=== PATIENT | female | born 1955 | race Caucasian/White ===

== ENCOUNTER → 2016-03-05 | Outpatient (CLI) | payer BC ==
[~2016-03-05] MED LIST: ALPR-411 PO; B-CO1CAP3 PO; CALC500C70 PO; CALC625T35 PO; DICL1GEL12 TOP; ESCI10TA17 PO; ESCI1TAB10 PO; FLV1 PO; FOLI1TAB7 PO; GARL10007 PO; HYDR-5688 PO; METO25TA3 PO; MULT-506 PO; OMEG10007 PO; SENNTAB23 PO; SIMV40TA2 PO; SULF800T23 PO; THIA1TAB11 PO; THM100 PO; VITACAP26 PO; XNXUNK; ZCRUNK; ZYP5 PO
--- NOTE | 2016-03-05 16:29 | DIAGNOSTIC IMAGING REPORT ---
LEFT HIP 2 VIEWS CLINICAL HISTORY: Trochanteric bursitis. FINDINGS: AP and frog-leg views of the left hip are obtained. No prior studies are available for comparison at the time of dictation. The skeletal structures are osteopenic. No fracture is seen in the left hip or the visualized left hemipelvis. The joint space of the left hip is preserved. Minimal sclerotic change is seen at the left sacroiliac joint. The overlying soft tissues are within normal limits. IMPRESSION: No acute bony abnormality is seen in the left hip. Electronically signed by: Brett Sainz M.D. 03/05/2016 4:27 PM Dictated Date/Time: 03/05/2016 4:26 PM
== END | disposition home or self-care (01) ==
LOC: C.RADBC 16:09
PROVIDERS: ATTEND Internal Medicine Geriatric Medicine
DX: M70.60 Trochanteric bursitis, unspecified hip (principal)

== ENCOUNTER → 2016-06-26 | Outpatient (CLI) | payer BC ==
[~2016-06-26] MED LIST changes: +BUSP5TAB59 PO
--- NOTE | 2016-06-26 08:44 | DIAGNOSTIC IMAGING REPORT ---
MRI left hip LEFT LOWER EXT JOINT WITHOUT CLINICAL HISTORY: LT HIP PAIN pain TECHNIQUE: Multiaxial MRI acquisition COMPARISON STUDY: None FINDINGS: Signal characteristics of the osseous structures are unremarkable throughout. There is no bone marrow replacing process. There is no significant joint effusion. There is no evidence for acetabular protrusion. There is a subtle increase in signal of the tissues immediately posterior to the greater trochanter on the left. A component of mild trochanteric bursitis is not excluded. All remaining soft tissue structures are unremarkable. All major ligamentous and tendinous structures are intact. IMPRESSION: Minimal/mild left trochanteric bursitis. Otherwise negative study Electronically signed by: Markus Rg M.D. 06/26/2016 8:43 AM Dictated Date/Time: 06/26/2016 8:36 AM
== END | disposition home or self-care (01) ==
LOC: C.MRIBC 07:34
PROVIDERS: ATTEND Orthopaedic Surgery
DX: M70.62 Trochanteric bursitis, left hip (principal)

== ENCOUNTER → 2016-09-05 | Outpatient (CLI) | payer BC ==
[~2016-09-05] MED LIST changes: -BUSP5TAB59 PO
== END | disposition home or self-care (01) ==
LOC: C.LABSPEC 13:38
PROVIDERS: ATTEND Physician Assistant
DX: L72.0 Epidermal cyst (principal)

== ENCOUNTER → 2016-09-24 | Outpatient (CLI) | payer BC ==
--- NOTE | 2016-09-24 15:42 | MAMMOGRAPHY REPORT ---
BILATERAL DIGITAL SCREENING MAMMOGRAM TOMOSYNTHESIS WITH CAD: 09/24/2016 CLINICAL HISTORY: Asymptomatic. Personal history of breast cancer. TECHNIQUE: Breast tomosynthesis in addition to standard 2D mammography was performed. Current study was also evaluated with a Computer Aided Detection (CAD) system. COMPARISON: Comparison is made to exams dated: 09/22/2015 mammogram, 09/20/2014 mammogram, 09/17/2013 m ammogram, 09/16/2012 mammogram, 09/14/2011 mammogram, and 09/12/2010 mammogram - [facility] enter. BREAST COMPOSITION: The tissue of both breasts is heterogeneously dense, which may obscure small mas ses. FINDINGS: A linear scar marker overlies the right upper outer periareolar breast. There is expected architectural distortion and surgical clips in the 12:00 posterior right breast, denoting the site of prior lumpectomy. No new suspicious mass, architectural distortion or cluster of microcalcification s is seen. IMPRESSION: ACR BI-RADS CATEGORY 1: NEGATIVE There is no mammographic evidence of malignancy. A 1 year screening mammogram is recommended. The pa tient will receive written notification of the results. Approximately 10% of breast cancers are not detected with mammography. A negative mammographic report should not delay biopsy if a clinically suggestive mass is present. Gely Birmingham M.D. ay/:09/24/2016 15:00:51 Mail Inserter: Eveline GRIJALVA)(Kin), [facility] letter sent: Normal 1/2 BI-RADS Code: ACR BI-RADS Category 1: Negative
== END | disposition home or self-care (01) ==
LOC: C.MAMM 09:25
PROVIDERS: ATTEND Internal Medicine Geriatric Medicine
DX: Z12.31 Encounter for screening mammogram for malignant neoplasm of breast (principal); Z85.3 Personal history of malignant neoplasm of breast

== ENCOUNTER → 2016-10-05 | Day surgery (SDC) | payer BC ==
--- NOTE | 2016-09-27 11:18 | DIAGNOSTIC IMAGING REPORT ---
RIGHT ELBOW MIN 3 VIEWS ROUTINE CLINICAL HISTORY: 61 years-old Female presenting with epidermal cyst, right elbow pain, elbow locking. TECHNIQUE: Frontal, oblique, and lateral views of the right elbow were obtained. COMPARISON: None. FINDINGS: Elbow joint congruent. Osteophytosis noted at the lateral epicondyle. No acute fracture or malalignment. Soft tissue swelling over the olecranon. No elbow joint effusion. IMPRESSION: 1. No acute osseous injury. 2. Enthesophyte at the lateral epicondyle. 3. Evidence of olecranon bursitis. Electronically signed by: Khoi Murphy M.D. 09/27/2016 11:16 AM Dictated Date/Time: 09/27/2016 11:14 AM
[2016-10-01 09:15] VITALS: Ht 163.8 cm; Wt 50.0 kg
[~2016-10-05] VITALS: Ht 163.8 cm; Wt 50.0 kg
[~2016-10-05] MED LIST changes: +ATROPINE SULFATE 0.1 MG/ML 5ML SYR IV PRN; +BUPIVACAINE/EPINEPHRINE 0.5% MPF 1:200,000 10 ML VIAL ONE; +CEFAZOLIN 1000MG/55 ML D5W IV SCH; +DEXAMETHASONE SOD INJ 4 MG/ML VIAL ONE; +EpHEDrine SULFATE INJ 50 MG/ML AMP IV PRN; +FENTANYL CITRATE INJ 50 MCG/1 ML 2 ML VIAL IV PRN; +FENTANYL CITRATE INJ 50 MCG/1 ML 2 ML VIAL ONE; +HYDROCODONE/ACETAMOPHEN 5/325MG TAB PO PRN; +LACTATED RINGER'S 1000ML 1,000 ML IV SCH; +LIDOCAINE HCL 2% 2 ML VIAL (20MG/ML) ONE; +MIDAZOLAM HCL 1 MG/ML 2ML VIAL ONE; +ONDANSETRON INJ 2 MG/ML 2 ML VIAL IV PRN; +ONDANSETRON INJ 2 MG/ML 2 ML VIAL ONE; +PROMETHAZINE HCL INJ 6.25 MG in SODIUM CHLORIDE 0.9% 50ML 50 ML IV PRN; +PROPOFOL IV EMULSION 10 MG/ML 20 ML VIAL IV ONE; +SODIUM CHLORIDE 0.9% 1000ML 1,000 ML IV SCH; -XNXUNK; -ZCRUNK
--- NOTE | 2016-10-05 08:00 | History & Physical Bridge Note ---
H&P Re-Evaluation Bridge Note: I have examined the patient, reviewed the History & Physical and in the interval since the performance of the History & Physical I have noted the following changes of clinical significance: No changes noted
--- NOTE | 2016-10-05 08:59 | [facility] Operative Report ---
Operative Report Operative Date Oct 05, 2016. Pre-Operative Diagnosis Right elbow soft tissue cyst Post-Operative Diagnosis Same Procedure(s) Performed Right Elbow Cyst Excision Surgeon Dr. Arredondo Erection [employer] Supervisor Surgeon(s) Christian Ward PA-C Estimated Blood Loss 5 ml Findings 4 cm soft tissue cyst with clear fluid. Specimens A. Right Elbow Soft Tissue Cyst Anesthesia LMA Complication(s) None Disposition Recovery Room / PACU I attest to the content of the Intraoperative Record and any orders documented therein. Any exceptions are noted below.
--- NOTE | 2016-10-05 09:01 | Discharge Instructions-SurgCtr ---
Discharge Instructions Date of Service Oct 05, 2016. Visit Reason for Visit: Epidermal Cyst;Elbow Locking,Elbow Pain Discharge Discharge Diagnosis / Problem: Epidermal Cyst; Elbow Locking, Elbow Pain Discharge Goals Goal(s): Decrease discomfort, Improve function Activity Recommendations Activity Limitations: as noted below Lifting Limitations: no more than 10 pounds Exercise/Sports Limitations: until after follow-up appointment May Resume Sexual Activity: after follow-up appointment Shower/Bathe: tomorrow Anesthesia . Post Anesthesia Instructions: If you have had General Anesthesia or IV Sedation: * Do not drive today. * Resume driving when surgeon permits. * Do not make important decisions or sign legal documents today. * Call surgeon for: 1. Temperature elevations greater than 101 degrees F. 2. Uncontrollable pain. 3. Excessive bleeding. 4. Persistent nausea and vomiting. 5. Medication intolerance (nausea, vomiting or rash). * For nausea and vomiting use only clear liquids such as: tea, soda, bouillon until nausea subsides, then gradually increase diet as tolerated. * If you have any concerns or questions, call your surgeon's office. If physician is unavailable and it is an emergency, call 911 or go to the nearest emergency room. . Instructions / Follow-Up Instructions / Follow-Up Please follow-up with Dr. Arredondo in the office in 1-2 weeks. Sutures can be removed in 14 days. Please call the office at [phone] to make an appointment if you do not have one already. Please call the office with any questions or concerns. Diet Recommendations Home Diet: no limitations, resume previous diet Pending Studies Studies pending at discharge: yes List of pending studies: Pathology report. Medical Emergencies . Who to Call and When: Medical Emergencies: If at any time you feel your situation is an emergency, please call 911 immediately. . Non-Emergent Contact Non-Emergency issues call your: Primary Care Provider, Surgeon Call Non-Emergent contact if: temperature is above 101.5, your pain is not controlled, wound has increased drainage, wound has increased redness . . "Provider Documentation" section prepared by Jessi Ward. . [place] Drug Monitoring Program Search Results: patient reviewed within database, no issues identified
[2016-10-05 09:47] VITALS: TEMP 36.4
--- NOTE | 2016-10-05 09:51 | Anesthesiology Progress Note ---
Anesthesia Post Op Note Date & Time Oct 05, 2016 at 09:51 Vital Signs Pain Intensity: 0 Vital Signs Past 12 Hours Date Time Temp Pulse Resp B/P (MAP) Pulse Ox O2 Delivery O2 Flow Rate FiO2 10/05/16 09:42 68 17 93 10/05/16 09:42 67 17 10/05/16 09:41 126/64 10/05/16 09:37 72 16 98 10/05/16 09:37 72 16 10/05/16 09:36 37.2 128/74 10/05/16 09:33 65 16 95 10/05/16 09:33 65 16 10/05/16 09:31 142/73 10/05/16 09:28 67 15 10/05/16 09:28 67 15 98 10/05/16 09:26 140/70 10/05/16 09:23 65 14 100 10/05/16 09:23 66 14 10/05/16 09:21 121/74 10/05/16 09:18 66 15 100 10/05/16 09:18 66 15 10/05/16 09:16 129/74 10/05/16 09:13 68 15 10/05/16 09:13 68 15 98 10/05/16 09:10 129/76 10/05/16 09:08 67 15 98 10/05/16 09:08 67 15 10/05/16 09:06 119/74 10/05/16 09:03 67 22 10/05/16 09:03 67 22 99 10/05/16 09:01 134/72 10/05/16 09:00 36.6 67 16 136/79 98 Mask 6 10/05/16 08:59 136/79 10/05/16 06:57 36.9 75 16 149/90 (109) 97 Room Air Notes Mental Status: alert / awake / arousable, participated in evaluation Pt Amnestic to Procedure: Yes Nausea / Vomiting: adequately controlled Pain: adequately controlled Airway Patency, RR, SpO2: stable & adequate BP & HR: stable & adequate Hydration State: stable & adequate Anesthetic Complications: no major complications apparent
--- NOTE | 2016-10-05 09:52 | OPERATIVE REPORT ---
DATE OF OPERATION: 10/05/2016 PREOPERATIVE DIAGNOSIS: Right elbow soft tissue cyst. POSTOPERATIVE DIAGNOSIS: Same, approximately 4 cm in diameter. PROCEDURE: Excision right elbow soft tissue cyst with multilayer closure. SURGEON: Dr. Arredondo. PLATE FORMER: Jessi Ward PA-C. ESTIMATED BLOOD LOSS: Approximately 5 mL. COMPLICATIONS: No immediate. ANESTHESIA: General with a laryngeal mask airway. DESCRIPTION OF PROCEDURE: After informed consent was obtained, the patient was taken to the operating suite and placed in the supine position. After successful placement of laryngeal mask airway, the right elbow was sterilely prepped and draped in usual fashion. I made a linear incision directly over the palpable cyst. It was carried down through the soft tissue using electrocautery. The cyst was very thin walled. A small hole was made in it, releasing clear serous-type fluid. We used traction, counter traction and electrocautery to excise the cyst in several pieces removing it in its entirety. Once the cyst was completely removed, we then controlled any small bleeding points using electrocautery. I thoroughly irrigated the wound and closed it in multiple layers using 3-0 Vicryl for the deeper layers and interrupted 3-0 Prolene with vertical mattress sutures for the skin. Marcaine was injected around it for postoperative analgesia and a sterile dressing was applied. The patient was awakened, extubated, and transferred to recovery in stable condition. I attest to the content of the Intraoperative Record and any orders documented therein. Any exception s are noted below.
[2016-10-05 10:33] VITALS: BP 144/77; PULSE 73; O2SAT 97
== END | disposition home or self-care (01) ==
LOC: X.SURG 06:29
PROVIDERS: ATTEND Surgery
DX: L72.0 Epidermal cyst (principal); G25.0 Essential tremor; I10 Essential (primary) hypertension; E78.5 Hyperlipidemia, unspecified; E87.1 Hypo-osmolality and hyponatremia; K21.9 Gastro-esophageal reflux disease without esophagitis; M85.80 Other specified disorders of bone density and structure, unspecified site; M19.90 Unspecified osteoarthritis, unspecified site; F41.8 Other specified anxiety disorders; F17.200 Nicotine dependence, unspecified, uncomplicated; Z79.899 Other long term (current) drug therapy

== ENCOUNTER 2016-10-06 19:20 | Inpatient (IN) | payer BC ==
[~2016-10-06] VITALS: Ht 162.6 cm; Wt 49.5 kg
[~2016-10-06 19:20] MED LIST changes: -ALPR-411 PO; -ATROPINE SULFATE 0.1 MG/ML 5ML SYR IV PRN; -B-CO1CAP3 PO; -BUPIVACAINE/EPINEPHRINE 0.5% MPF 1:200,000 10 ML VIAL ONE; -CALC500C70 PO; -CALC625T35 PO; -CEFAZOLIN 1000MG/55 ML D5W IV SCH; -DEXAMETHASONE SOD INJ 4 MG/ML VIAL ONE; -DICL1GEL12 TOP; -ESCI10TA17 PO; -EpHEDrine SULFATE INJ 50 MG/ML AMP IV PRN; -FENTANYL CITRATE INJ 50 MCG/1 ML 2 ML VIAL IV PRN; -FENTANYL CITRATE INJ 50 MCG/1 ML 2 ML VIAL ONE; -FLV1 PO; -FOLI1TAB7 PO; -GARL10007 PO; -HYDROCODONE/ACETAMOPHEN 5/325MG TAB PO PRN; -LACTATED RINGER'S 1000ML 1,000 ML IV SCH; -LIDOCAINE HCL 2% 2 ML VIAL (20MG/ML) ONE; -METO25TA3 PO; -MIDAZOLAM HCL 1 MG/ML 2ML VIAL ONE; -MULT-506 PO; -OMEG10007 PO; -ONDANSETRON INJ 2 MG/ML 2 ML VIAL IV PRN; -ONDANSETRON INJ 2 MG/ML 2 ML VIAL ONE; -PROMETHAZINE HCL INJ 6.25 MG in SODIUM CHLORIDE 0.9% 50ML 50 ML IV PRN; -PROPOFOL IV EMULSION 10 MG/ML 20 ML VIAL IV ONE; -SENNTAB23 PO; -SIMV40TA2 PO; -SODIUM CHLORIDE 0.9% 1000ML 1,000 ML IV SCH; -THIA1TAB11 PO; -THM100 PO; -ZYP5 PO
[2016-10-06] MEDS ORDERED: SODIUM CHLORIDE 0.9% 1000ML 1,000 ML IV ONE (19:39)
[2016-10-06] MEDS ORDERED: ONDANSETRON INJ 2 MG/ML 2 ML VIAL IV STA (19:39)
[2016-10-06] MEDS ORDERED: SODIUM CHLORIDE 0.9% 1000ML 1,000 ML IV STA ×2 (19:39→21:28)
[2016-10-06] MEDS ORDERED: PIPERACILLIN/TAZOBACTAM 4.5 GM/100ML D5W IV STA (19:39)
--- NOTE | 2016-10-06 19:51 | EMERGENCY ROOM VISIT NOTE ---
History Report prepared by Michaelibtheron: Brenda Clemente Under the Supervision of: Dr. Brett Martin M.D. First contact with patient: 19:25 Chief Complaint: VOMITING Stated Complaint: FEVER, HYPOTENSIVE, TACHYCARDIA History of Present Illness The patient is a 61 year old female who presents to the Emergency Room with complaints of persistent vomiting for the past 1 day. She was brought to the ED via EMS. The patient had a cyst removed from her right elbow yesterday by Dr. Arredondo. She states after the procedure, she went to get something to eat and "immediately started vomiting". She has been unable to keep anything down, even water, since then. This afternoon, she went to a local [facility] clinic for her symptoms and was found to be febrile with a temperature of 100.8. Her blood pressure was also found to be low, and the patient complained of feeling extremely dizzy, so an ambulance was called. She was treated with Tylenol and Zofran at [facility]. She states she has not had any pain from her procedure site and notes she was unaware she was running a fever until she got to [facility]. The patient denies any cough, shortness of breath, abdominal pain, urinary symptoms. She admits to drinking "1 or 2" alcoholic beverages each night and states she has not drank since before her procedure. She denies any history of ETOH withdrawal. Source of History: patient Onset: 1 day [employer] Position: other (global) Quality: other (fever) Timing: other (persistent) Modifying Factors (Relieving): tylenol Associated Symptoms: + nausea, No cough, No SOB, No abdominal pain, No urinary symptoms Review of Systems See HPI for pertinent positives & negatives. A total of 10 systems reviewed and were otherwise negative. Past Medical & Surgical Medical Problems: (1) Depression (2) History of breast cancer (3) Hyperlipidemia (4) Hypertension (5) Left hip pain (6) SIRS (systemic inflammatory response syndrome) (7) Tear of medial meniscus of left knee Social History Smoking Status: Current Every Day Smoker Smokeless Tobacco Use: No Alcohol Use: occasionally Drug Use: none Marital Status: Housing Status: lives with family Occupation Status: employed Current/Historical Medications Scheduled Alprazolam (Xanax), 0.5 MG PO BID B-Complex Vitamins (B Complex), 1 CAP PO QAM Calcium Polycarbophil (Fiber), 4 TAB PO BID Calcium/Vitamin D (Os-Justin 500 Plus D), 1 TAB PO QAM Diclofenac Sodium (Topical) (Voltaren 1% Top Gel), 1 DOSE TOP DAILY Escitalopram (Lexapro), 10 MG PO DAILY Fish Oil ([place]-3), 1 CAP PO QAM Garlic (Garlic), 1 TAB PO QAM Metoprolol Succ (Toprol Xl) (Toprol-Xl), 25 MG PO QAM Multivitamin (Multivitamin), 1 TAB PO QAM Sennosides-Docusate Sodium (Stool Softener), 1 TAB PO QAM Simvastatin (Zocor), 40 MG PO QPM Vitamins C & E (Vitamin C), 1 CAP PO QAM Scheduled PRN Hydrocodone/Acetaminophen 5MG/325MG ([place] 5MG/325MG), 1-2 TABLETS PO Q4 PRN for Pain Sulfamethoxazole-Trimethoprim (Bactrim Ds 800MG/160MG), 1 TAB PO BID PRN for post-op Allergies Coded Allergies: Codeine (Verified Adverse Reaction, Mild, NAUSEA, 10/05/16) Physical Exam Vital Signs Date Time Temp Pulse Resp B/P (MAP) Pulse Ox O2 Delivery O2 Flow Rate FiO2 10/06/16 22:31 86 22 99/60 98 Room Air 10/06/16 22:07 91 26 92/51 95 Room Air 10/06/16 22:01 91 24 66/46 95 Room Air 10/06/16 21:31 99 33 112/60 93 Room Air 10/06/16 21:01 93 84/54 92 Room Air 10/06/16 20:32 97 22 93/50 96 Room Air 10/06/16 20:13 Room Air 10/06/16 20:01 99 18 90/53 93 Room Air 10/06/16 19:59 97 10/06/16 19:32 36.8 101 18 96/61 96 Room Air Physical Exam GENERAL: Patient is in no acute distress. HEENT: No acute trauma, normocephalic atraumatic, mucous membranes are dry, no nasal congestion, no scleral icterus. NECK: No stridor, no adenopathy, no meningismus, trachea is midline. LUNGS: Decreased breath sounds bilaterally, no crackles, no wheezes, breath sounds equal HEART: Tachycardic heart rate, regular rhythm, no murmur ABDOMEN: Soft, nontender, bowel sounds positive, no hernias, no peritonitis. EXTREMITIES: No cyanosis or edema, full range of motion of all the joints without pain or difficulty, no signs for acute trauma. Right elbow incision without infection. NEUROLOGIC: Oriented x 3, no acute motor or sensory deficits, no focal weakness. The patient seems somewhat agitated. Tremors noted. SKIN: No rash, no jaundice, no diaphoresis. Medical Decision & Procedures ER Provider Diagnostic Interpretation: Radiology results as stated below per my review and radiologist interpretation: CHEST ONE VIEW PORTABLE CLINICAL HISTORY: Sepsis. COMPARISON STUDY: History of June 29, 2014. FINDINGS: No pneumothorax or pleural effusion is present. Interstitial thickening is unchanged and is chronic. Right apical opacity suggests scarring. There is a possible 7 mm right apical nodule. Cardiac size is normal. Mediastinal contours are normal. There is no evidence of pulmonary edema. There are several old right rib fractures. There are suspected postoperative findings within the right breast. IMPRESSION: 1. No acute cardiopulmonary findings. 2. Possible 7 mm right apical nodule. This likely reflects scarring although a nodule could appear similar. A nonemergent chest CT is recommended. Electronically signed by: Hector Johnson M.D. 10/06/2016 8:13 PM Laboratory Results 10/06/16 19:55 Red Blood Count 3.70, Mean Corpuscular Volume 101.4, Mean Corpuscular Hemoglobin 36.2, Mean Corpuscular Hemoglobin Concent 35.7, Mean Platelet Volume 10.5, Neutrophils (%) (Auto) 91.8, Lymphocytes (%) (Auto) 2.2, Monocytes (%) ( Auto) 3.8, Eosinophils (%) (Auto) 1.1, Basophils (%) (Auto) 0.0, Neutrophils # ( Auto) 10.40, Lymphocytes # (Auto) 0.25, Monocytes # (Auto) 0.43, Eosinophils # ( Auto) 0.12, Basophils # (Auto) 0.00 10/06/16 19:55 Test 10/06/16 19:55 10/06/16 20:14 10/06/16 22:20 White Blood Count 11.32 K/uL (4.8-10.8) Red Blood Count 3.70 M/uL (4.2-5.4) Hemoglobin 13.4 g/dL (12.0-16.0) Hematocrit 37.5 % (37-47) Mean Corpuscular Volume 101.4 fL (80-100) Mean Corpuscular Hemoglobin 36.2 pg (25-34) Mean Corpuscular Hemoglobin Concent 35.7 g/dl (32-36) Platelet Count 85 K/uL (130-400) Mean Platelet Volume 10.5 fL (7.4-10.4) Neutrophils (%) (Auto) 91.8 % Lymphocytes (%) (Auto) 2.2 % Monocytes (%) (Auto) 3.8 % Eosinophils (%) (Auto) 1.1 % Basophils (%) (Auto) 0.0 % Neutrophils # (Auto) 10.40 K/uL (1.4-6.5) Lymphocytes # (Auto) 0.25 K/uL (1.2-3.4) Monocytes # (Auto) 0.43 K/uL (0.11-0.59) Eosinophils # (Auto) 0.12 K/uL (0-0.5) Basophils # (Auto) 0.00 K/uL (0-0.2) RDW Standard Deviation 51.9 fL (36.4-46.3) RDW Coefficient of Variation 14.0 % (11.5-14.5) Immature Granulocyte % (Auto) 1.1 % Immature Granulocyte # (Auto) 0.12 K/uL (0.00-0.02) Platelet Estimate DECREASED Red Blood Cell Morphology Unremarkable Prothrombin Time 14.6 SECONDS (9.0-12.0) Prothromb Time International Ratio 1.3 (0.9-1.1) Activated Partial Thromboplast Time 35.8 SECONDS (21.0-31.0) Partial Thromboplastin Ratio 1.4 Anion Gap 7.0 mmol/L (3-11) Est Creatinine Clear Calc Drug Dose 35.9 ml/min Estimated GFR () 47.5 Estimated GFR (Non- 41.0 BUN/Creatinine Ratio 23.2 (10-20) Calcium Level 9.0 mg/dl (8.5-10.1) Magnesium Level 1.4 mg/dl (1.8-2.4) Total Bilirubin 0.4 mg/dl (0.2-1) Aspartate Amino Transf (AST/SGOT) 65 U/L (15-37) Alanine Aminotransferase (ALT/SGPT) 41 U/L (12-78) Alkaline Phosphatase 40 U/L (45-117) Troponin I 0.777 ng/ml (0-0.045) Total Protein 5.8 gm/dl (6.4-8.2) Albumin 2.8 gm/dl (3.4-5.0) Globulin 3.0 gm/dl (2.5-4.0) Albumin/Globulin Ratio 0.9 (0.9-2) Bedside Lactic Acid Venous 2.51 mmol/L (0.90-1.70) Urine Color YELLOW Urine Appearance CLOUDY (CLEAR) Urine pH >= 9.0 (4.5-7.5) Urine Specific [place] 1.021 (1.000-1.030) Urine Protein 1+ (NEG) Urine Glucose (UA) NEG (NEG) Urine Ketones NEG (NEG) Urine Occult Blood NEG (NEG) Urine Nitrite NEG (NEG) Urine Bilirubin NEG (NEG) Urine Urobilinogen NEG (NEG) Urine Leukocyte Esterase TRACE (NEG) Urine WBC (Auto) 5-10 /hpf (0-5) Urine RBC (Auto) 0-4 /hpf (0-4) Urine Hyaline Casts (Auto) 1-5 /lpf (0-5) Urine Epithelial Cells (Auto) >30 /lpf (0-5) Urine Bacteria (Auto) 1+ (NEG) Urine Renal Epithelial Cells 0-5 /lpf (0-5) Urine Yeast (Auto) (NONE PRSENT) Laboratory results reviewed by me. Medications Administered Medications (Trade) Dose Ordered Sig/Marisa Route Start Time Stop Time Status Last Admin Dose Admin Sodium Chloride 1,000 ml @ 999 mls/hr Q1H1M ONCE IV 10/06/16 19:39 10/06/16 20:39 DC 10/06/16 20:12 999 MLS/HR Piperacillin Sod/ Tazobactam Sod (Zosyn Iv) 4.5 gm ONE STAT IV 10/06/16 19:39 10/06/16 19:43 DC 10/06/16 20:13 4.5 GM Sodium Chloride 1,000 ml @ 125 mls/hr Q8H STAT IV 10/06/16 19:39 10/06/16 23:23 DC 10/06/16 20:13 125 MLS/HR Ondansetron HCl (Zofran Inj) 4 mg NOW STAT IV 10/06/16 19:39 10/06/16 19:43 DC 10/06/16 20:13 4 MG Lorazepam (Ativan Inj) 0.5 mg NOW STAT IV 10/06/16 20:43 10/06/16 20:45 DC 10/06/16 20:54 0.5 MG Magnesium Sulfate (Magnesium Sulfate) 2 gm NOW STAT IV 10/06/16 20:43 10/06/16 20:45 DC 10/06/16 20:55 2 GM Sodium Chloride 1,000 ml @ 999 mls/hr Q1H1M STAT IV 10/06/16 21:28 10/06/16 22:28 DC 10/06/16 22:08 999 MLS/HR Daptomycin 500 mg/ Sodium Chloride 60 ml @ 100 mls/hr NOW STAT IV 10/06/16 21:28 10/06/16 22:03 DC 10/06/16 22:08 100 MLS/HR Lorazepam (Ativan Inj) 1 mg Q2H PRN IV 10/06/16 22:30 11/05/16 22:29 10/06/16 23:04 1 MG ECG Indication: vomiting Rate (beats per minute): 92 Rhythm: normal sinus Findings: T-wave inversion (Anterior, lateral), no ectopy, other (No ST elevation) Comparison ECG Date: ST changes are new when compared to EKG from 09/27/2016 ED Course 1934: The patient was evaluated in room B5. A complete history and physical exam was performed. 1938: Zofran 4 mg IV, NSS 1000 ml @ 125 mls/hr IV, Zosyn 4.5 gm IV, NSS 1000 ml @ 999 mls/hr IV. 2042: Magnesium Sulfate 2 gm IV, Lorazepam 0.5 mg IV. 2114: I reevaluated the patient. She is resting comfortably. I discussed her results and my recommendation she remain in the hospital for further evaluation and management and she verbalized complete understanding and agreement. 2127: Daptomycin 500 mg/NSS 60 ml @ 100 mls/hr IV, NSS 1000 ml @ 999 mls/hr IV. 2135: I discussed the patients case with Dr. Rosen, [facility] Hospitalist. The patient will be further evaluated. Medical Decision The differential diagnoses considered are bacteremia, sepsis, pneumonia, UTI, dehydration, renal failure, cellulitis and withdrawal. There is a mild leukocytosis with a white count of 11,000, this could be consistent with infection. No concerning anemia. Renal panel testing shows some dehydration, no kidney failure, magnesium was low. There were a few scattered liver enzyme elevations. Lactic acid level was somewhat elevated consistent with possibly dehydration and/or sepsis. Chest x-ray did not show pneumonia or CHF. EKG showed a sinus rhythm with some ST changes concerning for possible ischemia or strain. Cardiac enzyme testing did show a slight troponin elevation consistent with possible cardiac injury. Of note, the patient denies chest pain. Urinalysis does not show infection but more so contamination. Blood cultures are pending. On exam, there was no cellulitis. The patient presents a history concerning for sepsis or bacteremia. She was aggressively managed. She was given IV saline, she received IV Zosyn and IV daptomycin as antibiotic coverage. Of note, the patient has a history of smoking and also daily alcohol use, she has not had any alcohol for the last several days and I am concerned that some of her presentation may be withdrawal. She was given a small dose of IV Ativan. She was given IV magnesium for the low magnesium level. I had a long talk with the patient. I do think hospitalization is required. She has numerous findings that require further workup. The patient did consent to a hospital stay. I spoke to case management. The on-call hospitalist was consulted. Medication Reconcilliation Current Medication List: was personally reviewed by me Blood Pressure Screening Patient's blood pressure: Low blood pressure Blood pressure disposition: Referred to PCP Consults Time Called: 2133 Consulting Physician: Dr. Rosen, [facility] Hospitalist Returned Call: 2135 I discussed the patients case with Dr. Rosen [facility] Hospitalist. The patient will be further evaluated. Impression Primary Impression: Sepsis Additional Impressions: Acute electrocardiogram changes Vomiting Elevated troponin Scribe Attestation The scribe's documentation has been prepared under my direction and personally reviewed by me in its entirety. I confirm that the note above accurately reflects all work, treatment, procedures, and medical decision making performed by me. Departure Information Dispostion Being Evaluated By Hospitalist Referrals Cruzito Teixeira M.D. (PCP) Patient Instructions My [facility] Problem Qualifiers
--- NOTE | 2016-10-06 20:15 | DIAGNOSTIC IMAGING REPORT ---
CHEST ONE VIEW PORTABLE CLINICAL HISTORY: Sepsis. COMPARISON STUDY: History of June 29, 2014. FINDINGS: No pneumothorax or pleural effusion is present. Interstitial thickening is unchanged and is chronic. Right apical opacity suggests scarring. There is a possible 7 mm right apical nodule. Cardiac size is normal. Mediastinal contours are normal. There is no evidence of pulmonary edema. There are several old right rib fractures. There are suspected postoperative findings within the right breast. IMPRESSION: 1. No acute cardiopulmonary findings. 2. Possible 7 mm right apical nodule. This likely reflects scarring although a nodule could appear similar. A nonemergent chest CT is recommended. Electronically signed by: Hector Johnson M.D. 10/06/2016 8:13 PM Dictated Date/Time: 10/06/2016 8:11 PM
[2016-10-06 20:38] LABS: BUN/CREATININE RATIO 23.2 (10-20); CREATININE 1.4 mg/dl (0.60-1.20); MAGNESIUM 1.4 mg/dl (1.8-2.4); POTASSIUM 3.7 mmol/L (3.5-5.1)
[2016-10-06 20:41] LABS: ALB/GLOB RATIO 0.9 (0.9-2)
[2016-10-06] MEDS ORDERED: MAGNESIUM SULFATE 1GM / D5W 1 GM BAG IV STA (20:43)
[2016-10-06] MEDS ORDERED: LORAZEPAM 2 MG/ML 1 ML VIAL IV STA (20:43)
[2016-10-06 20:44] LABS: INR 1.3 (0.9-1.1); PARTIAL THROMBOPLASTIN RATIO 1.4; PROTHROMBIN TIME (PATIENT) 14.6 SECONDS (9.0-12.0)
[2016-10-06 21:04] LABS: HEMATOCRIT 37.5 % (37-47); MEAN CELL VOLUME 101.4 fL (80-100); MEAN CORPUSCULAR HEMOGLOBIN 36.2 pg (25-34); MEAN CORPUSCULAR HGB CONC 35.7 g/dl (32-36); MEAN PLATELET VOLUME 10.5 fL (7.4-10.4); PLATELET COUNT 85 K/uL (130-400); WHITE BLOOD COUNT 11.32 K/uL (4.8-10.8)
[2016-10-06 21:05] LABS: COMPLETE YES; EOS % 1.1 %; IG% 1.1 %; LYMPH % 2.2 %; LYMPH ABS # 0.25 K/uL (1.2-3.4); MONO % 3.8 %; NEUT % 91.8 %; PLT ESTIMATE DECREASED
[2016-10-06] MEDS ORDERED: DAPTOmycin IV 500 MG in SODIUM CHLORIDE 0.9% 50ML 50 ML IV STA (21:28)
[2016-10-06] MEDS ORDERED: ALUMINUM/MAGNESIUM/SIMETH (MAALOX MAX) 30 ML UDC PO PRN (22:30)
[2016-10-06] MEDS ORDERED: ACETAMINOPHEN 325 MG TAB PO PRN (22:30)
[2016-10-06] MEDS ORDERED: NITROGLYCERIN 0.4 MG SL PER TAB CHARGE SL PRN (22:30)
[2016-10-06] MEDS ORDERED: LORAZEPAM 2 MG/ML 1 ML VIAL IV PRN (22:30)
[2016-10-06] MEDS ORDERED: POLYETHYLENE (MIRALAX) 17 GM PACK PO PRN (22:30)
[2016-10-06] MEDS ORDERED: HYDROCODONE/ACETAMOPHEN 5/325MG TAB PO PRN (22:30)
[2016-10-06] MEDS ORDERED: ONDANSETRON INJ 2 MG/ML 2 ML VIAL IV PRN (22:30)
[2016-10-06] MEDS ORDERED: MAGNESIUM HYDROXIDE SUSP 30 ML UDC PO PRN (22:30)
[2016-10-06 22:51] LABS: URINE APPEARANCE CLOUDY (CLEAR); URINE BILIRUBIN NEG (NEG); URINE COLOR YELLOW; URINE EPITHELIAL CELL AUTO >30 /lpf (0-5); URINE NITRITE NEG (NEG); URINE PH >= 9.0 (4.5-7.5); URINE SPECIFIC GRAVITY 1.021 (1.000-1.030); UROBILINOGEN NEG (NEG)
[2016-10-06] MEDS ORDERED: LORAZEPAM 2 MG/ML 1 ML VIAL ONE (22:56)
[2016-10-06 23:00] LABS: MANUAL MICROSCOPIC REQUIRED? NO; REVIEW REQ? YES
[2016-10-06 23:01] LABS: SULFASALICYLIC ACID POS (NEG)
[2016-10-06 23:20] VITALS: BP 80/54; PULSE 86; TEMP 37; O2SAT 95; Ht 162.6 cm; Wt 49.5 kg
[2016-10-06] MEDS: NSS + 20MEQ KCL 1000ML 1,000 ML IV SCH (23:37)
[2016-10-07] VITALS (7 sets, daily range): BP systolic 87–146; BP diastolic 53–86; PULSE 78–113; TEMP 36.9–37.2; O2SAT 91–100
[2016-10-07] MEDS ORDERED: CHLORDIAZEPOXIDE 25 MG CAP PO STA (00:20)
--- NOTE | 2016-10-07 00:25 | History and Physical ---
History & Physical Date & Time of Service: Oct 06, 2016 at 22:13 Chief Complaint: Fever, Hypotensive, Tachycardia Primary Care Physician: Cruzito Teixeira M.D. History of Present Illness Source: patient, family Patient had surgery on Saturday for cyst on right elbow. Since procedure, she has been dizzy, lightheaded and vomiting She has had chills, fevers. She has been very jitter for the past day and had to hold the [place] while ambulating. Cousin took to [employer] this evening and patient had a temperature of 100.8 ( 38.2) She has not had any coughing or shortness of breath. She has been unable to void in the past couple of days. She denies dysuria or urinary frequency. She denies neck stiffness or sensitivity to light. Patient states that she has not been eating well the past 2 days. Past Medical/Surgical History HTN HLD Anxiety Denies Asthma or COPD No cardiac problems Denies kidney or liver problems. Family History Noncontributory Social History Smoking Status: Current Every Day Smoker (1 pack per day) Smokeless Tobacco Use: No Alcohol Use: 1-2 mix; 4 fingers in height in medium glass; last drink was . Drug Use: none Marital Status: Housing status: lives with family Occupational Status: retired ([place]) Immunizations History of Influenza Vaccine: Unknown History of Tetanus Vaccine?: Unknown History of Pneumococcal: Unknown History of Hepatitis B Vaccine: Unknown Multi-Drug Resistant Organisms History of MDRO: No Allergies Coded Allergies: Codeine (Verified Adverse Reaction, Mild, NAUSEA, 10/05/16) Home Medications Scheduled Alprazolam (Xanax), 0.5 MG PO BID B-Complex Vitamins (B Complex), 1 CAP PO QAM Calcium Polycarbophil (Fiber), 4 TAB PO BID Calcium/Vitamin D (Os-Justin 500 Plus D), 1 TAB PO QAM Diclofenac Sodium (Topical) (Voltaren 1% Top Gel), 1 DOSE TOP DAILY Escitalopram (Lexapro), 10 MG PO DAILY Fish Oil (Half Way-3), 1 CAP PO QAM Garlic (Garlic), 1 TAB PO QAM Metoprolol Succ (Toprol Xl) (Toprol-Xl), 25 MG PO QAM Multivitamin (Multivitamin), 1 TAB PO QAM Sennosides-Docusate Sodium (Stool Softener), 1 TAB PO QAM Simvastatin (Zocor), 40 MG PO QPM Vitamins C & E (Vitamin C), 1 CAP PO QAM Scheduled PRN Hydrocodone/Acetaminophen 5MG/325MG ([place] 5MG/325MG), 1-2 TABLETS PO Q4 PRN for Pain Sulfamethoxazole-Trimethoprim (Bactrim Ds 800MG/160MG), 1 TAB PO BID PRN for post-op Review of Systems A 10 point review of systems was negative unless stated above. Physical Exam Vital Signs Date Time Temp Pulse Resp B/P (MAP) Pulse Ox O2 Delivery O2 Flow Rate FiO2 10/06/16 20:32 97 22 93/50 96 Room Air 10/06/16 20:13 Room Air 10/06/16 20:01 99 18 90/53 93 Room Air 10/06/16 19:59 97 10/06/16 19:32 36.8 101 18 96/61 96 Room Air General Appearance: WD/WN, + moderate distress, + pertinent finding (jittery) Head: normocephalic, atraumatic Eyes: normal inspection, EOMI ENT: hearing grossly normal, pharynx normal Neck: supple, no adenopathy, no JVD Respiratory/Chest: lungs clear, no respiratory distress Cardiovascular: no gallop, no murmur, + tachycardia Abdomen/GI: normal bowel sounds, non tender, soft Back: no CVA tenderness, no muscle spasm Extremities/Musculoskelatal: + pertinent finding (tremors) Neurologic/Psych: alert, normal mood/affect, oriented x 3, + pertinent finding (patient agitated and persitently trying to get out of bed; very unsteady gate) Skin: normal color, warm/dry, no rash Lymphatic: no adenopathy Diagnostics Laboratory Results Results Past 24 Hours Test 10/06/16 19:55 10/06/16 20:14 Range/Units White Blood Count 11.32 4.8-10.8 K/uL Red Blood Count 3.70 4.2-5.4 M/uL Hemoglobin 13.4 12.0-16.0 g/dL Hematocrit 37.5 37-47 % Mean Corpuscular Volume 101.4 80-100 fL Mean Corpuscular Hemoglobin 36.2 25-34 pg Mean Corpuscular Hemoglobin Concent 35.7 32-36 g/dl Platelet Count 85 130-400 K/uL Mean Platelet Volume 10.5 7.4-10.4 fL Neutrophils (%) (Auto) 91.8 % Lymphocytes (%) (Auto) 2.2 % Monocytes (%) (Auto) 3.8 % Eosinophils (%) (Auto) 1.1 % Basophils (%) (Auto) 0.0 % Neutrophils # (Auto) 10.40 1.4-6.5 K/uL Lymphocytes # (Auto) 0.25 1.2-3.4 K/uL Monocytes # (Auto) 0.43 0.11-0.59 K/uL Eosinophils # (Auto) 0.12 0-0.5 K/uL Basophils # (Auto) 0.00 0-0.2 K/uL RDW Standard Deviation 51.9 36.4-46.3 fL RDW Coefficient of Variation 14.0 11.5-14.5 % Immature Granulocyte % (Auto) 1.1 % Immature Granulocyte # (Auto) 0.12 0.00-0.02 K/uL Platelet Estimate DECREASED Red Blood Cell Morphology Unremarkable Prothrombin Time 14.6 9.0-12.0 SECONDS Prothromb Time International Ratio 1.3 0.9-1.1 Activated Partial Thromboplast Time 35.8 21.0-31.0 SECONDS Partial Thromboplastin Ratio 1.4 Sodium Level 136 136-145 mmol/L Potassium Level 3.7 3.5-5.1 mmol/L Chloride Level 102 98-107 mmol/L Carbon Dioxide Level 27 21-32 mmol/L Anion Gap 7.0 3-11 mmol/L Blood Urea Nitrogen 33 7-18 mg/dl Creatinine 1.40 0.60-1.20 mg/dl Est Creatinine Clear Calc Drug Dose 35.9 ml/min Estimated GFR () 47.5 Estimated GFR (Non- 41.0 BUN/Creatinine Ratio 23.2 10-20 Random Glucose 110 70-99 mg/dl Calcium Level 9.0 8.5-10.1 mg/dl Magnesium Level 1.4 1.8-2.4 mg/dl Total Bilirubin 0.4 0.2-1 mg/dl Aspartate Amino Transf (AST/SGOT) 65 15-37 U/L Alanine Aminotransferase (ALT/SGPT) 41 12-78 U/L Alkaline Phosphatase 40 45-117 U/L Troponin I 0.777 0-0.045 ng/ml Total Protein 5.8 6.4-8.2 gm/dl Albumin 2.8 3.4-5.0 gm/dl Globulin 3.0 2.5-4.0 gm/dl Albumin/Globulin Ratio 0.9 0.9-2 Bedside Lactic Acid Venous 2.51 0.90-1.70 mmol/L Microbiology Results 10/06/16 Blood Culture, Received Pending 10/06/16 Blood Culture, Received Pending Diagnostic Radiology CHEST ONE VIEW PORTABLE CLINICAL HISTORY: Sepsis. COMPARISON STUDY: History of June 29, 2014. FINDINGS: No pneumothorax or pleural effusion is present. Interstitial thickening is unchanged and is chronic. Right apical opacity suggests scarring. There is a possible 7 mm right apical nodule. Cardiac size is normal. Mediastinal contours are normal. There is no evidence of pulmonary edema. There are several old right rib fractures. There are suspected postoperative findings within the right breast. IMPRESSION: 1. No acute cardiopulmonary findings. 2. Possible 7 mm right apical nodule. This likely reflects scarring although a nodule could appear similar. A nonemergent chest CT is recommended. Impression Assessment and Plan 61 year old female presenting with fevers/chills, suspicious of infection of unclear etiology at this time. Our plan for her is as follows: Systemic Inflammatory Response of Unclear Source - Blood cultures pending - WBC 11; lactate 2.5 - No focal findings on chest x-ray - Right elbow surgical site looks intact without erythema or swelling - UA has leukocyte esterase without nitrites; has epithelial cells so may be contaminated specimen Will send for cultures - Blood cultures pending - Vancomycin and Zosyn empirically Acute Alcohol Withdrawal with Suspected Alcohol Abuse - EtOH DALIA assessments - Gabapentin Taper - Ativan PRN, per protocol - Librium Cap 100 mg once - IV Thiamine, Folate - Multivitamin daily Elevated Troponin - 0.777; New T wave inversion on inferior and anterolateral leads - patient denies chest pain, palpitation, SOB - Platelet count; will hold on giving high dose ASA unless patient complains of chest pain or evolving EKG changes noted - EKG qAM and with chest pain - Trend enzymes q 6 hours - Monitor in Telemetry - Possibly reflects supply-demand mismatch from acute illness Hypertension - HOLD antihypertensives at this time due to low blood pressure Hypomagnesemia - Mg 1.4 - 1 g Mag Sulfate Thrombocytopenia - Platelet in the 80s - Maybe reflect EtOH use - Follow daily Hyperlipidemia - Continue Simvastatin Depression - Continue Lexapro Apical Lung Nodule - Arrange for non-urgent CT at discharge Tobacco Abuse - Nicotine patch - Smoking cessation DVT prophylaxis - SCD - TEDS - Lovenox 30 mg Code Status: Level I Disposition: Telemetry - OT/PT orders Attending Addendum: I have physically seen and examined this patient, have supervised the medical residents activities, and agree with the H&P as noted above with the following exceptions as noted. The patient denies chest pain, palpitations, shortness of breath, cough, lower extremity swelling, vision change, hearing change, sore throat, abdominal pain, pelvic pain, blood in urine or stool, memory loss, rash, abnormal bruising or bleeding, focal weakness, generalized arthralgias or myalgias, back or neck pain, night sweats, or allergy symptoms. She reports a decreased appetite over the past few days, and difficulty ambulating need to hold onto [place]. She's been very jittery. She has expected right elbow tenderness post surgery. The review of systems is otherwise negative other than for that already noted above, and at least 10 systems have been reviewed. The patient is awake, well-developed and adequately nourished, alert and oriented 3, normocephalic and atraumatic, lying in bed and in no acute distress. HEENT--PERRL, EOMI, mucous membranes and oropharynx dry. Neck--supple, no JVD or bruits, thyroid normal, trachea midline, no adenopathy. Heart--normal S1 and S2, no extra beats, no murmurs, rubs or gallops. Lungs--clear bilaterally with good air movement, no respiratory distress, no accessory muscle use. Abdomen--normal bowel sounds and soft, nontender and nondistended, no hernias or masses, no organomegaly. Extremities--no cyanosis, clubbing or edema. There are good distal pulses b/l. Dermatologic--right elbow sutured, tender. Neurologic--cranial nerves II through XII grossly intact, motor and sensory examination normal. Rheumatologic--normal range of motion, nontender, muscles and joints. Psychiatric--normal affect. Assessment and Plan: 1. SIRS/acute alcohol withdrawal-- The patient will be admitted to monitored setting with alcohol protocol for gabapentin and Ativan. Thiamine IV and folate. Empiric Vancomycin and Zosyn IV. 2. Elevated troponin with new EKG changes--The patient will be admitted to telemetry for serial cardiac enzymes, cardiac rhythm monitoring and a 2-D echocardiogram with Dopplers. Questions supply demand mismatch versus more active issue. Level of Care Telemetry Advanced Directives Existing Advance Directive: No Existing Living Will: No Existing Power of Sales Analytics Manager: No Resuscitation Status FULL RESUSCITATION VTE Prophylaxis VTE Risk Assessment Done? Y/N: Yes Risk Level: Moderate Given or contraindicated: Enoxaparin (Lovenox)SQ Social Service Consult None Apply
[2016-10-07] MEDS ORDERED: GABAPENTIN 1200MG LOADING DOSE PO SCH ×2 (00:30)
[2016-10-07] MEDS ORDERED: VANCOMYCIN CONSULT ACTIVE PRN (00:45)
[2016-10-07] MEDS ORDERED: PIPERACILL/TAZOBAC CONSULT ACTIVE PRN (00:45)
[2016-10-07] MEDS ORDERED: MAGNESIUM SULFATE 1GM / D5W 1 GM in PREMIXED IN D5W 100 ML IV STA (00:46)
[2016-10-07] MEDS: PIPERACILL/TAZOBAC IV 3.375 GM in DEXTROSE 5% 100ML 100 ML IV SCH ×3 (02:09→17:43)
[2016-10-07] MEDS: LORAZEPAM 2 MG/ML 1 ML VIAL IV PRN ×7 (03:39→22:47)
[2016-10-07] MEDS ORDERED: VANCOMYCIN INJ 1,300 MG in SODIUM CHLORIDE 0.9% 250ML 250 ML IV SCH (04:00)
[2016-10-07 05:03] LABS: HEMATOCRIT 33.5 % (37-47); MEAN CELL VOLUME 101.5 fL (80-100); MEAN CORPUSCULAR HEMOGLOBIN 35.2 pg (25-34); MEAN CORPUSCULAR HGB CONC 34.6 g/dl (32-36); WHITE BLOOD COUNT 8.55 K/uL (4.8-10.8)
[2016-10-07 05:10] LABS: MEAN PLATELET VOLUME 10.3 fL (7.4-10.4); PLATELET COUNT 75 K/uL (130-400)
[2016-10-07 05:22] LABS: CKMB/CK RATIO 0.8 (0-3.0)
[2016-10-07 05:50] LABS: BASO % 0.1 %; BASO ABS # 0.01 K/uL (0-0.2); COMPLETE YES; ECHINOCYTES 1+; EOS % 2.7 %; IG% 0.9 %; LYMPH % 3.4 %; LYMPH ABS # 0.29 K/uL (1.2-3.4); MONO % 4.3 %; NEUT % 88.6 %; VACUOLIZATION 1+
[2016-10-07] MEDS: GABAPENTIN 600MG Q6H DOSE PO SCH ×2 (06:00→12:00)
--- NOTE | 2016-10-07 08:13 | DIAGNOSTIC IMAGING REPORT ---
CHEST ONE VIEW PORTABLE HISTORY: Hypoxia. increased o2 needs COMPARISON: Chest 10/06/2016. FINDINGS: The heart is normal in size. No pleural effusions. No pneumothorax. Old, healed right-sided rib fractures. Diffuse interstitial thickening, unchanged. No new focal lung consolidations. IMPRESSION: No change in the diffuse interstitial thickening which is likely chronic. No new focal lung consolidations. Electronically signed by: William Jane M.D. 10/07/2016 8:12 AM Dictated Date/Time: 10/07/2016 8:11 AM
[2016-10-07] MEDS: ENOXAPARIN 30 MG/0.3 ML SYR SC SCH (08:34)
[2016-10-07] MEDS: FoLIC ACID INJ 1 MG in SYRINGE 9.8 ML IV SCH (08:34)
[2016-10-07] MEDS: MULTIVITAMIN TAB PO SCH (08:35)
[2016-10-07] MEDS: DICLOFENAC SOD 1% GEL 100 GM TUBE EXT SCH (08:35)
[2016-10-07] MEDS: ALPRAZOLAM 0.5 MG TAB PO SCH ×2 (09:00→20:05)
[2016-10-07] MEDS: ESCITALOPRAM OXALATE 10 MG TAB PO SCH (09:00)
[2016-10-07] MEDS ORDERED: VANCOMYCIN INJ 1,000 MG in SODIUM CHLORIDE 0.9% 250ML 250 ML IV SCH (09:00)
[2016-10-07] MEDS: DOCUSATE SODIUM/SENNA 50/8.6MG TAB PO SCH (09:00)
[2016-10-07] MEDS: THIAMINE HCL INJ 200 MG in SODIUM CHLORIDE 0.9% 50ML 50 ML IV SCH (09:17)
[2016-10-07] MEDS: NICOTINE 14 MG/24 HR TDSY TD SCH (10:54)
[2016-10-07] MEDS: NSS + 20MEQ KCL 1000ML 1,000 ML IV SCH ×2 (10:54→22:16)
[2016-10-07 11:10] LABS: CKMB/CK RATIO 1.4 (0-3.0); CREATININE 0.99 mg/dl (0.60-1.20)
--- NOTE | 2016-10-07 11:47 | Pharmacy Progress Note ---
Pharmacy Abx Initial Consult Date of Service Oct 07, 2016. Pharmacy Dosing Scope Date of Consult: 10/07/16 Consultation requested by: Dr. Rosen Pharmacy is consulted to initiate Vancomycin and Zosyn IV dosing therapy, order appropriate labs and adjust drug dose/frequency. Subjective The patient is a 61 year old female admitted on Oct 06, 2016 at 22:32. Objective Height (Feet): 5 Height (Inches): 4.00 Weight (Kilograms): 51.900 Vital Signs (Past 12Hrs) Vital Signs Past 12 Hours Date Time Temp Pulse Resp B/P (MAP) Pulse Ox O2 Delivery O2 Flow Rate FiO2 10/07/16 08:00 Room Air 10/07/16 07:00 37.2 82 21 101/65 (77) 98 Nasal Cannula 3.0 10/07/16 04:00 Room Air 10/07/16 02:45 37.2 95 21 95/57 (70) 91 Room Air 10/06/16 23:59 Room Air Lab Results (24Hrs) Laboratory Tests (24 Hours) Test 10/07/16 04:32 10/07/16 10:21 White Blood Count 8.55 K/uL (4.8-10.8) Red Blood Count 3.30 M/uL (4.2-5.4) L Hemoglobin 11.6 g/dL (12.0-16.0) L Hematocrit 33.5 % (37-47) L Mean Corpuscular Volume 101.5 fL (80-100) H Mean Corpuscular Hemoglobin 35.2 pg (25-34) H Mean Corpuscular Hemoglobin Concent 34.6 g/dl (32-36) Platelet Count 75 K/uL (130-400) L Mean Platelet Volume 10.3 fL (7.4-10.4) Neutrophils (%) (Auto) 88.6 % Lymphocytes (%) (Auto) 3.4 % Monocytes (%) (Auto) 4.3 % Eosinophils (%) (Auto) 2.7 % Basophils (%) (Auto) 0.1 % Neutrophils # (Auto) 7.57 K/uL (1.4-6.5) H Lymphocytes # (Auto) 0.29 K/uL (1.2-3.4) L Monocytes # (Auto) 0.37 K/uL (0.11-0.59) Eosinophils # (Auto) 0.23 K/uL (0-0.5) Basophils # (Auto) 0.01 K/uL (0-0.2) Total Creatine Kinase 90 U/L (26-192) Micro Results Date/Time Source Procedure Growth Status 10/06/16 20:05 Blood Blood Culture Pending Received 10/06/16 19:55 Blood Blood Culture Pending Received 10/07/16 05:22 Urine , Clean Catch Urine Culture Pending Received Risk Factors for Resistance None identified at this time Assessment & Plan Assessment 61 year old female on empiric IV Vancomycin and Zosyn for SIRS (unknown source of infection). Possible UTI. * Presents with acute kidney injury. sCr was 1.4 mg/dL upon admission, but has improved to 0.99 mg/dL today. Baseline sCr ~0.7 mg/dL. Plan Vancomycin IV * Maintenance dose: 750 mg IV (~14 mg/kg) every 16 hours * Goal trough level for possible UTI/unknown infection : ~15 mcg/mL * Trough level ordered for 10/09 @ 0530 (only prior to the 3rd dose and therefore not reflective of steady state, but would like to assess dosing regimen earlier due to possibly changing renal function) Piperacillin/tazobactam * 4.5 g bolus administered over 30 minutes, then 3.375 g IV extended infusion every 8 hours for CrCl greater than 20 mL/min Pharmacy will continue to follow and will adjust dose/frequency as necessary. Thank you.
--- NOTE | 2016-10-07 12:28 | Pre-Operative Consultation ---
History General Date of Service: Oct 07, 2016. HPI HPI: The patient is a 61 year old female being seen to evaluate recent right elbow cyst excision by Dr Arredondo. She was admitted with possible sepsis. She was seen in urgent care with complaints of nausea and was found to be febrile with hypotension and sent to ED. She does not complain of increased elbow pain or limited movement. Recent labs show an elevation in her troponin levels consistent with a possible AMI. Historian: patient, family Risk Assessment Daily beta landen use?: Yes Beta Landen Details Indication Beta Landen use: hypertension Problem List Medical Problems: (1) Acute electrocardiogram changes Status: Acute (2) Elevated troponin Status: Acute (3) Sepsis Status: Acute (4) Vomiting Status: Acute Medical & Surgical History Past Medical History: cancer - breast, depression, high cholesterol, hypertension Past Surgical History: D&C, orthopedic surgery Family History Family History: cancer Social History Hx Tobacco Use In Past Year?: No Smoking Status: Current Every Day Smoker (1 pack per day) Alcohol: occasionally Drug Use: none Marital status: Housing status: lives with family Occupation status: retired ([place]) Immunizations Have You Had Influenza Vaccine: Unknown Have You Had Tetanus Vaccine: Unknown History of Pneumococcal: Unknown History Hepatitis B Vaccine: Unknown Allergies Allergies: Coded Allergies: Codeine (Verified Adverse Reaction, Mild, NAUSEA, 10/05/16) Medications Current Inpatient Medications Current Inpatient Medications Medications (Trade) Dose Ordered Sig/Marisa Route Start Time Stop Time Status Last Admin Dose Admin Enoxaparin Sodium (Lovenox Inj) 30 mg Q24H SC 10/07/16 09:00 11/06/16 08:59 10/07/16 08:34 30 MG Potassium Chloride/Sodium Chloride 1,000 ml @ 100 mls/hr Q10H IV 10/06/16 23:30 11/05/16 23:29 10/07/16 10:54 100 MLS/HR Acetaminophen (Tylenol Tab) 650 mg Q4H PRN PO 10/06/16 22:30 11/05/16 22:29 10/07/16 03:38 650 MG Al Hydrox/Mg Hydrox/Simethicone (Maalox Max Susp) 15 ml Q4H PRN PO 10/06/16 22:30 11/05/16 22:29 Magnesium Hydroxide (Milk Of Magnesia Susp) 30 ml Q12H PRN PO 10/06/16 22:30 11/05/16 22:29 Ondansetron HCl (Zofran Inj) 4 mg Q6H PRN IV 10/06/16 22:30 11/05/16 22:29 Nitroglycerin (Nitrostat Tab) 0.4 mg UD PRN SL 10/06/16 22:30 11/05/16 22:29 Polyethylene (Miralax Powder Packet) 17 gm DAILY PRN PO 10/06/16 22:30 11/05/16 22:29 Nicotine (Nicoderm Cq 14MG Patch) 1 patch QAM TD 10/07/16 09:00 11/06/16 08:59 10/07/16 10:54 1 PATCH Miscellaneous (Remove Nicoderm Patch) 1 ea HS N/A 10/07/16 21:00 11/06/16 20:59 Thiamine HCl 200 mg/Sodium Chloride 52 ml @ 208 mls/hr QAM IV 10/07/16 09:00 11/06/16 08:59 10/07/16 09:17 208 MLS/HR Folic Acid 1 mg/ Syringe 10 ml @ 5 mls/min QAM IV 10/07/16 09:00 11/06/16 08:59 10/07/16 08:34 5 MLS/MIN Alprazolam (Xanax Tab) 0.5 mg BID PO 10/07/16 09:00 11/06/16 08:59 Diclofenac Sodium (Voltaren 1% Top Gel) 1 appln DAILY EXT 10/07/16 09:00 11/06/16 08:59 10/07/16 08:35 1 APPLN Escitalopram Oxalate (Lexapro Tab) 10 mg DAILY PO 10/07/16 09:00 11/06/16 08:59 Acetaminophen/ Hydrocodone Bitart (Purmela 5/325 Tab) 1 tab Q4 PRN PO 10/06/16 22:30 10/20/16 22:29 Multivitamins (Multivitamin Tab) 1 tab QAM PO 10/07/16 09:00 11/06/16 08:59 Senna/Docusate Sodium (Senokot S Tab) 1 tab QAM PO 10/07/16 09:00 11/06/16 08:59 Simvastatin (Zocor Tab) 40 mg QPM PO 10/07/16 21:00 11/06/16 20:59 Lorazepam (Ativan Inj) PRN Dosing -Active Protocol Q1H PRN IV 10/07/16 00:30 11/06/16 00:29 10/07/16 10:54 2 MG Piperacillin Sod/ Tazobactam Sod 3.375 gm/Dextrose 115 ml @ 28.75 mls/ hr Q8H IV 10/07/16 02:00 10/17/16 01:59 10/07/16 09:16 28.75 MLS/HR Vancomycin HCl (Consult) 1 ea UD PRN N/A 10/07/16 00:45 11/06/16 00:44 Piperacillin Sod/ Tazobactam Sod (Consult) 1 ea UD PRN N/A 10/07/16 00:45 11/06/16 00:44 Gabapentin (Neurontin Tab) 600 mg Q8H PO 10/07/16 20:00 10/08/16 12:01 Gabapentin (Neurontin Tab) 600 mg Q12H PO 10/09/16 00:00 10/09/16 12:01 Gabapentin (Neurontin Tab) 600 mg Q24H PO 10/10/16 12:00 10/10/16 12:01 Vancomycin HCl 750 mg/Sodium Chloride 265 ml @ 125 mls/hr Q16H IV 10/07/16 22:00 10/17/16 21:59 Review of Systems Review of Systems Constitutional: denies chills, denies diaphoresis, fever, denies weakness Eyes: reports: no symptoms ENT: reports: no symptoms reported Cardiovascular: denies: chest pain, chest tightness, chest pressure Respiratory: denies: cough, short of breath, stridor Gastrointestinal: denies abdominal pain, denies constipation, denies diarrhea, nausea, denies vomiting Genitourinary - Female: reports: no symptoms Musculoskeletal: denies back pain, joint pain (post-op), joint swelling (post- op), denies muscle stiffness, denies neck pain Integumentary: denies change in hair/nails, denies dryness, denies lumps, denies rash Neurologic: reports: no symptoms Psychiatric: reports: no symptoms Endocrine: no symptoms Hematologic / Lymphatic: no symptoms Allergic / Immunologic: no symptoms Physical Exam Physical Exam General Appearance: + WD/WN Ears, Nose, Throat: + normal ENT inspection Neck: + abnormal inspection, No tracheal deviation, No lymphadenophy, No stiffness, No tenderness Respiratory: + decreased breath sounds, No rales, No rhonchi, No stridor Cardiovascular: No tachycardia, No gallop/S3, No diastolic murmur, No gallop/S4 , No bradycardia, No systolic murmur Abdomen: No abnormal bowel sounds, No tenderness, No distension, No hernia Extremities: + swelling (right elbow; normal erythema; no fluctuance), No abnormal range of motion, No deformity, No inflammation Neurologic/Psychiatric: No motor deficit/weakness, No disorientation, No sensory deficit Skin Characteristics: No diaphoresis, No pallor, No jaundice, No rash Lymphatic: No abnormal adenopathy Diagnostics Labs Labs Results Past 24 Hours Test 10/06/16 19:55 10/06/16 20:14 10/06/16 22:20 10/06/16 23:48 Range/Units White Blood Count 11.32 4.8-10.8 K/uL Red Blood Count 3.70 4.2-5.4 M/uL Hemoglobin 13.4 12.0-16.0 g/dL Hematocrit 37.5 37-47 % Mean Corpuscular Volume 101.4 80-100 fL Mean Corpuscular Hemoglobin 36.2 25-34 pg Mean Corpuscular Hemoglobin Concent 35.7 32-36 g/dl Platelet Count 85 130-400 K/uL Mean Platelet Volume 10.5 7.4-10.4 fL Neutrophils (%) (Auto) 91.8 % Lymphocytes (%) (Auto) 2.2 % Monocytes (%) (Auto) 3.8 % Eosinophils (%) (Auto) 1.1 % Basophils (%) (Auto) 0.0 % Neutrophils # (Auto) 10.40 1.4-6.5 K/uL Lymphocytes # (Auto) 0.25 1.2-3.4 K/uL Monocytes # (Auto) 0.43 0.11-0.59 K/uL Eosinophils # (Auto) 0.12 0-0.5 K/uL Basophils # (Auto) 0.00 0-0.2 K/uL RDW Standard Deviation 51.9 36.4-46.3 fL RDW Coefficient of Variation 14.0 11.5-14.5 % Immature Granulocyte % (Auto) 1.1 % Immature Granulocyte # (Auto) 0.12 0.00-0.02 K/uL Platelet Estimate DECREASED Red Blood Cell Morphology Unremarkable Prothrombin Time 14.6 9.0-12.0 SECONDS Prothromb Time International Ratio 1.3 0.9-1.1 Activated Partial Thromboplast Time 35.8 21.0-31.0 SECONDS Partial Thromboplastin Ratio 1.4 Sodium Level 136 136-145 mmol/L Potassium Level 3.7 3.5-5.1 mmol/L Chloride Level 102 98-107 mmol/L Carbon Dioxide Level 27 21-32 mmol/L Anion Gap 7.0 3-11 mmol/L Blood Urea Nitrogen 33 7-18 mg/dl Creatinine 1.40 0.60-1.20 mg/dl Est Creatinine Clear Calc Drug Dose 35.9 ml/min Estimated GFR () 47.5 Estimated GFR (Non- 41.0 BUN/Creatinine Ratio 23.2 10-20 Random Glucose 110 70-99 mg/dl Calcium Level 9.0 8.5-10.1 mg/dl Magnesium Level 1.4 1.8-2.4 mg/dl Total Bilirubin 0.4 0.2-1 mg/dl Aspartate Amino Transf (AST/SGOT) 65 15-37 U/L Alanine Aminotransferase (ALT/SGPT) 41 12-78 U/L Alkaline Phosphatase 40 45-117 U/L Troponin I 0.777 0-0.045 ng/ml Total Protein 5.8 6.4-8.2 gm/dl Albumin 2.8 3.4-5.0 gm/dl Globulin 3.0 2.5-4.0 gm/dl Albumin/Globulin Ratio 0.9 0.9-2 Bedside Lactic Acid Venous 2.51 0.90-1.70 mmol/L Urine Color YELLOW Urine Appearance CLOUDY CLEAR Urine pH >= 9.0 4.5-7.5 Urine Specific [place] 1.021 1.000-1.030 Urine Protein 1+ NEG Urine Glucose (UA) NEG NEG Urine Ketones NEG NEG Urine Occult Blood NEG NEG Urine Nitrite NEG NEG Urine Bilirubin NEG NEG Urine Urobilinogen NEG NEG Urine Leukocyte Esterase TRACE NEG Urine WBC (Auto) 5-10 0-5 /hpf Urine RBC (Auto) 0-4 0-4 /hpf Urine Hyaline Casts (Auto) 1-5 0-5 /lpf Urine Epithelial Cells (Auto) >30 0-5 /lpf Urine Bacteria (Auto) 1+ NEG Urine Renal Epithelial Cells 0-5 0-5 /lpf Urine Yeast (Auto) NONE PRSENT Ammonia 18.0 11-32 umol/L Test 10/07/16 04:32 10/07/16 10:21 Range/Units White Blood Count 8.55 4.8-10.8 K/uL Red Blood Count 3.30 4.2-5.4 M/uL Hemoglobin 11.6 12.0-16.0 g/dL Hematocrit 33.5 37-47 % Mean Corpuscular Volume 101.5 80-100 fL Mean Corpuscular Hemoglobin 35.2 25-34 pg Mean Corpuscular Hemoglobin Concent 34.6 32-36 g/dl Platelet Count 75 130-400 K/uL Mean Platelet Volume 10.3 7.4-10.4 fL Neutrophils (%) (Auto) 88.6 % Lymphocytes (%) (Auto) 3.4 % Monocytes (%) (Auto) 4.3 % Eosinophils (%) (Auto) 2.7 % Basophils (%) (Auto) 0.1 % Neutrophils # (Auto) 7.57 1.4-6.5 K/uL Lymphocytes # (Auto) 0.29 1.2-3.4 K/uL Monocytes # (Auto) 0.37 0.11-0.59 K/uL Eosinophils # (Auto) 0.23 0-0.5 K/uL Basophils # (Auto) 0.01 0-0.2 K/uL RDW Standard Deviation 52.0 36.4-46.3 fL RDW Coefficient of Variation 14.1 11.5-14.5 % Immature Granulocyte % (Auto) 0.9 % Immature Granulocyte # (Auto) 0.08 0.00-0.02 K/uL Toxic Vacuolation 1+ Echinocytes 1+ Total Creatine Kinase 93 90 26-192 U/L Creatine Kinase MB 0.7 1.3 0.5-3.6 ng/ml Creatine Kinase MB Ratio 0.8 1.4 0-3.0 Troponin I 0.639 0.447 0-0.045 ng/ml Creatinine 0.99 0.60-1.20 mg/dl Est Creatinine Clear Calc Drug Dose 50.1 ml/min Estimated GFR () 72.3 Estimated GFR (Non- 62.4 Microbiology Results 10/06/16 Blood Culture, Received Pending 10/06/16 Blood Culture, Received Pending 10/07/16 Urine Culture, Received Pending Impression Assessment and Plan Assessment and Plan s/p right elbow cyst removal on 10/[address] Arredondo -normal appearing post-op incision and surrounding area -no cellulitis or abscess -symptoms possibly from AMI
--- NOTE | 2016-10-07 12:33 | CARDIOLOGY CONSULTATION ---
DATE OF CONSULTATION: 10/07/2016 PERTINENT HISTORY: Mrs. Gann is a 61-year-old white female admitted yesterday with fever and hypotension. This consultation was ordered as her troponin I level is mildly elevated. The patient was in her usual state of health until October 05, when she underwent surgery to remove an epidermal cyst from her right elbow. Following the procedure, the patient had complained to her family of "dizziness, vomiting, and feeling jittery." She was also noted to be unsteady with her gait. She did not experience chest pain or shortness of breath. She did notice a low grade fever. She presented to [facility] on October 06 and was noted to have hypotension and a temperature of 100.8 degrees Fahrenheit. She was sent to the Emergency Room for further care. On arrival here, her blood pressure was 80/50. She was started on intravenous antibiotics and admitted to the step down unit. The patient was a difficult historian today. Her family is at the bedside. She has been sedated because of concerns for alcohol withdrawal. The patient specifically denies palpitations and dyspnea. PAST MEDICAL HISTORY: 1. Hypertension. 2. Hypercholesterolemia. 3. Right apical pulmonary nodule. 4. Diverticulosis. 5. Internal hemorrhoids. MEDICATIONS: 1. Vancomycin 1.3 g IV x1. 2. Piperacillin and tazobactam 3.375 g IV q. 8 hours. 3. Simvastatin 40 mg at bedtime. 4. Lovenox 30 mg subQ daily. 5. Neurontin 600 mg q. 6 hours. 6. Nicoderm patch. 7. Lexapro 10 mg daily. 8. Xanax 0.5 mg b.i.d. 9. Folic acid 1 mg IV daily. 10. Vitamin drip. ALLERGIES: CODEINE. SOCIAL HISTORY: The patient is and lives with her . Admits to smoking 1 pack of cigarettes daily for the last 30 years. Admits to heavy alcohol use. FAMILY HISTORY: No early coronary artery disease. REVIEW OF SYSTEMS: A 10-point review of systems was difficult to obtain. PHYSICAL EXAMINATION: GENERAL: This is a well-developed, well-nourished female, appearing older than her stated age. HEENT: Negative. NECK: Supple with full carotid upstrokes. No obvious bruits. Jugular venous pressure is difficult to assess. CARDIOVASCULAR: Reveals a regular rhythm with normal S1 and S2. No S3, S4, or murmurs are noted. LUNGS: Clear without rales, rhonchi, or wheezes. ABDOMEN: Soft, nontender without bruits. EXTREMITIES: Reveal intact radial artery pulses bilaterally. There is no peripheral edema. Dressing across the right elbow is dry. DATA: CBC notes a hemoglobin of 11.6, hematocrit 33.5, white count 8.5, platelet count 75,000. Electrolytes note a sodium of 136, potassium 3.7, chloride 102, bicarb 27, BUN 33, creatinine 1.4, glucose 110. Magnesium level is low at 1.4. Troponin I level on presentation was 0.777 with followup values of 0.639 and 0.447. CKs are normal at 93 and 90 with MB fractions of 0.7 and 1.3. EKG notes sinus rhythm with low voltage throughout. There was poor R-wave progression across the anterior precordium. There is a diffuse nonspecific ST and T-wave abnormality. Chest x-ray shows no acute disease. IMPRESSION: The patient was admitted with fever, and hypotension. Suspect that her mild troponin I level elevation is related to a supply demand mismatch. I doubt that this represents myocardial ischemia. It may be reasonable to check an echocardiogram. Hopefully, there will be no evidence of left ventricular dysfunction, realizing her heavy alcohol use. PLAN: 1. Continue to follow cardiac enzymes as you are. 2. Continue current medications. 3. Consider echocardiogram. 4. Further recommendations depending on her clinical course.
--- NOTE | 2016-10-07 16:55 | Family Medicine Progress Note ---
Progress Note Date of Service Oct 07, 2016. Subjective Pt evaluation today including: conversation w/ patient, physical exam, lab review, review of studies Pain: denies Patient was seen at the bedside. Nurse informed that she was agitated this morning. When I entered the room, she was sleeping and it was hard to wake her up. Second time when I went with Dr. Blair, she was comfortably lying down on her bed. She responded upon calling her by her name. She denies SOB, chest pain , or palpitation. She states that she usually have 2-3 drinks (vodka) every day. She doesn't think she has withdrawal symptoms from alcohol. Constitutional: No fever Respiratory: No cough, No shortness of breath Cardiovascular: No chest pain Abdomen: No pain, No nausea, No vomiting, No diarrhea Female : No dysuria Skin: No rash Medications Current Inpatient Medications Medications (Trade) Dose Ordered Sig/Marisa Route Start Time Stop Time Status Last Admin Dose Admin Enoxaparin Sodium (Lovenox Inj) 30 mg Q24H SC 10/07/16 09:00 11/06/16 08:59 10/07/16 08:34 30 MG Potassium Chloride/Sodium Chloride 1,000 ml @ 100 mls/hr Q10H IV 10/06/16 23:30 11/05/16 23:29 10/07/16 10:54 100 MLS/HR Acetaminophen (Tylenol Tab) 650 mg Q4H PRN PO 10/06/16 22:30 11/05/16 22:29 10/07/16 03:38 650 MG Al Hydrox/Mg Hydrox/Simethicone (Maalox Max Susp) 15 ml Q4H PRN PO 10/06/16 22:30 11/05/16 22:29 Magnesium Hydroxide (Milk Of Magnesia Susp) 30 ml Q12H PRN PO 10/06/16 22:30 11/05/16 22:29 Ondansetron HCl (Zofran Inj) 4 mg Q6H PRN IV 10/06/16 22:30 11/05/16 22:29 Nitroglycerin (Nitrostat Tab) 0.4 mg UD PRN SL 10/06/16 22:30 11/05/16 22:29 Polyethylene (Miralax Powder Packet) 17 gm DAILY PRN PO 10/06/16 22:30 11/05/16 22:29 Nicotine (Nicoderm Cq 14MG Patch) 1 patch QAM TD 10/07/16 09:00 11/06/16 08:59 10/07/16 10:54 1 PATCH Miscellaneous (Remove Nicoderm Patch) 1 ea HS N/A 10/07/16 21:00 11/06/16 20:59 Thiamine HCl 200 mg/Sodium Chloride 52 ml @ 208 mls/hr QAM IV 10/07/16 09:00 11/06/16 08:59 10/07/16 09:17 208 MLS/HR Folic Acid 1 mg/ Syringe 10 ml @ 5 mls/min QAM IV 10/07/16 09:00 11/06/16 08:59 10/07/16 08:34 5 MLS/MIN Alprazolam (Xanax Tab) 0.5 mg BID PO 10/07/16 09:00 11/06/16 08:59 Diclofenac Sodium (Voltaren 1% Top Gel) 1 appln DAILY EXT 10/07/16 09:00 11/06/16 08:59 10/07/16 08:35 1 APPLN Escitalopram Oxalate (Lexapro Tab) 10 mg DAILY PO 10/07/16 09:00 11/06/16 08:59 Acetaminophen/ Hydrocodone Bitart ([place] 5/325 Tab) 1 tab Q4 PRN PO 10/06/16 22:30 10/20/16 22:29 Multivitamins (Multivitamin Tab) 1 tab QAM PO 10/07/16 09:00 11/06/16 08:59 Senna/Docusate Sodium (Senokot S Tab) 1 tab QAM PO 10/07/16 09:00 11/06/16 08:59 Simvastatin (Zocor Tab) 40 mg QPM PO 10/07/16 21:00 11/06/16 20:59 Lorazepam (Ativan Inj) PRN Dosing -Active Protocol Q1H PRN IV 10/07/16 00:30 11/06/16 00:29 10/07/16 10:54 2 MG Piperacillin Sod/ Tazobactam Sod 3.375 gm/Dextrose 115 ml @ 28.75 mls/ hr Q8H IV 10/07/16 02:00 10/17/16 01:59 10/07/16 09:16 28.75 MLS/HR Vancomycin HCl (Consult) 1 ea UD PRN N/A 10/07/16 00:45 11/06/16 00:44 Piperacillin Sod/ Tazobactam Sod (Consult) 1 ea UD PRN N/A 10/07/16 00:45 11/06/16 00:44 Gabapentin (Neurontin Tab) 600 mg Q8H PO 10/07/16 20:00 10/08/16 12:01 Gabapentin (Neurontin Tab) 600 mg Q12H PO 10/09/16 00:00 10/09/16 12:01 Gabapentin (Neurontin Tab) 600 mg Q24H PO 10/10/16 12:00 10/10/16 12:01 Vancomycin HCl 750 mg/Sodium Chloride 265 ml @ 125 mls/hr Q16H IV 10/07/16 22:00 10/17/16 21:59 Objective Vital Signs Date Time Temp Pulse Resp B/P (MAP) Pulse Ox O2 Delivery O2 Flow Rate FiO2 10/07/16 15:46 36.9 82 22 108/71 (83) 98 Nasal Cannula 3.0 10/07/16 12:00 Room Air 10/07/16 11:53 36.9 78 18 87/53 (64) 100 Nasal Cannula 3.0 10/07/16 08:00 Room Air 10/07/16 07:00 37.2 82 21 101/65 (77) 98 Nasal Cannula 3.0 10/07/16 04:00 Room Air 10/07/16 02:45 37.2 95 21 95/57 (70) 91 Room Air 10/06/16 23:59 Room Air 10/06/16 23:20 37.0 86 22 80/54 95 Room Air 10/06/16 22:58 86 22 99/60 98 10/06/16 22:31 86 22 99/60 98 Room Air 10/06/16 22:07 91 26 92/51 95 Room Air 10/06/16 22:01 91 24 66/46 95 Room Air 10/06/16 21:31 99 33 112/60 93 Room Air 10/06/16 21:01 93 84/54 92 Room Air 10/06/16 20:32 97 22 93/50 96 Room Air 10/06/16 20:13 Room Air 10/06/16 20:01 99 18 90/53 93 Room Air 10/06/16 19:59 97 10/06/16 19:32 36.8 101 18 96/61 96 Room Air Physical Exam General Appearance: WD/WN, + mild distress, + pertinent finding (jittery) Neck: supple, trachea midline Respiratory/Chest: chest non-tender, lungs clear, normal breath sounds, no respiratory distress, no accessory muscle use Cardiovascular: regular rate, rhythm, no edema Abdomen: normal bowel sounds, non tender, soft Extremities: non-tender, no pedal edema, + pertinent finding (incision on the right elbow is intact, without erythema or swelling, tremor was noted) Neurologic/Psychiatric: alert, + pertinent finding (agitated and try to get out of the bed) Skin: normal color, warm/dry, no rash Laboratory Results Results Past 24 Hours Test 10/06/16 19:55 10/06/16 20:14 10/06/16 22:20 10/06/16 23:48 Range/Units White Blood Count 11.32 4.8-10.8 K/uL Red Blood Count 3.70 4.2-5.4 M/uL Hemoglobin 13.4 12.0-16.0 g/dL Hematocrit 37.5 37-47 % Mean Corpuscular Volume 101.4 80-100 fL Mean Corpuscular Hemoglobin 36.2 25-34 pg Mean Corpuscular Hemoglobin Concent 35.7 32-36 g/dl Platelet Count 85 130-400 K/uL Mean Platelet Volume 10.5 7.4-10.4 fL Neutrophils (%) (Auto) 91.8 % Lymphocytes (%) (Auto) 2.2 % Monocytes (%) (Auto) 3.8 % Eosinophils (%) (Auto) 1.1 % Basophils (%) (Auto) 0.0 % Neutrophils # (Auto) 10.40 1.4-6.5 K/uL Lymphocytes # (Auto) 0.25 1.2-3.4 K/uL Monocytes # (Auto) 0.43 0.11-0.59 K/uL Eosinophils # (Auto) 0.12 0-0.5 K/uL Basophils # (Auto) 0.00 0-0.2 K/uL RDW Standard Deviation 51.9 36.4-46.3 fL RDW Coefficient of Variation 14.0 11.5-14.5 % Immature Granulocyte % (Auto) 1.1 % Immature Granulocyte # (Auto) 0.12 0.00-0.02 K/uL Platelet Estimate DECREASED Red Blood Cell Morphology Unremarkable Prothrombin Time 14.6 9.0-12.0 SECONDS Prothromb Time International Ratio 1.3 0.9-1.1 Activated Partial Thromboplast Time 35.8 21.0-31.0 SECONDS Partial Thromboplastin Ratio 1.4 Sodium Level 136 136-145 mmol/L Potassium Level 3.7 3.5-5.1 mmol/L Chloride Level 102 98-107 mmol/L Carbon Dioxide Level 27 21-32 mmol/L Anion Gap 7.0 3-11 mmol/L Blood Urea Nitrogen 33 7-18 mg/dl Creatinine 1.40 0.60-1.20 mg/dl Est Creatinine Clear Calc Drug Dose 35.9 ml/min Estimated GFR () 47.5 Estimated GFR (Non- 41.0 BUN/Creatinine Ratio 23.2 10-20 Random Glucose 110 70-99 mg/dl Calcium Level 9.0 8.5-10.1 mg/dl Magnesium Level 1.4 1.8-2.4 mg/dl Total Bilirubin 0.4 0.2-1 mg/dl Aspartate Amino Transf (AST/SGOT) 65 15-37 U/L Alanine Aminotransferase (ALT/SGPT) 41 12-78 U/L Alkaline Phosphatase 40 45-117 U/L Troponin I 0.777 0-0.045 ng/ml Total Protein 5.8 6.4-8.2 gm/dl Albumin 2.8 3.4-5.0 gm/dl Globulin 3.0 2.5-4.0 gm/dl Albumin/Globulin Ratio 0.9 0.9-2 Bedside Lactic Acid Venous 2.51 0.90-1.70 mmol/L Urine Color YELLOW Urine Appearance CLOUDY CLEAR Urine pH >= 9.0 4.5-7.5 Urine Specific [place] 1.021 1.000-1.030 Urine Protein 1+ NEG Urine Glucose (UA) NEG NEG Urine Ketones NEG NEG Urine Occult Blood NEG NEG Urine Nitrite NEG NEG Urine Bilirubin NEG NEG Urine Urobilinogen NEG NEG Urine Leukocyte Esterase TRACE NEG Urine WBC (Auto) 5-10 0-5 /hpf Urine RBC (Auto) 0-4 0-4 /hpf Urine Hyaline Casts (Auto) 1-5 0-5 /lpf Urine Epithelial Cells (Auto) >30 0-5 /lpf Urine Bacteria (Auto) 1+ NEG Urine Renal Epithelial Cells 0-5 0-5 /lpf Urine Yeast (Auto) NONE PRSENT Ammonia 18.0 11-32 umol/L Test 10/07/16 04:32 10/07/16 10:21 10/07/16 16:32 Range/Units White Blood Count 8.55 4.8-10.8 K/uL Red Blood Count 3.30 4.2-5.4 M/uL Hemoglobin 11.6 12.0-16.0 g/dL Hematocrit 33.5 37-47 % Mean Corpuscular Volume 101.5 80-100 fL Mean Corpuscular Hemoglobin 35.2 25-34 pg Mean Corpuscular Hemoglobin Concent 34.6 32-36 g/dl Platelet Count 75 130-400 K/uL Mean Platelet Volume 10.3 7.4-10.4 fL Neutrophils (%) (Auto) 88.6 % Lymphocytes (%) (Auto) 3.4 % Monocytes (%) (Auto) 4.3 % Eosinophils (%) (Auto) 2.7 % Basophils (%) (Auto) 0.1 % Neutrophils # (Auto) 7.57 1.4-6.5 K/uL Lymphocytes # (Auto) 0.29 1.2-3.4 K/uL Monocytes # (Auto) 0.37 0.11-0.59 K/uL Eosinophils # (Auto) 0.23 0-0.5 K/uL Basophils # (Auto) 0.01 0-0.2 K/uL RDW Standard Deviation 52.0 36.4-46.3 fL RDW Coefficient of Variation 14.1 11.5-14.5 % Immature Granulocyte % (Auto) 0.9 % Immature Granulocyte # (Auto) 0.08 0.00-0.02 K/uL Toxic Vacuolation 1+ Echinocytes 1+ Total Creatine Kinase 93 90 26-192 U/L Creatine Kinase MB 0.7 1.3 0.5-3.6 ng/ml Creatine Kinase MB Ratio 0.8 1.4 0-3.0 Troponin I 0.639 0.447 0-0.045 ng/ml Creatinine 0.99 0.60-1.20 mg/dl Est Creatinine Clear Calc Drug Dose 50.1 ml/min Estimated GFR () 72.3 Estimated GFR (Non- 62.4 Microbiology Results 10/06/16 Blood Culture, Received Pending 10/06/16 Blood Culture, Received Pending 10/07/16 Urine Culture, Received Pending Assessment and Plan This is a 61 y/o female with hx of smoking and suspected alcohol abuse presented to the hospital with fevers/chills, suspicious of infection of unclear etiology. She was hypotensive on admission. * Systemic Inflammatory Response of Unclear Source - UA was unremarkable, showed trace of leukocyte esterase without nitrites; has epithelial cells so may be contaminated specimen - CXR: No change in the diffuse interstitial thickening which is likely chronic. No new focal lung consolidation - Right elbow surgical site looks intact without erythema or swelling - BCx and UCx - pending - WBC 11; lactate 2.5 - Started on Vancomycin and Zosyn empirically - Surgery was consulted and patient was seen by Dr. Daniels. He thinks the incision and surrounding area are normal appearing, not the source of infection. * Acute Alcohol Withdrawal with Suspected Alcohol Abuse - EtOH DALIA assessments - Gabapentin Taper - Ativan PRN, per protocol - Librium Cap 100 mg once - IV Thiamine, Folate - Multivitamin daily * Elevated Troponin - On admission she had elevated troponin (0.777), and EKG showed New T wave inversion on inferior and anterolateral leads. Most likely from supply- demand mismatch from acute illness. - Trend troponin q6h, it is trending down - patient denies chest pain, palpitation, SOB - will hold on giving high dose ASA unless patient complains of chest pain or evolving EKG changes noted, noted to have low platelet counts - EKG with chest pain - Monitor in Telemetry - Cardiology was consulted and recommended Echo. Dr. Sevilla evaluated the patient and he doesn't think she had DE, mostly likely supply-demand mismatch. - Echo ordered - result pending * New Onset hypoxia - Patient O2 sat drop below 90 and now requiring O2 supplement. This could be 2/2 underlying COPD given pt is a current smoker or acute infection. - Currently on 3L NC - Continue to observe * S/p Recent right elbow cyst excision - consult surgery - wound care * Hypertension - Continue to hold antihypertensives at this time due to low blood pressure * Hypomagnesemia - Mg 1.4 - 1 g Mag Sulfate - Mg tomorrow am * Thrombocytopenia - Platelet in the 80s - Maybe reflect EtOH use - Follow daily * Hyperlipidemia - Continue Simvastatin * Depression - Continue Lexapro * Apical Lung Nodule - Can be follow as outpatient * Tobacco Abuse - Nicotine patch - Smoking cessation * DVT prophylaxis - SCD - TEDS - Lovenox 30 mg * Code Status - Full code - OT/PT orders Reviewed: Pt Seen/Exam by Me History anxious and tremulous in bed. wants to go home doesn't feels she needs to be in the hospital Constitutional: denies: fever Respiratory: negative: short of breath Cardiovascular: denies chest pain Gastrointestinal/Abdominal: negative: abdominal pain General Appearance: no apparent distress Respiratory: lungs clear, no respiratory distress Cardiovascular: regular rate, rhythm Gastrointestinal: normal bowel sounds, non tender, soft Extremities: other (right elbow surgical incision site with mild surrounding erythema) Neurologic/Psychiatric: alert, oriented x 3, other (anxious, tremulous) Skin Characteristics: warm/dry Assessment/Plan Resident Physician Supervision Note: I was present with Dr. Burton in bedside. I verified the brennan history and physical , reviewed labs and image studies, discussed the case with the resident and agree with the findings and care plan.
[2016-10-07 17:07] LABS: CKMB/CK RATIO 1.5 (0-3.0)
[2016-10-07] MEDS: GABAPENTIN 600MG Q8H DOSE PO SCH (20:04)
[2016-10-07] MEDS: SIMVASTATIN 40 MG TAB PO SCH (20:04)
[2016-10-07] MEDS ORDERED: VANCOMYCIN INJ 750 MG in SODIUM CHLORIDE 0.9% 250ML 250 ML IV SCH (22:00)
[2016-10-07 23:04] LABS: CKMB/CK RATIO 1.4 (0-3.0)
[2016-10-08] VITALS (8 sets, daily range): BP systolic 122–156; BP diastolic 74–88; PULSE 67–81; TEMP 36.2–37; O2SAT 90–94
[2016-10-08] MEDS: LORAZEPAM 2 MG/ML 1 ML VIAL IV PRN ×2 (00:29→08:59)
[2016-10-08] MEDS ORDERED: CLONIDINE HCL 0.1 MG TAB PO STA (01:16)
[2016-10-08] MEDS: PIPERACILL/TAZOBAC IV 3.375 GM in DEXTROSE 5% 100ML 100 ML IV SCH ×2 (01:29→10:41)
[2016-10-08] MEDS: GABAPENTIN 600MG Q8H DOSE PO SCH ×2 (06:09→11:52)
[2016-10-08 06:31] LABS: HEMATOCRIT 33.8 % (37-47); MEAN CELL VOLUME 101.2 fL (80-100); MEAN CORPUSCULAR HEMOGLOBIN 34.7 pg (25-34); MEAN CORPUSCULAR HGB CONC 34.3 g/dl (32-36); RED BLOOD COUNT 3.34 M/uL (4.2-5.4); WHITE BLOOD COUNT 6.12 K/uL (4.8-10.8)
[2016-10-08 07:04] LABS: BUN/CREATININE RATIO 21.2 (10-20); CALCIUM 8.3 mg/dl (8.5-10.1); CREATININE 0.63 mg/dl (0.60-1.20); MAGNESIUM 1.6 mg/dl (1.8-2.4); POTASSIUM 3.7 mmol/L (3.5-5.1)
[2016-10-08 07:09] LABS: MEAN PLATELET VOLUME 10.1 fL (7.4-10.4); PLATELET COUNT 61 K/uL (130-400)
[2016-10-08 07:13] LABS: BASO % 0.2 %; BASO ABS # 0.01 K/uL (0-0.2); COMPLETE YES; EOS % 6.5 %; GIANT PLATELETS 1+; IG% 0.2 %; LYMPH ABS # 0.61 K/uL (1.2-3.4); MONO % 6.4 %; NEUT % 76.7 %; VACUOLIZATION 2+
[2016-10-08] MEDS: NSS + 20MEQ KCL 1000ML 1,000 ML IV SCH ×2 (07:54→16:07)
[2016-10-08] MEDS: FoLIC ACID INJ 1 MG in SYRINGE 9.8 ML IV SCH (07:54)
[2016-10-08] MEDS: ENOXAPARIN 30 MG/0.3 ML SYR SC SCH (07:55)
[2016-10-08] MEDS: DICLOFENAC SOD 1% GEL 100 GM TUBE EXT SCH (07:55)
[2016-10-08] MEDS: NICOTINE 14 MG/24 HR TDSY TD SCH (07:55)
[2016-10-08] MEDS: ESCITALOPRAM OXALATE 10 MG TAB PO SCH (08:01)
[2016-10-08] MEDS: DOCUSATE SODIUM/SENNA 50/8.6MG TAB PO SCH (08:01)
[2016-10-08] MEDS: ALPRAZOLAM 0.5 MG TAB PO SCH ×2 (08:03→19:50)
[2016-10-08] MEDS: MULTIVITAMIN TAB PO SCH (09:01)
--- NOTE | 2016-10-08 09:53 | CARDIOLOGY PROGRESS NOTE ---
DATE: 10/08/2016 SUBJECTIVE: Ms. Gann is seated in bed without complaints of chest pain, dyspnea, or palpitations. OBJECTIVE: VITAL SIGNS: Blood pressure 138/82 with a regular pulse of 80. Respiratory rate is 16. The patient is afebrile at 37.0 degrees Celsius. Saturation is 93% on room air. NECK: Supple with full carotid upstrokes. There are no carotid bruits. Jugular venous pressure is flat at 90 degrees. There is no thyromegaly. CARDIOVASCULAR: Reveals a regular rhythm with normal S1 and S2. Heart sounds are distant. No obvious murmurs. LUNGS: Clear without rales, rhonchi, or wheezes. ABDOMEN: Soft and nontender without bruits. EXTREMITIES: Reveal intact radial artery pulses bilaterally. There is no peripheral edema. LABORATORY DATA: CBC notes hemoglobin 11.6, hematocrit 33.8, white count 6.1, and platelet count 61,000. Electrolytes note a sodium of 139, potassium 3.7, chloride 109, bicarbonate 23, BUN 13, creatinine 0.6, and glucose of 78. Troponin I level is down to 0.364 from a peak value at admission of 0.777. CKs remained normal. material yard clerk is benign. IMPRESSION AND PLAN: 1. Elevated troponin - likely supply demand mismatch as she had significant hypotension at the time of admission. We will review echocardiogram. 2. Hypertension - controlled. 3. Hypercholesterolemia - continue statin. 4. Alcohol abuse - with signs of withdrawal and thrombocytopenia. 5. Fever - workup in progress.
[2016-10-08] MEDS ORDERED: MAGNESIUM SULFATE 1GM / D5W 1 GM in PREMIXED IN D5W 100 ML IV ONE (10:00)
[2016-10-08] MEDS: THIAMINE HCL INJ 200 MG in SODIUM CHLORIDE 0.9% 50ML 50 ML IV SCH (10:26)
[2016-10-08] MEDS ORDERED: VANCOMYCIN INJ 750 MG in SODIUM CHLORIDE 0.9% 250ML 250 ML IV SCH ×3 (11:00)
[2016-10-08] MEDS ORDERED: NURSING VERBAL MED ORDER ONE (16:30)
[2016-10-08] MEDS ORDERED: POLYETHYLENE (MIRALAX) 17 GM PACK PO PRN (16:45)
--- NOTE | 2016-10-08 16:56 | ECHOCARDIOGRAM REPORT ---
*NOTICE TO RECEIVING CONSTITUTION PARTY AGENCY This information is strictly Confidential and protected under [place] law. [place] law prohibits you from making any further disclosure of this information unless further disclosure is expressly permitted by the written consent of the person to whom it pertains or is authorized by law. A general authorization for the release of medical or other information is not sufficient for this purpose. Hospital accepts no responsibility if the information is made available to any other person, INCLUDING THE PATIENT. Interpretation Summary * Name: SNOJA JACKSON Study Date: 10/08/2016 06:20 AM * Patient Location: C.2T\S\E221\S\1 HR: 99 * : 1955 (M/d/yyyy) Gender: Female Height: 64 in * Age: 61 yrs Ethnicity: CA Weight: 114 lb * Ordering Physician: Bertin Burton * Referring Physician: Self, Referred * Performed By: Jesus Blair RCS * * Reason For Study: Elevated Troponin * BSA: 1.5 m2 * Normal chamber dimensions. * Normal biventricular systolic function. * Normal left ventricular wall motion. * Mild aortic regurgitation. * Trace mitral and tricuspid regurgitation. * The study was technically difficult. Procedure Details * Left Ventricle The left ventricle is normal in size. There is normal left ventricular wall thickness. Ejection Fraction = 60-65%. Left ventricular systolic function is normal. The left ventricular wall motion is normal. * Right Ventricle The right ventricle is normal in size and function. * Atria The left atrial size is normal. Right atrial size is normal. No ASD detected; PFO is not assessed. * Mitral Valve The mitral valve is grossly normal. There is no mitral valve stenosis. There is trace mitral regurgitation. * Tricuspid Valve The tricuspid valve is normal. There is no tricuspid stenosis. There is trace tricuspid regurgitation. * Aortic Valve The aortic valve is not well visualized. Aortic stenosis is absent. Mild aortic regurgitation. * Pulmonic Valve The pulmonic valve is not well visualized. The pulmonary valve is inadequately visualized, but the Doppler data is adequate for interpretation. There is no pulmonic valvular stenosis. There is no significant pulmonary regurgitation. * Great Vessels The aortic root is normal size. * Pericardium/Pleural There is no pericardial effusion. * Great Vessels Normal inferior vena cava diameter and respiratory variation suggests normal central venous pressure. * * MMode 2D Measurements and Calculations * IVSd 0.96 cm * * LVIDd 4.0 cm * LVIDs 2.5 cm * LVPWd 0.99 cm * * IVS/LVPW 0.97 * FS 36.9 % * EDV(Teich) 68.9 ml * ESV(Teich) 22.5 ml * EF(Teich) 67.4 % * * EDV(cubed) 62.7 ml * ESV(cubed) 15.7 ml * EF(cubed) 74.9 % * * LV mass(C)d 120.8 grams * LV mass(C)dI 78.5 grams/m\S\2 * * SV(Teich) 46.4 ml * SI(Teich) 30.1 ml/m\S\2 * SV(cubed) 47.0 ml * SI(cubed) 30.5 ml/m\S\2 * * Ao root diam 2.9 cm * Ao root area 6.8 cm\S\2 * LA dimension 2.9 cm * * LA/Ao 1.0 * LVOT diam 2.1 cm * LVOT area 3.5 cm\S\2 * * LVAd ap4 22.8 cm\S\2 * LVLd ap4 7.5 cm * EDV(MOD-sp4) 55.8 ml * EDV(sp4-el) 58.8 ml * LVAs ap4 13.0 cm\S\2 * LVLs ap4 6.4 cm * ESV(MOD-sp4) 23.5 ml * ESV(sp4-el) 22.3 ml * EF(MOD-sp4) 57.8 % * EF(sp4-el) 62.0 % * * LVAd ap2 19.1 cm\S\2 * LVLd ap2 6.7 cm * EDV(MOD-sp2) 45.8 ml * EDV(sp2-el) 46.0 ml * LVAs ap2 11.2 cm\S\2 * LVLs ap2 5.7 cm * ESV(MOD-sp2) 19.5 ml * ESV(sp2-el) 18.6 ml * EF(MOD-sp2) 57.4 % * EF(sp2-el) 59.4 % * * LVLd %diff -11.91 % * EDV(MOD-bp) 53.8 ml * LVLs %diff -11.92 % * ESV(MOD-bp) 22.9 ml * EF(MOD-bp) 57.5 % * * SV(MOD-sp4) 32.3 ml * SI(MOD-sp4) 20.9 ml/m\S\2 * * SV(MOD-sp2) 26.3 ml * SI(MOD-sp2) 17.1 ml/m\S\2 * * SV(MOD-bp) 31.0 ml * SI(MOD-bp) 20.1 ml/m\S\2 * * SV(sp4-el) 36.5 ml * SI(sp4-el) 23.7 ml/m\S\2 * * SV(sp2-el) 27.3 ml * SI(sp2-el) 17.7 ml/m\S\2 * * * Doppler Measurements and Calculations * MV E max justyna 50.9 cm/sec * MV A max justyna 38.3 cm/sec * * MV E/A 1.3 * * MV dec time 0.15 sec * * Ao V2 max 119.4 cm/sec * Ao max PG 5.7 mmHg * Ao max PG (full) 3.0 mmHg * LEONOR(V,A) 2.4 cm\S\2 * LEONOR(V,D) 2.4 cm\S\2 * * LV V1 max PG 2.7 mmHg * * LV V1 max 82.5 cm/sec * * * *
--- NOTE | 2016-10-08 18:16 | Family Medicine Progress Note ---
Progress Note Date of Service Oct 08, 2016. Subjective Pt evaluation today including: conversation w/ patient, conversation w/ family , physical exam, lab review Pain: Denies Voiding: no voiding problems Patient was seen at the bedside. She is one to one now given agitation. She was keep trying to get out from the bed. She was very agitated last night and was given clonidine. Denies SOB or chest. Constitutional: No fever Respiratory: No shortness of breath Cardiovascular: No chest pain Abdomen: No pain, No nausea, No vomiting Medications Current Inpatient Medications Medications (Trade) Dose Ordered Sig/Marisa Route Start Time Stop Time Status Last Admin Dose Admin Enoxaparin Sodium (Lovenox Inj) 30 mg Q24H SC 10/07/16 09:00 11/06/16 08:59 10/08/16 07:55 30 MG Potassium Chloride/Sodium Chloride 1,000 ml @ 100 mls/hr Q10H IV 10/06/16 23:30 11/05/16 23:29 10/08/16 16:07 100 MLS/HR Acetaminophen (Tylenol Tab) 650 mg Q4H PRN PO 10/06/16 22:30 11/05/16 22:29 10/07/16 03:38 650 MG Al Hydrox/Mg Hydrox/Simethicone (Maalox Max Susp) 15 ml Q4H PRN PO 10/06/16 22:30 11/05/16 22:29 Magnesium Hydroxide (Milk Of Magnesia Susp) 30 ml Q12H PRN PO 10/06/16 22:30 11/05/16 22:29 10/08/16 17:12 30 ML Ondansetron HCl (Zofran Inj) 4 mg Q6H PRN IV 10/06/16 22:30 11/05/16 22:29 Nitroglycerin (Nitrostat Tab) 0.4 mg UD PRN SL 10/06/16 22:30 11/05/16 22:29 Nicotine (Nicoderm Cq 14MG Patch) 1 patch QAM TD 10/07/16 09:00 11/06/16 08:59 10/08/16 07:55 1 PATCH Miscellaneous (Remove Nicoderm Patch) 1 ea HS N/A 10/07/16 21:00 11/06/16 20:59 10/07/16 20:05 1 EA Thiamine HCl 200 mg/Sodium Chloride 52 ml @ 208 mls/hr QAM IV 10/07/16 09:00 11/06/16 08:59 10/08/16 10:26 208 MLS/HR Folic Acid 1 mg/ Syringe 10 ml @ 5 mls/min QAM IV 10/07/16 09:00 11/06/16 08:59 10/08/16 07:54 5 MLS/MIN Alprazolam (Xanax Tab) 0.5 mg BID PO 10/07/16 09:00 11/06/16 08:59 10/08/16 08:03 0.5 MG Diclofenac Sodium (Voltaren 1% Top Gel) 1 appln DAILY EXT 10/07/16 09:00 11/06/16 08:59 10/08/16 07:55 1 APPLN Escitalopram Oxalate (Lexapro Tab) 10 mg DAILY PO 10/07/16 09:00 11/06/16 08:59 10/08/16 08:01 10 MG Acetaminophen/ Hydrocodone Bitart ([place] 5/325 Tab) 1 tab Q4 PRN PO 10/06/16 22:30 10/20/16 22:29 Multivitamins (Multivitamin Tab) 1 tab QAM PO 10/07/16 09:00 11/06/16 08:59 10/08/16 09:01 1 TAB Senna/Docusate Sodium (Senokot S Tab) 1 tab QAM PO 10/07/16 09:00 11/06/16 08:59 10/08/16 08:01 1 TAB Simvastatin (Zocor Tab) 40 mg QPM PO 10/07/16 21:00 11/06/16 20:59 10/07/16 20:04 40 MG Lorazepam (Ativan Inj) PRN Dosing -Active Protocol Q1H PRN IV 10/07/16 00:30 11/06/16 00:29 10/08/16 08:59 3 MG Gabapentin (Neurontin Tab) 600 mg Q12H PO 10/09/16 00:00 10/09/16 12:01 Gabapentin (Neurontin Tab) 600 mg Q24H PO 10/10/16 12:00 10/10/16 12:01 Polyethylene (Miralax Powder Packet) 17 gm BID PRN PO 10/08/16 16:45 11/07/16 16:44 Objective Vital Signs Date Time Temp Pulse Resp B/P (MAP) Pulse Ox O2 Delivery O2 Flow Rate FiO2 10/08/16 16:15 92 Room Air 10/08/16 14:53 36.6 67 16 152/83 (106) 92 Room Air 10/08/16 12:16 92 Room Air 10/08/16 10:49 74 15 122/74 (90) 90 Room Air 10/08/16 08:08 81 16 138/82 (100) 93 10/08/16 08:01 92 Room Air 10/08/16 04:00 Room Air 10/08/16 00:00 Room Air 10/07/16 23:52 37.1 113 23 146/86 (106) 95 Room Air 10/07/16 20:00 92 Room Air 10/07/16 19:06 37.2 99 18 127/76 (93) 92 Nasal Cannula 2.0 Physical Exam General Appearance: no apparent distress, + pertinent finding (agitated and tremors was noted) Neck: supple, trachea midline Respiratory/Chest: chest non-tender, lungs clear, normal breath sounds, no respiratory distress, no accessory muscle use Cardiovascular: regular rate, rhythm, no edema Abdomen: normal bowel sounds, non tender, soft Extremities: non-tender, no pedal edema Neurologic/Psychiatric: alert Skin: normal color, warm/dry, no rash Laboratory Results Results Past 24 Hours Test 10/07/16 22:23 10/08/16 06:18 10/08/16 11:15 Range/Units Total Creatine Kinase 95 26-192 U/L Creatine Kinase MB 1.3 0.5-3.6 ng/ml Creatine Kinase MB Ratio 1.4 0-3.0 Troponin I 0.364 0-0.045 ng/ml White Blood Count 6.12 4.8-10.8 K/uL Red Blood Count 3.34 4.2-5.4 M/uL Hemoglobin 11.6 12.0-16.0 g/dL Hematocrit 33.8 37-47 % Mean Corpuscular Volume 101.2 80-100 fL Mean Corpuscular Hemoglobin 34.7 25-34 pg Mean Corpuscular Hemoglobin Concent 34.3 32-36 g/dl Platelet Count 61 130-400 K/uL Mean Platelet Volume 10.1 7.4-10.4 fL Neutrophils (%) (Auto) 76.7 % Lymphocytes (%) (Auto) 10.0 % Monocytes (%) (Auto) 6.4 % Eosinophils (%) (Auto) 6.5 % Basophils (%) (Auto) 0.2 % Neutrophils # (Auto) 4.70 1.4-6.5 K/uL Lymphocytes # (Auto) 0.61 1.2-3.4 K/uL Monocytes # (Auto) 0.39 0.11-0.59 K/uL Eosinophils # (Auto) 0.40 0-0.5 K/uL Basophils # (Auto) 0.01 0-0.2 K/uL RDW Standard Deviation 51.8 36.4-46.3 fL RDW Coefficient of Variation 13.9 11.5-14.5 % Immature Granulocyte % (Auto) 0.2 % Immature Granulocyte # (Auto) 0.01 0.00-0.02 K/uL Toxic Vacuolation 2+ Giant Platelets 1+ Macrocytosis PRESENT Sodium Level 139 136-145 mmol/L Potassium Level 3.7 3.5-5.1 mmol/L Chloride Level 109 98-107 mmol/L Carbon Dioxide Level 23 21-32 mmol/L Anion Gap 7.0 3-11 mmol/L Blood Urea Nitrogen 13 7-18 mg/dl Creatinine 0.63 0.60-1.20 mg/dl Est Creatinine Clear Calc Drug Dose 78.6 ml/min Estimated GFR () 113.8 Estimated GFR (Non- 98.2 BUN/Creatinine Ratio 21.2 10-20 Random Glucose 78 70-99 mg/dl Calcium Level 8.3 8.5-10.1 mg/dl Magnesium Level 1.6 1.8-2.4 mg/dl Total Bilirubin 0.5 0.2-1 mg/dl Direct Bilirubin 0.2 0-0.2 mg/dl Aspartate Amino Transf (AST/SGOT) 51 15-37 U/L Alanine Aminotransferase (ALT/SGPT) 34 12-78 U/L Alkaline Phosphatase 57 45-117 U/L Total Protein 4.9 6.4-8.2 gm/dl Albumin 2.3 3.4-5.0 gm/dl Assessment and Plan This is a 61 y/o female with hx of smoking and suspected alcohol abuse presented to the hospital with fevers/chills, suspicious of infection of unclear etiology. She was hypotensive on admission. Patient was agitated overnight and received Clonidine. Given no growth of BCx and UCx, patient is afebrile and normal WBC, abx was discontinued. * Systemic Inflammatory Response of Unclear Source - Resolved - UA was unremarkable, showed trace of leukocyte esterase without nitrites; has epithelial cells so may be contaminated specimen - CXR: No change in the diffuse interstitial thickening which is likely chronic. No new focal lung consolidation - Right elbow surgical site looks intact without erythema or swelling - BCx and UCx - NG to date - d/kalyani Vancomycin and Zosyn - Surgery was consulted and patient was seen by Dr. Daniels. He thinks the incision and surrounding area are normal appearing, not the source of infection. * Acute Alcohol Withdrawal with Suspected Alcohol Abuse - EtOH DALIA assessments - Gabapentin Taper - Ativan PRN, per protocol - IV changed to PO Thiamine, Folate - Multivitamin daily * Elevated Troponin - On admission she had elevated troponin (0.777), and EKG showed New T wave inversion on inferior and anterolateral leads. Most likely from supply- demand mismatch from acute illness. On repeated EKG T-wave inversion was not noted anymore. - Trend troponin q6h, it is trending down - patient denies chest pain, palpitation, SOB - will hold on giving high dose ASA unless patient complains of chest pain or evolving EKG changes noted, noted to have low platelet counts - EKG with chest pain - Monitor in Telemetry - Cardiology was consulted and recommended Echo. Dr. Sevilla evaluated the patient and he doesn't think she had NM, mostly likely supply-demand mismatch. - Echo was WNL, normal LV systolic function with EF 60-65% * New Onset hypoxia - Resolved - Currently on RA maintaining O2 sat - Continue to observe * S/p Recent right elbow cyst excision - consult surgery - wound care * Hypertension - Will continue to hold for now * Hypomagnesemia - Mg 1.6 - gave 1 g Mag Sulfate - Mg tomorrow am * Thrombocytopenia - Platelet in the 80s - Maybe reflect EtOH use - Follow daily * Hyperlipidemia - Continue Simvastatin * Depression - Continue Lexapro * Apical Lung Nodule - Can be follow as outpatient * Tobacco Abuse - Nicotine patch - Smoking cessation * DVT prophylaxis - SCD - TEDS - Lovenox 30 mg * Code Status - Full code - OT/PT orders Resident Physician Supervision Note: I was present with Dr. Burton during the history and exam. I discussed the case with the resident and agree with the findings and plan as documented in the note. Any exceptions or clarifications are listed here: 61-year-old female is seen with the resident team. Agree with physical exam as noted above. In addition, we examined the right elbow - incision was clean dry and intact, sutures clearly visible. There is slight surrounding erythema but no tenderness or fluctuance appreciated. There is a small amount of serosanguineous discharge on the dressing. The patient is having symptoms consistent with acute alcohol withdrawal. The timing is unclear as to whether her presenting symptoms were secondary to alcohol withdrawal or if her presenting symptoms reflective of an infection and the withdrawal beginning secondarily to her hospitalization. Surgical and infectious sources been unremarkable - the right elbow at the site of the cyst excision does not look to be actively infected; cultures are negative thus far. Documented By: Edgardo Augustin
[2016-10-08] MEDS ORDERED: MoRPHine SULFATE 4 MG/ML 1 ML CARP\\VIAL ONE (18:40)
[2016-10-08] MEDS ORDERED: CLONIDINE HCL 0.1 MG TAB PO PRN (18:45)
[2016-10-08] MEDS: SIMVASTATIN 40 MG TAB PO SCH (19:50)
[2016-10-09] MEDS: GABAPENTIN 600MG Q12H DOSE PO SCH ×2 (00:15→11:42)
[2016-10-09] MEDS: NSS + 20MEQ KCL 1000ML 1,000 ML IV SCH ×3 (02:46→20:22)
[2016-10-09 05:21] VITALS: BP 125/74; PULSE 72; TEMP 36.6; O2SAT 93
[2016-10-09] MEDS ORDERED: VANCOMYCIN TROUGH ONE ×3 (05:30→11:30)
[2016-10-09 06:18] LABS: HEMATOCRIT 37.4 % (37-47); MEAN CELL VOLUME 100.3 fL (80-100); MEAN CORPUSCULAR HEMOGLOBIN 34.9 pg (25-34); MEAN CORPUSCULAR HGB CONC 34.8 g/dl (32-36); RED BLOOD COUNT 3.73 M/uL (4.2-5.4); WHITE BLOOD COUNT 5.02 K/uL (4.8-10.8)
[2016-10-09 06:40] LABS: MEAN PLATELET VOLUME 10.9 fL (7.4-10.4); PLATELET COUNT 62 K/uL (130-400)
[2016-10-09 06:42] LABS: BUN/CREATININE RATIO 20.9 (10-20); CALCIUM 8.4 mg/dl (8.5-10.1); CREATININE 0.47 mg/dl (0.60-1.20)
[2016-10-09 07:08] LABS: BASO % 0.8 %; BASO ABS # 0.04 K/uL (0-0.2); COMPLETE YES; ECHINOCYTES 1+; EOS % 7.8 %; GIANT PLATELETS 1+; IG% 0.6 %; LYMPH % 24.9 %; LYMPH ABS # 1.25 K/uL (1.2-3.4); MONO % 10.4 %; NEUT % 55.5 %; VACUOLIZATION 3+
[2016-10-09 07:11] VITALS: BP 126/71; PULSE 72; TEMP 36.3; O2SAT 95
[2016-10-09] MEDS: ESCITALOPRAM OXALATE 10 MG TAB PO SCH (08:48)
[2016-10-09] MEDS: THIAMINE HCL 100 MG TAB PO SCH (08:49)
[2016-10-09] MEDS: DOCUSATE SODIUM/SENNA 50/8.6MG TAB PO SCH (08:49)
[2016-10-09] MEDS: NICOTINE 14 MG/24 HR TDSY TD SCH (08:50)
[2016-10-09] MEDS: ENOXAPARIN 30 MG/0.3 ML SYR SC SCH (08:50)
[2016-10-09] MEDS: ALPRAZOLAM 0.5 MG TAB PO SCH ×2 (08:51→20:22)
[2016-10-09] MEDS: DICLOFENAC SOD 1% GEL 100 GM TUBE EXT SCH (08:51)
[2016-10-09 11:07] VITALS: BP 125/77; PULSE 71; TEMP 36.3; O2SAT 98
[2016-10-09] MEDS: MULTIVITAMIN TAB PO SCH (11:42)
--- NOTE | 2016-10-09 13:26 | Family Medicine Progress Note ---
Progress Note Date of Service Oct 09, 2016. Subjective Pt evaluation today including: conversation w/ patient, physical exam, lab review Pain: Denies Voiding: no voiding problems Patient was seen at the bedside. She was more wake today. The nurse informed she was able to ambulate with assistance in the hallway. She denied any complaints. PT//OT is ordered. Constitutional: No fever Respiratory: No cough, No shortness of breath Cardiovascular: No chest pain Abdomen: No pain, No nausea, No vomiting, No diarrhea Musculoskeletal: No muscle pain Female : No dysuria Skin: No rash Medications Current Inpatient Medications Medications (Trade) Dose Ordered Sig/Marisa Route Start Time Stop Time Status Last Admin Dose Admin Enoxaparin Sodium (Lovenox Inj) 30 mg Q24H SC 10/07/16 09:00 11/06/16 08:59 10/09/16 08:50 30 MG Potassium Chloride/Sodium Chloride 1,000 ml @ 100 mls/hr Q10H IV 10/06/16 23:30 11/05/16 23:29 10/09/16 11:42 100 MLS/HR Acetaminophen (Tylenol Tab) 650 mg Q4H PRN PO 10/06/16 22:30 11/05/16 22:29 10/07/16 03:38 650 MG Al Hydrox/Mg Hydrox/Simethicone (Maalox Max Susp) 15 ml Q4H PRN PO 10/06/16 22:30 11/05/16 22:29 Magnesium Hydroxide (Milk Of Magnesia Susp) 30 ml Q12H PRN PO 10/06/16 22:30 11/05/16 22:29 10/08/16 17:12 30 ML Ondansetron HCl (Zofran Inj) 4 mg Q6H PRN IV 10/06/16 22:30 11/05/16 22:29 Nitroglycerin (Nitrostat Tab) 0.4 mg UD PRN SL 10/06/16 22:30 11/05/16 22:29 Nicotine (Nicoderm Cq 14MG Patch) 1 patch QAM TD 10/07/16 09:00 11/06/16 08:59 10/09/16 08:50 1 PATCH Miscellaneous (Remove Nicoderm Patch) 1 ea HS N/A 10/07/16 21:00 11/06/16 20:59 10/08/16 19:51 1 EA Alprazolam (Xanax Tab) 0.5 mg BID PO 10/07/16 09:00 11/06/16 08:59 10/09/16 08:51 0.5 MG Diclofenac Sodium (Voltaren 1% Top Gel) 1 appln DAILY EXT 10/07/16 09:00 11/06/16 08:59 10/09/16 08:51 1 APPLN Escitalopram Oxalate (Lexapro Tab) 10 mg DAILY PO 10/07/16 09:00 11/06/16 08:59 10/09/16 08:48 10 MG Acetaminophen/ Hydrocodone Bitart ([place] 5/325 Tab) 1 tab Q4 PRN PO 10/06/16 22:30 10/20/16 22:29 Multivitamins (Multivitamin Tab) 1 tab QAM PO 10/07/16 09:00 11/06/16 08:59 10/09/16 11:42 1 TAB Senna/Docusate Sodium (Senokot S Tab) 1 tab QAM PO 10/07/16 09:00 11/06/16 08:59 10/09/16 08:49 1 TAB Simvastatin (Zocor Tab) 40 mg QPM PO 10/07/16 21:00 11/06/16 20:59 10/08/16 19:50 40 MG Lorazepam (Ativan Inj) PRN Dosing -Active Protocol Q1H PRN IV 10/07/16 00:30 11/06/16 00:29 10/08/16 08:59 3 MG Gabapentin (Neurontin Tab) 600 mg Q24H PO 10/10/16 12:00 10/10/16 12:01 Polyethylene (Miralax Powder Packet) 17 gm BID PRN PO 10/08/16 16:45 11/07/16 16:44 Thiamine HCl (Vitamin B-1 Tab) 200 mg QAM PO 10/09/16 09:00 11/08/16 08:59 10/09/16 08:49 200 MG Folic Acid (Folvite Tab) 1 mg QAM PO 10/09/16 09:00 11/08/16 08:59 10/09/16 08:49 1 MG Clonidine HCl (Catapres Tab) 0.1 mg Q6H PRN PO 10/08/16 18:45 11/07/16 18:44 Objective Vital Signs Date Time Temp Pulse Resp B/P (MAP) Pulse Ox O2 Delivery O2 Flow Rate FiO2 10/09/16 15:35 36.3 74 18 143/84 (103) 96 Room Air 10/09/16 12:15 Room Air 10/09/16 11:07 36.3 71 17 125/77 (93) 98 Room Air 10/09/16 08:30 Room Air 10/09/16 07:11 36.3 72 18 126/71 (89) 95 Room Air 10/09/16 05:21 36.6 72 18 125/74 (91) 93 Room Air 10/09/16 04:00 Room Air 10/09/16 00:00 Room Air 10/08/16 23:31 37.0 75 20 147/78 (101) 94 Room Air 10/08/16 20:15 36.2 77 16 156/88 (110) 92 Room Air 10/08/16 20:00 Room Air 10/08/16 16:15 92 Room Air Physical Exam General Appearance: WD/WN, no apparent distress, + pertinent finding (tremor was noted) Neck: supple, trachea midline Respiratory/Chest: chest non-tender, lungs clear, normal breath sounds, no respiratory distress, no accessory muscle use Cardiovascular: regular rate, rhythm, no edema Abdomen: normal bowel sounds, non tender, soft Extremities: non-tender, no pedal edema Neurologic/Psychiatric: alert Skin: normal color, warm/dry, no rash Laboratory Results Results Past 24 Hours Test 10/09/16 05:57 10/09/16 05:58 Range/Units Sodium Level 139 136-145 mmol/L Potassium Level 4.0 3.5-5.1 mmol/L Chloride Level 108 98-107 mmol/L Carbon Dioxide Level 23 21-32 mmol/L Anion Gap 8.0 3-11 mmol/L Blood Urea Nitrogen 10 7-18 mg/dl Creatinine 0.47 0.60-1.20 mg/dl Est Creatinine Clear Calc Drug Dose 106.0 ml/min Estimated GFR () 125.3 Estimated GFR (Non- 108.1 BUN/Creatinine Ratio 20.9 10-20 Random Glucose 69 70-99 mg/dl Calcium Level 8.4 8.5-10.1 mg/dl White Blood Count 5.02 4.8-10.8 K/uL Red Blood Count 3.73 4.2-5.4 M/uL Hemoglobin 13.0 12.0-16.0 g/dL Hematocrit 37.4 37-47 % Mean Corpuscular Volume 100.3 80-100 fL Mean Corpuscular Hemoglobin 34.9 25-34 pg Mean Corpuscular Hemoglobin Concent 34.8 32-36 g/dl Platelet Count 62 130-400 K/uL Mean Platelet Volume 10.9 7.4-10.4 fL Neutrophils (%) (Auto) 55.5 % Lymphocytes (%) (Auto) 24.9 % Monocytes (%) (Auto) 10.4 % Eosinophils (%) (Auto) 7.8 % Basophils (%) (Auto) 0.8 % Neutrophils # (Auto) 2.79 1.4-6.5 K/uL Lymphocytes # (Auto) 1.25 1.2-3.4 K/uL Monocytes # (Auto) 0.52 0.11-0.59 K/uL Eosinophils # (Auto) 0.39 0-0.5 K/uL Basophils # (Auto) 0.04 0-0.2 K/uL RDW Standard Deviation 50.3 36.4-46.3 fL RDW Coefficient of Variation 13.8 11.5-14.5 % Immature Granulocyte % (Auto) 0.6 % Immature Granulocyte # (Auto) 0.03 0.00-0.02 K/uL Toxic Vacuolation 3+ Giant Platelets 1+ Macrocytosis PRESENT Echinocytes 1+ Assessment and Plan This is a 61 y/o female with hx of smoking and suspected alcohol abuse presented to the hospital with fevers/chills, suspicious of infection of unclear etiology. She was hypotensive on admission. Given no growth of BCx and UCx, patient is afebrile and normal WBC, abx was discontinued. * Acute Alcohol Withdrawal with Suspected Alcohol Abuse - EtOH DALIA assessments - Gabapentin Taper - Ativan PRN, per protocol - PO Thiamine, Folate - Multivitamin daily * Elevated Troponin - On admission she had elevated troponin (0.777), and EKG showed New T wave inversion on inferior and anterolateral leads. Most likely from supply- demand mismatch from acute illness. On repeated EKG T-wave inversion was not noted anymore. - Trend troponin q6h, it is trending down - patient denies chest pain, palpitation, SOB - will hold on giving high dose ASA unless patient complains of chest pain or evolving EKG changes noted, noted to have low platelet counts - EKG with chest pain - Monitor in Telemetry - Cardiology was consulted and recommended Echo. Dr. Sevilla evaluated the patient and he doesn't think she had ND, mostly likely supply-demand mismatch. - Echo was WNL, normal LV systolic function with EF 60-65% * Systemic Inflammatory Response of Unclear Source - Resolved - Given that patient remained afebrile in hospital and there was no elevation of WBC, her symptoms could have been 2/2 alcohol withdrawal. Very less likely she had any bacterial infection, could have been viral. - UA was unremarkable, showed trace of leukocyte esterase without nitrites; has epithelial cells so may be contaminated specimen - CXR: No change in the diffuse interstitial thickening which is likely chronic. No new focal lung consolidation - Right elbow surgical site looks intact without erythema or swelling - BCx and UCx - NG to date - d/kalyani Vancomycin and Zosyn - Surgery was consulted and patient was seen by Dr. Daniels. He thinks the incision and surrounding area are normal appearing, not the source of infection. * New Onset hypoxia - Resolved - Could 2/2 being anxious and agitated - Currently on RA maintaining O2 sat - Continue to observe * S/p Recent right elbow cyst excision - consult surgery - Right elbow surgical site looks intact without erythema or swelling - wound care on board * Hypertension - Will continue to hold for now * Hypomagnesemia - gave total 2 g Mag Sulfate - Mg tomorrow am * Thrombocytopenia - Platelet in the 60s - Maybe reflect EtOH use - Reviewed old records she didn't have low platelet in 2016 - Will continue to follow, once patient get discharge would recommend to check platelet as outpatient * Hyperlipidemia - Continue Simvastatin * Depression - Continue Lexapro * Apical Lung Nodule - Can be follow as outpatient * Tobacco Abuse - Nicotine patch - Smoking cessation * DVT prophylaxis - SCD - TEDS - Lovenox 30 mg * Code Status - Full code - OT/PT orders Resident Physician Supervision Note: I was present with Dr. Burton during the history and exam. I discussed the case with the resident and agree with the findings and plan as documented in the note. Any exceptions or clarifications are listed here: The patient is awake and more interactive this morning. As such, was able to review with her the events which led her to her hospitalization. The patient reports that shortly after undergoing the outpatient cyst removal of her right elbow, she consumed a cheese steak and shortly thereafter developed nausea with vomiting. With the nausea and vomiting, the patient reported progressive generalized weakness and dizziness which made it difficult to walk. The nausea and vomiting continued for the next 24 hours, and with these continued symptoms , she ultimately presented to the emergency department. She states that her last alcoholic drink was on , approximately 36 hours prior to her hospitalization. Today, she reports feeling much better. She denies dizziness that she had upon admission. She's been able to ambulate in the hallway with assistance of one nurse and the walker. At this point, we'll consult physical therapy and occupational therapy. We have not found a bacterial infectious source; suspect she may just had a viral gastroenteritis which led to her symptoms; there also is an element of alcohol withdrawal which likely contributed to her symptoms. Her platelets are low and we'll monitor. She's not appear to have a history of the same. Continue monitoring for alcohol withdrawal. Documented By: Edgardo Augustin
[2016-10-09 15:35] VITALS: BP 143/84; PULSE 74; TEMP 36.3; O2SAT 96
[2016-10-09 19:59] VITALS: BP 155/86; PULSE 65; TEMP 36.7; O2SAT 97
[2016-10-09] MEDS: SIMVASTATIN 40 MG TAB PO SCH (20:22)
[2016-10-10] VITALS (7 sets, daily range): BP systolic 113–149; BP diastolic 66–86; PULSE 69–86; TEMP 36.3–36.8; O2SAT 90–99
[2016-10-10] MEDS: NSS + 20MEQ KCL 1000ML 1,000 ML IV SCH ×3 (06:26→23:55)
[2016-10-10 07:04] LABS: HEMATOCRIT 37.4 % (37-47); RED BLOOD COUNT 3.74 M/uL (4.2-5.4); WHITE BLOOD COUNT 4.44 K/uL (4.8-10.8)
[2016-10-10 07:07] LABS: MEAN PLATELET VOLUME 11.7 fL (7.4-10.4); PLATELET COUNT 74 K/uL (130-400)
[2016-10-10 07:39] LABS: BUN/CREATININE RATIO 14.6 (10-20); CALCIUM 8.4 mg/dl (8.5-10.1); CREATININE 0.47 mg/dl (0.60-1.20); MAGNESIUM 1.5 mg/dl (1.8-2.4)
[2016-10-10] MEDS: DICLOFENAC SOD 1% GEL 100 GM TUBE EXT SCH (07:58)
[2016-10-10] MEDS: ENOXAPARIN 30 MG/0.3 ML SYR SC SCH (07:59)
[2016-10-10] MEDS: ALPRAZOLAM 0.5 MG TAB PO SCH ×2 (07:59→20:49)
[2016-10-10] MEDS: DOCUSATE SODIUM/SENNA 50/8.6MG TAB PO SCH (07:59)
[2016-10-10] MEDS: MULTIVITAMIN TAB PO SCH (07:59)
[2016-10-10] MEDS: ESCITALOPRAM OXALATE 10 MG TAB PO SCH (07:59)
[2016-10-10] MEDS: THIAMINE HCL 100 MG TAB PO SCH (07:59)
[2016-10-10] MEDS: NICOTINE 14 MG/24 HR TDSY TD SCH (08:00)
[2016-10-10 08:59] LABS: BASO ABS # 0.04 K/uL (0-0.2); COMPLETE YES; LYMPH ABS # 0.89 K/uL (1.2-3.4); VACUOLIZATION 1+; VARIANT LYM ABS # 0.58 K/uL
[2016-10-10 09:01] LABS: GIANT PLATELETS 1+
--- NOTE | 2016-10-10 09:33 | CARDIOLOGY PROGRESS NOTE ---
DATE: 10/10/2016 DATE: 10/10/2016 SUBJECTIVE: Mrs. Gann is resting comfortably in bedside chair without complaints of chest pain or dyspnea. She is anxious for hospital discharge. Observed to be tremulous. OBJECTIVE: VITAL SIGNS: Blood pressures 144/80 with a regular pulse of 80. Respiratory rate is 20. The patient is afebrile at 36.4 degrees Celsius. Saturation is 91% on room air. NECK: Supple with full carotid upstrokes. No carotid bruits. Jugular venous pressure is flat at 90 degrees. There is no thyromegaly. CARDIOVASCULAR EXAMINATION: Reveals a regular rhythm with normal S1 and S2. Heart sounds are distant. No obvious murmurs. LUNGS: Clear without rales, rhonchi, or wheeze. ABDOMEN: Soft, nontender without bruits. EXTREMITIES: Reveal intact radial artery pulses bilaterally. There is no peripheral edema. LABORATORY DATA: CBC notes hemoglobin of 13.1, hematocrit 37.4, white count 4.4, platelet count 74,000. Electrolytes note a sodium of 140, potassium 4.0, chloride 109, bicarbonate 23, BUN 7, creatinine 0.47, glucose 80. Telemetry is benign. Echocardiogram notes normal left ventricular systolic function with an ejection fraction of 60-65%. There is mild aortic insufficiency. IMPRESSION AND PLAN: 1. Elevated troponin -- likely a supply demand mismatch realizing her significant hypotension at the time of admission. Fortunately, she demonstrates normal left ventricular function without wall motion abnormalities. No further cardiac evaluation indicated at this time. 2. Hypertension -- controlled. 3. Hypercholesterolemia -- continue statin. 4. Mild aortic insufficiency. 5. Alcohol withdrawal.
[2016-10-10] MEDS ORDERED: MAGNESIUM SULFATE 1GM / D5W 1 GM in PREMIXED IN D5W 100 ML IV ONE (12:00)
[2016-10-10] MEDS ORDERED: GABAPENTIN 600MG Q24H DOSE PO SCH (12:00)
[2016-10-10 14:49] LABS: PARTIAL THROMBOPLASTIN RATIO 1.3; PROTHROMBIN TIME (PATIENT) 10.7 SECONDS (9.0-12.0)
--- NOTE | 2016-10-10 16:13 | Family Medicine Progress Note ---
Progress Note Date of Service Oct 10, 2016. Subjective Pt evaluation today including: conversation w/ patient, physical exam, lab review Pain: denies Voiding: no voiding problems Patient was seen at the bedside. She states that she felt dizzy yesterday with ambulation. Denies dizziness at rest. She needs to hold onto something when she walks. Upon questioning she states that she has dizziness for yrs. Doesn't describes as spinning room. It is intermittent and mostly occur when she stands , denies dizziness with lying down. Denies nausea, vomiting, abdominal pain, or any other complaints. Never seek help for the dizziness. Constitutional: No fever Respiratory: No cough, No shortness of breath Cardiovascular: No chest pain, No edema Abdomen: No pain, No nausea, No vomiting, No diarrhea Skin: No rash Medications Current Inpatient Medications Medications (Trade) Dose Ordered Sig/Marisa Route Start Time Stop Time Status Last Admin Dose Admin Enoxaparin Sodium (Lovenox Inj) 30 mg Q24H SC 10/07/16 09:00 11/06/16 08:59 10/10/16 07:59 30 MG Potassium Chloride/Sodium Chloride 1,000 ml @ 100 mls/hr Q10H IV 10/06/16 23:30 11/05/16 23:29 10/10/16 06:26 100 MLS/HR Acetaminophen (Tylenol Tab) 650 mg Q4H PRN PO 10/06/16 22:30 11/05/16 22:29 10/07/16 03:38 650 MG Al Hydrox/Mg Hydrox/Simethicone (Maalox Max Susp) 15 ml Q4H PRN PO 10/06/16 22:30 11/05/16 22:29 Magnesium Hydroxide (Milk Of Magnesia Susp) 30 ml Q12H PRN PO 10/06/16 22:30 11/05/16 22:29 10/08/16 17:12 30 ML Ondansetron HCl (Zofran Inj) 4 mg Q6H PRN IV 10/06/16 22:30 11/05/16 22:29 Nitroglycerin (Nitrostat Tab) 0.4 mg UD PRN SL 10/06/16 22:30 11/05/16 22:29 Nicotine (Nicoderm Cq 14MG Patch) 1 patch QAM TD 10/07/16 09:00 11/06/16 08:59 10/10/16 08:00 1 PATCH Miscellaneous (Remove Nicoderm Patch) 1 ea HS N/A 10/07/16 21:00 11/06/16 20:59 10/09/16 20:22 1 EA Alprazolam (Xanax Tab) 0.5 mg BID PO 10/07/16 09:00 11/06/16 08:59 10/10/16 07:59 0.5 MG Diclofenac Sodium (Voltaren 1% Top Gel) 1 appln DAILY EXT 10/07/16 09:00 11/06/16 08:59 10/10/16 07:58 1 APPLN Escitalopram Oxalate (Lexapro Tab) 10 mg DAILY PO 10/07/16 09:00 11/06/16 08:59 10/10/16 07:59 10 MG Acetaminophen/ Hydrocodone Bitart (Quimby 5/325 Tab) 1 tab Q4 PRN PO 10/06/16 22:30 10/20/16 22:29 Multivitamins (Multivitamin Tab) 1 tab QAM PO 10/07/16 09:00 11/06/16 08:59 10/10/16 07:59 1 TAB Senna/Docusate Sodium (Senokot S Tab) 1 tab QAM PO 10/07/16 09:00 11/06/16 08:59 10/10/16 07:59 1 TAB Simvastatin (Zocor Tab) 40 mg QPM PO 10/07/16 21:00 11/06/16 20:59 10/09/16 20:22 40 MG Lorazepam (Ativan Inj) PRN Dosing -Active Protocol Q1H PRN IV 10/07/16 00:30 11/06/16 00:29 10/08/16 08:59 3 MG Gabapentin (Neurontin Tab) 600 mg Q24H PO 10/10/16 12:00 10/10/16 12:01 Polyethylene (Miralax Powder Packet) 17 gm BID PRN PO 10/08/16 16:45 11/07/16 16:44 Thiamine HCl (Vitamin B-1 Tab) 200 mg QAM PO 10/09/16 09:00 11/08/16 08:59 10/10/16 07:59 200 MG Folic Acid (Folvite Tab) 1 mg QAM PO 10/09/16 09:00 11/08/16 08:59 10/10/16 07:59 1 MG Clonidine HCl (Catapres Tab) 0.1 mg Q6H PRN PO 10/08/16 18:45 11/07/16 18:44 Objective Vital Signs Date Time Temp Pulse Resp B/P (MAP) Pulse Ox O2 Delivery O2 Flow Rate FiO2 10/10/16 11:17 36.4 82 18 133/81 (98) 99 Room Air 10/10/16 08:00 Room Air 10/10/16 06:53 36.4 79 20 144/79 (100) 91 Room Air 10/10/16 04:00 Room Air 10/10/16 03:23 36.8 78 19 138/81 (100) 92 Room Air 10/10/16 00:35 36.8 73 21 113/66 (82) 92 Room Air 10/09/16 23:59 Room Air 10/09/16 20:00 Room Air 10/09/16 19:59 36.7 65 18 155/86 (109) 97 Room Air 10/09/16 16:00 Room Air 10/09/16 15:35 36.3 74 18 143/84 (103) 96 Room Air 10/09/16 12:15 Room Air Physical Exam General Appearance: WD/WN, no apparent distress, + pertinent finding (tremor was noted on b/l hands) Neck: supple, trachea midline Respiratory/Chest: chest non-tender, lungs clear, normal breath sounds, no respiratory distress, no accessory muscle use Cardiovascular: regular rate, rhythm Abdomen: normal bowel sounds, non tender, soft Extremities: non-tender, no pedal edema, + pertinent finding (incision on the right elbow is clean, dry and intact, no swelling or erythema was noted) Neurologic/Psychiatric: alert, normal mood/affect, oriented x 3 Assessment and Plan This is a 61 y/o female with hx of smoking and suspected alcohol abuse presented to the hospital with fevers/chills, suspicious of infection of unclear etiology. She was hypotensive on admission. Given no growth of BCx and UCx, patient is afebrile and normal WBC, abx was discontinued. Patient complained of dizziness with ambulation yesterday. Will order MRI of brain. * Acute Alcohol Withdrawal with Suspected Alcohol Abuse - EtOH DALIA assessments - Gabapentin Taper - Ativan PRN, per protocol - PO Thiamine 200mg, Folate 1mg - Multivitamin daily * Chronic dizziness - Patient states that she has chronic intermittent dizziness for yrs. Never seek help for it. Doesn't described as vertigo. Dizziness mostly with standing or sitting. This could be 2/2 to wernike's encephalopathy from thiamin deficiency; however she is not confused and doesn't have nystagmus or diplopia - Given her new onset of unsteady gait, needing assistance with walking and dizziness, will order MRI of brain to rule out etiology like ischemia or mass. - Also ordered orthostatic pressure - Ammonia level on admission was normal * Mildly elevated INR - Will repeat the INR/PT this afternoon - Given hx of alcohol and elevated INR will order abdomen US. * Elevated Troponin - On admission she had elevated troponin (0.777), and EKG showed New T wave inversion on inferior and anterolateral leads. Most likely from supply- demand mismatch from acute illness. On repeated EKG T-wave inversion was not noted anymore. - Trend troponin q6h, it is trending down - patient denies chest pain, palpitation, SOB - will hold on giving high dose ASA unless patient complains of chest pain or evolving EKG changes noted, noted to have low platelet counts - EKG with chest pain - Monitor in Telemetry - Cardiology was consulted and recommended Echo. Dr. Sevilla evaluated the patient and he doesn't think she had LA, mostly likely supply-demand mismatch. - Echo showed normal LV systolic function with EF 60-65% and mild Aortic insufficiency * Questionable Systemic Inflammatory Response of Unclear Source - Given that patient remained afebrile in hospital and there was no elevation of WBC, her symptoms could have been 2/2 alcohol withdrawal. Very less likely she had any bacterial infection, could have been viral. - UA was unremarkable, showed trace of leukocyte esterase without nitrites; has epithelial cells so may be contaminated specimen - CXR: No change in the diffuse interstitial thickening which is likely chronic. No new focal lung consolidation - Right elbow surgical site looks intact without erythema or swelling - BCx and UCx - NG to date - d/kalyani Vancomycin and Zosyn - Surgery was consulted and patient was seen by Dr. Daniels. He thinks the incision and surrounding area are normal appearing, not the source of infection. * New Onset hypoxia - Resolved - Could 2/2 being anxious and agitated - Currently on RA maintaining O2 sat - Continue to observe * S/p Recent right elbow cyst excision - consult surgery - Right elbow surgical site looks intact without erythema or swelling - wound care on board * Hypertension - Will continue to hold for now * Hypomagnesemia - gave total 2 g Mag Sulfate - Her Mg was 1.5 this morning, will give 1g of mag sulfate * Thrombocytopenia - Platelet in the 60s - Maybe reflect EtOH use - Reviewed old records she didn't have low platelet in 2016 - Will continue to follow, once patient get discharge would recommend to check platelet as outpatient * Hyperlipidemia - Continue Simvastatin * Depression - Continue Lexapro * Apical Lung Nodule - Can be follow as outpatient * Tobacco Abuse - Nicotine patch - Smoking cessation * DVT prophylaxis - SCD - TEDS - Lovenox 30 mg * Code Status - Full code - OT/PT orders Resident Physician Supervision Note: I was present with Dr. Burton during the history and exam. I discussed the case with the resident and agree with the findings and plan as documented in the note. Any exceptions or clarifications are listed here: While the patient describes episodes of dizziness for "years," she now requires a walker plus the assist of one to ambulate in the hallway - and this is a new findings it seems. The etiology for this is not clear - she has never had a work up that she recalls for the dizziness. PLAN Agree with MRI Brain. Continue PT Trend platelets Check PT/INR Documented By: Edgardo Augustin
[2016-10-10] MEDS ORDERED: GADAVIST IV PRN (16:30)
--- NOTE | 2016-10-10 16:51 | DIAGNOSTIC IMAGING REPORT ---
BRAIN COMBO CLINICAL HISTORY: dizziness and unstable gait mental status change COMPARISON STUDY: No previous studies for comparison. TECHNIQUE: Utilizing a 1.5 Shireen magnet and dedicated coil, multiplanar, multiecho imaging of the brain was performed pre and postcontrast administration. IV administration of 5 mL of Gadavist contrast was uneventful. FINDINGS: Mild cerebral atrophy for age. Slight compensatory prominence of the ventricular system. No abnormal postcontrast enhancement. Several small foci of increased signal within the periventricular deep white matter regions suggestive of mild chronic small vessel change. Diffusion-weighted images are negative for an acute ischemic event. Sella and parasellar regions are unremarkable. IMPRESSION: Mild age-related change. Mild atrophy. No acute process. The above report was generated using voice recognition software. It may contain grammatical, syntax or spelling errors. Electronically signed by: Markus Rg M.D. 10/10/2016 4:50 PM Dictated Date/Time: 10/10/2016 4:47 PM
--- NOTE | 2016-10-10 18:48 | DIAGNOSTIC IMAGING REPORT ---
ABDOMINAL ULTRASOUND, RIGHT UPPER QUADRANT HISTORY: elevated LFTs, INR and low Plt. COMPARISON: None. FINDINGS: Pancreas: The visualized portions of the pancreas are unremarkable. Liver: Unremarkable. Gallbladder: A 5 mm gallstone. No gallbladder wall thickening. CBD: 4 mm. Right kidney: No hydronephrosis. Miscellaneous: Small right pleural effusion. IMPRESSION: 1. Cholelithiasis. No gallbladder wall thickening. 2. Small right pleural effusion. Electronically signed by: William Jane M.D. 10/10/2016 6:46 PM Dictated Date/Time: 10/10/2016 6:44 PM
[2016-10-10] MEDS: SIMVASTATIN 40 MG TAB PO SCH (20:50)
[2016-10-11 02:59] VITALS: BP 120/69; PULSE 80; TEMP 36.7; O2SAT 92
[2016-10-11 06:58] VITALS: BP 138/79; PULSE 79; TEMP 36.8; O2SAT 94
[2016-10-11 07:06] LABS: HEMATOCRIT 36.5 % (37-47); MEAN CELL VOLUME 100.6 fL (80-100); MEAN CORPUSCULAR HEMOGLOBIN 34.4 pg (25-34); MEAN CORPUSCULAR HGB CONC 34.2 g/dl (32-36); MEAN PLATELET VOLUME 10.9 fL (7.4-10.4); PLATELET COUNT 113 K/uL (130-400); RED BLOOD COUNT 3.63 M/uL (4.2-5.4); WHITE BLOOD COUNT 5.18 K/uL (4.8-10.8)
[2016-10-11 07:07] LABS: PARTIAL THROMBOPLASTIN RATIO 1.2; PROTHROMBIN TIME (PATIENT) 10.7 SECONDS (9.0-12.0)
[2016-10-11 07:25] LABS: BUN/CREATININE RATIO 15.9 (10-20); CALCIUM 8.6 mg/dl (8.5-10.1); CREATININE 0.39 mg/dl (0.60-1.20); POTASSIUM 3.9 mmol/L (3.5-5.1)
[2016-10-11] MEDS: DICLOFENAC SOD 1% GEL 100 GM TUBE EXT SCH (08:22)
[2016-10-11] MEDS: THIAMINE HCL 100 MG TAB PO SCH (08:22)
[2016-10-11] MEDS: ESCITALOPRAM OXALATE 10 MG TAB PO SCH (08:22)
[2016-10-11] MEDS: MULTIVITAMIN TAB PO SCH (08:22)
[2016-10-11] MEDS: DOCUSATE SODIUM/SENNA 50/8.6MG TAB PO SCH (08:22)
[2016-10-11] MEDS: ENOXAPARIN 30 MG/0.3 ML SYR SC SCH (08:23)
[2016-10-11] MEDS: ALPRAZOLAM 0.5 MG TAB PO SCH (08:23)
[2016-10-11] MEDS: NICOTINE 14 MG/24 HR TDSY TD SCH (08:24)
[2016-10-11 10:54] VITALS: BP 137/86; PULSE 84; TEMP 36.3; O2SAT 93
[2016-10-11] MEDS: NSS + 20MEQ KCL 1000ML 1,000 ML IV SCH (13:37)
[2016-10-11] MEDS ORDERED: FLV1 PO (13:52)
[2016-10-11] MEDS ORDERED: THM100 PO (13:52)
--- NOTE | 2016-10-11 13:55 | Discharge Instructions ---
Discharge Instructions Date of Service Oct 11, 2016. Admission Reason for Admission: Systemic Inflammatory Response Syndrome Discharge Discharge Diagnosis / Problem: Alcohol withdrawal symptoms Discharge Goals Goal(s): Decrease discomfort, Increase independence, Improve disease control Activity Recommendations Activity Limitations: resume your previous activity . Instructions / Follow-Up Instructions / Follow-Up You presented to the clinic with fever and chills. You found to have alcohol withdrawal symptoms. Started you on vitamins and Ativan and gabapentin. Your symptoms improved. Please take Folic acid, Thiamine, and multivitamin as instructed. Please follow up with your primary doctor in 1 week and have blood works done. Current Hospital Diet Patient's current hospital diet: Regular Diet Discharge Diet Recommended Diet: Regular Diet Pending Studies Studies pending at discharge: no Medical Emergencies . Who to Call and When: Medical Emergencies: If at any time you feel your situation is an emergency, please call 911 immediately. . Non-Emergent Contact Non-Emergency issues call your: Primary Care Provider . . "Provider Documentation" section prepared by Bertin Burton. . VTE Core Measure Inpt VTE Proph given/why not?: Enoxaparin (Lovenox)SQ
[2016-10-11 14:35] VITALS: BP 137/86; PULSE 84; TEMP 36.3; O2SAT 93
--- NOTE | 2016-10-11 20:07 | Discharge Summary ---
Discharge Summary Date of Service Oct 11, 2016. (Bertin Burton MD) Discharge Summary Admission Date: Oct 06, 2016 at 22:32 Discharge Date: Oct 11, 2016 Discharge Disposition: Home Principal Diagnosis: Alcohol withdrawal symptoms Immunizations: Have You Had Influenza Vaccine: Unknown History of Tetanus Vaccine?: Unknown History of Pneumococcal: Unknown History of Hepatitis B Vaccine: Unknown Procedures: Patient Name: SONJA JACKSON Unit Number: [id number] Dictated: 10/07/16810 Transcribed: 10/07/16810 [facility] Printed Date/Time: [~ rep prt dt]/[~ rep prt tm] [~ rep ct labl] - [~ rep ct ivnm] [facility] [place] [address] Dictated: 10/07/16810 Transcribed: 10/07/16810 [facility] Printed Date/Time: [~ rep prt dt]/[~ rep prt tm] [~ rep ct labl] - [~ rep ct ivnm] Patient: SONJA JACKSON Address1: [address] [place] [address] Rec: [id number] Address2: Acct ID: [id number] [facility] Zip: [place] [address] Date: 1955 Sex: F Room/Bed: 161 Ref Phy: Cruzito Teiexira M.D. SC: TyroneT Att Phy: Sirisha Blair M.D. Report #: [id number] Alix Phy: Cruzito Teixeira M.D. Test: [id number] Admit Phy: Luan Rosen MD Movement Education Specialist: FETRENNY Interpreting Phy: William Jane MD Diagnosis: SYSTEMIC INFLAMMATORY RESPONSE SYNDROME Ordering Phy: Luan Rosen MD Service Date: 10/07/16 Admit Date: 10/07/1707/12/17 MNE: PWRSCRIBE CONF: DICTATED BY: William Jane M.D.]] CC: Cruzito Teixeira M.D. Singh, Madhavi, M.D. Thatte, Amit, MD Endcc: [~ rep ct add3]] CHEST ONE VIEW PORTABLE HISTORY: Hypoxia. increased o2 needs COMPARISON: Chest 10/06/2016. FINDINGS: The heart is normal in size. No pleural effusions. No pneumothorax. Old, healed right-sided rib fractures. Diffuse interstitial thickening, unchanged. No new focal lung consolidations. IMPRESSION: No change in the diffuse interstitial thickening which is likely chronic. No new focal lung consolidations. Electronically signed by: William Jane M.D. 10/07/2016 8:12 AM Dictated Date/Time: 10/07/2016 8:11 AM The status of this report is Signed. Draft = Not yet reviewed or approved by Radiologist. Signed = Reviewed and approved by Radiologist. <AttendingPhy>Sirisha Blair M.D.</AttendingPhy> <FamilyPhy>Cruzito Teixeira M.D.</FamilyPhy> <PrimaryPhy>Cruzito Teixeira M.D.</PrimaryPhy> <UnitNumber> [id number]</UnitNumber> <VisitNumber>[id number]</VisitNumber> <PatientName> SONJA JACKSON</PatientName> <DateOfBirth>1955</DateOfBirth> <Location> C.2T</Location> <ServiceDate>10/06/16</ServiceDate> <MNE>ESINDI</MNE> < OrderingPhy>Luan Rosen MD</OrderingPhy> <OrderingPhyMNE>f rep ord dr luo</ OrderingPhyMNE> <DictatingPhyMNE>f rep dict dr luo</DictatingPhyMNE> <CCListMNE> f rep ct ashleye</CCListMNE> <AdmittingPhyMNE>f pt admit dr luo</AdmittingPhyMNE> < AttendingPhyMNE>f pt attend dr luo</AttendingPhyMNE> <ConsultingPhyMNE>f pt consult dr luo</ConsultingPhyMNE> <FamilyPhyMNE>f pt fam dr luo</FamilyPhyMNE> <OtherPhyMNE>f pt other dr luo</OtherPhyMNE> < PrimaryPhyMNE>f pt prim care dr luo</PrimaryPhyMNE> <ReferringPhyMNE>f pt referring dr luo</ReferringPhyMNE> Patient Name: SONJA JACKSON Unit Number: [id number] Dictated: 10/10/161843 Transcribed: 10/10/161843 [facility] Printed Date/Time: [~ rep prt dt]/[~ rep prt tm] [~ rep ct labl] - [~ rep ct ivnm] [facility] [place] [address] Dictated: 10/10/161843 Transcribed: 10/10/161843 [facility] Printed Date/Time: [~ rep prt dt]/[~ rep prt tm] [~ rep ct labl] - [~ rep ct ivnm] Patient: SONJA JACKSON Address1: [address] [place] [address] Rec: [id number] Address2: Acct ID: [id number] [facility] Zip: [place] [address] Date: 1955 Sex: F Room/Bed: [facility] Ref Phy: Cruzito Teixeira M.D. SC: C.2T Att Phy: Edgardo Augustin D.O. Report #: [id number] Alix Phy: Cruzito Teixeira M.D. Test: LVR Admit Phy: Luan Rosen MD Movement Education Specialist: DENNIS Interpreting Phy: William Jane MD Diagnosis: SYSTEMIC INFLAMMATORY RESPONSE SYNDROME Ordering Phy: Kai Kay MD Service Date: 10/10/16 Admit Date: 10/07/1707/12/17 MNE: PWRSCRIBE CONF: DICTATED BY: William Jane M.D.]] CC: Kai Kay MD Berkey, Franklin J., D.O. Guillard, Frank, M.D. Endcc: [~ rep ct add3]] ABDOMINAL ULTRASOUND, RIGHT UPPER QUADRANT HISTORY: elevated LFTs, INR and low Plt. COMPARISON: None. FINDINGS: Pancreas: The visualized portions of the pancreas are unremarkable. Liver: Unremarkable. Gallbladder: A 5 mm gallstone. No gallbladder wall thickening. CBD: 4 mm. Right kidney: No hydronephrosis. Miscellaneous: Small right pleural effusion. IMPRESSION: 1. Cholelithiasis. No gallbladder wall thickening. 2. Small right pleural effusion. Electronically signed by: William Jane M.D. 10/10/2016 6:46 PM Dictated Date/Time: 10/10/2016 6:44 PM The status of this report is Signed. Draft = Not yet reviewed or approved by Radiologist. Signed = Reviewed and approved by Radiologist. <AttendingPhy>dEgardo Augustin D.O.</AttendingPhy> <FamilyPhy>Cruzito Teixeira M.D.</FamilyPhy> <PrimaryPhy>Cruzito Teixeira M.D.</PrimaryPhy> <UnitNumber> [id number]</UnitNumber> <VisitNumber>[id number]</VisitNumber> <PatientName> SONJA JACKSON</PatientName> <DateOfBirth>1955</DateOfBirth> <Location> C.2T</Location> <ServiceDate>10/06/16</ServiceDate> <MNE>ESINDI</MNE> < OrderingPhy>Kai Kay MD</OrderingPhy> <OrderingPhyMNE>f rep ord dr luo</ OrderingPhyMNE> <DictatingPhyMNE>f rep dict dr luo</DictatingPhyMNE> <CCListMNE> f rep ct mne</CCListMNE> <AdmittingPhyMNE>f pt admit dr luo</AdmittingPhyMNE> < AttendingPhyMNE>f pt attend dr luo</AttendingPhyMNE> <ConsultingPhyMNE>f pt consult dr luo</ConsultingPhyMNE> <FamilyPhyMNE>f pt fam dr luo</FamilyPhyMNE> <OtherPhyMNE>f pt other dr luo</OtherPhyMNE> < PrimaryPhyMNE>f pt prim care dr luo</PrimaryPhyMNE> <ReferringPhyMNE>f pt referring dr luo</ReferringPhyMNE> Patient Name: SONJA JACKSON Unit Number: [id number] Dictated: 10/10/161646 Transcribed: 10/10/161646 [facility] Printed Date/Time: [~ rep prt dt]/[~ rep prt tm] [~ rep ct labl] - [~ rep ct ivnm] [facility] [place]iology [place] [address] Dictated: 10/10/161646 Transcribed: 10/10/161646 [facility] Printed Date/Time: [~ rep prt dt]/[~ rep prt tm] [~ rep ct labl] - [~ rep ct ivnm] Patient: SONJA JACKSON Address1: [address] [facility] Rec: [id number] Address2: Acct ID: [id number] [facility] Zip: [place] [address] Date: 1955 Sex: F Room/Bed: E2161 Ref Phy: Cruzito Teixeira M.D. SC: Ruth Att Phy: Edgardo Augustin D.O. Report #: [id number] Alix Phy: Cruzito Teixeira M.D. Test: [facility] Admit Phy: Luan Rosen MD Movement Education Specialist: [facility] Interpreting Phy: Markus Rg M.D. Diagnosis: SYSTEMIC INFLAMMATORY RESPONSE SYNDROME Ordering Phy: Kai Kay MD Service Date: 10/10/16 Admit Date: 10/07/1707/12/17 MNE: PWRSCRIBE CONF: DICTATED BY: Markus Rg M.D.]] CC: Kai Kay MD Berkey, Franklin J., D.O. Guillard, Frank, M.D. Endcc: [~ rep ct add3]] BRAIN COMBO CLINICAL HISTORY: dizziness and unstable gait mental status change COMPARISON STUDY: No previous studies for comparison. TECHNIQUE: Utilizing a 1.5 Shireen magnet and dedicated coil, multiplanar, multiecho imaging of the brain was performed pre and postcontrast administration. IV administration of 5 mL of Gadavist contrast was uneventful. FINDINGS: Mild cerebral atrophy for age. Slight compensatory prominence of the ventricular system. No abnormal postcontrast enhancement. Several small foci of increased signal within the periventricular deep white matter regions suggestive of mild chronic small vessel change. Diffusion-weighted images are negative for an acute ischemic event. Sella and parasellar regions are unremarkable. IMPRESSION: Mild age-related change. Mild atrophy. No acute process. The above report was generated using voice recognition software. It may contain grammatical, syntax or spelling errors. Electronically signed by: Markus Rg M.D. 10/10/2016 4:50 PM Dictated Date/Time: 10/10/2016 4:47 PM The status of this report is Signed. Draft = Not yet reviewed or approved by Radiologist. Signed = Reviewed and approved by Radiologist. <AttendingPhy>Edgardo Augustin D.O.</AttendingPhy> <FamilyPhy>Cruzito Teixeira M.D.</FamilyPhy> <PrimaryPhy>Cruzito Teixeira M.D.</PrimaryPhy> <UnitNumber> [id number]</UnitNumber> <VisitNumber>[id number]</VisitNumber> <PatientName> SONJA JACKSON</PatientName> <DateOfBirth>1955</DateOfBirth> <Location> C.2T</Location> <ServiceDate>10/06/16</ServiceDate> <MNE>ESINDI</MNE> < OrderingPhy>Kai Kay MD</OrderingPhy> <OrderingPhyMNE>f rep ord dr luo</ OrderingPhyMNE> <DictatingPhyMNE>f rep dict dr luo</DictatingPhyMNE> <CCListMNE> f rep ct valerio</CCListMNE> <AdmittingPhyMNE>f pt admit dr luo</AdmittingPhyMNE> < AttendingPhyMNE>f pt attend dr luo</AttendingPhyMNE> <ConsultingPhyMNE>f pt consult dr luo</ConsultingPhyMNE> <FamilyPhyMNE>f pt fam dr luo</FamilyPhyMNE> <OtherPhyMNE>f pt other dr luo</OtherPhyMNE> < PrimaryPhyMNE>f pt prim care dr luo</PrimaryPhyMNE> <ReferringPhyMNE>f pt referring dr luo</ReferringPhyMNE> (Bertin Burton MD) Medication Reconciliation New Medications: Folic Acid (Folic Acid) 1 Mg Tab 1 MG PO QAM for 30 Days, #30 TAB Thiamine HCl (Vitamin B-1) 100 Mg Tab 200 MG PO QAM for 30 Days, #60 TAB Continued Medications: Alprazolam (Xanax) 0.5 Mg Tab 0.5 MG PO BID, TAB B-Complex Vitamins (B Complex) 1 Cap Cap 1 CAP PO QAM Calcium Polycarbophil (Fiber) 625 Mg Tab 4 TAB PO BID Calcium/Vitamin D (Os-Justin 500 Plus D) Tab 1 TAB PO QAM, TAB Diclofenac Sodium (Topical) (Voltaren 1% Top Gel) 1 % Gel 1 DOSE TOP DAILY Escitalopram (Lexapro) 10 Mg Tab 10 MG PO DAILY, TAB Fish Oil ([place]-3) 1 Ea Cap 1 CAP PO QAM, CAP Garlic (Garlic) 1,000 Mg Cap 1 TAB PO QAM Metoprolol Succ (Toprol Xl) (Toprol-Xl) 25 Mg Tabcr 25 MG PO QAM, #30 TAB Multivitamin (Multivitamin) Tab 1 TAB PO QAM, TAB Sennosides-Docusate Sodium (Stool Softener) 1 Tab Tab 1 TAB PO QAM Simvastatin (Zocor) 40 Mg Tab 40 MG PO QPM, TAB Sulfamethoxazole-Trimethoprim (Bactrim Ds 800MG/160MG) 1 Tab Tab 1 TAB PO BID PRN for post-op for 7 Days, #14 TAB Vitamins C & E (Vitamin C) 1 Cap Cap 1 CAP PO QAM Discharge Exam Patient was seen at the bedside. She denied any complaints. She was able to ambulate without assistance or without feeling dizzy. Review of Systems: Constitutional: No fever, No chills Respiratory: No cough, No dyspnea on exertion Cardiovascular: No chest pain Abdomen: No pain, No nausea, No vomiting, No diarrhea, No constipation Musculoskeletal: No muscle pain Genitourinary - Female: No dysuria Neurologic: No weakness Integumentary: No rash Physical Exam: General Appearance: WD/WN, no apparent distress Neck: supple, trachea midline Respiratory/Chest: chest non-tender, lungs clear, normal breath sounds, no respiratory distress, no accessory muscle use Cardiovascular: regular rate, rhythm, no edema Abdomen / GI: normal bowel sounds, non tender, soft Extremities: normal inspection, no calf tenderness, no pedal edema Neurologic/Psychiatric: alert, normal mood/affect, oriented x 3 Skin: normal color, warm/dry, no rash, + pertinent finding (incision at the right elbow clean, intact and dry) (Bertin Burton MD) Hospital Course This is a 61 y/o female with hx of smoking and suspected alcohol abuse presented to the hospital with fevers/chills, N/V and jittery for 3days, after having surgery for the right elbow cyst. [facility] and she had a temp of 100.8. She was hypotensive on admission. Patient was admitted to the hospital for further evaluation. Suspicious of SIRs patient was started on Vanco and Zosyn. She was on alcohol protocol and received the vitamins. BCx and UCx didn't grow anything and Abx was d/kalyani. Her low grade fever and n/v could be 2/2 viral, very less likely it was bacterial. On admission patient had elevated troponin (0.777), and EKG showed New T wave inversion on inferior and anterolateral leads. Most likely from supply-demand mismatch from acute illness. On repeated EKG T-wave inversion was not noted anymore. Cardiology was consulted and he agreed with supply-demand mismatch. He didn't recommend any further intervention at this time. Echo showed normal LV systolic function with EF 60-65% and mild Aortic insufficiency Patient complains of chronic intermittent dizziness for yrs. Never seek help for it. Doesn't described as vertigo. Dizziness mostly with standing or sitting. MRI of the brain showed mild atrophy, no acute event. It was very less likely 2/2 to wernike's encephalopathy from thiamin deficiency given she was not confused and doesn't have nystagmus or diplopia. Patient had low plt on admission, which is most likely 2/2 alcohol. It improved through out her stay in hospital. Given low INR during admission, US of liver was performed and it was normal. His INR and PT was normal on discharge. CXR showed possible 7 mm right apical nodule. This likely reflects scarring although a nodule could appear similar. A nonemergent chest CT is recommended, this can be followed as outpatient. OT/PT evaluated the patient prior discharge. On discharge patient was able to ambulate without assistance or dizziness. Patient discharged home with folic acid, thiamine, and multivitamin. Continue all her home medication. Case management set up an appointment with her primary doctor in 1 week and to have CBC and BMP done that time. Scripts for lab works were given to the patient. Total Time Spent: Greater than 30 minutes This includes examination of the patient, discharge planning, medication reconciliation, and communication with other providers. (Bertin Burton MD) Resident Physician Supervision Note: I was present with Dr. Burton during the history and exam. I discussed the case with the resident and agree with the findings and plan as documented in the note. Any exceptions or clarifications are listed here: Just prior to discharge , the patient was ambulating around the hallway several times without difficulty. Her gait was normal; she denied dizziness that she had the day previous. I emphasized the need for outpatient follow-up early to mid next week. I encouraged abstinence from alcohol. Discussed the need for more immediate follow-up should her symptoms return. Documented By: Edgardo Augustin Total Time Spent: Greater than 30 minutes I spent 40 minutes preparing the discharge reconciling medications for this patient's discharge. (Edgardo Augustin.,D.O.) Discharge Instructions Please refer to the electronic Patient Visit Report (Discharge Instructions) for additional information. (Bertin Burton MD) Additional Copies To Cruzito Teixeira M.D.
[2016-11-02] MEDS ORDERED: METO25TA3 PO (09:15)
[2016-11-02] MEDS ORDERED: CALC500C70 PO (09:15)
[2016-11-02] MEDS ORDERED: OMEG10007 PO (09:15)
[2016-11-02] MEDS ORDERED: CALC625T35 PO (09:15)
[2016-11-02] MEDS ORDERED: SIMV40TA2 PO (09:15)
[2016-11-02] MEDS ORDERED: MULT-506 PO (09:15)
[2016-11-02] MEDS ORDERED: GARL10007 PO (09:15)
[2016-11-02] MEDS ORDERED: ALPR-411 PO (09:15)
[2016-11-02] MEDS ORDERED: DICL1GEL12 TOP (09:15)
[2016-11-02] MEDS ORDERED: B-CO1CAP3 PO (09:15)
[2016-11-02] MEDS ORDERED: SENNTAB23 PO (09:15)
== END 2016-10-11 14:52 | disposition home health service (06) | DRG 897 ==
LOC: EDBD 19:20 → C.EDB 19:23 → C.2T 22:32 → ENRESERV 22:38 → C.2T 10-07 18:18
PROVIDERS: ADMIT Student in an Organized Health Care Education/Training Program; ATTEND Family Medicine
DX: F10.239 Alcohol dependence with withdrawal, unspecified (principal); R65.10 Systemic inflammatory response syndrome (SIRS) of non-infectious origin without acute organ dysfunction; R94.31 Abnormal electrocardiogram [ECG] [EKG]; A08.4 Viral intestinal infection, unspecified; E83.42 Hypomagnesemia; R74.8 Abnormal levels of other serum enzymes; R79.1 Abnormal coagulation profile; R09.02 Hypoxemia; R42 Dizziness and giddiness; D69.6 Thrombocytopenia, unspecified; R91.1 Solitary pulmonary nodule; I35.1 Nonrheumatic aortic (valve) insufficiency; I10 Essential (primary) hypertension; E78.00 Pure hypercholesterolemia, unspecified; E78.5 Hyperlipidemia, unspecified; F41.9 Anxiety disorder, unspecified; F17.210 Nicotine dependence, cigarettes, uncomplicated; Z48.817 Encounter for surgical aftercare following surgery on the skin and subcutaneous tissue; Z79.899 Other long term (current) drug therapy

== ENCOUNTER → 2016-10-24 | Outpatient (CLI) | payer BC ==
[~2016-10-24] MED LIST changes: +ALPR-411 PO; +B-CO1CAP3 PO; +CALC500C70 PO; +CALC625T35 PO; +DICL1GEL12 TOP; +ESCI10TA17 PO; -ESCI1TAB10 PO; +FLV1 PO; +FOLI1TAB7 PO; +GARL10007 PO; -HYDR-5688 PO; +LORAZEPAM 2 MG/ML 1 ML VIAL ONE; +METO25TA3 PO; +MULT-506 PO; +OMEG10007 PO; +OPTIRAY 320 IV PRN; +SENNTAB23 PO; +SIMV40TA2 PO; -SULF800T23 PO; +THIA1TAB11 PO; +THM100 PO; +ZYP5 PO
--- NOTE | 2016-10-24 11:50 | DIAGNOSTIC IMAGING REPORT ---
CHEST CT WITH CONTRAST CT DOSE: 188.37 mGy.cm HISTORY: Abnormal prior imaging finding. Lung nodule follow-up. TECHNIQUE: Multiaxial CT images of the chest were performed following the intravenous administration of contrast. A dose lowering technique was utilized adhering to the principles of ALARA. COMPARISON: Chest 10/07/2016. FINDINGS: The central airways are patent. No pneumothorax. No pleural effusions. Linear scarlike densities within the right lung apex. Moderate emphysema. 5 mm nodule within the left lung apex on image 64. A 1.6 x 1.1 cm groundglass nodule within the left upper lobe on image 105. Groundglass densities within the lung bases posteriorly favor mild dependent change. No suspicious lytic or blastic osseous lesions. No mediastinal or hilar lymphadenopathy. The visualized liver, spleen, and adrenal glands are unremarkable. Approximate 50% narrowing within the proximal right subclavian artery immediately distal to the vertebral artery takeoff. Calcified plaque within the aortic arch. The ascending thoracic aorta measures up to 3.5 cm in diameter. The heart is normal in size. The central pulmonary arteries are patent. IMPRESSION: 1. A 1.6 x 1.1 cm groundglass nodule within the left upper lobe. This is suspicious for a low-grade primary bronchogenic malignancy. However, a small focus of infectious/inflammatory change could appear similar. In the absence of prior studies follow-up chest CT in 3 months is recommended. 2. A 5 mm indeterminate pulmonary nodule within the left upper lobe. This also bears watching future examinations. 3. Moderate emphysema. 4. Additional findings as described above. Electronically signed by: William Jane M.D. 10/24/2016 11:49 AM Dictated Date/Time: 10/24/2016 11:36 AM
== END | disposition home or self-care (01) ==
LOC: C.CTS 11:12
PROVIDERS: ATTEND Physician Assistant Medical
DX: R91.1 Solitary pulmonary nodule (principal); R93.8 Abnormal findings on diagnostic imaging of other specified body structures

== ENCOUNTER → 2016-11-01 | Outpatient (CLI) | payer BC ==
[~2016-11-01] MED LIST changes: -LORAZEPAM 2 MG/ML 1 ML VIAL ONE; -OPTIRAY 320 IV PRN
== END | disposition home or self-care (01) ==
LOC: C.LABSPEC 16:41
PROVIDERS: ATTEND Surgery
DX: L72.0 Epidermal cyst (principal); M25.529 Pain in unspecified elbow

== ENCOUNTER 2016-11-02 19:39 | Inpatient (IN) | payer BC ==
[~2016-11-02] VITALS: Ht 167.6 cm; Wt 45.6 kg
[~2016-11-02 19:39] MED LIST changes: -ESCI10TA17 PO; -FOLI1TAB7 PO; -THIA1TAB11 PO; -ZYP5 PO
[2016-11-02] MEDS ORDERED: ESCI10TA17 PO (20:27)
[2016-11-02] MEDS ORDERED: SODIUM CHLORIDE 0.9% 1000ML 1,000 ML IV STA ×2 (20:40→21:30)
[2016-11-02 20:51] LABS: HEMATOCRIT 41.4 % (37-47); MEAN CELL VOLUME 103.5 fL (80-100); MEAN CORPUSCULAR HGB CONC 32.9 g/dl (32-36); MEAN PLATELET VOLUME 9.9 fL (7.4-10.4); PLATELET COUNT 132 K/uL (130-400); WHITE BLOOD COUNT 14.64 K/uL (4.8-10.8)
[2016-11-02 20:57] LABS: INR 1.1 (0.9-1.1); PARTIAL THROMBOPLASTIN RATIO 1.1; PROTHROMBIN TIME (PATIENT) 12.1 SECONDS (9.0-12.0)
[2016-11-02] MEDS ORDERED: VANCOMYCIN 1GM/270ML NSS IV STA (21:05)
[2016-11-02 21:10] LABS: POTASSIUM 3.6 mmol/L (3.5-5.1)
[2016-11-02] MEDS ORDERED: CEFEPIME IV 2,000 MG in DEXTROSE 5% 100ML 100 ML IV STA (21:14)
[2016-11-02 21:15] LABS: BUN/CREATININE RATIO 7.3 (10-20); CALCIUM 9.2 mg/dl (8.5-10.1); CREATININE 1.5 mg/dl (0.60-1.20)
--- NOTE | 2016-11-02 21:25 | DIAGNOSTIC IMAGING REPORT ---
CHEST ONE VIEW PORTABLE CLINICAL HISTORY: Sepsis cough COMPARISON STUDY: 10/07/2016 FINDINGS: Slight lateral interstitial prominence. Mild emphysematous change. Diaphragms smooth but somewhat flattened. IMPRESSION: Mild interstitial change improved from the prior study. No new or interval process. The above report was generated using voice recognition software. It may contain grammatical, syntax or spelling errors. Electronically signed by: Markus Rg M.D. 11/02/2016 9:24 PM Dictated Date/Time: 11/02/2016 9:23 PM
[2016-11-02 21:30] LABS: COMPLETE YES; EOS % 0.6 %; IG% 0.8 %; LYMPH % 0.8 %; LYMPH ABS # 0.12 K/uL (1.2-3.4); MONO % 1.2 %; NEUT % 96.6 %
[2016-11-02] MEDS ORDERED: FOLI1TAB7 PO (21:42)
[2016-11-02] MEDS ORDERED: THIA1TAB11 PO (21:42)
[2016-11-02] MEDS ORDERED: MAGNESIUM SULFATE 1GM / D5W 1 GM BAG IV STA (21:48)
[2016-11-02 21:54] LABS: URINE APPEARANCE CLOUDY (CLEAR); URINE BILIRUBIN NEG (NEG); URINE COLOR ORANGE; URINE EPITHELIAL CELL AUTO >30 /lpf (0-5); URINE NITRITE NEG (NEG); URINE PH 5.5 (4.5-7.5); URINE SPECIFIC GRAVITY 1.019 (1.000-1.030); UROBILINOGEN NEG (NEG); ZZUR CULT IF INDIC CLEAN CATCH NO
[2016-11-02 21:55] LABS: MANUAL MICROSCOPIC REQUIRED? NO; REVIEW REQ? YES
[2016-11-02] MEDS ORDERED: VANCOMYCIN INJ 1,000 MG in SODIUM CHLORIDE 0.9% 250ML 250 ML IV STA (21:56)
[2016-11-02] MEDS ORDERED: ONDANSETRON INJ 2 MG/ML 2 ML VIAL IV PRN (22:00)
[2016-11-02] MEDS ORDERED: PIPERACILL/TAZOBAC IV 3.375 GM in DEXTROSE 5% 100ML 100 ML IV SCH (22:00)
[2016-11-02] MEDS ORDERED: ALBUMIN HUMAN 25% 12.5 GM/50 ML VIAL IV ONE (22:00)
[2016-11-02] MEDS ORDERED: MULTI-VITAMIN INFUSION INJ 10 ML, THIAMINE HCL INJ 100 MG, FoLIC ACID INJ 1 MG in SODIU... IV ONE (22:00)
[2016-11-02 22:05] LABS: URINE PATH CASTS 0-3 GRANULAR CASTS /lpf (0)
[2016-11-02] MEDS ORDERED: ALBUMIN HUMAN 25% 12.5 GM/50 ML VIAL IV STA (23:11)
--- NOTE | 2016-11-02 23:24 | History and Physical ---
History & Physical Date & Time of Service: Nov 02, 2016 at 23:24 Chief Complaint: Vomiting,Dizziness Primary Care Physician: Cruzito Teixeira M.D. History of Present Illness Source: patient, hospital records The patient is a 61-year-old female who presents emergency department with vomiting that began at 11:30 AM. She was started on antibiotic recently, and she attributes this vomiting due to antibiotic use. She is also had some chills , and lightheadedness. She reports having a cyst removed from her elbow one month ago and that the wound opened a little after sutures were removed. She reports her surgeon with painting procedure and elbow next week, and that is why she is on antibiotics at this time. She does regularly drink alcohol, reporting that her last drink was earlier today. Family History Noncontributory Social History Smoking Status: Current Every Day Smoker Smokeless Tobacco Use: No Alcohol Use: heavy Drug Use: none Marital Status: Housing status: lives with family Occupational Status: retired Immunizations History of Influenza Vaccine: Unknown History of Tetanus Vaccine?: Unknown History of Pneumococcal: Unknown History of Hepatitis B Vaccine: Unknown Multi-Drug Resistant Organisms History of MDRO: No Allergies Coded Allergies: Codeine (Verified Adverse Reaction, Mild, NAUSEA, 10/05/16) Home Medications Scheduled Alprazolam (Xanax), 0.5 MG PO BID B-Complex Vitamins (B Complex), 1 CAP PO QAM Calcium Polycarbophil (Fiber), 2,500 MG PO BID Calcium/Vitamin D (Os-Justin 500 Plus D), 1 TAB PO QAM Escitalopram (Lexapro), 10 MG PO DAILY Fish Oil ([place]-3), 1 CAP PO QAM Folic Acid (Folvite), 1 MG PO QAM Garlic (Garlic), 1,000 MG PO QAM Metoprolol Succ (Toprol Xl) (Toprol-Xl), 25 MG PO QAM Multivitamin (Multivitamin), 1 TAB PO HS Sennosides-Docusate Sodium (Stool Softener), 1 TAB PO QAM Simvastatin (Zocor), 40 MG PO HS Thiamine Mononitrate (Vitamin B1), 200 MG PO QAM Scheduled PRN Diclofenac Sodium (Topical) (Voltaren 1% Top Gel), 1 APPLN TOP DAILY PRN for Pain Review of Systems The patient denies chest pain, palpitations, shortness of breath, cough, lower extremity swelling, vision change, hearing change, sore throat, sweats, weight change, fatigue, diarrhea or constipation, abdominal pain, pelvic pain, blood in urine or stool, dysuria, urinary frequency or urgency, headache, memory loss , rash, abnormal bruising or bleeding, imbalance, focal or generalized weakness , night sweats, or allergy symptoms. The review of systems is otherwise negative other than for that already noted above, and at least 10 systems have been reviewed. Physical Exam Vital Signs Date Time Temp Pulse Resp B/P (MAP) Pulse Ox O2 Delivery O2 Flow Rate FiO2 11/02/16 23:17 106 20 93/45 94 Room Air 11/02/16 22:20 91/46 11/02/16 22:19 102 96 11/02/16 22:18 96/47 11/02/16 22:14 104 96 11/02/16 22:11 81/52 11/02/16 22:09 104 95 11/02/16 22:04 105 95 11/02/16 22:00 99/54 11/02/16 21:59 103 97 11/02/16 21:55 87/49 11/02/16 21:54 105 98 11/02/16 21:51 52/42 11/02/16 21:49 106 98 11/02/16 21:44 106 92 11/02/16 21:41 91/44 11/02/16 21:39 107 96 11/02/16 21:37 103/47 11/02/16 21:34 105 89 11/02/16 21:31 90/61 11/02/16 21:29 103 92 11/02/16 21:24 102 98 11/02/16 21:22 102/73 11/02/16 21:19 100 11/02/16 21:15 110/52 11/02/16 21:14 105 11/02/16 21:12 96 11/02/16 21:09 103 10 79/55 97 11/02/16 21:09 95 Room Air 11/02/16 21:07 79/55 11/02/16 19:42 36.4 114 20 81/38 100 Room Air The patient is awake, well-developed and adequately nourished, alert and oriented 3, normocephalic and atraumatic, lying in bed and in no acute distress. HEENT--PERRL, EOMI, mucous membranes and oropharynx dry. Neck--supple, no JVD or bruits, thyroid normal, trachea midline, no adenopathy. Heart--normal S1 and S2, no extra beats, no murmurs, rubs or gallops. Lungs--clear bilaterally with good air movement, no respiratory distress, no accessory muscle use. Abdomen--normal bowel sounds and soft, nontender and nondistended, no hernias or masses, no organomegaly. Extremities--no cyanosis, clubbing or edema. There are good distal pulses b/l. Dermatologic--normal skin turgor, normal color, warm and dry, no abnormal lymph nodes, no rash. Neurologic--cranial nerves II through XII grossly intact, motor and sensory examination normal. Rheumatologic--2 cm open wound at the elbow, with mild erythema, no drainage and minimal tenderness. Psychiatric--normal affect. Diagnostics Laboratory Results Results Past 24 Hours Test 11/02/16 20:17 11/02/16 21:20 Range/Units White Blood Count 14.64 4.8-10.8 K/uL Red Blood Count 4.00 4.2-5.4 M/uL Hemoglobin 13.6 12.0-16.0 g/dL Hematocrit 41.4 37-47 % Mean Corpuscular Volume 103.5 80-100 fL Mean Corpuscular Hemoglobin 34.0 25-34 pg Mean Corpuscular Hemoglobin Concent 32.9 32-36 g/dl Platelet Count 132 130-400 K/uL Mean Platelet Volume 9.9 7.4-10.4 fL Neutrophils (%) (Auto) 96.6 % Lymphocytes (%) (Auto) 0.8 % Monocytes (%) (Auto) 1.2 % Eosinophils (%) (Auto) 0.6 % Basophils (%) (Auto) 0.0 % Neutrophils # (Auto) 14.15 1.4-6.5 K/uL Lymphocytes # (Auto) 0.12 1.2-3.4 K/uL Monocytes # (Auto) 0.17 0.11-0.59 K/uL Eosinophils # (Auto) 0.09 0-0.5 K/uL Basophils # (Auto) 0.00 0-0.2 K/uL RDW Standard Deviation 55.4 36.4-46.3 fL RDW Coefficient of Variation 14.6 11.5-14.5 % Immature Granulocyte % (Auto) 0.8 % Immature Granulocyte # (Auto) 0.11 0.00-0.02 K/uL Prothrombin Time 12.1 9.0-12.0 SECONDS Prothromb Time International Ratio 1.1 0.9-1.1 Activated Partial Thromboplast Time 27.8 21.0-31.0 SECONDS Partial Thromboplastin Ratio 1.1 Sodium Level 137 136-145 mmol/L Potassium Level 3.6 3.5-5.1 mmol/L Chloride Level 101 98-107 mmol/L Carbon Dioxide Level 25 21-32 mmol/L Anion Gap 11.0 3-11 mmol/L Blood Urea Nitrogen 11 7-18 mg/dl Creatinine 1.50 0.60-1.20 mg/dl Est Creatinine Clear Calc Drug Dose 32.3 ml/min Estimated GFR () 43.7 Estimated GFR (Non- 37.7 BUN/Creatinine Ratio 7.3 10-20 Random Glucose 125 70-99 mg/dl Lactic Acid Level 6.8 0.4-2.0 mmol/L Calcium Level 9.2 8.5-10.1 mg/dl Total Bilirubin 1.0 0.2-1 mg/dl Aspartate Amino Transf (AST/SGOT) 71 15-37 U/L Alanine Aminotransferase (ALT/SGPT) 31 12-78 U/L Alkaline Phosphatase 89 45-117 U/L Ammonia 18.0 11-32 umol/L Total Protein 6.1 6.4-8.2 gm/dl Albumin 3.0 3.4-5.0 gm/dl Globulin 3.1 2.5-4.0 gm/dl Albumin/Globulin Ratio 1.0 0.9-2 Urine Color ORANGE Urine Appearance CLOUDY CLEAR Urine pH 5.5 4.5-7.5 Urine Specific [place] 1.019 1.000-1.030 Urine Protein 1+ NEG Urine Glucose (UA) NEG NEG Urine Ketones 1+ NEG Urine Occult Blood NEG NEG Urine Nitrite NEG NEG Urine Bilirubin NEG NEG Urine Urobilinogen NEG NEG Urine Leukocyte Esterase SMALL NEG Urine WBC (Auto) 5-10 0-5 /hpf Urine RBC (Auto) 0-4 0-4 /hpf Urine Hyaline Casts (Auto) >30 0-5 /lpf Urine Epithelial Cells (Auto) >30 0-5 /lpf Urine Bacteria (Auto) NEG NEG Urine Pathogenic Casts 0-3 GRANULAR CASTS 0 /lpf Magnesium Level 1.0 1.8-2.4 mg/dl Troponin I 0.027 0-0.045 ng/ml Ethyl Alcohol mg/dL < 3.0 0-3 mg/dl Microbiology Results 11/02/16 Blood Culture, Received Pending 11/02/16 Blood Culture, Received Pending Diagnostic Radiology Patient Name: SONJA JACKSON Unit Number: [id number] Dictated: 11/02/162122 Transcribed: 11/02/162122 MS Printed Date/Time: [~ rep prt dt]/[~ rep prt tm] [~ rep ct labl] - [~ rep ct ivnm] [facility] [place] [address] Dictated: 11/02/162122 Transcribed: 11/02/162122 MS Printed Date/Time: [~ rep prt dt]/[~ rep prt tm] [~ rep ct labl] - [~ rep ct ivnm] [~ rep ct add3]] CHEST ONE VIEW PORTABLE CLINICAL HISTORY: Sepsis cough COMPARISON STUDY: 10/07/2016 FINDINGS: Slight lateral interstitial prominence. Mild emphysematous change. Diaphragms smooth but somewhat flattened. IMPRESSION: Mild interstitial change improved from the prior study. No new or interval process. The above report was generated using voice recognition software. It may contain grammatical, syntax or spelling errors. Electronically signed by: Markus Rg M.D. 11/02/2016 9:24 PM Dictated Date/Time: 11/02/2016 9:23 PM The status of this report is Signed. Draft = Not yet reviewed or approved by Radiologist. Signed = Reviewed and approved by Radiologist. <AttendingPhy></AttendingPhy> <FamilyPhy>Cruzito Teixeira M.D.</FamilyPhy> < PrimaryPhy>Cruzito Teixeira M.D.</PrimaryPhy> <UnitNumber>[id number]</UnitNumber > <VisitNumber>[id number]</VisitNumber> <PatientName>SONJA JACKSON</ PatientName> <DateOfBirth>1955</DateOfBirth> <Location>[facility]</Location> < ServiceDate>11/02/16</ServiceDate> <MNE>ESINDI</MNE> <OrderingPhy>Rod Jennings MD</OrderingPhy> <OrderingPhyMNE>f rep ord dr luo</OrderingPhyMNE> < DictatingPhyMNE>f rep dict dr luo</DictatingPhyMNE> <CCListMNE>f rep ct mne</ CCListMNE> <AdmittingPhyMNE>f pt admit dr luo</AdmittingPhyMNE> <AttendingPhyMNE >f pt attend dr luo</AttendingPhyMNE> <ConsultingPhyMNE>f pt consult dr luo</ConsultingPhyMNE> <FamilyPhyMNE>f pt fam dr luo</FamilyPhyMNE> <OtherPhyMNE>f pt other dr luo</OtherPhyMNE> < PrimaryPhyMNE>f pt prim care dr luo</PrimaryPhyMNE> <ReferringPhyMNE>f pt referring dr luo</ReferringPhyMNE> Patient Name: SONJA JACKSON Unit Number: [id number] Dictated: 11/03/16601 Transcribed: 11/03/16601 MS Printed Date/Time: [~ rep prt dt]/[~ rep prt tm] [~ rep ct labl] - [~ rep ct ivnm] [facility] Radiology Department [place] [id number] Dictated: 11/03/16601 Transcribed: 11/03/16601 MS Printed Date/Time: [~ rep prt dt]/[~ rep prt tm] [~ rep ct labl] - [~ rep ct ivnm] ABD/PELVIS NO IV OR ORAL CONT CT DOSE: 247.32 mGy.cm HISTORY: Pain. Nausea. nausea and vomiting TECHNIQUE: Multiaxial CT images of the abdomen and pelvis were performed without contrast. A dose lowering technique was utilized adhering to the principles of ALARA. COMPARISON STUDY: None. FINDINGS: Lung bases are clear. Liver spleen and pancreas appear unremarkable. Kidneys negative for hydronephrosis. Moderate infiltrative change of the pericolonic fat involving the a sending colon. Findings of chronic sigmoid diverticulosis. Normal appendix. Bladder is midline. There are no contained calcifications. Mild bladder wall thickening. IMPRESSION: 1. Nonspecific colitis involving the a sending and to a lesser extent proximal transverse colon. 2. Chronic sigmoid diverticulosis. 3. No evidence for abscess collection or obstructive change. The above report was generated using voice recognition software. It may contain grammatical, syntax or spelling errors. Electronically signed by: Markus Rg M.D. 11/03/2016 6:04 AM Dictated Date/Time: 11/03/2016 6:02 AM The status of this report is Signed. Draft = Not yet reviewed or approved by Radiologist. Signed = Reviewed and approved by Radiologist. <AttendingPhy>Joel Conley M.D.</AttendingPhy> <FamilyPhy>Cruzito Teixeira M.D.</FamilyPhy> <PrimaryPhy>Cruzito Teixeira M.D.</PrimaryPhy> <UnitNumber> [id number]</UnitNumber> <VisitNumber>[id number]</VisitNumber> <PatientName> SONJA JACKSON</PatientName> <DateOfBirth>1955</DateOfBirth> <Location> C[facility]</Location> <ServiceDate>11/02/16</ServiceDate> <MNE>ESINDI</MNE> < OrderingPhy>Joel Conley M.D.</OrderingPhy> <OrderingPhyMNE>f rep ord dr luo</OrderingPhyMNE> <DictatingPhyMNE>f rep dict dr luo</DictatingPhyMNE> < CCListMNE>f rep ct valerio</CCListMNE> <AdmittingPhyMNE>f pt admit dr luo</ AdmittingPhyMNE> <AttendingPhyMNE>f pt attend dr luo</AttendingPhyMNE> <ConsultingPhyMNE>f pt consult dr luo</ConsultingPhyMNE> <FamilyPhyMNE>f pt fam dr luo</FamilyPhyMNE> <OtherPhyMNE>f pt other dr luo</OtherPhyMNE> < PrimaryPhyMNE>f pt prim care dr luo</PrimaryPhyMNE> <ReferringPhyMNE>f pt referring dr luo</ReferringPhyMNE> EKG EKG shows normal sinus rhythm at 98 bpm, no acute ST-T changes. Impression Assessment and Plan Sepsis/right elbow infection/colitis-- Vancomycin IV per pharmacokinetic monitoring. Zosyn 3.375 mg IV every 8 hours. Follow blood cultures. Follow stool studies. Hypertension history/acute renal insufficiency/hypomagnesemia/ hypotension due to sepsis. Hold metoprolol succinate Magnesium sulfate 3 g IV 1 now Albumin 25 g IV 1 now Normal saline 2 L given in the ED. Normal saline with KCl 20 mEq 100 mils per hour. Anxiety/alcohol withdrawal-- Lexapro 10 mg by mouth daily. Continue alprazolam 0.5 mg by mouth twice a day. AWSS protocol Continue her usual OTC vitamins if unable to take them we will start banana bag. Lorazepam 1 mg IV every 6 hours when necessary. Hyperlipidemia--continue simvastatin 40 mg by mouth at bedtime Level of Care Telemetry Advanced Directives Existing Advance Directive: No Existing Living Will: No Existing Power of Cattle Sorter: No Resuscitation Status FULL RESUSCITATION VTE Prophylaxis VTE Risk Assessment Done? Y/N: Yes Risk Level: Moderate Given or contraindicated: SCD's Social Service Consult None Apply
[2016-11-03] VITALS (18 sets, daily range): BP systolic 83–151; BP diastolic 50–78; PULSE 61–123; TEMP 35.9–40.7; O2SAT 72–98; Ht 167.6 cm; Wt 45.6 kg
[2016-11-03] MEDS ORDERED: PIPERACILL/TAZOBAC CONSULT ACTIVE PRN (00:15)
[2016-11-03] MEDS ORDERED: LORAZEPAM 2 MG/ML 1 ML VIAL ONE (00:35)
[2016-11-03] MEDS: NSS + 20MEQ KCL 1000ML 1,000 ML IV SCH ×3 (00:39→23:26)
[2016-11-03] MEDS: MAGNESIUM SULFATE 1GM / D5W 1 GM in PREMIXED IN D5W 100 ML IV SCH ×3 (00:40→02:32)
[2016-11-03] MEDS ORDERED: NURSING VERBAL MED ORDER ONE ×2 (00:45→03:45)
[2016-11-03] MEDS ORDERED: LORAZEPAM 2 MG/ML 1 ML VIAL IV PRN (01:00)
[2016-11-03] MEDS ORDERED: LORAZEPAM INJ 1 MG in SYRINGE 0.5 ML IV PRN (01:00)
[2016-11-03] MEDS ORDERED: PIPERACILL/TAZOBAC IV 3.375 GM in DEXTROSE 5% 100ML IV ONE (02:00)
--- NOTE | 2016-11-03 02:03 | EMERGENCY ROOM VISIT NOTE ---
History Report prepared by Broderick: Olamide Rock Under the Supervision of: Dr. Rod Jennings M.D. First contact with patient: 20:27 Chief Complaint: VOMITING Stated Complaint: VOMITING,DIZZINESS Nursing Triage Summary: pt c/o vomiting, dizziness and weakness today. pt denies pain. Seen at [place], IV attempts unsuccessful for fluids. History of Present Illness The patient is a 61 year old female who presents to the Emergency Room with complaints of persistent vomiting starting 1130 today. The patient was feeling healthy prior to the vomiting starting. She attributes her nausea and vomiting to the Bactrim she was recently started on. She notes that she has previously had vomiting with antibiotic use. She last took her antibiotic this morning. She is no longer nauseous. She last vomited around 1800. She currently has some chills. She feels lightheaded. She denies any fever, diarrhea, abdominal pain, chest pain, or SOB. She has a cyst removed from her elbow 1 month ago. She denies any worsening pain in her elbow. The wound is still open. She did have sutures but the sutures are removed and the wound opened up. Her surgeon was planning to do some type of procedure on her elbow next week. She is on antibiotics for her elbow. She regularly drinks alcohol. Her last drink was earlier today. She does not think she is having withdrawal. Her blood pressure is normally in the 130s. Source of History: patient Onset: 1130 Position: other (global) Quality: other (vomiting) Timing: other (persistent) Associated Symptoms: + nausea, No fevers, No chest pain, No SOB, No abdominal pain, No diarrhea Review of Systems See HPI for pertinent positives & negatives. A total of 10 systems reviewed and were otherwise negative. Past Medical & Surgical Medical Problems: (1) Depression (2) History of breast cancer (3) Hyperlipidemia (4) Hypertension (5) Hypotension (6) Left hip pain (7) Sepsis (8) SIRS (systemic inflammatory response syndrome) (9) Tear of medial meniscus of left knee Family History No pertinent family history stated. Social History Smoking Status: Current Every Day Smoker Alcohol Use: occasionally Drug Use: none Marital Status: Housing Status: lives with family Occupation Status: retired Current/Historical Medications Scheduled Alprazolam (Xanax), 0.5 MG PO BID B-Complex Vitamins (B Complex), 1 CAP PO QAM Calcium Polycarbophil (Fiber), 2,500 MG PO BID Calcium/Vitamin D (Os-Justin 500 Plus D), 1 TAB PO QAM Escitalopram (Lexapro), 10 MG PO DAILY Fish Oil ([place]-3), 1 CAP PO QAM Folic Acid (Folvite), 1 MG PO QAM Garlic (Garlic), 1,000 MG PO QAM Metoprolol Succ (Toprol Xl) (Toprol-Xl), 25 MG PO QAM Multivitamin (Multivitamin), 1 TAB PO HS Sennosides-Docusate Sodium (Stool Softener), 1 TAB PO QAM Simvastatin (Zocor), 40 MG PO HS Thiamine Mononitrate (Vitamin B1), 200 MG PO QAM Scheduled PRN Diclofenac Sodium (Topical) (Voltaren 1% Top Gel), 1 APPLN TOP DAILY PRN for Pain Allergies Coded Allergies: Codeine (Verified Adverse Reaction, Mild, NAUSEA, 10/05/16) Physical Exam Vital Signs Date Time Temp Pulse Resp B/P (MAP) Pulse Ox O2 Delivery O2 Flow Rate FiO2 11/02/16 21:55 87/49 11/02/16 21:54 105 98 11/02/16 21:51 52/42 11/02/16 21:49 106 98 11/02/16 21:44 106 92 11/02/16 21:41 91/44 11/02/16 21:39 107 96 11/02/16 21:37 103/47 11/02/16 21:34 105 89 11/02/16 21:31 90/61 11/02/16 21:29 103 92 11/02/16 21:24 102 98 11/02/16 21:22 102/73 11/02/16 21:19 100 11/02/16 21:15 110/52 11/02/16 21:14 105 11/02/16 21:12 96 11/02/16 21:09 103 10 79/55 97 11/02/16 21:09 95 Room Air 11/02/16 21:07 79/55 11/02/16 19:42 36.4 114 20 81/38 100 Room Air Physical Exam Constitutional: Vital signs reviewed. Hypotensive. Eyes: Pupils are equal round reactive to light. Conjunctiva are noninjected. ENT: Pharynx is clear without erythema or exudate. Mucous membranes are dry. Neck supple without meningeal signs. Respiratory: Clear to auscultation bilaterally. Breath sounds are equal bilaterally. Cardiovascular: Tachycardic and regular rhythm. No rubs or gallops. GI: Soft, nondistended and nontender. Bowel sounds are present. Musculoskeletal: No peripheral edema. No lower extremity tenderness. 2 cm open wound to the elbow with mild erythema, no drainage. Integumentary: No cyanosis. Neurological: The patient is awake and alert. No focal deficits. Psychiatric: Normal affect. Medical Decision & Procedures ER Provider Diagnostic Interpretation: X-ray results as stated below per interpretation by me and the radiologist: CHEST ONE VIEW PORTABLE CLINICAL HISTORY: Sepsis cough COMPARISON STUDY: 10/07/2016 FINDINGS: Slight lateral interstitial prominence. Mild emphysematous change. Diaphragms smooth but somewhat flattened. IMPRESSION: Mild interstitial change improved from the prior study. No new or interval process. The above report was generated using voice recognition software. It may contain grammatical, syntax or spelling errors. Electronically signed by: Markus Rg M.D. 11/02/2016 9:24 PM Dictated Date/Time: 11/02/2016 9:23 PM Laboratory Results 11/02/16 20:17 Red Blood Count 4.00, Mean Corpuscular Volume 103.5, Mean Corpuscular Hemoglobin 34.0, Mean Corpuscular Hemoglobin Concent 32.9, Mean Platelet Volume 9.9, Neutrophils (%) (Auto) 96.6, Lymphocytes (%) (Auto) 0.8, Monocytes (%) ( Auto) 1.2, Eosinophils (%) (Auto) 0.6, Basophils (%) (Auto) 0.0, Neutrophils # ( Auto) 14.15, Lymphocytes # (Auto) 0.12, Monocytes # (Auto) 0.17, Eosinophils # ( Auto) 0.09, Basophils # (Auto) 0.00 11/02/16 20:17 Test 11/02/16 20:17 11/02/16 21:20 White Blood Count 14.64 K/uL (4.8-10.8) Red Blood Count 4.00 M/uL (4.2-5.4) Hemoglobin 13.6 g/dL (12.0-16.0) Hematocrit 41.4 % (37-47) Mean Corpuscular Volume 103.5 fL (80-100) Mean Corpuscular Hemoglobin 34.0 pg (25-34) Mean Corpuscular Hemoglobin Concent 32.9 g/dl (32-36) Platelet Count 132 K/uL (130-400) Mean Platelet Volume 9.9 fL (7.4-10.4) Neutrophils (%) (Auto) 96.6 % Lymphocytes (%) (Auto) 0.8 % Monocytes (%) (Auto) 1.2 % Eosinophils (%) (Auto) 0.6 % Basophils (%) (Auto) 0.0 % Neutrophils # (Auto) 14.15 K/uL (1.4-6.5) Lymphocytes # (Auto) 0.12 K/uL (1.2-3.4) Monocytes # (Auto) 0.17 K/uL (0.11-0.59) Eosinophils # (Auto) 0.09 K/uL (0-0.5) Basophils # (Auto) 0.00 K/uL (0-0.2) RDW Standard Deviation 55.4 fL (36.4-46.3) RDW Coefficient of Variation 14.6 % (11.5-14.5) Immature Granulocyte % (Auto) 0.8 % Immature Granulocyte # (Auto) 0.11 K/uL (0.00-0.02) Prothrombin Time 12.1 SECONDS (9.0-12.0) Prothromb Time International Ratio 1.1 (0.9-1.1) Activated Partial Thromboplast Time 27.8 SECONDS (21.0-31.0) Partial Thromboplastin Ratio 1.1 Anion Gap 11.0 mmol/L (3-11) Est Creatinine Clear Calc Drug Dose 32.3 ml/min Estimated GFR () 43.7 Estimated GFR (Non- 37.7 BUN/Creatinine Ratio 7.3 (10-20) Lactic Acid Level 6.8 mmol/L (0.4-2.0) Calcium Level 9.2 mg/dl (8.5-10.1) Total Bilirubin 1.0 mg/dl (0.2-1) Aspartate Amino Transf (AST/SGOT) 71 U/L (15-37) Alanine Aminotransferase (ALT/SGPT) 31 U/L (12-78) Alkaline Phosphatase 89 U/L (45-117) Ammonia 18.0 umol/L (11-32) Total Protein 6.1 gm/dl (6.4-8.2) Albumin 3.0 gm/dl (3.4-5.0) Globulin 3.1 gm/dl (2.5-4.0) Albumin/Globulin Ratio 1.0 (0.9-2) Urine Color ORANGE Urine Appearance CLOUDY (CLEAR) Urine pH 5.5 (4.5-7.5) Urine Specific [place] 1.019 (1.000-1.030) Urine Protein 1+ (NEG) Urine Glucose (UA) NEG (NEG) Urine Ketones 1+ (NEG) Urine Occult Blood NEG (NEG) Urine Nitrite NEG (NEG) Urine Bilirubin NEG (NEG) Urine Urobilinogen NEG (NEG) Urine Leukocyte Esterase SMALL (NEG) Urine WBC (Auto) 5-10 /hpf (0-5) Urine RBC (Auto) 0-4 /hpf (0-4) Urine Hyaline Casts (Auto) >30 /lpf (0-5) Urine Epithelial Cells (Auto) >30 /lpf (0-5) Urine Bacteria (Auto) NEG (NEG) Urine Pathogenic Casts 0-3 GRANULAR CASTS /lpf (0) Magnesium Level 1.0 mg/dl (1.8-2.4) Troponin I 0.027 ng/ml (0-0.045) Ethyl Alcohol mg/dL < 3.0 mg/dl (0-3) Laboratory results as reviewed by me. Medications Administered Medications (Trade) Dose Ordered Sig/Marisa Route Start Time Stop Time Status Last Admin Dose Admin Sodium Chloride 1,000 ml @ 999 mls/hr Q1H1M STAT IV 11/02/16 20:40 11/02/16 21:40 DC 11/02/16 20:40 999 MLS/HR Vancomycin HCl (Vancomycin 1gm/ 270ml Nss) 1 gm NOW STAT IV 11/02/16 21:05 11/02/16 21:07 DC 11/02/16 21:40 1 GM Cefepime HCl 2000 mg/Dextrose 122.6 ml @ 200 mls/hr NOW STAT IV 11/02/16 21:14 11/02/16 21:50 DC 11/02/16 21:32 200 MLS/HR Sodium Chloride 1,000 ml @ 999 mls/hr Q1H1M STAT IV 11/02/16 21:30 11/02/16 22:30 DC 11/02/16 21:30 999 MLS/HR Magnesium Sulfate (Magnesium Sulfate) 2 gm NOW STAT IV 11/02/16 21:48 11/02/16 21:50 DC 11/02/16 22:19 2 GM ECG Indication: other (dizziness) Rate (beats per minute): 98 Rhythm: normal sinus Findings: Q waves (V1, V2), no ectopy Comparison ECG Date: 08-Oct-2016 Change: no significant change ED Course 2030: The patient was evaluated in room C2B. A complete history and physical exam was performed. 2039: NSS 1000 ml @ 999 mls/hr IV. 2104: Vancomycin HCl 1 gm IV. 2111: I reevaluated the patient. Her pressure is 79 systolic. She states that she would like to go home. I discussed the test results with her. She verbalized agreement of the treatment plan. She will be evaluated for further management. 2113: Cefepime HCl 2000 ml/Dextrose 122.6 ml @ 200 mls/hr IV. 2121: I spoke [place] [facility] We discussed the patient and her results. The patient will be further evaluated by him. 2128: I reevaluated the patient. Her blood pressure is 102/78. 0: NSS 1000 ml @ 999 mls/hr IV. 2147: Magnesium Sulfate 2 gm IV. 2148: Dr. Conley has evaluated the patient. He is adding a CT scan of the abdomen. 2324: I reevaluated the patient. Her pressure is in the 90s. She is getting her antibiotics and the banana bag. Medical Decision This is a 61-year-old female who presents with vomiting and fever. Differential diagnosis includes sepsis, septic shock, wound infection, pneumonia , UTI, alcohol withdrawal. I did perform a limited focused review of portions of the patient's old chart on the electronic medical record. The patient was admitted for alcohol withdrawal October 06. She was hypotensive at the time of admission. She had a echo which was unremarkable during her hospitalization. I did evaluate the patient as noted above. IV access was established. The patient was placed on a continuous manager cardiac. She was given 2 L of normal saline IV. Her blood pressure did improve. She was also given a banana bag IV. I did order and personally review the patient's 12-lead EKG and chest x- ray as described above. Blood cultures were ordered. I did order and review the patient's blood work as noted in the electronic medical record. Her white blood cell count is elevated. Lactic acid is also elevated. I did treat her with IV vancomycin and cefepime IV. Her magnesium was also very low and she was given IV magnesium. I did reassess the patient multiple times. I did discuss the case with the hospitalist and shelter case manager. Medication Reconcilliation Current Medication List: was personally reviewed by me Blood Pressure Screening Patient's blood pressure: Low blood pressure Consults Time Called: 2114 Consulting Physician: Dr. Lackey of [facility] [place] Returned Call: 2121 I spoke with him. We discussed the patient and her results. The patient will be further evaluated by him. Impression Primary Impression: Sepsis Additional Impressions: Septic shock JOSE (acute kidney injury) Hypomagnesemia Critical Care I have personally spent 40 minutes of critical care time in the direct management of this patient. This includes bedside care, interpretation of diagnostic studies, and testing, discussion with consultants, patient, and family members, and other required patient management activities. This 40 minutes is in excess of all separately billable procedures. Scribe Attestation The scribe's documentation has been prepared under my direct and personally reviewed by me in its entirety. I confirm that the note above accurately reflects all work, treatment, procedures, and medical decision making performed by me. Departure Information Dispostion Being Evaluated By Hospitalist Referrals Cruzito Teixeira M.D. (PCP) Patient Instructions [facility] Problem Qualifiers
[2016-11-03] MEDS ORDERED: LORAZEPAM 1 MG TAB PO PRN (02:45)
[2016-11-03] MEDS: FAMOTIDINE IV INJ 20 MG in DEXTROSE 5% 100ML 100 ML IV SCH ×2 (02:57→12:53)
[2016-11-03] MEDS ORDERED: VANCOMYCIN CONSULT ACTIVE PRN (03:15)
[2016-11-03] MEDS ORDERED: LORAZEPAM 1MG IV PHA DISPENSED IV PRN (03:45)
[2016-11-03] MEDS: LORAZEPAM 1MG IV ACTIVE PROTOCOL IV PRN ×7 (03:50→23:48)
[2016-11-03] MEDS: PIPERACILL/TAZOBAC IV 3.375 GM in DEXTROSE 5% 100ML IV SCH ×2 (05:33→12:53)
--- NOTE | 2016-11-03 06:05 | DIAGNOSTIC IMAGING REPORT ---
ABD/PELVIS NO IV OR ORAL CONT CT DOSE: 247.32 mGy.cm HISTORY: Pain. Nausea. nausea and vomiting TECHNIQUE: Multiaxial CT images of the abdomen and pelvis were performed without contrast. A dose lowering technique was utilized adhering to the principles of ALARA. COMPARISON STUDY: None. FINDINGS: Lung bases are clear. Liver spleen and pancreas appear unremarkable. Kidneys negative for hydronephrosis. Moderate infiltrative change of the pericolonic fat involving the a sending colon. Findings of chronic sigmoid diverticulosis. Normal appendix. Bladder is midline. There are no contained calcifications. Mild bladder wall thickening. IMPRESSION: 1. Nonspecific colitis involving the a sending and to a lesser extent proximal transverse colon. 2. Chronic sigmoid diverticulosis. 3. No evidence for abscess collection or obstructive change. The above report was generated using voice recognition software. It may contain grammatical, syntax or spelling errors. Electronically signed by: Markus Rg M.D. 11/03/2016 6:04 AM Dictated Date/Time: 11/03/2016 6:02 AM
[2016-11-03 06:44] LABS: HEMATOCRIT 32.8 % (37-47); MEAN CELL VOLUME 102.5 fL (80-100); MEAN CORPUSCULAR HGB CONC 34.1 g/dl (32-36); WHITE BLOOD COUNT 14.57 K/uL (4.8-10.8)
[2016-11-03 06:52] LABS: MEAN PLATELET VOLUME 10.1 fL (7.4-10.4); PLATELET COUNT 89 K/uL (130-400)
[2016-11-03 07:04] LABS: INR 1.3 (0.9-1.1); PARTIAL THROMBOPLASTIN RATIO 1.4; PROTHROMBIN TIME (PATIENT) 14.2 SECONDS (9.0-12.0)
[2016-11-03 07:24] LABS: BUN/CREATININE RATIO 12.2 (10-20); CALCIUM 7.6 mg/dl (8.5-10.1); CKMB/CK RATIO 1.6 (0-3.0); CREATININE 0.91 mg/dl (0.60-1.20); MAGNESIUM 2.5 mg/dl (1.8-2.4); POTASSIUM 4.2 mmol/L (3.5-5.1)
[2016-11-03] MEDS: VITAMIN B COMPLEX TAB PO SCH (07:34)
[2016-11-03] MEDS: ESCITALOPRAM OXALATE 10 MG TAB PO SCH (07:35)
[2016-11-03] MEDS: CALCIUM 600MG + VIT D 400 IU TAB PO SCH (07:35)
[2016-11-03] MEDS: DOCUSATE SODIUM/SENNA 50/8.6MG TAB PO SCH (07:35)
[2016-11-03 07:58] LABS: BASO % 0.1 %; BASO ABS # 0.01 K/uL (0-0.2); COMPLETE YES; DOHLE BODIES 1+; EOS % 1.2 %; IG% 0.5 %; LYMPH % 1.6 %; LYMPH ABS # 0.23 K/uL (1.2-3.4); NEUT % 93.6 %
[2016-11-03] MEDS ORDERED: ALPRAZOLAM 0.5 MG TAB PO SCH (09:00)
[2016-11-03] MEDS ORDERED: THIAMINE HCL 100 MG TAB PO SCH (09:00)
--- NOTE | 2016-11-03 09:15 | Pharmacy Progress Note ---
Pharmacy Antibiotic Consult Date of Service: Nov 03, 2016. Pharmacy Dosing Scope Pharmacy is consulted to initiate vancomycin/zosyn IV dosing therapy, order appropriate labs and adjust drug dose/frequency. Subjective The patient is a 61 year old female admitted on Nov 02, 2016 at 21:56. Objective Height (Feet): 5 Height (Inches): 6.00 Weight (Kilograms): 53.200 Lab Results (24hrs): Test 11/02/16 20:17 11/02/16 21:20 11/03/16 06:13 11/03/16 07:26 White Blood Count 14.64 K/uL (4.8-10.8) 14.57 K/uL (4.8-10.8) Red Blood Count 4.00 M/uL (4.2-5.4) 3.20 M/uL (4.2-5.4) Hemoglobin 13.6 g/dL (12.0-16.0) 11.2 g/dL (12.0-16.0) Hematocrit 41.4 % (37-47) 32.8 % (37-47) Mean Corpuscular Volume 103.5 fL (80-100) 102.5 fL (80-100) Mean Corpuscular Hemoglobin 34.0 pg (25-34) 35.0 pg (25-34) Mean Corpuscular Hemoglobin Concent 32.9 g/dl (32-36) 34.1 g/dl (32-36) Platelet Count 132 K/uL (130-400) 89 K/uL (130-400) Mean Platelet Volume 9.9 fL (7.4-10.4) 10.1 fL (7.4-10.4) Neutrophils (%) (Auto) 96.6 % 93.6 % Lymphocytes (%) (Auto) 0.8 % 1.6 % Monocytes (%) (Auto) 1.2 % 3.0 % Eosinophils (%) (Auto) 0.6 % 1.2 % Basophils (%) (Auto) 0.0 % 0.1 % Neutrophils # (Auto) 14.15 K/uL (1.4-6.5) 13.63 K/uL (1.4-6.5) Lymphocytes # (Auto) 0.12 K/uL (1.2-3.4) 0.23 K/uL (1.2-3.4) Monocytes # (Auto) 0.17 K/uL (0.11-0.59) 0.44 K/uL (0.11-0.59) Eosinophils # (Auto) 0.09 K/uL (0-0.5) 0.18 K/uL (0-0.5) Basophils # (Auto) 0.00 K/uL (0-0.2) 0.01 K/uL (0-0.2) RDW Standard Deviation 55.4 fL (36.4-46.3) 54.7 fL (36.4-46.3) RDW Coefficient of Variation 14.6 % (11.5-14.5) 14.6 % (11.5-14.5) Immature Granulocyte % (Auto) 0.8 % 0.5 % Immature Granulocyte # (Auto) 0.11 K/uL (0.00-0.02) 0.08 K/uL (0.00-0.02) Prothrombin Time 12.1 SECONDS (9.0-12.0) 14.2 SECONDS (9.0-12.0) Prothromb Time International Ratio 1.1 (0.9-1.1) 1.3 (0.9-1.1) Activated Partial Thromboplast Time 27.8 SECONDS (21.0-31.0) 37.0 SECONDS (21.0-31.0) Partial Thromboplastin Ratio 1.1 1.4 Sodium Level 137 mmol/L (136-145) 138 mmol/L (136-145) Potassium Level 3.6 mmol/L (3.5-5.1) 4.2 mmol/L (3.5-5.1) Chloride Level 101 mmol/L (98-107) 107 mmol/L (98-107) Carbon Dioxide Level 25 mmol/L (21-32) 24 mmol/L (21-32) Anion Gap 11.0 mmol/L (3-11) 7.0 mmol/L (3-11) Blood Urea Nitrogen 11 mg/dl (7-18) 11 mg/dl (7-18) Creatinine 1.50 mg/dl (0.60-1.20) 0.91 mg/dl (0.60-1.20) Est Creatinine Clear Calc Drug Dose 32.3 ml/min 55.9 ml/min Estimated GFR () 43.7 80.0 Estimated GFR (Non- 37.7 69.1 BUN/Creatinine Ratio 7.3 (10-20) 12.2 (10-20) Random Glucose 125 mg/dl (70-99) 108 mg/dl (70-99) Lactic Acid Level 6.8 mmol/L (0.4-2.0) 1.9 mmol/L (0.4-2.0) Calcium Level 9.2 mg/dl (8.5-10.1) 7.6 mg/dl (8.5-10.1) Total Bilirubin 1.0 mg/dl (0.2-1) 0.7 mg/dl (0.2-1) Aspartate Amino Transf (AST/SGOT) 71 U/L (15-37) 45 U/L (15-37) Alanine Aminotransferase (ALT/SGPT) 31 U/L (12-78) 24 U/L (12-78) Alkaline Phosphatase 89 U/L (45-117) 49 U/L (45-117) Ammonia 18.0 umol/L (11-32) Total Protein 6.1 gm/dl (6.4-8.2) 5.3 gm/dl (6.4-8.2) Albumin 3.0 gm/dl (3.4-5.0) 2.9 gm/dl (3.4-5.0) Globulin 3.1 gm/dl (2.5-4.0) Albumin/Globulin Ratio 1.0 (0.9-2) Urine Color ORANGE Urine Appearance CLOUDY (CLEAR) Urine pH 5.5 (4.5-7.5) Urine Specific [place] 1.019 (1.000-1.030) Urine Protein 1+ (NEG) Urine Glucose (UA) NEG (NEG) Urine Ketones 1+ (NEG) Urine Occult Blood NEG (NEG) Urine Nitrite NEG (NEG) Urine Bilirubin NEG (NEG) Urine Urobilinogen NEG (NEG) Urine Leukocyte Esterase SMALL (NEG) Urine WBC (Auto) 5-10 /hpf (0-5) Urine RBC (Auto) 0-4 /hpf (0-4) Urine Hyaline Casts (Auto) >30 /lpf (0-5) Urine Epithelial Cells (Auto) >30 /lpf (0-5) Urine Bacteria (Auto) NEG (NEG) Urine Pathogenic Casts 0-3 GRANULAR CASTS /lpf (0) Magnesium Level 1.0 mg/dl (1.8-2.4) 2.5 mg/dl (1.8-2.4) Troponin I 0.027 ng/ml (0-0.045) 0.065 ng/ml (0-0.045) Ethyl Alcohol mg/dL < 3.0 mg/dl (0-3) Nucleated RBC Absolute Count (auto) 0.03 K/uL (0-0) Nucleated Red Blood Cells % 0.2 % Dohle Bodies 1+ Direct Bilirubin 0.2 mg/dl (0-0.2) Total Creatine Kinase 145 U/L (26-192) Creatine Kinase MB 2.3 ng/ml (0.5-3.6) Creatine Kinase MB Ratio 1.6 (0-3.0) Micro Results: Date/Time Source Procedure Growth Status 11/02/16 21:11 Blood Blood Culture Pending Received 11/02/16 20:17 Blood Blood Culture Pending Received Recent Pertinent Medications Bactrim completed yesterday for elbow Assessment & Plan Assessment: 61 yo female presenting with nausea and vomiting, she says is due to Bactrim use. Bactrim being used for open wound on elbow after cyst removal Vancomycin/zosyn ordered for GI/right elbow infection/possible sepsis WBC 14.5, Neut 13.6, current Tmax 39.3 Plan: Loading dose: 1000 mg x 1 (18.7 mg/kg) Maintenance dose: 1000 mg q18H PK: SCr 0.91, CrCl 55.9, Ke 0.051, T1/2 ~14 hrs Goal trough level 15-20 mcg/mL Trough ordered for 11/05 @ 1330 Zosyn 3.375 gm q8H for CrCl >20 mL/min Pharmacy will continue to follow and will adjust dose/frequency as necessary. Thank you
--- NOTE | 2016-11-03 11:44 | Progress Note ---
Subjective Date of Service: Nov 03, 2016. Subjective Pt evaluation today including: conversation w/ patient, physical exam, chart review, lab review, review of studies, review of inpatient medication list Pt anxious Mumbling, difficult to understand [facility] Problem List Medical Problems: (1) Acute electrocardiogram changes Status: Acute (2) JOSE (acute kidney injury) Status: Acute (3) Elevated troponin Status: Acute (4) Hypomagnesemia Status: Acute (5) Sepsis Status: Acute (6) Septic shock Status: Acute (7) Vomiting Status: Acute Review of Systems Unable to obtain due to somnolence Objective Vital Signs Date Time Temp Pulse Resp B/P (MAP) Pulse Ox O2 Delivery O2 Flow Rate FiO2 11/03/16 10:39 38.9 108 22 138/73 (94) 93 Room Air 11/03/16 08:00 91 Room Air 11/03/16 07:24 38.6 11/03/16 07:03 39.3 109 22 132/73 (92) 91 Room Air 11/03/16 05:43 38.1 117 22 148/78 (101) 97 Room Air 11/03/16 04:00 Room Air 11/03/16 02:50 36.9 123 23 134/67 (89) 92 Room Air 11/03/16 00:55 37.9 101 22 140/50 93 Room Air 11/02/16 23:17 106 20 93/45 94 Room Air 11/02/16 22:20 91/46 11/02/16 22:19 102 96 11/02/16 22:18 96/47 11/02/16 22:14 104 96 11/02/16 22:11 81/52 11/02/16 22:09 104 95 11/02/16 22:04 105 95 11/02/16 22:00 99/54 11/02/16 21:59 103 97 11/02/16 21:55 87/49 11/02/16 21:54 105 98 11/02/16 21:51 52/42 11/02/16 21:49 106 98 11/02/16 21:44 106 92 11/02/16 21:41 91/44 11/02/16 21:39 107 96 11/02/16 21:37 103/47 11/02/16 21:34 105 89 11/02/16 21:31 90/61 11/02/16 21:29 103 92 11/02/16 21:24 102 98 11/02/16 21:22 102/73 11/02/16 21:19 100 11/02/16 21:15 110/52 11/02/16 21:14 105 11/02/16 21:12 96 11/02/16 21:09 103 10 79/55 97 11/02/16 21:09 95 Room Air 11/02/16 21:07 79/55 11/02/16 19:42 36.4 114 20 81/38 100 Room Air Physical Exam General Appearance: WD/WN, + mild distress Eyes: normal inspection, PERRL, EOMI, sclerae normal Neck: supple, no adenopathy, thyroid normal, no JVD Respiratory/Chest: chest non-tender, lungs clear, normal breath sounds, no respiratory distress Cardiovascular: no gallop, no JVD, no murmur, + tachycardia Abdomen: non tender, soft, no organomegaly Extremities: non-tender, normal inspection, no pedal edema Neurologic/Psychiatric: no motor/sensory deficits, alert, + depressed affect, + disoriented Laboratory Results Last 24 Hours Test 11/02/16 20:17 11/02/16 21:20 11/03/16 06:13 11/03/16 07:26 White Blood Count 14.64 K/uL 14.57 K/uL Red Blood Count 4.00 M/uL 3.20 M/uL Hemoglobin 13.6 g/dL 11.2 g/dL Hematocrit 41.4 % 32.8 % Mean Corpuscular Volume 103.5 fL 102.5 fL Mean Corpuscular Hemoglobin 34.0 pg 35.0 pg Mean Corpuscular Hemoglobin Concent 32.9 g/dl 34.1 g/dl Platelet Count 132 K/uL 89 K/uL Mean Platelet Volume 9.9 fL 10.1 fL Neutrophils (%) (Auto) 96.6 % 93.6 % Lymphocytes (%) (Auto) 0.8 % 1.6 % Monocytes (%) (Auto) 1.2 % 3.0 % Eosinophils (%) (Auto) 0.6 % 1.2 % Basophils (%) (Auto) 0.0 % 0.1 % Neutrophils # (Auto) 14.15 K/uL 13.63 K/uL Lymphocytes # (Auto) 0.12 K/uL 0.23 K/uL Monocytes # (Auto) 0.17 K/uL 0.44 K/uL Eosinophils # (Auto) 0.09 K/uL 0.18 K/uL Basophils # (Auto) 0.00 K/uL 0.01 K/uL RDW Standard Deviation 55.4 fL 54.7 fL RDW Coefficient of Variation 14.6 % 14.6 % Immature Granulocyte % (Auto) 0.8 % 0.5 % Immature Granulocyte # (Auto) 0.11 K/uL 0.08 K/uL Prothrombin Time 12.1 SECONDS 14.2 SECONDS Prothromb Time International Ratio 1.1 1.3 Activated Partial Thromboplast Time 27.8 SECONDS 37.0 SECONDS Partial Thromboplastin Ratio 1.1 1.4 Sodium Level 137 mmol/L 138 mmol/L Potassium Level 3.6 mmol/L 4.2 mmol/L Chloride Level 101 mmol/L 107 mmol/L Carbon Dioxide Level 25 mmol/L 24 mmol/L Anion Gap 11.0 mmol/L 7.0 mmol/L Blood Urea Nitrogen 11 mg/dl 11 mg/dl Creatinine 1.50 mg/dl 0.91 mg/dl Est Creatinine Clear Calc Drug Dose 32.3 ml/min 55.9 ml/min Estimated GFR () 43.7 80.0 Estimated GFR (Non- 37.7 69.1 BUN/Creatinine Ratio 7.3 12.2 Random Glucose 125 mg/dl 108 mg/dl Lactic Acid Level 6.8 mmol/L 1.9 mmol/L Calcium Level 9.2 mg/dl 7.6 mg/dl Total Bilirubin 1.0 mg/dl 0.7 mg/dl Aspartate Amino Transf (AST/SGOT) 71 U/L 45 U/L Alanine Aminotransferase (ALT/SGPT) 31 U/L 24 U/L Alkaline Phosphatase 89 U/L 49 U/L Ammonia 18.0 umol/L Total Protein 6.1 gm/dl 5.3 gm/dl Albumin 3.0 gm/dl 2.9 gm/dl Globulin 3.1 gm/dl Albumin/Globulin Ratio 1.0 Urine Color ORANGE Urine Appearance CLOUDY Urine pH 5.5 Urine Specific [place] 1.019 Urine Protein 1+ Urine Glucose (UA) NEG Urine Ketones 1+ Urine Occult Blood NEG Urine Nitrite NEG Urine Bilirubin NEG Urine Urobilinogen NEG Urine Leukocyte Esterase SMALL Urine WBC (Auto) 5-10 /hpf Urine RBC (Auto) 0-4 /hpf Urine Hyaline Casts (Auto) >30 /lpf Urine Epithelial Cells (Auto) >30 /lpf Urine Bacteria (Auto) NEG Urine Pathogenic Casts 0-3 GRANULAR CASTS /lpf Magnesium Level 1.0 mg/dl 2.5 mg/dl Troponin I 0.027 ng/ml 0.065 ng/ml Ethyl Alcohol mg/dL < 3.0 mg/dl Nucleated RBC Absolute Count (auto) 0.03 K/uL Nucleated Red Blood Cells % 0.2 % Dohle Bodies 1+ Direct Bilirubin 0.2 mg/dl Total Creatine Kinase 145 U/L Creatine Kinase MB 2.3 ng/ml Creatine Kinase MB Ratio 1.6 Assessment and Plan Sepsis/right elbow infection/colitis-- Noted leukocytosis and tachycardia and fever Cont zosyn 3.375 mg IV every 8 hours in addition to vanc per pharmacy dosing Follow blood cultures. Follow stool studies. Hypertension history/acute renal insufficiency/hypomagnesemia/ hypotension due to sepsis. Hold metoprolol succinate Magnesium sulfate 3 g IV 1 now Albumin 25 g IV 1 now Normal saline 2 L given in the ED. Normal saline with KCl 20 mEq 100 mils per hour. Anxiety/alcohol withdrawal-- Lexapro 10 mg by mouth daily. Continue alprazolam 0.5 mg by mouth twice a day. AWSS protocol Continue her usual OTC vitamins if unable to take them we will start banana bag. Lorazepam 1 mg IV every 6 hours when necessary. Hyperlipidemia--continue simvastatin 40 mg by mouth at bedtime
[2016-11-03] MEDS ORDERED: CLONIDINE HCL 0.1 MG TAB PO ONE (11:45)
[2016-11-03] MEDS: CHLORDIAZEPOXIDE 25 MG CAP PO SCH ×2 (13:16→22:00)
[2016-11-03] MEDS: VANCOMYCIN INJ 1,000 MG in SODIUM CHLORIDE 0.9% 250ML 250 ML IV SCH (14:24)
--- NOTE | 2016-11-03 14:46 | DIAGNOSTIC IMAGING REPORT ---
RIGHT ELBOW MIN 3 VIEWS ROUTINE CLINICAL HISTORY: elbow pain/infection Right pain COMPARISON: None. DISCUSSION: Soft tissue edema posterior to the elbow and distal humerus. The posterior cortical margin of the distal humerus appear to show a developing erosive change. All remaining osseous structures appear to be intact. There is no significant joint effusion. IMPRESSION: 1. Soft tissue edema posterior to the elbow. 2. Developing loss of cortical margin posterior margin distal humeral shaft suggestive of developing osteomyelitis. The above report was generated using voice recognition software. It may contain grammatical, syntax or spelling errors. Electronically signed by: Markus Rg M.D. 11/03/2016 2:45 PM Dictated Date/Time: 11/03/2016 2:44 PM
[2016-11-03] MEDS ORDERED: ACETAMINOPHEN 1000 MG/100 ML IV IV ONE (19:15)
[2016-11-03] MEDS ORDERED: ACETAMINOPHEN IV 650 MG in EMPTY BAG 0 ML IV PRN (19:15)
[2016-11-03] MEDS ORDERED: ACETAMINOPHEN IV 1,000 MG in EMPTY BAG 0 ML IV SCH (19:30)
[2016-11-03 19:48] LABS: HEMATOCRIT 34.5 % (37-47); MEAN CELL VOLUME 101.8 fL (80-100); MEAN CORPUSCULAR HEMOGLOBIN 35.4 pg (25-34); MEAN CORPUSCULAR HGB CONC 34.8 g/dl (32-36); RED BLOOD COUNT 3.39 M/uL (4.2-5.4); WHITE BLOOD COUNT 12.23 K/uL (4.8-10.8)
[2016-11-03 19:49] LABS: BASO % 0.2 %; BASO ABS # 0.02 K/uL (0-0.2); COMPLETE YES; EOS % 1.4 %; IG% 0.7 %; LYMPH ABS # 0.98 K/uL (1.2-3.4); MEAN PLATELET VOLUME 10.8 fL (7.4-10.4); NEUT % 82.7 %; PLATELET COUNT 89 K/uL (130-400)
[2016-11-03] MEDS ORDERED: DexMEDEtomidine IV DRIP IV STA (19:57)
[2016-11-03] MEDS ORDERED: CEFEPIME IV 1,000 MG in DEXTROSE 5% 100ML 100 ML IV SCH (20:00)
[2016-11-03 20:13] LABS: ALKALINE PHOSPHATASE 46 U/L (45-117); ALT/SGPT 28 U/L (12-78); BLOOD UREA NITROGEN 11 mg/dl (7-18); BUN/CREATININE RATIO 10.6 (10-20); CALCIUM 8.1 mg/dl (8.5-10.1); CARBON DIOXIDE 22 mmol/L (21-32); CHLORIDE 110 mmol/L (98-107); GLUCOSE 84 mg/dl (70-99); SODIUM 139 mmol/L (136-145)
[2016-11-03] MEDS ORDERED: D5W AND NSS 1,000 ML IV SCH (20:15)
[2016-11-03] MEDS ORDERED: CEFEPIME CONSULT ACTIVE PRN ×2 (20:15)
[2016-11-03] MEDS: DexMEDEtomidine HCL INJ 200 MCG in SODIUM CHLORIDE 0.9% 50ML 48 ML IV PRN (20:20)
[2016-11-03] MEDS: METRONIDAZOLE / NSS 500 MG in PREMIXED NSS 100 ML IV SCH (20:21)
--- NOTE | 2016-11-03 20:45 | DIAGNOSTIC IMAGING REPORT ---
KUB CLINICAL HISTORY: colitis and temp 102 check for air fluid levels or free air COMPARISON STUDY: No previous studies for comparison. FINDINGS: The soft tissues, psoas shadows, renal outlines and intestinal gas pattern appear normal. There is no evidence for bowel obstruction. No abnormal abdominal calcifications are seen. IMPRESSION: Normal study. The above report was generated using voice recognition software. It may contain grammatical, syntax or spelling errors. Electronically signed by: Markus Rg M.D. 11/03/2016 8:43 PM Dictated Date/Time: 11/03/2016 8:43 PM
[2016-11-03] MEDS ORDERED: CEFEPIME IV 2000 MG in DEXTROSE 5% 100ML IV SCH (21:00)
[2016-11-03] MEDS: MULTIVITAMIN TAB PO SCH (21:00)
--- NOTE | 2016-11-03 21:11 | DIAGNOSTIC IMAGING REPORT ---
HEAD WITHOUT CONTRAST (CT) CT DOSE: 712.55 mGy.cm HISTORY: Mental status change encephalopathy with unequal pupils both pinpoint left smaller TECHNIQUE: Multiaxial CT images of the head were performed without the use of intravenous contrast. A dose lowering technique was utilized adhering to the principles of ALARA. Comparison: None. Findings: The paranasal sinuses and mastoid air cells are clear. The calvarium and skull base are intact. The ventricles and sulci are within normal limits. There is no mass, hematoma, midline shift, or acute infarct. Impression: No acute intracranial abnormality. The above report was generated using voice recognition software. It may contain grammatical, syntax or spelling errors. Electronically signed by: Markus Rg M.D. 11/03/2016 9:09 PM Dictated Date/Time: 11/03/2016 9:08 PM
[2016-11-03 21:29] LABS: POTASSIUM 3.1 mmol/L (3.5-5.1)
[2016-11-03] MEDS ORDERED: POTASSIUM CHLORIDE 10 MEQ / 100ML WTR IV STA (21:44)
[2016-11-03] MEDS: POTASSIUM CHLR 10MEQ / WTR IV SCH ×2 (23:28→23:44)
[2016-11-04] VITALS (26 sets, daily range): BP systolic 88–178; BP diastolic 43–97; PULSE 50–94; TEMP 35–37.8; O2SAT 74–100
[2016-11-04] MEDS: POTASSIUM CHLR 10MEQ / WTR IV SCH ×2 (00:28→02:43)
[2016-11-04] MEDS: POTASSIUM CHLR 10 MEQ / WTR 10 MEQ in PREMIXED WATER 100 ML IV SCH ×2 (01:29→03:42)
[2016-11-04] MEDS: DexMEDEtomidine HCL INJ 200 MCG in SODIUM CHLORIDE 0.9% 50ML 48 ML IV PRN ×2 (01:31→17:42)
[2016-11-04] MEDS: FAMOTIDINE IV INJ 20 MG in DEXTROSE 5% 100ML 100 ML IV SCH ×2 (01:33→14:01)
[2016-11-04] MEDS: CHLORDIAZEPOXIDE 25 MG CAP PO SCH ×3 (05:09→21:53)
[2016-11-04] MEDS: METRONIDAZOLE / NSS 500 MG in PREMIXED NSS 100 ML IV SCH ×3 (05:09→21:46)
[2016-11-04 05:57] LABS: HEMATOCRIT 35.5 % (37-47); MEAN CELL VOLUME 102.6 fL (80-100); MEAN CORPUSCULAR HEMOGLOBIN 34.4 pg (25-34); MEAN CORPUSCULAR HGB CONC 33.5 g/dl (32-36); RED BLOOD COUNT 3.46 M/uL (4.2-5.4); WHITE BLOOD COUNT 8.59 K/uL (4.8-10.8)
[2016-11-04 05:59] LABS: MEAN PLATELET VOLUME 10.2 fL (7.4-10.4); PLATELET COUNT 73 K/uL (130-400)
[2016-11-04] MEDS ORDERED: ACETAMINOPHEN IV 650 MG in EMPTY BAG 0 ML IV PRN (06:00)
[2016-11-04 06:11] LABS: INR 1.3 (0.9-1.1); PARTIAL THROMBOPLASTIN RATIO 1.4; PROTHROMBIN TIME (PATIENT) 13.9 SECONDS (9.0-12.0)
[2016-11-04] MEDS: NSS + 20MEQ KCL 1000ML 1,000 ML IV SCH (06:30)
[2016-11-04 06:44] LABS: ALKALINE PHOSPHATASE 42 U/L (45-117); ALT/SGPT 26 U/L (12-78); AST/SGOT 52 U/L (15-37); BLOOD UREA NITROGEN 12 mg/dl (7-18); BUN/CREATININE RATIO 19.4 (10-20); CALCIUM 7.7 mg/dl (8.5-10.1); CARBON DIOXIDE 21 mmol/L (21-32); CHLORIDE 121 mmol/L (98-107); CREATININE 0.62 mg/dl (0.60-1.20); GLUCOSE 100 mg/dl (70-99); MAGNESIUM 2.3 mg/dl (1.8-2.4); SODIUM 148 mmol/L (136-145)
[2016-11-04 07:07] LABS: BASO % 0.2 %; BASO ABS # 0.02 K/uL (0-0.2); COMPLETE YES; EOS % 1.6 %; IG% 0.5 %; LYMPH % 12.6 %; LYMPH ABS # 1.08 K/uL (1.2-3.4); MONO % 4.3 %; NEUT % 80.8 %; TARGET CELLS 1+
[2016-11-04] MEDS: VANCOMYCIN INJ 1,000 MG in SODIUM CHLORIDE 0.9% 250ML 250 ML IV SCH (07:48)
[2016-11-04] MEDS: FoLIC ACID INJ 1 MG in SYRINGE 9.8 ML IV SCH (07:53)
[2016-11-04] MEDS: THIAMINE HCL INJ 200 MG in SODIUM CHLORIDE 0.9% 50ML 50 ML IV SCH (07:53)
[2016-11-04] MEDS: DOCUSATE SODIUM/SENNA 50/8.6MG TAB PO SCH (08:22)
[2016-11-04] MEDS: ESCITALOPRAM OXALATE 10 MG TAB PO SCH (08:22)
[2016-11-04] MEDS: CALCIUM 600MG + VIT D 400 IU TAB PO SCH (08:22)
[2016-11-04] MEDS: VITAMIN B COMPLEX TAB PO SCH (08:22)
[2016-11-04] MEDS: LORAZEPAM 1MG IV ACTIVE PROTOCOL IV PRN ×5 (08:25→17:43)
[2016-11-04 08:31] LABS: ISTAT ALLEN TEST Pass; ISTAT ARTERIAL BLOOD GAS HCO3 18 meq/L (19-24); ISTAT ARTERIAL BLOOD GAS PCO2 33 mmHg (35-46); ISTAT ARTERIAL BLOOD GAS PO2 < 32 mmHg (80-95); ISTAT CARBON DIOXIDE 19 mEq/l (24-31); ISTAT DELIVERY SYSTEM Room Air; ISTAT SITE L Radial
--- NOTE | 2016-11-04 08:35 | Critical Care Consultation ---
Critical Care Consultation Date of Consultation: Nov 03, 2016. Attending Physician: Jean Boss D.O. Reason for Consultation: Severe sepsis and ETOH withdrawal History of Present Illness The patient is a 61 year old female who was admitted yesterday complaining of persistent vomiting starting 1130 today. The patient has had a cyst in her elbow and was given bactrim. She attributed the vomiting to the bactrim and says she has had vomiting because of antibiotics before. The patient was feeling healthy prior to the vomiting starting. In addition she is reported to drink alcohol daily and her last drink was on the day of admission. However, ETOH level was negative on admission. She is reported to have withdrawal and fever on visitation to family doctor in the record. CT scan of the abdomen on admission showed colitis and diverticulosis but no other evidence of abdominal pathology. She was having low rade fever during the day but apparently that worsened together with AMS and tremulousness. She has been started on thiamine folate librium and ativan. When I saw her at the bedside she was tremulous and mumbling. She was not guarding the abdomen and was hemodynamically stable. No history was obtainable from her. Past Medical/Surgical History l Medical Problems: (1) Depression (2) History of breast cancer (3) Hyperlipidemia (4) Hypertension (5) Hypotension (6) Left hip pain (7) Sepsis (8) SIRS (systemic inflammatory response syndrome) (9) Tear of medial meniscus of left knee Family History non contributory Social History Smoking Status: Current Every Day Smoker Smokeless Tobacco Use: No Alcohol Use: heavy Drug Use: none Marital Status: Housing Status: lives with family Occupation Status: retired Allergies Coded Allergies: Codeine (Verified Adverse Reaction, Mild, NAUSEA, 10/05/16) Home Medications Scheduled Alprazolam (Xanax), 0.5 MG PO BID B-Complex Vitamins (B Complex), 1 CAP PO QAM Calcium Polycarbophil (Fiber), 2,500 MG PO BID Calcium/Vitamin D (Os-Justin 500 Plus D), 1 TAB PO QAM Escitalopram (Lexapro), 10 MG PO DAILY Fish Oil ([place]-3), 1 CAP PO QAM Folic Acid (Folvite), 1 MG PO QAM Garlic (Garlic), 1,000 MG PO QAM Metoprolol Succ (Toprol Xl) (Toprol-Xl), 25 MG PO QAM Multivitamin (Multivitamin), 1 TAB PO HS Sennosides-Docusate Sodium (Stool Softener), 1 TAB PO QAM Simvastatin (Zocor), 40 MG PO HS Thiamine Mononitrate (Vitamin B1), 200 MG PO QAM Scheduled PRN Diclofenac Sodium (Topical) (Voltaren 1% Top Gel), 1 APPLN TOP DAILY PRN for Pain Current Inpatient Medications Current Inpatient Medications Medications (Trade) Dose Ordered Sig/Marisa Route Start Time Stop Time Status Last Admin Dose Admin Potassium Chloride/Sodium Chloride 1,000 ml @ 100 mls/hr Q10H IV 11/03/16 00:30 12/03/16 00:29 11/03/16 10:16 100 MLS/HR Famotidine 20 mg/ Dextrose 102 ml @ 200 mls/hr Q12H IV 11/03/16 02:00 12/03/16 01:59 11/03/16 12:53 200 MLS/HR Ondansetron HCl (Zofran Inj) 4 mg Q6H PRN IV 11/02/16 22:00 12/02/16 21:59 Vitamin B Complex (Vitamin B Complex) 1 tab QAM PO 11/03/16 09:00 12/03/16 08:59 11/03/16 07:34 1 TAB Calcium/Vitamin D (Caltrate Plus Tab) 1 tab QAM PO 11/03/16 09:00 12/03/16 08:59 11/03/16 07:35 1 TAB Diclofenac Sodium (Voltaren 1% Top Gel) 1 appln DAILY PRN EXT 11/02/16 22:15 12/02/16 22:14 Escitalopram Oxalate (Lexapro Tab) 10 mg DAILY PO 11/03/16 09:00 12/03/16 08:59 11/03/16 07:35 10 MG Multivitamins (Multivitamin Tab) 1 tab HS PO 11/03/16 21:00 12/03/16 20:59 Senna/Docusate Sodium (Senokot S Tab) 1 tab QAM PO 11/03/16 09:00 12/03/16 08:59 11/03/16 07:35 1 TAB Vancomycin HCl (Consult) 1 ea UD PRN N/A 11/03/16 03:15 12/03/16 03:14 Lorazepam (Ativan Inj) PRN Dosing -Active Protocol Q1H PRN IV 11/03/16 03:45 12/03/16 03:44 11/03/16 18:03 3 MG Lorazepam 1 mg/ Syringe 1 ml @ 1 mls/min Q1H PRN IV 11/03/16 03:45 12/03/16 03:44 Vancomycin HCl 1000 mg/Sodium Chloride 270 ml @ 125 mls/hr Q18H IV 11/03/16 14:00 11/13/16 13:59 11/03/16 14:24 125 MLS/HR Chlordiazepoxide (Librium Cap) 25 mg Q8 PO 11/03/16 14:00 12/03/16 13:59 11/03/16 13:16 25 MG Metronidazole 500 mg/Prmx 100 ml @ 100 mls/hr Q8H IV 11/03/16 21:00 11/13/16 20:59 11/03/16 20:21 100 MLS/HR Acetaminophen 650 mg/Empty Bag 65 ml @ 260 mls/hr Q8 PRN IV 11/04/16 06:00 12/03/16 19:14 Thiamine HCl 200 mg/Sodium Chloride 52 ml @ 208 mls/hr QAM IV 11/04/16 09:00 12/04/16 08:59 Folic Acid 1 mg/ Syringe 10 ml @ 5 mls/min QAM IV 11/04/16 09:00 12/04/16 08:59 Dexmedetomidine HCl 200 mcg/ Sodium Chloride 50 ml @ 0 mls/hr Q0M PRN IV 11/03/16 20:15 11/07/16 20:14 11/03/16 20:20 2.7 MLS/HR Dextrose/Sodium Chloride 1,000 ml @ 500 mls/hr Q2H IV 11/03/16 20:15 11/03/16 22:14 11/03/16 20:22 500 MLS/HR Cefepime HCl (Consult) 1 ea UD PRN N/A 11/03/16 20:15 12/03/16 20:14 Miscellaneous Information (Pending Order) 1 ea QS N/A 11/04/16 00:00 12/04/16 00:00 Cefepime HCl 2000 mg/Dextrose 112.5 ml @ 225 mls/hr Q24H IV 11/03/16 21:00 11/13/16 20:59 11/03/16 20:33 225 MLS/HR Potassium Chloride 10 meq/ Prmx 100 ml @ 100 mls/hr Q1H IV 11/03/16 22:00 11/04/16 01:59 Review of Systems unable to obtain in this patient Physical Exam Date Time Temp Pulse Resp B/P (MAP) Pulse Ox O2 Delivery O2 Flow Rate FiO2 11/03/16 19:45 39.4 108 22 97 6.0 11/03/16 18:54 39.4 108 22 151/77 (101) 97 Oxymask 6.0 11/03/16 16:56 36.8 100 22 151/74 (99) 98 Oxymask 4.0 11/03/16 16:00 94 Oxymask 6.0 11/03/16 12:00 91 Room Air 11/03/16 10:39 38.9 108 22 138/73 (94) 93 Room Air 11/03/16 08:00 91 Room Air 11/03/16 07:24 38.6 11/03/16 07:03 39.3 109 22 132/73 (92) 91 Room Air 11/03/16 05:43 38.1 117 22 148/78 (101) 97 Room Air 11/03/16 04:00 Room Air 11/03/16 02:50 36.9 123 23 134/67 (89) 92 Room Air 11/03/16 00:55 37.9 101 22 140/50 93 Room Air 11/02/16 23:17 106 20 93/45 94 Room Air 11/02/16 22:20 91/46 11/02/16 22:19 102 96 11/02/16 22:18 96/47 11/02/16 22:14 104 96 11/02/16 22:11 81/52 11/02/16 22:09 104 95 11/02/16 22:04 105 95 General Appearance: moderate distress, other (ill appearing mumbles and is tremulous) Head: normocephalic, atraumatic Eyes: PERRLA, other (constricted pupils L>R but reactive) ENT: poor dentition Neck: normal range of motion, no tenderness, no stridor Respiratory: breath sounds normal, clear to auscultation, other (no labored breathing) Cardiovasular: no M/G/R, other (tachycardiac) Abdomen: non tender, no rebound, no masses, hyperactive bowel sounds, other ( on palpation she does not grimace or guard) Back: normal inspection Upper Extremities: no edema Lower Extremities: no edema Pulses: carotid (R) (2+), carotid (L) (2+), radial (R) (2+), radial (L) (2+), dorsalis pedis (R) (2+), dorsalis pedis (L) (2+) Neuro: other (the patient mumbles to deep sternal rub and painful stimuli. She moves all 4 extremities but no purposeful movement) Laboratory Results Last 24 Hours Test 11/03/16 06:13 11/03/16 07:26 11/03/16 13:57 11/03/16 15:27 White Blood Count 14.57 K/uL Red Blood Count 3.20 M/uL Hemoglobin 11.2 g/dL Hematocrit 32.8 % Mean Corpuscular Volume 102.5 fL Mean Corpuscular Hemoglobin 35.0 pg Mean Corpuscular Hemoglobin Concent 34.1 g/dl Platelet Count 89 K/uL Mean Platelet Volume 10.1 fL Neutrophils (%) (Auto) 93.6 % Lymphocytes (%) (Auto) 1.6 % Monocytes (%) (Auto) 3.0 % Eosinophils (%) (Auto) 1.2 % Basophils (%) (Auto) 0.1 % Neutrophils # (Auto) 13.63 K/uL Lymphocytes # (Auto) 0.23 K/uL Monocytes # (Auto) 0.44 K/uL Eosinophils # (Auto) 0.18 K/uL Basophils # (Auto) 0.01 K/uL RDW Standard Deviation 54.7 fL RDW Coefficient of Variation 14.6 % Immature Granulocyte % (Auto) 0.5 % Immature Granulocyte # (Auto) 0.08 K/uL Nucleated RBC Absolute Count (auto) 0.03 K/uL Nucleated Red Blood Cells % 0.2 % Dohle Bodies 1+ Prothrombin Time 14.2 SECONDS Prothromb Time International Ratio 1.3 Activated Partial Thromboplast Time 37.0 SECONDS Partial Thromboplastin Ratio 1.4 Sodium Level 138 mmol/L Potassium Level 4.2 mmol/L Chloride Level 107 mmol/L Carbon Dioxide Level 24 mmol/L Anion Gap 7.0 mmol/L Blood Urea Nitrogen 11 mg/dl Creatinine 0.91 mg/dl Est Creatinine Clear Calc Drug Dose 55.9 ml/min Estimated GFR () 80.0 Estimated GFR (Non- 69.1 BUN/Creatinine Ratio 12.2 Random Glucose 108 mg/dl Calcium Level 7.6 mg/dl Magnesium Level 2.5 mg/dl Total Bilirubin 0.7 mg/dl Direct Bilirubin 0.2 mg/dl Aspartate Amino Transf (AST/SGOT) 45 U/L Alanine Aminotransferase (ALT/SGPT) 24 U/L Alkaline Phosphatase 49 U/L Total Creatine Kinase 145 U/L U/L Creatine Kinase MB 2.3 ng/ml 1.9 ng/ml Creatine Kinase MB Ratio 1.6 Troponin I 0.065 ng/ml 0.092 ng/ml Total Protein 5.3 gm/dl Albumin 2.9 gm/dl Lactic Acid Level 1.9 mmol/L Test 11/03/16 19:27 11/03/16 20:37 White Blood Count 12.23 K/uL Red Blood Count 3.39 M/uL Hemoglobin 12.0 g/dL Hematocrit 34.5 % Mean Corpuscular Volume 101.8 fL Mean Corpuscular Hemoglobin 35.4 pg Mean Corpuscular Hemoglobin Concent 34.8 g/dl Platelet Count 89 K/uL Mean Platelet Volume 10.8 fL Neutrophils (%) (Auto) 82.7 % Lymphocytes (%) (Auto) 8.0 % Monocytes (%) (Auto) 7.0 % Eosinophils (%) (Auto) 1.4 % Basophils (%) (Auto) 0.2 % Neutrophils # (Auto) 10.12 K/uL Lymphocytes # (Auto) 0.98 K/uL Monocytes # (Auto) 0.86 K/uL Eosinophils # (Auto) 0.17 K/uL Basophils # (Auto) 0.02 K/uL RDW Standard Deviation 54.4 fL RDW Coefficient of Variation 14.7 % Immature Granulocyte % (Auto) 0.7 % Immature Granulocyte # (Auto) 0.08 K/uL Sodium Level 139 mmol/L Potassium Level mmol/L 3.1 mmol/L Chloride Level 110 mmol/L Carbon Dioxide Level 22 mmol/L Anion Gap 7.0 mmol/L Blood Urea Nitrogen 11 mg/dl Creatinine 1.00 mg/dl Est Creatinine Clear Calc Drug Dose 50.9 ml/min Estimated GFR () 71.4 Estimated GFR (Non- 61.6 BUN/Creatinine Ratio 10.6 Random Glucose 84 mg/dl Lactic Acid Level 1.8 mmol/L Calcium Level 8.1 mg/dl Total Bilirubin 0.7 mg/dl Aspartate Amino Transf (AST/SGOT) U/L 54 U/L Alanine Aminotransferase (ALT/SGPT) 28 U/L Alkaline Phosphatase 46 U/L Total Protein 5.4 gm/dl Albumin 2.7 gm/dl Globulin 2.7 gm/dl Albumin/Globulin Ratio 1.0 Lipase 47 U/L Procalcitonin 47.69 ng/ml Assessment & Plan 61 year old female with sepsis febrile and encephalopathic + an element of ETOH withdrawal. FOcus is either the colon (diverticulitis/Colitis) or abscess. Will change the anibiotics to cefepime and flagyll as well as vancomycin. THis will cover possibility of C deficile. She is in addition hypokalemic Will treat as severe sepsis and alcohol withdrawal neuro Will start precedex drip and hold off clonidine for ETOH withdrawal change thiamine and folate to IV IV ativan 2 mg PRN q4 head CT obtained negative respiratory O2 supplementation CXR looks clear titrate O2 to SpO2 >94% via NC GI NPO for now IVF D5NS with 20 meq KCL at 100 ml/hr ammonia level within normal lipase within normal KUB shows no free air no air fluid levels suggestive of obstruction Renal replete K IVF D5NS 100 ml/hr with 20 mEq KCL ID blood cultures pending change zosyn to cefepime and flagyl for better coverage for possible C deficile DVT prophylaxis with SC heparin She needs the villavicencio and since her BP is holding will hold off central lines. I put in a call for her NOK Robbie Funes [phone] Patient is critically ill with possible loss of life or limb situation. I spent a total of 45 min of CC time taking care of her.
[2016-11-04] MEDS ORDERED: D5W AND NSS 1,000 ML IV SCH (08:45)
[2016-11-04] MEDS ORDERED: HEPARIN SOD 5000 UNIT/0.5 ML CARP SQ ONE (08:50)
--- NOTE | 2016-11-04 09:02 | Critical Care Progress Note ---
Critical Care Progress Note Date of Service Nov 04, 2016. ICU Day ICU Day Number: [address] Barboza Subjective The patient remains altered but she can verbalize incoherent wards and opens eyes now, She was hypothermic overnight and we stopped the cooling She is euthermic now. CT head was negative Potassium repleted. UO >1800 ml MAP remains >65 mmHg. She has a HR of 64. the lungs remain clear but she is tachypneic to the upper 30s. She has some gag reflex and we will try bipap prior to intubating her. Objective General Appearance: moderate distress, ill appearing mumbles and is tremulous Head: normocephalic, atraumatic Eyes: PERRLA ENT: poor dentition Neck: normal range of motion, no tenderness, no stridor, no nuchal regidity Respiratory: breath sounds normal, clear to auscultation, tachypneic. Placed on BIPAP TV 400-500 Cardiovasular: no M/G/R, HR in the 60s/min Abdomen: non tender, no rebound, no masses, hyperactive bowel sounds, on palpation she does not grimace or guard Back: normal inspection Upper Extremities: no edema Lower Extremities: no edema Pulses: carotid (R) (2+), carotid (L) (2+), radial (R) (2+), radial (L) (2+), dorsalis pedis (R) (2+), dorsalis pedis (L) (2+) Neuro: other (the patient mumbles to deep sternal rub and painful stimuli. She moves all 4 extremities but no purposeful movement) Current SOFA Score SOFA Score Response (Comments) Value PaO2/FiO2 (mmHg) < 400 1 SaO2 / FIO2 221 - 301 1 Platelets (x10) < 100 2 Bilirubin (mg/dL) 1.2 - 1.9 1 [place] Coma Score 13 - 14 1 Level of Hypotension No Hypotension 0 Creatinine (mg/dL) < 1.2 0 Total 6 Previous SOFA Scores 6 Assessment & Plan 61 year old female with severe sepsis, encephalopathy and ETOH withdrawal. Focus is either the colon (diverticulitis/Colitis) or abscess. Will change the anibiotics to cefepime and flagyll as well as vancomycin. THis will cover possibility of C deficile. Today she developed tachypnea and is in respiratory failure on BIPAP. With BIPAP her RR improved. neuro Hold precedex drip for now change thiamine and folate to IV IV ativan 2 mg PRN q4 respiratory BIPAP trial for tachypnea titrate O2 to SpO2 >94% via NC GI NPO for now IVF D5NS with 20 meq KCL at 100 ml/hr ammonia level within normal lipase within normal KUB shows no free air no air fluid levels suggestive of obstruction possible sources are colon (colitis/diverticulitis) or the abscess in her right elbow which to me appears pink and healthy (the wound). Will get XRay to rule out osteomyelitis CV her MAP is >65 mmHg throughout and now she is not tachycardiac anymore this could be the effect of precedes which we are holding or resolution of her sepsis Renal FU and replete lytes IVF D5 1/2NS 60 ml/hr UO >65 mmHg ID 2 new blood cultures pending procalcitonin positive FU WBC and obtain a urine culture changed zosyn to cefepime and flagyl for better coverage for possible C deficile continue vancomycin DVT prophylaxis with SC heparin She needs the villavicencio and since her BP is holding will hold off central lines. spoke to her NOK Robbie Funes [phone] Patient is critically ill with possible loss of life or limb situation. I spent a total of 45 min of CC time taking care of her. Consults & Procedures Consultants: none Procedures: none Data Medications: Current Inpatient Medications Medications (Trade) Dose Ordered Sig/Marisa Route Start Time Stop Time Status Last Admin Dose Admin Potassium Chloride/Sodium Chloride 1,000 ml @ 100 mls/hr Q10H IV 11/03/16 00:30 12/03/16 00:29 11/03/16 23:26 100 MLS/HR Famotidine 20 mg/ Dextrose 102 ml @ 200 mls/hr Q12H IV 11/03/16 02:00 12/03/16 01:59 11/04/16 01:33 200 MLS/HR Ondansetron HCl (Zofran Inj) 4 mg Q6H PRN IV 11/02/16 22:00 12/02/16 21:59 Vitamin B Complex (Vitamin B Complex) 1 tab QAM PO 11/03/16 09:00 12/03/16 08:59 11/03/16 07:34 1 TAB Calcium/Vitamin D (Caltrate Plus Tab) 1 tab QAM PO 11/03/16 09:00 12/03/16 08:59 11/03/16 07:35 1 TAB Diclofenac Sodium (Voltaren 1% Top Gel) 1 appln DAILY PRN EXT 11/02/16 22:15 12/02/16 22:14 Escitalopram Oxalate (Lexapro Tab) 10 mg DAILY PO 11/03/16 09:00 12/03/16 08:59 11/03/16 07:35 10 MG Multivitamins (Multivitamin Tab) 1 tab HS PO 11/03/16 21:00 12/03/16 20:59 Senna/Docusate Sodium (Senokot S Tab) 1 tab QAM PO 11/03/16 09:00 12/03/16 08:59 11/03/16 07:35 1 TAB Vancomycin HCl (Consult) 1 ea UD PRN N/A 11/03/16 03:15 12/03/16 03:14 Lorazepam (Ativan Inj) PRN Dosing -Active Protocol Q1H PRN IV 11/03/16 03:45 12/03/16 03:44 11/03/16 23:48 2 MG Lorazepam 1 mg/ Syringe 1 ml @ 1 mls/min Q1H PRN IV 11/03/16 03:45 12/03/16 03:44 Vancomycin HCl 1000 mg/Sodium Chloride 270 ml @ 125 mls/hr Q18H IV 11/03/16 14:00 11/13/16 13:59 11/04/16 07:48 125 MLS/HR Chlordiazepoxide (Librium Cap) 25 mg Q8 PO 11/03/16 14:00 12/03/16 13:59 11/03/16 13:16 25 MG Metronidazole 500 mg/Prmx 100 ml @ 100 mls/hr Q8H IV 11/03/16 21:00 11/13/16 20:59 11/04/16 05:09 100 MLS/HR Acetaminophen 650 mg/Empty Bag 65 ml @ 260 mls/hr Q8 PRN IV 11/04/16 06:00 12/03/16 19:14 Thiamine HCl 200 mg/Sodium Chloride 52 ml @ 208 mls/hr QAM IV 11/04/16 09:00 12/04/16 08:59 11/04/16 07:53 208 MLS/HR Folic Acid 1 mg/ Syringe 10 ml @ 5 mls/min QAM IV 11/04/16 09:00 12/04/16 08:59 11/04/16 07:53 5 MLS/MIN Dexmedetomidine HCl 200 mcg/ Sodium Chloride 50 ml @ 0 mls/hr Q0M PRN IV 11/03/16 20:15 11/07/16 20:14 11/04/16 01:31 13.4 MLS/HR Cefepime HCl (Consult) 1 ea UD PRN N/A 11/03/16 20:15 12/03/16 20:14 Miscellaneous Information (Pending Order) 1 ea QS N/A 11/04/16 00:00 12/04/16 00:00 11/04/16 07:48 1 EA Cefepime HCl 2000 mg/Dextrose 112.5 ml @ 225 mls/hr Q24H IV 11/03/16 21:00 11/13/16 20:59 11/03/16 20:33 225 MLS/HR Vital Signs: Date Time Temp Pulse Resp B/P (MAP) Pulse Ox O2 Delivery O2 Flow Rate FiO2 11/04/16 06:00 36.3 69 19 99/68 (78) 99 11/04/16 05:00 35.3 56 31 104/69 (81) 98 11/04/16 04:18 92 11/04/16 04:00 35.0 50 31 124/74 (91) 97 11/04/16 03:00 57 27 104/66 (79) 92 11/04/16 02:00 36.3 56 27 94/59 (71) 92 11/04/16 01:40 57 28 100/60 (73) 94 11/04/16 01:00 60 29 88/64 (72) 94 11/04/16 00:00 36.0 73 26 106/43 (64) 74 11/04/16 00:00 92 11/03/16 23:00 35.9 61 26 111/64 (80) 91 11/03/16 22:02 36.4 70 29 93/56 (68) 96 11/03/16 21:58 36.4 67 30 83/54 (64) 96 11/03/16 20:00 39.2 95 30 98 11/03/16 20:00 97 Oxymask 6.0 11/03/16 19:45 39.4 108 22 97 6.0 11/03/16 19:15 40.7 123 45 139/68 (91) 72 11/03/16 19:00 106 11/03/16 18:54 39.4 108 22 151/77 (101) 97 Oxymask 6.0 11/03/16 16:56 36.8 100 22 151/74 (99) 98 Oxymask 4.0 11/03/16 16:00 94 Oxymask 6.0 11/03/16 12:00 91 Room Air 11/03/16 10:39 38.9 108 22 138/73 (94) 93 Room Air Laboratory Results: Last 24 Hours Test 11/03/16 13:57 11/03/16 15:27 11/03/16 19:27 11/03/16 20:37 Creatine Kinase MB Ratio Total Creatine Kinase U/L Creatine Kinase MB 1.9 ng/ml Troponin I 0.092 ng/ml White Blood Count 12.23 K/uL Red Blood Count 3.39 M/uL Hemoglobin 12.0 g/dL Hematocrit 34.5 % Mean Corpuscular Volume 101.8 fL Mean Corpuscular Hemoglobin 35.4 pg Mean Corpuscular Hemoglobin Concent 34.8 g/dl Platelet Count 89 K/uL Mean Platelet Volume 10.8 fL Neutrophils (%) (Auto) 82.7 % Lymphocytes (%) (Auto) 8.0 % Monocytes (%) (Auto) 7.0 % Eosinophils (%) (Auto) 1.4 % Basophils (%) (Auto) 0.2 % Neutrophils # (Auto) 10.12 K/uL Lymphocytes # (Auto) 0.98 K/uL Monocytes # (Auto) 0.86 K/uL Eosinophils # (Auto) 0.17 K/uL Basophils # (Auto) 0.02 K/uL RDW Standard Deviation 54.4 fL RDW Coefficient of Variation 14.7 % Immature Granulocyte % (Auto) 0.7 % Immature Granulocyte # (Auto) 0.08 K/uL Sodium Level 139 mmol/L Potassium Level mmol/L 3.1 mmol/L Chloride Level 110 mmol/L Carbon Dioxide Level 22 mmol/L Anion Gap 7.0 mmol/L Blood Urea Nitrogen 11 mg/dl Creatinine 1.00 mg/dl Est Creatinine Clear Calc Drug Dose 50.9 ml/min Estimated GFR () 71.4 Estimated GFR (Non- 61.6 BUN/Creatinine Ratio 10.6 Random Glucose 84 mg/dl Lactic Acid Level 1.8 mmol/L Calcium Level 8.1 mg/dl Total Bilirubin 0.7 mg/dl Aspartate Amino Transf (AST/SGOT) U/L 54 U/L Alanine Aminotransferase (ALT/SGPT) 28 U/L Alkaline Phosphatase 46 U/L Total Protein 5.4 gm/dl Albumin 2.7 gm/dl Globulin 2.7 gm/dl Albumin/Globulin Ratio 1.0 Lipase 47 U/L Procalcitonin 47.69 ng/ml Test 11/04/16 05:25 11/04/16 05:30 11/04/16 08:15 White Blood Count 8.59 K/uL Red Blood Count 3.46 M/uL Hemoglobin 11.9 g/dL Hematocrit 35.5 % Mean Corpuscular Volume 102.6 fL Mean Corpuscular Hemoglobin 34.4 pg Mean Corpuscular Hemoglobin Concent 33.5 g/dl Platelet Count 73 K/uL Mean Platelet Volume 10.2 fL Neutrophils (%) (Auto) 80.8 % Lymphocytes (%) (Auto) 12.6 % Monocytes (%) (Auto) 4.3 % Eosinophils (%) (Auto) 1.6 % Basophils (%) (Auto) 0.2 % Neutrophils # (Auto) 6.94 K/uL Lymphocytes # (Auto) 1.08 K/uL Monocytes # (Auto) 0.37 K/uL Eosinophils # (Auto) 0.14 K/uL Basophils # (Auto) 0.02 K/uL RDW Standard Deviation 56.7 fL RDW Coefficient of Variation 15.1 % Immature Granulocyte % (Auto) 0.5 % Immature Granulocyte # (Auto) 0.04 K/uL Target Cells 1+ Prothrombin Time 13.9 SECONDS Prothromb Time International Ratio 1.3 Activated Partial Thromboplast Time 37.6 SECONDS Partial Thromboplastin Ratio 1.4 Sodium Level 148 mmol/L Potassium Level 5.0 mmol/L Chloride Level 121 mmol/L Carbon Dioxide Level 21 mmol/L Anion Gap 6.0 mmol/L Blood Urea Nitrogen 12 mg/dl Creatinine 0.62 mg/dl Est Creatinine Clear Calc Drug Dose 81.6 ml/min Estimated GFR () 114.4 Estimated GFR (Non- 98.7 BUN/Creatinine Ratio 19.4 Random Glucose 100 mg/dl Calcium Level 7.7 mg/dl Magnesium Level 2.3 mg/dl Total Bilirubin 0.6 mg/dl Direct Bilirubin < 0.1 mg/dl Aspartate Amino Transf (AST/SGOT) 52 U/L Alanine Aminotransferase (ALT/SGPT) 26 U/L Alkaline Phosphatase 42 U/L Total Protein 4.7 gm/dl Albumin 2.4 gm/dl Bedside Glucose 99 mg/dl Blood Gas Sample Site L Radial Bedside Blood Gas pH (LAB) 7.36 Bedside Blood Gas pCO2 (LAB) 33 mmHg Bedside Blood Gas pO2 (LAB) < 32 mmHg Bedside Blood Gas HCO3 (LAB) 18 meq/L Bedside Blood Gas Total CO2 19 mEq/l Bedside Blood Gas Base Excess (LAB) -7.0 meq/L Bedside Blood Gas O2 Saturation 48.0 % Jose Guadalupe Test Pass Oxygen Delivery Device Room Air
[2016-11-04] MEDS ORDERED: D5W AND 1/2NSS 1,000 ML IV SCH (09:15)
[2016-11-04] MEDS ORDERED: DEXTROSE 50% 50 ML SYR ONE (10:30)
[2016-11-04] MEDS ORDERED: NURSING VERBAL MED ORDER ONE (11:30)
[2016-11-04] MEDS ORDERED: SODI CHLOR 2.5MEQ/ML 14.6% INJ 38.5 MEQ in DEXTROSE 10% 1,000 ML IV SCH (11:45)
[2016-11-04] MEDS: CEFEPIME IV 2000 MG in DEXTROSE 5% 100ML IV SCH (12:02)
[2016-11-04] MEDS: SODI CHLOR 2.5MEQ/ML 14.6% INJ 77 MEQ in DEXTROSE 10% 1,000 ML IV SCH (12:02)
[2016-11-04] MEDS: HEPARIN SOD 5000 UNIT/0.5 ML CARP SQ SCH ×2 (14:12→21:53)
[2016-11-04] MEDS: VANCOMYCIN INJ 750 MG in SODIUM CHLORIDE 0.9% 250ML 250 ML IV SCH (15:56)
--- NOTE | 2016-11-04 16:24 | Progress Note ---
Subjective Date of Service: Nov 04, 2016. Subjective Pt evaluation today including: conversation w/ patient, physical exam, chart review, lab review, review of studies, review of inpatient medication list Transferred to ICU last night Placed on precedex drip Combative with staff overnight Open eyes to painful stimuli Problem List Medical Problems: (1) Acute electrocardiogram changes Status: Acute (2) JOSE (acute kidney injury) Status: Acute (3) Elevated troponin Status: Acute (4) Hypomagnesemia Status: Acute (5) Sepsis Status: Acute (6) Septic shock Status: Acute (7) Vomiting Status: Acute Review of Systems Unable to obtain due to somnolence Objective Vital Signs Date Time Temp Pulse Resp B/P (MAP) Pulse Ox O2 Delivery O2 Flow Rate FiO2 11/04/16 14:25 92 99 30 11/04/16 14:09 37.8 94 32 178/61 (100) 100 BiPAP 30 11/04/16 12:00 94 11/04/16 12:00 37.4 68 24 131/84 (100) 100 BiPAP 30 11/04/16 11:35 63 99 30 11/04/16 10:23 36.8 61 18 142/83 (102) 99 BiPAP 30 11/04/16 08:27 59 99 30 11/04/16 08:00 37.2 67 19 134/79 (97) 94 Room Air Oxymask 11/04/16 08:00 94 11/04/16 06:00 36.3 69 19 99/68 (78) 99 11/04/16 05:00 35.3 56 31 104/69 (81) 98 11/04/16 04:18 92 11/04/16 04:00 35.0 50 31 124/74 (91) 97 11/04/16 03:00 57 27 104/66 (79) 92 11/04/16 02:00 36.3 56 27 94/59 (71) 92 11/04/16 01:40 57 28 100/60 (73) 94 11/04/16 01:00 60 29 88/64 (72) 94 11/04/16 00:00 36.0 73 26 106/43 (64) 74 11/04/16 00:00 92 11/03/16 23:00 35.9 61 26 111/64 (80) 91 11/03/16 22:02 36.4 70 29 93/56 (68) 96 11/03/16 21:58 36.4 67 30 83/54 (64) 96 11/03/16 20:00 39.2 95 30 98 11/03/16 20:00 97 Oxymask 6.0 11/03/16 19:45 39.4 108 22 97 6.0 11/03/16 19:15 40.7 123 45 139/68 (91) 72 11/03/16 19:00 106 11/03/16 18:54 39.4 108 22 151/77 (101) 97 Oxymask 6.0 11/03/16 16:56 36.8 100 22 151/74 (99) 98 Oxymask 4.0 Physical Exam General Appearance: WD/WN, + mild distress Eyes: normal inspection, PERRL, EOMI, sclerae normal Neck: supple, no adenopathy, thyroid normal, no JVD Respiratory/Chest: chest non-tender, lungs clear, normal breath sounds, no respiratory distress Cardiovascular: no edema, no gallop, no JVD, no murmur Abdomen: normal bowel sounds, non tender, soft, no organomegaly Extremities: non-tender, normal inspection, no pedal edema Neurologic/Psychiatric: no motor/sensory deficits, normal mood/affect, + depressed affect Skin: normal color, warm/dry, no rash Lymphatic: no adenopathy Laboratory Results Last 24 Hours Test 11/03/16 19:27 11/03/16 20:37 11/04/16 05:25 11/04/16 05:30 White Blood Count 12.23 K/uL 8.59 K/uL Red Blood Count 3.39 M/uL 3.46 M/uL Hemoglobin 12.0 g/dL 11.9 g/dL Hematocrit 34.5 % 35.5 % Mean Corpuscular Volume 101.8 fL 102.6 fL Mean Corpuscular Hemoglobin 35.4 pg 34.4 pg Mean Corpuscular Hemoglobin Concent 34.8 g/dl 33.5 g/dl Platelet Count 89 K/uL 73 K/uL Mean Platelet Volume 10.8 fL 10.2 fL Neutrophils (%) (Auto) 82.7 % 80.8 % Lymphocytes (%) (Auto) 8.0 % 12.6 % Monocytes (%) (Auto) 7.0 % 4.3 % Eosinophils (%) (Auto) 1.4 % 1.6 % Basophils (%) (Auto) 0.2 % 0.2 % Neutrophils # (Auto) 10.12 K/uL 6.94 K/uL Lymphocytes # (Auto) 0.98 K/uL 1.08 K/uL Monocytes # (Auto) 0.86 K/uL 0.37 K/uL Eosinophils # (Auto) 0.17 K/uL 0.14 K/uL Basophils # (Auto) 0.02 K/uL 0.02 K/uL RDW Standard Deviation 54.4 fL 56.7 fL RDW Coefficient of Variation 14.7 % 15.1 % Immature Granulocyte % (Auto) 0.7 % 0.5 % Immature Granulocyte # (Auto) 0.08 K/uL 0.04 K/uL Sodium Level 139 mmol/L 148 mmol/L Potassium Level mmol/L 3.1 mmol/L 5.0 mmol/L Chloride Level 110 mmol/L 121 mmol/L Carbon Dioxide Level 22 mmol/L 21 mmol/L Anion Gap 7.0 mmol/L 6.0 mmol/L Blood Urea Nitrogen 11 mg/dl 12 mg/dl Creatinine 1.00 mg/dl 0.62 mg/dl Est Creatinine Clear Calc Drug Dose 50.9 ml/min 81.6 ml/min Estimated GFR () 71.4 114.4 Estimated GFR (Non- 61.6 98.7 BUN/Creatinine Ratio 10.6 19.4 Random Glucose 84 mg/dl 100 mg/dl Lactic Acid Level 1.8 mmol/L Calcium Level 8.1 mg/dl 7.7 mg/dl Total Bilirubin 0.7 mg/dl 0.6 mg/dl Aspartate Amino Transf (AST/SGOT) U/L 54 U/L 52 U/L Alanine Aminotransferase (ALT/SGPT) 28 U/L 26 U/L Alkaline Phosphatase 46 U/L 42 U/L Total Protein 5.4 gm/dl 4.7 gm/dl Albumin 2.7 gm/dl 2.4 gm/dl Globulin 2.7 gm/dl Albumin/Globulin Ratio 1.0 Lipase 47 U/L Procalcitonin 47.69 ng/ml Target Cells 1+ Prothrombin Time 13.9 SECONDS Prothromb Time International Ratio 1.3 Activated Partial Thromboplast Time 37.6 SECONDS Partial Thromboplastin Ratio 1.4 Phosphorus Level 2.2 mg/dl Magnesium Level 2.3 mg/dl Direct Bilirubin < 0.1 mg/dl Bedside Glucose 99 mg/dl Test 11/04/16 08:15 11/04/16 10:28 11/04/16 12:06 Blood Gas Sample Site L Radial Bedside Blood Gas pH (LAB) 7.36 Bedside Blood Gas pCO2 (LAB) 33 mmHg Bedside Blood Gas pO2 (LAB) < 32 mmHg Bedside Blood Gas HCO3 (LAB) 18 meq/L Bedside Blood Gas Total CO2 19 mEq/l Bedside Blood Gas Base Excess (LAB) -7.0 meq/L Bedside Blood Gas O2 Saturation 48.0 % Jose Guadalupe Test Pass Oxygen Delivery Device Room Air Bedside Glucose 65 mg/dl 169 mg/dl Assessment and Plan Severe sepsis/?right elbow osteomylitis/colitis Transferred to ICU due to worsening tacycardia, seizure, and ongoing high fevers Started on precedex drip Cont cefepime, vanc, flagyl Pending right elbow XR to determine osteomyelitis Leukocytosis resolved and now afebrile Follow blood cultures. Follow stool studies. Anxiety/alcohol withdrawal-- Lexapro 10 mg by mouth daily. Continue librium in addition to ativan PRN AWSS protocol Continue her usual OTC vitamins if unable to take them we will start banana bag. Lorazepam 1 mg IV every 6 hours when necessary. Hypertension history/acute renal insufficiency/hypomagnesemia/ hypotension due to sepsis. Hold metoprolol succinate Magnesium sulfate 3 g IV 1 now Albumin 25 g IV 1 now Normal saline 2 L given in the ED. Normal saline with KCl 20 mEq 100 mils per hour. Hyperlipidemia--continue simvastatin 40 mg by mouth at bedtime
[2016-11-04] MEDS: MULTIVITAMIN TAB PO SCH (21:00)
[2016-11-05] VITALS (19 sets, daily range): BP systolic 123–167; BP diastolic 59–96; PULSE 62–94; TEMP 36.4–37.1; O2SAT 80–100
[2016-11-05] MEDS: CEFEPIME IV 2000 MG in DEXTROSE 5% 100ML IV SCH (00:28)
[2016-11-05] MEDS: LORAZEPAM 1MG IV ACTIVE PROTOCOL IV PRN ×3 (01:19→21:08)
[2016-11-05] MEDS: FAMOTIDINE IV INJ 20 MG in DEXTROSE 5% 100ML 100 ML IV SCH (01:45)
[2016-11-05] MEDS: VANCOMYCIN INJ 750 MG in SODIUM CHLORIDE 0.9% 250ML 250 ML IV SCH (04:03)
[2016-11-05] MEDS: CHLORDIAZEPOXIDE 25 MG CAP PO SCH ×3 (04:23→21:14)
[2016-11-05] MEDS: SODI CHLOR 2.5MEQ/ML 14.6% INJ 77 MEQ in DEXTROSE 10% 1,000 ML IV SCH (04:47)
[2016-11-05] MEDS: HEPARIN SOD 5000 UNIT/0.5 ML CARP SQ SCH ×3 (05:04→21:27)
[2016-11-05] MEDS: METRONIDAZOLE / NSS 500 MG in PREMIXED NSS 100 ML IV SCH (05:04)
[2016-11-05 05:10] LABS: HEMATOCRIT 35.1 % (37-47); MEAN CELL VOLUME 101.2 fL (80-100); MEAN CORPUSCULAR HEMOGLOBIN 34.9 pg (25-34); MEAN CORPUSCULAR HGB CONC 34.5 g/dl (32-36); RED BLOOD COUNT 3.47 M/uL (4.2-5.4); WHITE BLOOD COUNT 9.62 K/uL (4.8-10.8)
[2016-11-05 05:15] LABS: PLATELET COUNT 76 K/uL (130-400)
[2016-11-05 05:21] LABS: INR 1.1 (0.9-1.1); PARTIAL THROMBOPLASTIN RATIO 1.5; PROTHROMBIN TIME (PATIENT) 11.7 SECONDS (9.0-12.0)
[2016-11-05 05:40] LABS: BUN/CREATININE RATIO 19.4 (10-20); CALCIUM 8.2 mg/dl (8.5-10.1); CREATININE 0.54 mg/dl (0.60-1.20); MAGNESIUM 1.5 mg/dl (1.8-2.4); POTASSIUM 3.5 mmol/L (3.5-5.1)
[2016-11-05 05:49] LABS: BASO % 0.2 %; BASO ABS # 0.02 K/uL (0-0.2); COMPLETE YES; EOS % 5.6 %; IG% 0.3 %; LYMPH % 13.4 %; LYMPH ABS # 1.29 K/uL (1.2-3.4); NEUT % 76.5 %
[2016-11-05] MEDS: ESCITALOPRAM OXALATE 10 MG TAB PO SCH (08:03)
[2016-11-05] MEDS: DOCUSATE SODIUM/SENNA 50/8.6MG TAB PO SCH (08:03)
[2016-11-05] MEDS: CALCIUM 600MG + VIT D 400 IU TAB PO SCH (08:03)
[2016-11-05] MEDS: VITAMIN B COMPLEX TAB PO SCH (08:04)
[2016-11-05] MEDS: FoLIC ACID INJ 1 MG in SYRINGE 9.8 ML IV SCH (08:04)
[2016-11-05] MEDS: THIAMINE HCL INJ 200 MG in SODIUM CHLORIDE 0.9% 50ML 50 ML IV SCH (08:04)
[2016-11-05] MEDS ORDERED: [UNRECOGNIZED DRUG - OTHER] IV SCH (09:45)
[2016-11-05] MEDS: POTASSIUM CHLR 10MEQ / WTR IV SCH ×4 (12:01→15:21)
[2016-11-05] MEDS: MAGNESIUM SULFATE 1GM / D5W 1 GM in PREMIXED IN D5W 100 ML IV SCH ×2 (12:02→12:50)
[2016-11-05] MEDS: CEFTRIAXONE SOD INJ 1000 MG in DEXTROSE 5% 50ML IV SCH (12:02)
[2016-11-05] MEDS ORDERED: VANCOMYCIN TROUGH ONE (13:30)
--- NOTE | 2016-11-05 13:55 | Critical Care Progress Note ---
Critical Care Progress Note Date of Service Nov 05, 2016. Attending Dr. Metz Subjective Patient resting comfortably in bed this morning and was able to awake with sternal rub. Patient responded "no" to all questions. Later patient was found to be oriented to place by the nursing staff. Later in the morning when reexamining on morning rounds the patient was more alert and responding more appropriately to questions. Objective GENERAL: Patient is drowsy and was difficult to arouse. HENT: Normocephalic, atraumatic. Oropharynx unremarkable. EYES: Normal conjunctiva. Sclera non-icteric. NECK: Supple. No nuchal rigidity. RESPIRATORY: Clear to auscultation. CARDIAC: Regular rate, normal rhythm. Extremities warm and well perfused. Pulses equal. ABDOMEN: Soft, non-distended. No tenderness to palpation. No rebound or guarding. No masses. RECTAL: Deferred. MUSCULOSKELETAL: Chest examination reveals no tenderness. LOWER EXTREMITIES: Calves are equal size bilaterally and non-tender. No edema. No discoloration. NEURO: Speech comprehensible although still some element of confusion. Oriented to place only. SKIN: No rash or jaundice noted. Current SOFA Score SOFA Score Response (Comments) Value PaO2/FiO2 (mmHg) < 400 1 SaO2 / FIO2 221 - 301 1 Platelets (x10) < 100 2 Bilirubin (mg/dL) 1.2 - 1.9 1 S[place]us Coma Score 13 - 14 1 Level of Hypotension No Hypotension 0 Creatinine (mg/dL) < 1.2 0 Total 6 Previous SOFA Scores 6 Assessment & Plan The patient is a 61 year old female that presented to the ED Saturday morning with vomiting, chills, and lightheadedness. The patient was found to be tachycardic and hypotensive and the source of her severe sepsis was believed to be either her right elbow wound or a questionable colitis seen on CT. The patient was started on broad spectrum antibiotics and today we will narrow the spectrum of antibiotics to Rocephin (from Vanc, Cefepime, and flagyl). The patient is also and alcoholic (unknown severity) and stated her last drink was Saturday morning. She became increasingly tremulous and mumbling so she was transferred to the ICU. The patient has been was on Precedex, receiving Ativan 2mg q2h, and had been refusing Librium. This morning the patient is more responsive and will continue with Alcohol withdrawal protocol but will discontinue Precedex. Neuro - CAM-ICU positive with RASS score of -3 this morning - D/C Precedex Drip (previous rate of 0.3 mcg/kg/hr this morning) - IV Thiamine 200mg qAM --> transition to PO tomorrow - IV Folate 1mg qAM --> transition to PO tomorrow - IV Ativan 2 mg PRN q2h Resp - Currently saturating well on RA - BIPAP trial yesterday for tachypnea and currently normal respiratory rate - VBG: pH 7.36, pCO2 33, HCO3 18 - Current Smoker --> ordered tobacco cessation GI - Currently NPO due to continued confusion and fear of aspiration - Normosol-M (with dextrose) @ 60ml/hr - D/C Pepcid IV - Ammonia level within normal limits - 18 - Lipase not elevated - 47 - KUB shows no free air no air fluid levels suggestive of obstruction - Multivitamin PO CV - MAP of 105 this morning - D/C Precedex - Currently bradycardic and holding home metoprolol Renal - Normosol M - 60ml/hr (D/C D10 1/4 NS) - Creatinine of 0.54 - Magnesium 1.5 - Give 2mg IV - Check BMP, Mag, and Phos with tomorrow AM labs - Drop in K+ to 3.5 (5.0 yesterday) and Sodium to 141 (148 yesterday) ID - Possible sources of infection is either colon (colitis/diverticulitis) or the abscess in her right elbow - Right elbow X-ray: Developing loss of cortical margin posterior margin distal humeral shaft suggestive of developing osteomyelitis - Rocephin IV 1g daily --> D/C Cefepime, D/C Flagyl, D/C Vancomycin - Consult Orthopaedic surgery - 2 new blood cultures pending - Procalcitonin - 47.69 - Urine Culture pending Heme - DVT Ppx- Heparin SC 5,000 units - Thrombocytopenia (platelets 76) 2/2 infection Resident Physician Supervision Note: Dr. Olsen was resident physician during care of patient. I separately evaluated patient and did history and exam. I discussed the case with the resident and generally agree with the findings and plan. CAM positive, receiving Ativan per alcohol withdrawal score. Lung imaging consistent with COPD, may benefit from outpatient pulmonary follow-up, tobacco cessation education. Patient continued to have episodes of hypoglycemia of unclear etiology, not on oral hypoglycemics, will start Normosol M. Concern for osteomyelitis in right humerus, d/w Dr. Arredondo who did initial I&D who would appreciate orthopedic input. Patient has significantly improved, no indication for broad-spectrum antibiotics. Initial impression was possible source being complicated skin and soft tissue infection versus nonspecific colitis. Patient produced formed stool, no abdominal pain, no evidence of colitis at this time. Accordingly I feel this was a complicated skin soft tissue infection, I have de-escalated the patient to Rocephin at this point. Patient is not requiring continuous infusion of medications for withdrawal symptoms. Stable for downgraded to telemetry status. Documented By: Donaldo Metz DO Consults & Procedures Consultants: none Procedures: none Data Medications: Current Inpatient Medications Medications (Trade) Dose Ordered Sig/Marisa Route Start Time Stop Time Status Last Admin Dose Admin Ondansetron HCl (Zofran Inj) 4 mg Q6H PRN IV 11/02/16 22:00 12/02/16 21:59 Vitamin B Complex (Vitamin B Complex) 1 tab QAM PO 11/03/16 09:00 12/03/16 08:59 11/03/16 07:34 1 TAB Calcium/Vitamin D (Caltrate Plus Tab) 1 tab QAM PO 11/03/16 09:00 12/03/16 08:59 11/03/16 07:35 1 TAB Diclofenac Sodium (Voltaren 1% Top Gel) 1 appln DAILY PRN EXT 11/02/16 22:15 12/02/16 22:14 Escitalopram Oxalate (Lexapro Tab) 10 mg DAILY PO 11/03/16 09:00 12/03/16 08:59 11/03/16 07:35 10 MG Multivitamins (Multivitamin Tab) 1 tab HS PO 11/03/16 21:00 12/03/16 20:59 Senna/Docusate Sodium (Senokot S Tab) 1 tab QAM PO 11/03/16 09:00 12/03/16 08:59 11/03/16 07:35 1 TAB Lorazepam (Ativan Inj) PRN Dosing -Active Protocol Q1H PRN IV 11/03/16 03:45 12/03/16 03:44 11/05/16 01:19 2 MG Lorazepam 1 mg/ Syringe 1 ml @ 1 mls/min Q1H PRN IV 11/03/16 03:45 12/03/16 03:44 Chlordiazepoxide (Librium Cap) 25 mg Q8 PO 11/03/16 14:00 12/03/16 13:59 11/05/16 04:23 25 MG Acetaminophen 650 mg/Empty Bag 65 ml @ 260 mls/hr Q8 PRN IV 11/04/16 06:00 12/03/16 19:14 11/04/16 14:11 260 MLS/HR Heparin Sodium (Porcine) (Heparin Sq 5000 Unit/0.5ml) 5,000 unit Q8 SQ 11/04/16 14:00 12/04/16 13:59 11/05/16 05:04 5,000 UNIT Parenteral Electrolyte Gertrudis/ Dextrose 1,000 ml @ 60 mls/hr [id number] IV 11/05/16 09:45 12/05/16 09:44 11/05/16 12:01 60 MLS/HR Folic Acid (Folvite Tab) 1 mg QAM PO 11/06/16 09:00 12/06/16 08:59 Thiamine HCl (Vitamin B-1 Tab) 200 mg DAILY PO 11/06/16 09:00 12/06/16 08:59 Potassium Chloride 10 meq/ Prmx 100 ml @ 100 mls/hr Q1H IV 11/05/16 10:00 11/05/16 13:59 11/05/16 12:50 100 MLS/HR Ceftriaxone Sodium 1000 mg/ Dextrose 60 ml @ 120 mls/hr Q24H IV 11/05/16 10:00 11/15/16 09:59 11/05/16 12:02 120 MLS/HR Vital Signs: Date Time Temp Pulse Resp B/P (MAP) Pulse Ox O2 Delivery O2 Flow Rate FiO2 11/05/16 12:00 Nasal Cannula 2.0 11/05/16 12:00 77 22 167/95 (119) 95 Nasal Cannula 2.0 11/05/16 10:00 89 22 167/59 (95) 92 Nasal Cannula 2.0 11/05/16 08:00 Nasal Cannula 2.0 11/05/16 08:00 67 22 135/87 (103) 95 Nasal Cannula 2.0 11/05/16 06:00 36.6 78 24 135/90 (105) 98 11/05/16 05:01 37.0 67 28 123/69 (87) 94 11/05/16 05:00 37.0 68 29 94 11/05/16 04:09 98 BiPAP 11/05/16 04:07 37.1 75 28 156/96 (116) 99 11/05/16 03:01 36.7 81 42 148/82 (104) 80 11/05/16 03:00 36.7 81 24 93 11/05/16 02:06 62 97 21 11/05/16 02:00 36.9 64 25 135/81 (99) 96 11/05/16 01:00 36.4 84 29 100 11/05/16 00:48 36.4 63 19 137/85 (102) 99 11/05/16 00:05 98 BiPAP 11/04/16 23:00 36.0 65 23 98 11/04/16 22:00 36.2 59 23 135/80 (98) 98 11/04/16 21:00 36.0 83 33 161/97 (118) 100 11/04/16 20:28 58 100 21 11/04/16 20:01 35.9 58 25 144/85 (104) 99 11/04/16 20:00 35.9 61 26 98 11/04/16 20:00 98 BiPAP 11/04/16 19:00 36.1 59 25 138/82 (100) 99 BiPAP 11/04/16 18:15 36.8 60 28 131/79 (96) 98 BiPAP 30 11/04/16 17:46 64 100 21 11/04/16 16:00 94 11/04/16 16:00 36.9 76 32 139/83 (101) 99 BiPAP 30 11/04/16 14:25 92 99 30 11/04/16 14:09 37.8 94 32 178/61 (100) 100 BiPAP 30 Laboratory Results: Last 24 Hours Test 11/05/16 00:50 11/05/16 04:44 11/05/16 05:44 11/05/16 13:00 Bedside Glucose 155 mg/dl 107 mg/dl 84 mg/dl White Blood Count 9.62 K/uL Red Blood Count 3.47 M/uL Hemoglobin 12.1 g/dL Hematocrit 35.1 % Mean Corpuscular Volume 101.2 fL Mean Corpuscular Hemoglobin 34.9 pg Mean Corpuscular Hemoglobin Concent 34.5 g/dl Platelet Count 76 K/uL Mean Platelet Volume 11.0 fL Neutrophils (%) (Auto) 76.5 % Lymphocytes (%) (Auto) 13.4 % Monocytes (%) (Auto) 4.0 % Eosinophils (%) (Auto) 5.6 % Basophils (%) (Auto) 0.2 % Neutrophils # (Auto) 7.36 K/uL Lymphocytes # (Auto) 1.29 K/uL Monocytes # (Auto) 0.38 K/uL Eosinophils # (Auto) 0.54 K/uL Basophils # (Auto) 0.02 K/uL RDW Standard Deviation 54.7 fL RDW Coefficient of Variation 14.9 % Immature Granulocyte % (Auto) 0.3 % Immature Granulocyte # (Auto) 0.03 K/uL Red Blood Cell Morphology Unremarkable Prothrombin Time 11.7 SECONDS Prothromb Time International Ratio 1.1 Activated Partial Thromboplast Time 38.4 SECONDS Partial Thromboplastin Ratio 1.5 Sodium Level 141 mmol/L Potassium Level 3.5 mmol/L Chloride Level 112 mmol/L Carbon Dioxide Level 23 mmol/L Anion Gap 6.0 mmol/L Blood Urea Nitrogen 10 mg/dl Creatinine 0.54 mg/dl Est Creatinine Clear Calc Drug Dose 93.7 ml/min Estimated GFR () 119.7 Estimated GFR (Non- 103.3 BUN/Creatinine Ratio 19.4 Random Glucose 119 mg/dl Calcium Level 8.2 mg/dl Magnesium Level 1.5 mg/dl Total Bilirubin 0.6 mg/dl Direct Bilirubin 0.1 mg/dl Aspartate Amino Transf (AST/SGOT) 44 U/L Alanine Aminotransferase (ALT/SGPT) 28 U/L Alkaline Phosphatase 53 U/L Total Protein 5.1 gm/dl Albumin 2.7 gm/dl Resident Tracking Resident Involvement: Resident Care Provided Care Provided: Adult Hospital Medicine
[2016-11-05 14:07] LABS: ISTAT ARTERIAL BLOOD GAS pH 7.36 (7.35-7.45)
[2016-11-05 14:08] LABS: ISTAT SAMPLE TYPE venous.
--- NOTE | 2016-11-05 15:35 | Hospitalist Progress Note ---
Hospitalist Progress Note Date of Service Nov 05, 2016. (Yaima River ., PA-C) Subjective Pt evaluation today including: conversation w/ patient, physical exam, lab review, review of studies, review of inpatient medication list Voiding: villavicencio catheter in place (draining clear/yellow urine ) Patient disoriented and continues to state, "I need to take the trash out." Admits to R elbow pain. Voices no other complaints. +BM per nursing this afternoon Currently NPO ROS cannot be obtained secondary to mental status. Per RN, significant UO today- check PRP this PM. (Yaima River, ENID-C) Medications Current Inpatient Medications Medications (Trade) Dose Ordered Sig/Marisa Route Start Time Stop Time Status Last Admin Dose Admin Ondansetron HCl (Zofran Inj) 4 mg Q6H PRN IV 11/02/16 22:00 12/02/16 21:59 Vitamin B Complex (Vitamin B Complex) 1 tab QAM PO 11/03/16 09:00 12/03/16 08:59 11/03/16 07:34 1 TAB Calcium/Vitamin D (Caltrate Plus Tab) 1 tab QAM PO 11/03/16 09:00 12/03/16 08:59 11/03/16 07:35 1 TAB Diclofenac Sodium (Voltaren 1% Top Gel) 1 appln DAILY PRN EXT 11/02/16 22:15 12/02/16 22:14 Escitalopram Oxalate (Lexapro Tab) 10 mg DAILY PO 11/03/16 09:00 12/03/16 08:59 11/03/16 07:35 10 MG Multivitamins (Multivitamin Tab) 1 tab HS PO 11/03/16 21:00 12/03/16 20:59 Senna/Docusate Sodium (Senokot S Tab) 1 tab QAM PO 11/03/16 09:00 12/03/16 08:59 11/03/16 07:35 1 TAB Lorazepam (Ativan Inj) PRN Dosing -Active Protocol Q1H PRN IV 11/03/16 03:45 12/03/16 03:44 11/05/16 01:19 2 MG Lorazepam 1 mg/ Syringe 1 ml @ 1 mls/min Q1H PRN IV 11/03/16 03:45 12/03/16 03:44 Chlordiazepoxide (Librium Cap) 25 mg Q8 PO 11/03/16 14:00 12/03/16 13:59 11/05/16 14:22 25 MG Acetaminophen 650 mg/Empty Bag 65 ml @ 260 mls/hr Q8 PRN IV 11/04/16 06:00 12/03/16 19:14 11/04/16 14:11 260 MLS/HR Heparin Sodium (Porcine) (Heparin Sq 5000 Unit/0.5ml) 5,000 unit Q8 SQ 11/04/16 14:00 12/04/16 13:59 11/05/16 14:21 5,000 UNIT Parenteral Electrolyte Gertrudis/ Dextrose 1,000 ml @ 60 mls/hr [id number] IV 11/05/16 09:45 12/05/16 09:44 11/05/16 12:01 60 MLS/HR Folic Acid (Folvite Tab) 1 mg QAM PO 11/06/16 09:00 12/06/16 08:59 Thiamine HCl (Vitamin B-1 Tab) 200 mg DAILY PO 11/06/16 09:00 12/06/16 08:59 Ceftriaxone Sodium 1000 mg/ Dextrose 60 ml @ 120 mls/hr Q24H IV 11/05/16 10:00 11/15/16 09:59 11/05/16 12:02 120 MLS/HR (Yaima River, IDAC) Objective Vital Signs Date Time Temp Pulse Resp B/P (MAP) Pulse Ox O2 Delivery O2 Flow Rate FiO2 11/05/16 14:54 36.6 87 24 158/88 (111) 96 Nasal Cannula 2.0 11/05/16 12:00 Nasal Cannula 2.0 11/05/16 12:00 77 22 167/95 (119) 95 Nasal Cannula 2.0 11/05/16 10:00 89 22 167/59 (95) 92 Nasal Cannula 2.0 11/05/16 08:00 Nasal Cannula 2.0 11/05/16 08:00 67 22 135/87 (103) 95 Nasal Cannula 2.0 11/05/16 06:00 36.6 78 24 135/90 (105) 98 11/05/16 05:01 37.0 67 28 123/69 (87) 94 11/05/16 05:00 37.0 68 29 94 11/05/16 04:09 98 BiPAP 11/05/16 04:07 37.1 75 28 156/96 (116) 99 11/05/16 03:01 36.7 81 42 148/82 (104) 80 11/05/16 03:00 36.7 81 24 93 11/05/16 02:06 62 97 21 11/05/16 02:00 36.9 64 25 135/81 (99) 96 11/05/16 01:00 36.4 84 29 100 11/05/16 00:48 36.4 63 19 137/85 (102) 99 11/05/16 00:05 98 BiPAP 11/04/16 23:00 36.0 65 23 98 11/04/16 22:00 36.2 59 23 135/80 (98) 98 11/04/16 21:00 36.0 83 33 161/97 (118) 100 11/04/16 20:28 58 100 21 11/04/16 20:01 35.9 58 25 144/85 (104) 99 11/04/16 20:00 35.9 61 26 98 11/04/16 20:00 98 BiPAP 11/04/16 19:00 36.1 59 25 138/82 (100) 99 BiPAP 11/04/16 18:15 36.8 60 28 131/79 (96) 98 BiPAP 30 11/04/16 17:46 64 100 21 11/04/16 16:00 94 11/04/16 16:00 36.9 76 32 139/83 (101) 99 BiPAP 30 (Yaima River PA-C) Physical Exam General Appearance: no apparent distress, + thin, + pertinent finding ( lethargic; O2 2L NC ) Eyes: PERRL ENT: hearing grossly normal Neck: supple Respiratory/Chest: lungs clear, no respiratory distress, no accessory muscle use Cardiovascular: regular rate, rhythm Abdomen: normal bowel sounds, non tender, soft Extremities: no pedal edema, no calf tenderness, + pertinent finding (R elbow dressed in clean dressing ) Neurologic/Psychiatric: alert, + disoriented, + pertinent finding (drowsy; tremors) Skin: normal color, warm/dry, no rash (Yaima River PA-C) Laboratory Results Last 24 Hours Test 11/05/16 00:50 11/05/16 04:44 11/05/16 05:44 11/05/16 13:00 Bedside Glucose 155 mg/dl 107 mg/dl 84 mg/dl White Blood Count 9.62 K/uL Red Blood Count 3.47 M/uL Hemoglobin 12.1 g/dL Hematocrit 35.1 % Mean Corpuscular Volume 101.2 fL Mean Corpuscular Hemoglobin 34.9 pg Mean Corpuscular Hemoglobin Concent 34.5 g/dl Platelet Count 76 K/uL Mean Platelet Volume 11.0 fL Neutrophils (%) (Auto) 76.5 % Lymphocytes (%) (Auto) 13.4 % Monocytes (%) (Auto) 4.0 % Eosinophils (%) (Auto) 5.6 % Basophils (%) (Auto) 0.2 % Neutrophils # (Auto) 7.36 K/uL Lymphocytes # (Auto) 1.29 K/uL Monocytes # (Auto) 0.38 K/uL Eosinophils # (Auto) 0.54 K/uL Basophils # (Auto) 0.02 K/uL RDW Standard Deviation 54.7 fL RDW Coefficient of Variation 14.9 % Immature Granulocyte % (Auto) 0.3 % Immature Granulocyte # (Auto) 0.03 K/uL Red Blood Cell Morphology Unremarkable Prothrombin Time 11.7 SECONDS Prothromb Time International Ratio 1.1 Activated Partial Thromboplast Time 38.4 SECONDS Partial Thromboplastin Ratio 1.5 Sodium Level 141 mmol/L Potassium Level 3.5 mmol/L Chloride Level 112 mmol/L Carbon Dioxide Level 23 mmol/L Anion Gap 6.0 mmol/L Blood Urea Nitrogen 10 mg/dl Creatinine 0.54 mg/dl Est Creatinine Clear Calc Drug Dose 93.7 ml/min Estimated GFR () 119.7 Estimated GFR (Non- 103.3 BUN/Creatinine Ratio 19.4 Random Glucose 119 mg/dl Calcium Level 8.2 mg/dl Magnesium Level 1.5 mg/dl Total Bilirubin 0.6 mg/dl Direct Bilirubin 0.1 mg/dl Aspartate Amino Transf (AST/SGOT) 44 U/L Alanine Aminotransferase (ALT/SGPT) 28 U/L Alkaline Phosphatase 53 U/L Total Protein 5.1 gm/dl Albumin 2.7 gm/dl (Yaima River, SIERRA) Assessment and Plan The patient is a 61-year-old female who presents emergency department with vomiting that began at 11:30 AM. She was started on antibiotic recently, and she attributes this vomiting due to antibiotic use. She is also had some chills , and lightheadedness. She reports having a cyst removed from her elbow one month ago and that the wound opened a little after sutures were removed. She reports her surgeon with painting procedure and elbow next week, and that is why she is on antibiotics at this time. She does regularly drink alcohol, reporting that her last drink was earlier today. Severe sepsis/?right elbow osteomyelitis/colitis- IMPROVING: -- Transferred to ICU on 11/04 due to worsening tachycardia, seizure, and ongoing high fevers- stable for transfer to tele on 11/05 - Treated w/ Cefepime, Vancomycin, Flagyl- transition to IV Rocephin on 11/05 - Leukocytosis and fevers- RESOLVED - Wound care consulted - Orthopedic consulted - BCx and UCx negative - Stool studies pending - Follow CBC and PRP Anxiety/alcohol withdrawal: - Lexapro 10 mg by mouth daily - Continue Librium q8hrs and Ativan PRN - AWSS protocol - Treated w/ banana bag - Continue Thiamine and folic acid supplement Hypomagnesemia: Replace w/ IV Mag PRN, follow mag level ARF- RESOLVED: Treated w/ IVF, follow PRP HTN w/ hypotension due to sepsis- RESOLVED: - Treated w/ IV Precedex and IVF while in ICU - Held Metoprolol Hyperlipidemia: Simvastatin 40 mg HS held while NPO DVT prophylaxis: Heparin TID Code Status: LEVEL I, FULL Dispo: Discharge uncertain at this time- states she lives at home w/ - social worker school consulted (Yaima River ., PA-C) Attending Attestation: Pt seen/examined, chart reviewed, care plan d/w ENID River. I agree w/ the brennan components of her documentation. Pt quite agitated during the visit and quite tremulousness. When asked what her name was she said "Miss Arroyo." He was upset that "everyone was calling her an alcoholic." She stated "I always have tremors" but did admit they were markedly worse than at home. Tele stable. VSS no fever gen - severe tremors eyes - nystagmus present mouth - MM dry heart - tachy lungs - cta b/l abd - soft, NT, no HSM ext - right elbow with ulceration on lateral aspect, no drainage, subcu tissue visible, no surrounding cellulitis A/P: 1. etoh withdrawal - increase librium to 50mg TID. Ativan prn. Etoh withdrawal protocol Increase thiamine to 200mg BID Increase fluid rate to 125mg/hr - looks dehydrated remains at high risk of needing another drip to control withdrawal symptoms 2. right elbow - ?osteomyelitis - ortho consult pending; cont abx 3. FEN - change fluids to D5NS with KCL and run 125cc/hr; repeat labs in am 4. DVT proph - heparin TID 5. thrombocytopenia - likely due to etoh abuse, but has trended down; follow carefully. remain on tele Hillary THURSTON MD (Kai Thurston MD)
[2016-11-05 20:28] LABS: BUN/CREATININE RATIO 10.8 (10-20); CALCIUM 8.9 mg/dl (8.5-10.1); CREATININE 0.58 mg/dl (0.60-1.20); POTASSIUM 3.5 mmol/L (3.5-5.1)
[2016-11-05] MEDS: D5NSS + 20MEQ KCL 1,000 ML IV SCH (20:47)
[2016-11-05] MEDS: MULTIVITAMIN TAB PO SCH (21:12)
[2016-11-05] MEDS: THIAMINE HCL 100 MG TAB PO SCH (21:12)
[2016-11-06] VITALS (13 sets, daily range): BP systolic 96–168; BP diastolic 57–106; PULSE 69–109; TEMP 36.4–36.9; O2SAT 94–100
[2016-11-06] MEDS: LORAZEPAM 1MG IV ACTIVE PROTOCOL IV PRN ×9 (00:16→16:53)
[2016-11-06] MEDS ORDERED: VANCOMYCIN TROUGH ONE ×2 (03:30→07:30)
[2016-11-06] MEDS: D5NSS + 20MEQ KCL 1,000 ML IV SCH ×3 (03:35→20:52)
[2016-11-06] MEDS: CHLORDIAZEPOXIDE 25 MG CAP PO SCH ×4 (06:05→21:06)
[2016-11-06] MEDS: HEPARIN SOD 5000 UNIT/0.5 ML CARP SQ SCH ×3 (06:06→20:59)
[2016-11-06 07:13] LABS: BUN/CREATININE RATIO 14.6 (10-20); CALCIUM 9.1 mg/dl (8.5-10.1); CREATININE 0.45 mg/dl (0.60-1.20); MAGNESIUM 1.6 mg/dl (1.8-2.4); POTASSIUM 3.7 mmol/L (3.5-5.1)
[2016-11-06] MEDS: THIAMINE HCL 100 MG TAB PO SCH (08:05)
[2016-11-06] MEDS: VITAMIN B COMPLEX TAB PO SCH (08:06)
[2016-11-06] MEDS: CALCIUM 600MG + VIT D 400 IU TAB PO SCH (08:06)
[2016-11-06] MEDS: ESCITALOPRAM OXALATE 10 MG TAB PO SCH (08:12)
[2016-11-06] MEDS: DOCUSATE SODIUM/SENNA 50/8.6MG TAB PO SCH (08:12)
[2016-11-06] MEDS: MAGNESIUM SULFATE 1GM / D5W 1 GM in PREMIXED IN D5W 100 ML IV SCH ×2 (08:15→08:18)
[2016-11-06] MEDS ORDERED: THIAMINE HCL 100 MG TAB PO SCH (09:00)
[2016-11-06] MEDS: CEFTRIAXONE SOD INJ 1000 MG in DEXTROSE 5% 50ML IV SCH (09:24)
--- NOTE | 2016-11-06 14:04 | Hospitalist Progress Note ---
Hospitalist Progress Note Date of Service Nov 06, 2016. (Yaima River ., PA-C) Subjective Pt evaluation today including: conversation w/ patient, conversation w/ family (cousin, Diana, at bedside ), physical exam, lab review, review of studies, review of inpatient medication list Voiding: villavicencio catheter in place (draining clear/yellow urine ) Patient continues to be disoriented However, able to state day, month, and recall cousin present at bedside +tremors Patient states she is depressed Per relative at bedside, she has been depressed since August when her took a stoke. Since that time, he has been in [place]. They have been looking for an outpatient psychologist to follow with. Requesting psych see patient inpatient. Per relative, drinks 5-6 alcoholic drinks per day. She has been drinking "forever." Cousin is unsure how patient received laceration to R elbow, but states stitches were removed last Saturday. She continued to have green discharge from elbow so she was placed on an antibiotic. Elbow did not improve and patient became sick so she presented to ED. Currently NPO ROS cannot be obtained secondary to mental status (Yaima River ., PA-C) Medications Current Inpatient Medications Medications (Trade) Dose Ordered Sig/Marisa Route Start Time Stop Time Status Last Admin Dose Admin Ondansetron HCl (Zofran Inj) 4 mg Q6H PRN IV 11/02/16 22:00 12/02/16 21:59 Vitamin B Complex (Vitamin B Complex) 1 tab QAM PO 11/03/16 09:00 12/03/16 08:59 11/06/16 08:06 1 TAB Calcium/Vitamin D (Caltrate Plus Tab) 1 tab QAM PO 11/03/16 09:00 12/03/16 08:59 11/06/16 08:06 1 TAB Diclofenac Sodium (Voltaren 1% Top Gel) 1 appln DAILY PRN EXT 11/02/16 22:15 12/02/16 22:14 Escitalopram Oxalate (Lexapro Tab) 10 mg DAILY PO 11/03/16 09:00 12/03/16 08:59 11/06/16 08:12 10 MG Multivitamins (Multivitamin Tab) 1 tab HS PO 11/03/16 21:00 12/03/16 20:59 11/05/16 21:12 1 TAB Senna/Docusate Sodium (Senokot S Tab) 1 tab QAM PO 11/03/16 09:00 12/03/16 08:59 11/06/16 08:12 1 TAB Lorazepam (Ativan Inj) PRN Dosing -Active Protocol Q1H PRN IV 11/03/16 03:45 12/03/16 03:44 11/06/16 12:23 2 MG Lorazepam 1 mg/ Syringe 1 ml @ 1 mls/min Q1H PRN IV 11/03/16 03:45 12/03/16 03:44 Acetaminophen 650 mg/Empty Bag 65 ml @ 260 mls/hr Q8 PRN IV 11/04/16 06:00 12/03/16 19:14 11/04/16 14:11 260 MLS/HR Heparin Sodium (Porcine) (Heparin Sq 5000 Unit/0.5ml) 5,000 unit Q8 SQ 11/04/16 14:00 12/04/16 13:59 11/06/16 13:29 5,000 UNIT Folic Acid (Folvite Tab) 1 mg QAM PO 11/06/16 09:00 12/06/16 08:59 11/06/16 08:05 1 MG Ceftriaxone Sodium 1000 mg/ Dextrose 60 ml @ 120 mls/hr Q24H IV 11/05/16 10:00 11/15/16 09:59 11/06/16 09:24 120 MLS/HR Chlordiazepoxide (Librium Cap) 50 mg Q8 PO 11/05/16 22:00 12/03/16 13:59 11/06/16 13:30 50 MG Thiamine HCl (Vitamin B-1 Tab) 200 mg BID PO 11/05/16 21:00 12/06/16 08:59 11/06/16 08:05 200 MG Potassium Chloride/Dextrose/ Sod Cl 1,000 ml @ 125 mls/hr Q8H IV 11/05/16 19:15 12/05/16 19:14 11/06/16 13:30 125 MLS/HR (Yaima River, SIERRA) Objective Vital Signs Date Time Temp Pulse Resp B/P (MAP) Pulse Ox O2 Delivery O2 Flow Rate FiO2 11/06/16 10:50 36.8 107 20 147/87 (107) 98 Nasal Cannula 1.0 107 11/06/16 08:41 Nasal Cannula 1.0 11/06/16 07:20 36.9 109 20 121/90 (100) 11/06/16 04:14 36.6 106 22 138/79 (98) 98 Nasal Cannula 1.0 11/05/16 23:15 36.6 94 22 124/93 (103) 93 Nasal Cannula 1.0 11/05/16 18:51 37.1 89 28 125/73 (90) 92 Nasal Cannula 2.0 11/05/16 14:54 36.6 87 24 158/88 (111) 96 Nasal Cannula 2.0 (Yaima River ., PA-C) Physical Exam General Appearance: + mild distress, + pertinent finding (1L O2 NC ) Eyes: PERRL ENT: hearing grossly normal Neck: supple Respiratory/Chest: lungs clear, no respiratory distress, no accessory muscle use Cardiovascular: regular rate, rhythm Abdomen: normal bowel sounds, non tender, soft Extremities: no pedal edema, no calf tenderness Neurologic/Psychiatric: + disoriented Skin: normal color, warm/dry, no rash (Yaima River ., PA-C) Laboratory Results Last 24 Hours Test 11/05/16 18:47 11/05/16 19:35 11/06/16 00:17 11/06/16 06:16 Bedside Glucose 89 mg/dl 98 mg/dl Sodium Level 139 mmol/L 142 mmol/L Potassium Level 3.5 mmol/L 3.7 mmol/L Chloride Level 108 mmol/L 113 mmol/L Carbon Dioxide Level 24 mmol/L 23 mmol/L Anion Gap 7.0 mmol/L 6.0 mmol/L Blood Urea Nitrogen 6 mg/dl 7 mg/dl Creatinine 0.58 mg/dl 0.45 mg/dl Est Creatinine Clear Calc Drug Dose 84.7 ml/min 93.1 ml/min Estimated GFR () 116.9 127.1 Estimated GFR (Non- 100.9 109.7 BUN/Creatinine Ratio 10.8 14.6 Random Glucose 102 mg/dl 108 mg/dl Calcium Level 8.9 mg/dl 9.1 mg/dl Magnesium Level 1.6 mg/dl Procalcitonin 6.22 ng/ml (Yaima River ., PA-C) Assessment and Plan The patient is a 61-year-old female who presents emergency department with vomiting that began at 11:30 AM. She was started on antibiotic recently, and she attributes this vomiting due to antibiotic use. She is also had some chills , and lightheadedness. She reports having a cyst removed from her elbow one month ago and that the wound opened a little after sutures were removed. She reports her surgeon with painting procedure and elbow next week, and that is why she is on antibiotics at this time. She does regularly drink alcohol, reporting that her last drink was earlier today. Severe sepsis/?right elbow osteomyelitis/colitis- IMPROVING: -- Transferred to ICU on 11/04 due to worsening tachycardia, seizure, and ongoing high fevers- stable for transfer to tele on 11/05 - Treated w/ Cefepime, Vancomycin, Flagyl- transition to IV Rocephin on 11/05 - Leukocytosis and fevers- RESOLVED - Wound care consulted - Orthopedic consulted - BCx and UCx negative - Stool studies negative - Follow CBC and PRP Anxiety/alcohol withdrawal: - Lexapro 10 mg by mouth daily - Continue Librium QID and Ativan PRN - AWSS protocol - IVF - Continue Thiamine and folic acid supplement Depression: - Lexapro as above - Will consult psych once patient's status improves Hypomagnesemia: Replace w/ IV Mag PRN, follow mag level ARF- RESOLVED: Treated w/ IVF, follow PRP HTN w/ hypotension due to sepsis- RESOLVED: - Treated w/ IV Precedex and IVF while in ICU - Held Metoprolol Hyperlipidemia: Simvastatin 40 mg HS held while NPO DVT prophylaxis: Heparin TID Code Status: LEVEL I, FULL Dispo: Discharge uncertain at this time- lives w/ cousin- social work msw consulted (Yaima River ., PA-C) Attending Attestation: Pt seen/examined, chart reviewed, care plan d/w ENID River. I agree w/ the brennan components of her documentation. Overnight restraints were needed due to pulling at IVs, attempting to get out of bed, agitated w/ staff, etc. Has needed FREQUENT ativan IV since this am, nearly every hour on the hour, up to 3mg at a time. Despite such she has not slept, remains quite confused, very agitated and shifting in bed constantly. Staff report green diarrhea. No appetite. Tele stable. Vitals - no fever tachy at times, hypertensive at times as well gen - severe tremors persist, speech largely unintelligible at times and nonsensical eyes - nystagmus present mouth - MM dry but improved from prior heart - RRR, s1, s2 lungs - cta b/l abd - soft, NT, no HSM ext - right elbow with ulceration on lateral aspect, mild drainage but no odor, subcu tissue visible, again no surrounding cellulitis labs - BMP wnl mag 1.6 A/P: 1. etoh withdrawal / DTs - despite increased librium yesterday and frequent ativan she remains with severe withdrawal symptoms / DTs. I spoke with Dr. Metz from ICU regarding her symptoms and ativan usage. We both agreed she should transfer back to ICU for continuous infusion of ativan vs precedex vs other. Appreciate Dr. Metz's assistance. 2. right elbow - ?osteomyelitis - ortho consult pending; cont rocephin 3. FEN - replace mag, continue IVF, lytes in am 4. DVT proph - heparin TID 5. thrombocytopenia - likely due to etoh abuse, but has trended down during her stay. repeat CBC in am 6. ? of superimposed Wernecke's - continue thiamine 200mg IV BID. This will need to be determined over the course of time. will Tx to ICU nuvia THURSTON MD (Kai Thurston MD)
[2016-11-06] MEDS ORDERED: DexMEDEtomidine IV DRIP IV STA (19:00)
[2016-11-06] MEDS: DexMEDEtomidine HCL INJ 200 MCG in SODIUM CHLORIDE 0.9% 50ML 48 ML IV PRN (19:46)
--- NOTE | 2016-11-06 20:06 | Critical Care Progress Note ---
Critical Care Progress Note Date of Service Nov 06, 2016. Attending Dr. Metz Subjective Patient was discharged from the ICU yesterday after appearing to improve after weaning off Precedex and Ativan. Patient today required exceedingly more doses of Ativan and received over 20mg today (more than 2-3 mg/hour). The patient has been agitated, jittery, and wired despite the excessive amount of Ativan. The patient has also started to have diarrhea but it is not loose. Objective GENERAL: Patient was agitated and pulling off her pulse ox. She was mumbling incoherently not answering question appropriately. Patient extremities very jittery. HENT: Normocephalic, atraumatic. Oropharynx unremarkable. EYES: Normal conjunctiva. Sclera non-icteric. NECK: Supple. No nuchal rigidity. RESPIRATORY: Clear to auscultation. CARDIAC: Regular rate, normal rhythm. Extremities warm and well perfused. Pulses equal. ABDOMEN: Soft, non-distended. No tenderness to palpation. No rebound or guarding. No masses. RECTAL: Deferred. MUSCULOSKELETAL: Chest examination reveals no tenderness. LOWER EXTREMITIES: Calves are equal size bilaterally and non-tender. No edema. No discoloration. NEURO: Unable to obtain any comprehensible answers. Patient confused and stated she wanted to hurt the bedside aid. SKIN: No rash or jaundice noted. Current SOFA Score SOFA Score Response (Comments) Value PaO2/FiO2 (mmHg) < 400 1 SaO2 / FIO2 221 - 301 1 Platelets (x10) < 100 2 Bilirubin (mg/dL) 1.2 - 1.9 1 [place] Coma Score 13 - 14 1 Level of Hypotension No Hypotension 0 Creatinine (mg/dL) < 1.2 0 Total 6 Previous SOFA Scores 6 Assessment & Plan The patient is a 61 year old female that presented to the ED Saturday morning with vomiting, chills, and lightheadedness. The patient was found to be tachycardic and hypotensive and the source of her severe sepsis was believed to be either her right elbow wound or a questionable colitis seen on CT. The patient was started on broad spectrum antibiotics and today we will narrow the spectrum of antibiotics to Rocephin (from Vanc, Cefepime, and flagyl). The patient is also and alcoholic (unknown severity) and stated her last drink was Saturday morning. She became increasingly tremulous and mumbling so she was transferred to the ICU. The patient has been was on Precedex, receiving Ativan 2mg q2h, and had been refusing Librium. Yesterday morning the patient was more responsive and was requiring frequently less doses of Ativan and the Precedex was discontinued. After not requiring Ativan throughout the morning and taking her medications by mouth the patient was transferred to the PCU. Today the patient has been mumbling incoherently and is continuously agitated despite receiving 2-3mg of Ativan every hour, having received over 20mg of Ativan today. Neuro - CAM-ICU positive with RASS score of +3 - Resume Precedex Drip (previous rate of 0.3 mcg/kg/hr this morning) - IV Thiamine 200mg qAM (d/c PO) - IV Folate 1mg qAM (d/c PO) - IV Ativan - Lexapro 10mg PO Daily - Librium 10mg PO q8h Resp - 3L NC - Previously was placed on BIPAP tachypnea - Current Smoker --> ordered tobacco cessation GI - Currently NPO except meds due to repeated confusion - D5NS + 20meqK @ 125ml/hr - KUB shows no free air no air fluid levels suggestive of obstruction - Multivitamin PO - Now developed diarrhea but not watery --> Stool culture negative but not acceptable for C Diff toxin CV - Resume Precedex at 0.4mg/kg/hr - Currently bradycardic and holding home metoprolol Renal - D5NS + 20meqK @ 125ml/hr - Creatinine of 0.45 - Magnesium 1.6 - Received 2mg IV this morning - Check BMP, Mag, and Phos with tomorrow AM labs ID - Possible sources of infection is either colon (colitis/diverticulitis) or the abscess in her right elbow - Right elbow X-ray: Developing loss of cortical margin posterior margin distal humeral shaft suggestive of developing osteomyelitis - Rocephin IV 1g daily --> D/C Cefepime, D/C Flagyl, D/C Vancomycin - Consult Orthopaedic surgery - No growth with urine and blood cultures - Repeat Procalcitonin - 47.69 on 11/03 Heme - DVT Ppx- Heparin SC 5,000 units - Thrombocytopenia (platelets 76) 2/2 infection Resident Physician Supervision Note: Dr. Olsen was resident physician during care of patient. I separately evaluated patient and did history and exam. I discussed the case with the resident and generally agree with the findings and plan. Patient with acute encephalopathy secondary to alcohol withdrawal, K MICU positive requiring intravenous medication for control of symptoms. I have personally spent 35 minutes of critical care time in the direct management of this patient. This is a life/limb threatening event. This includes time spent evaluating patient, direct bedside care, chart review, placing orders, interpretation of diagnostic studies, discussion with consultants, patient, and family members, as well as other required patient management activities. This time is exclusive of all separately billable procedures, and teaching time and separate from and in addition to any other critical care service time. Documented By: Donaldo Mezt DO Consults & Procedures Consultants: none Procedures: none Data Medications: Current Inpatient Medications Medications (Trade) Dose Ordered Sig/Marisa Route Start Time Stop Time Status Last Admin Dose Admin Ondansetron HCl (Zofran Inj) 4 mg Q6H PRN IV 11/02/16 22:00 12/02/16 21:59 Vitamin B Complex (Vitamin B Complex) 1 tab QAM PO 11/03/16 09:00 12/03/16 08:59 11/06/16 08:06 1 TAB Calcium/Vitamin D (Caltrate Plus Tab) 1 tab QAM PO 11/03/16 09:00 12/03/16 08:59 11/06/16 08:06 1 TAB Diclofenac Sodium (Voltaren 1% Top Gel) 1 appln DAILY PRN EXT 11/02/16 22:15 12/02/16 22:14 Escitalopram Oxalate (Lexapro Tab) 10 mg DAILY PO 11/03/16 09:00 12/03/16 08:59 11/06/16 08:12 10 MG Multivitamins (Multivitamin Tab) 1 tab HS PO 11/03/16 21:00 12/03/16 20:59 11/05/16 21:12 1 TAB Senna/Docusate Sodium (Senokot S Tab) 1 tab QAM PO 11/03/16 09:00 12/03/16 08:59 11/06/16 08:12 1 TAB Lorazepam (Ativan Inj) PRN Dosing -Active Protocol Q1H PRN IV 11/03/16 03:45 12/03/16 03:44 11/06/16 16:53 3 MG Lorazepam 1 mg/ Syringe 1 ml @ 1 mls/min Q1H PRN IV 11/03/16 03:45 12/03/16 03:44 Acetaminophen 650 mg/Empty Bag 65 ml @ 260 mls/hr Q8 PRN IV 11/04/16 06:00 12/03/16 19:14 11/04/16 14:11 260 MLS/HR Heparin Sodium (Porcine) (Heparin Sq 5000 Unit/0.5ml) 5,000 unit Q8 SQ 11/04/16 14:00 12/04/16 13:59 11/06/16 13:29 5,000 UNIT Folic Acid (Folvite Tab) 1 mg QAM PO 11/06/16 09:00 12/06/16 08:59 11/06/16 08:05 1 MG Ceftriaxone Sodium 1000 mg/ Dextrose 60 ml @ 120 mls/hr Q24H IV 11/05/16 10:00 11/15/16 09:59 11/06/16 09:24 120 MLS/HR Chlordiazepoxide (Librium Cap) 50 mg Q8 PO 11/05/16 22:00 12/03/16 13:59 11/06/16 13:30 50 MG Thiamine HCl (Vitamin B-1 Tab) 200 mg BID PO 11/05/16 21:00 12/06/16 08:59 11/06/16 08:05 200 MG Potassium Chloride/Dextrose/ Sod Cl 1,000 ml @ 125 mls/hr Q8H IV 11/05/16 19:15 12/05/16 19:14 11/06/16 13:30 125 MLS/HR Dexmedetomidine HCl 200 mcg/ Sodium Chloride 50 ml @ 0 mls/hr Q0M PRN IV 11/06/16 19:15 11/10/16 19:14 I & O: 24-Hour Column 11/07/16 08:00 Intake Total 922 ml Output Total 1175 ml Balance -253 ml Vital Signs: Date Time Temp Pulse Resp B/P (MAP) Pulse Ox O2 Delivery O2 Flow Rate FiO2 11/06/16 18:57 106 22 152/99 (116) 99 Nasal Cannula 3.0 11/06/16 18:30 36.8 89 20 96/75 (82) 94 Nasal Cannula 3.0 11/06/16 16:33 36.7 95 20 157/83 (107) 97 Nasal Cannula 2.0 11/06/16 15:17 36.4 87 20 140/85 (103) 100 Nasal Cannula 2.0 11/06/16 15:07 36.4 90 20 140/85 (103) 100 Nasal Cannula 1.0 90 11/06/16 10:50 36.8 107 20 147/87 (107) 98 Nasal Cannula 1.0 107 11/06/16 08:41 Nasal Cannula 1.0 11/06/16 07:20 36.9 109 20 121/90 (100) 11/06/16 04:14 36.6 106 22 138/79 (98) 98 Nasal Cannula 1.0 11/05/16 23:15 36.6 94 22 124/93 (103) 93 Nasal Cannula 1.0 Laboratory Results: Last 24 Hours Test 11/05/16 19:35 11/06/16 00:17 11/06/16 06:16 Sodium Level 139 mmol/L 142 mmol/L Potassium Level 3.5 mmol/L 3.7 mmol/L Chloride Level 108 mmol/L 113 mmol/L Carbon Dioxide Level 24 mmol/L 23 mmol/L Anion Gap 7.0 mmol/L 6.0 mmol/L Blood Urea Nitrogen 6 mg/dl 7 mg/dl Creatinine 0.58 mg/dl 0.45 mg/dl Est Creatinine Clear Calc Drug Dose 84.7 ml/min 93.1 ml/min Estimated GFR () 116.9 127.1 Estimated GFR (Non- 100.9 109.7 BUN/Creatinine Ratio 10.8 14.6 Random Glucose 102 mg/dl 108 mg/dl Calcium Level 8.9 mg/dl 9.1 mg/dl Bedside Glucose 98 mg/dl Magnesium Level 1.6 mg/dl Procalcitonin 6.22 ng/ml Resident Tracking Resident Involvement: Resident Care Provided Care Provided: Adult Hospital Medicine
--- NOTE | 2016-11-06 20:22 | ORTHOPEDIC PROGRESS NOTE ---
DATE: 11/06/2016 SUBJECTIVE: The patient is a 61-year-old white female that we were asked to see for a right elbow infection. The patient was admitted on 11/02/2016 for sepsis/colitis and a history of hypertension and alcohol abuse. We were consulted to see the patient for her right elbow incision infection. Apparently, she had a removal of a cyst of some type on the elbow and had the stitches removed and after a day or so, the stitches began to open and has had some purulence to it. She was placed on antibiotics and then subsequently came into the Emergency Room with worsening symptoms. Currently, the patient is somewhat confused, but does answer 1 or 2 questions appropriately. She is currently restrained to the bed because of alcohol withdrawal. When I asked her she states that she is having some discomfort in the right elbow, but is not overtly painful. She offers no other help with her history of the right elbow. OBJECTIVE: The patient is currently again restrained to her bed and is in almost constant motion, moving back and forth. She allows me to look at her elbow and states that she has some discomfort while taking the dressing off of her elbow, but otherwise is without complaint. PHYSICAL EXAMINATION: EXTREMITIES: On examination of the elbow, there is an approximately 2 cm to 3 cm wound that is open down to the fascia of the elbow. There is no overt purulence noted at this time and she does have some darkened erythema around the wound itself. There is no foul odor. She has full range of motion of the elbow at this time with flexion and extension without discomfort. When palpating the elbow, she has some mild discomfort, but I cannot express any kind of purulence at this time. ASSESSMENT: Open wound from previous cyst removal, right elbow. PLAN: At this time, Dr. Young will see the patient for further evaluation, however, continue with wound care nursing at this time. She may need either wound VAC versus a primary closure of this wound at some point in time. For now, I will continue IV antibiotics. There is no need for irrigation and debridement I feel at this time. Continue wound care per wound care nursing staff and possibly having Dr. Muñoz take a peek at the wound itself and further evaluation by Dr. Young.
[2016-11-06] MEDS: MULTIVITAMIN TAB PO SCH ×2 (20:52→21:00)
[2016-11-07] VITALS (14 sets, daily range): BP systolic 91–157; BP diastolic 49–79; PULSE 63–71; TEMP 36.3–36.7; O2SAT 92–100
[2016-11-07] MEDS: DexMEDEtomidine HCL INJ 200 MCG in SODIUM CHLORIDE 0.9% 50ML 48 ML IV PRN (02:10)
[2016-11-07] MEDS: D5NSS + 20MEQ KCL 1,000 ML IV SCH ×2 (04:40→12:11)
[2016-11-07 05:49] LABS: HEMATOCRIT 37.8 % (37-47); MEAN CELL VOLUME 101.1 fL (80-100); MEAN CORPUSCULAR HEMOGLOBIN 36.1 pg (25-34); MEAN CORPUSCULAR HGB CONC 35.7 g/dl (32-36); RED BLOOD COUNT 3.74 M/uL (4.2-5.4); WHITE BLOOD COUNT 5.08 K/uL (4.8-10.8)
[2016-11-07 05:52] LABS: PLATELET COUNT 86 K/uL (130-400)
[2016-11-07] MEDS: CHLORDIAZEPOXIDE 25 MG CAP PO SCH ×3 (06:00→21:43)
[2016-11-07 06:17] LABS: BUN/CREATININE RATIO 24.1 (10-20); CALCIUM 8.7 mg/dl (8.5-10.1); CREATININE 0.43 mg/dl (0.60-1.20); MAGNESIUM 1.7 mg/dl (1.8-2.4); POTASSIUM 4.1 mmol/L (3.5-5.1)
[2016-11-07] MEDS: HEPARIN SOD 5000 UNIT/0.5 ML CARP SQ SCH ×3 (06:19→21:44)
[2016-11-07] MEDS: MAGNESIUM SULFATE 1GM / D5W 1 GM in PREMIXED IN D5W 100 ML IV SCH ×2 (07:24→08:37)
[2016-11-07] MEDS: CALCIUM 600MG + VIT D 400 IU TAB PO SCH (08:36)
[2016-11-07] MEDS: VITAMIN B COMPLEX TAB PO SCH (08:36)
[2016-11-07] MEDS: ESCITALOPRAM OXALATE 10 MG TAB PO SCH (08:36)
[2016-11-07] MEDS: DOCUSATE SODIUM/SENNA 50/8.6MG TAB PO SCH (08:36)
[2016-11-07] MEDS: THIAMINE HCL INJ 200 MG in SODIUM CHLORIDE 0.9% 50ML 50 ML IV SCH (08:41)
[2016-11-07] MEDS: FoLIC ACID INJ 1 MG in SYRINGE 9.8 ML IV SCH (08:42)
[2016-11-07] MEDS: CEFTRIAXONE SOD INJ 1000 MG in DEXTROSE 5% 50ML IV SCH (09:52)
--- NOTE | 2016-11-07 11:48 | Critical Care Progress Note ---
Critical Care Progress Note Date of Service Nov 07, 2016. Attending Dr. Metz Subjective Patient is resting comfortably in bed this morning but wound not respond to my questions. She did open her eyes with verbal cues and squeezed my hand when asked. Objective GENERAL: Patient resting comfortably in bed this morning in no acute distress. HENT: Normocephalic, atraumatic. Oropharynx unremarkable. EYES: Normal conjunctiva. Sclera non-icteric. NECK: Supple. No nuchal rigidity. RESPIRATORY: Clear to auscultation. CARDIAC: Regular rate, normal rhythm. Extremities warm and well perfused. Pulses equal. ABDOMEN: Soft, non-distended. No tenderness to palpation. No rebound or guarding. No masses. RECTAL: Deferred. MUSCULOSKELETAL: Chest examination reveals no tenderness. LOWER EXTREMITIES: Calves are equal size bilaterally and non-tender. No edema. No discoloration. NEURO: Lethargic. Opens eyes occasionally with verbal commands. RASS of -4. SKIN: No rash or jaundice noted. Current SOFA Score SOFA Score Response (Comments) Value PaO2/FiO2 (mmHg) < 400 1 SaO2 / FIO2 221 - 301 1 Platelets (x10) < 100 2 Bilirubin (mg/dL) 1.2 - 1.9 1 [place] Coma Score 13 - 14 1 Level of Hypotension No Hypotension 0 Creatinine (mg/dL) < 1.2 0 Total 6 Previous SOFA Scores 6 Assessment & Plan The patient is a 61 year old female that presented to the ED Saturday morning with vomiting, chills, and lightheadedness. The patient was found to be tachycardic and hypotensive and the source of her severe sepsis was believed to be either her right elbow wound or a questionable colitis seen on CT. The patient was started on broad spectrum antibiotics and today we will narrow the spectrum of antibiotics to Rocephin (from Vanc, Cefepime, and flagyl). The patient is also and alcoholic (unknown severity) and stated her last drink was Saturday. She became increasingly tremulous and mumbling so she was transferred to the ICU. The patient has been was on Precedex, receiving Ativan 2mg q2h, and had been refusing Librium. On Saturday (11/05) morning the patient was more responsive and was requiring frequently less doses of Ativan and the Precedex was discontinued. After not requiring Ativan throughout the morning and taking her medications by mouth the patient was transferred to the PCU. On the patient has been mumbling incoherently and becoming continuously more agitated despite receiving 2-3mg of Ativan every hour, having received over 20mg of Ativan throughout the day and was subsequently transferred back to the ICU. Overnight the patient was on a Precedex drip of 0.3mcg/kg/hr and did not require any Ativan. She was sedated and did not have any episodes of agitation or tremor. This morning we are weaning her off the Precedex and will continue to monitor her mental status and alcohol withdrawal symptoms. Neuro - CAM-ICU positive with RASS score of -4 - Precedex drip overnight at rate of 0.3mcg/kg/hr, now lowered to 0.2mcg/kg/hr - IV Thiamine 200mg qAM (d/c PO) - IV Folate 1mg qAM (d/c PO) - IV Ativan 2mg q2h PRN --> Did not require any Ativan overnight - Lexapro 10mg PO Daily - Librium 50mg PO q8h - Restraints discontinued - One-to-one at bedside Resp - 2L NC - Previously was placed on BIPAP tachypnea - Current Smoker --> ordered tobacco cessation GI - Currently NPO except meds due to repeated confusion - D5NS + 20meqK @ 75ml/hr - KUB shows no free air no air fluid levels suggestive of obstruction - Multivitamin PO - C Diff Negative - Zofran 4mg q6h PRN CV - Precedex at 0.2mg/kg/hr - Currently bradycardic and holding home metoprolol Renal - D5NS + 20meqK @ 75ml/hr - Creatinine of 0.43 - Magnesium 1.7 - Received 2mg IV overnight - Repeat BMP, Mag, and Phos with tomorrow AM labs - Felix --> D/C Tomorrow ID - Possible sources of infection is either colon (colitis/diverticulitis) or the abscess in her right elbow - Right elbow X-ray: Developing loss of cortical margin posterior margin distal humeral shaft suggestive of developing osteomyelitis - Rocephin IV 1g daily -->Currently on Day 5 of IV antibiotics (previously received Cefepime, Flagyl, Vancomycin) - Orthopaedic surgery --> Continue with wound care, may need VAC vs primary closure at some point, continue IV abx, no need for irrigation and debridement at this time - No growth with urine and blood cultures - Procalcitonin of 6.22 this morning - 47.69 on 11/03, Recheck in 72 hours Heme - DVT Ppx- Heparin SC 5,000 units - Thrombocytopenia (platelets 86) / infection Resident Physician Supervision Note: Dr. Olsen was resident physician during care of patient. I separately evaluated patient and did history and exam. I discussed the case with the resident and generally agree with the findings and plan. Patient with acute encephalopathy secondary to alcohol withdrawal, K MICU positive requiring intravenous medication for control of symptoms. Mild improvement over yesterday however still requiring sitter, multiple attempts at redirection and is occasionally acutely agitated. I have personally spent 35 minutes of critical care time in the direct management of this patient. This is a life/limb threatening event. This includes time spent evaluating patient, direct bedside care, chart review, placing orders, interpretation of diagnostic studies, discussion with consultants, patient, and family members, as well as other required patient management activities. This time is exclusive of all separately billable procedures, and teaching time and separate from and in addition to any other critical care service time. Consults & Procedures Consultants: none Procedures: none Data Medications: Current Inpatient Medications Medications (Trade) Dose Ordered Sig/Marisa Route Start Time Stop Time Status Last Admin Dose Admin Ondansetron HCl (Zofran Inj) 4 mg Q6H PRN IV 11/02/16 22:00 12/02/16 21:59 Vitamin B Complex (Vitamin B Complex) 1 tab QAM PO 11/03/16 09:00 12/03/16 08:59 11/06/16 08:06 1 TAB Calcium/Vitamin D (Caltrate Plus Tab) 1 tab QAM PO 11/03/16 09:00 12/03/16 08:59 11/06/16 08:06 1 TAB Diclofenac Sodium (Voltaren 1% Top Gel) 1 appln DAILY PRN EXT 11/02/16 22:15 12/02/16 22:14 Escitalopram Oxalate (Lexapro Tab) 10 mg DAILY PO 11/03/16 09:00 12/03/16 08:59 11/06/16 08:12 10 MG Multivitamins (Multivitamin Tab) 1 tab HS PO 11/03/16 21:00 12/03/16 20:59 11/05/16 21:12 1 TAB Senna/Docusate Sodium (Senokot S Tab) 1 tab QAM PO 11/03/16 09:00 12/03/16 08:59 11/06/16 08:12 1 TAB Lorazepam (Ativan Inj) PRN Dosing -Active Protocol Q1H PRN IV 11/03/16 03:45 12/03/16 03:44 11/06/16 16:53 3 MG Lorazepam 1 mg/ Syringe 1 ml @ 1 mls/min Q1H PRN IV 11/03/16 03:45 12/03/16 03:44 Acetaminophen 650 mg/Empty Bag 65 ml @ 260 mls/hr Q8 PRN IV 11/04/16 06:00 12/03/16 19:14 11/04/16 14:11 260 MLS/HR Heparin Sodium (Porcine) (Heparin Sq 5000 Unit/0.5ml) 5,000 unit Q8 SQ 11/04/16 14:00 12/04/16 13:59 11/07/16 06:19 5,000 UNIT Ceftriaxone Sodium 1000 mg/ Dextrose 60 ml @ 120 mls/hr Q24H IV 11/05/16 10:00 11/15/16 09:59 11/07/16 09:52 120 MLS/HR Chlordiazepoxide (Librium Cap) 50 mg Q8 PO 11/05/16 22:00 12/03/16 13:59 11/06/16 13:30 50 MG Potassium Chloride/Dextrose/ Sod Cl 1,000 ml @ 75 mls/hr [id number] IV 11/05/16 19:15 12/05/16 19:14 11/07/16 04:40 125 MLS/HR Dexmedetomidine HCl 200 mcg/ Sodium Chloride 50 ml @ 0 mls/hr Q0M PRN IV 11/06/16 19:15 11/10/16 19:14 11/07/16 02:10 2.2 MLS/HR Thiamine HCl 200 mg/Sodium Chloride 52 ml @ 208 mls/hr QAM IV 11/07/16 09:00 12/07/16 08:59 11/07/16 08:41 208 MLS/HR Folic Acid 1 mg/ Syringe 10 ml @ 5 mls/min QAM IV 11/07/16 09:00 12/07/16 08:59 11/07/16 08:42 5 MLS/MIN Vital Signs: Date Time Temp Pulse Resp B/P (MAP) Pulse Ox O2 Delivery O2 Flow Rate FiO2 11/07/16 10:00 63 24 124/69 (87) 94 Room Air 11/07/16 08:00 96 Nasal Cannula 2.0 11/07/16 08:00 36.3 63 22 121/63 (82) 96 Nasal Cannula 2.0 11/07/16 06:00 67 25 132/79 (96) 96 Nasal Cannula 2.0 11/07/16 04:00 36.7 71 26 119/67 (84) 96 Nasal Cannula 2.0 11/07/16 04:00 97 Nasal Cannula 2.0 11/07/16 02:00 66 24 91/49 (63) 94 Nasal Cannula 2.0 11/07/16 00:01 36.6 70 28 104/61 (75) 96 Nasal Cannula 2.0 11/06/16 23:59 96 Nasal Cannula 2.0 11/06/16 22:00 69 27 96/57 (70) 96 Nasal Cannula 2.0 11/06/16 21:00 72 33 108/60 (76) 97 Nasal Cannula 2.0 11/06/16 20:00 36.6 81 25 153/96 (115) 98 Nasal Cannula 2.0 11/06/16 19:38 103 20 168/106 (126) 98 Nasal Cannula 2.0 11/06/16 18:57 106 22 152/99 (116) 99 Nasal Cannula 3.0 11/06/16 18:30 36.8 89 20 96/75 (82) 94 Nasal Cannula 3.0 11/06/16 16:33 36.7 95 20 157/83 (107) 97 Nasal Cannula 2.0 11/06/16 15:17 36.4 87 20 140/85 (103) 100 Nasal Cannula 2.0 11/06/16 15:07 36.4 90 20 140/85 (103) 100 Nasal Cannula 1.0 90 Laboratory Results: Last 24 Hours Test 11/07/16 05:30 11/07/16 10:59 White Blood Count 5.08 K/uL Red Blood Count 3.74 M/uL Hemoglobin 13.5 g/dL Hematocrit 37.8 % Mean Corpuscular Volume 101.1 fL Mean Corpuscular Hemoglobin 36.1 pg Mean Corpuscular Hemoglobin Concent 35.7 g/dl RDW Standard Deviation 53.7 fL RDW Coefficient of Variation 14.6 % Platelet Count 86 K/uL Mean Platelet Volume 11.0 fL Sodium Level 145 mmol/L Potassium Level 4.1 mmol/L Chloride Level 117 mmol/L Carbon Dioxide Level 23 mmol/L Anion Gap 5.0 mmol/L Blood Urea Nitrogen 10 mg/dl Creatinine 0.43 mg/dl Est Creatinine Clear Calc Drug Dose 97.4 ml/min Estimated GFR () 129.0 Estimated GFR (Non- 111.3 BUN/Creatinine Ratio 24.1 Random Glucose 98 mg/dl Calcium Level 8.7 mg/dl Phosphorus Level 4.0 mg/dl Magnesium Level 1.7 mg/dl Resident Tracking Resident Involvement: Resident Care Provided Care Provided: Adult Hospital Medicine
--- NOTE | 2016-11-07 12:07 | ORTHOPEDIC CONSULTATION ---
DATE OF CONSULTATION: 11/07/2016 DATE OF CONSULTATION: 11/07/2016 HISTORY OF PRESENT ILLNESS: The patient is a 61-year-old white female who presents currently being worked up medically and undergoing alcohol detoxification presents with an open wound on her elbow approximately 3 x 3 cm. She had previous surgery by surgeon elsewhere. She presents with an area of redness and induration around the wound, clearly not closeable. X-rays were reviewed. X-rays revealed there to be evidence of a questionable lytic lesion in the posterior cortex of the distal humerus. I reviewed this. I am not concerned that this represents anything of any significance. There is a questionable request for an MRI to further evaluate such. I am not really convinced this is necessary at this point. She is being treated with antibiotics. I recommend wound management, possibly wound VAC, just dressing changes to allow this to granulate. I do not see this being anything that is surgically needing washed out or surgical intervention. We will follow along with you as needed. ASSESSMENT: Open wound. Plan for wound care.
--- NOTE | 2016-11-07 13:54 | Hospitalist Progress Note ---
Hospitalist Progress Note Date of Service Nov 07, 2016. (Yaima River ., PA-C) Subjective Pt evaluation today including: conversation w/ patient, conversation w/ family (Cousin at bedside ), physical exam, lab review, review of inpatient medication list Voiding: villavicencio catheter in place (draining concentrated yellow urine ) Patient transferred back to ICU on 11/06 because of excessive IV Ativan need. Currently resting in bed w/ no signs of acute distress. NSR on monitor. Cousin at bedside. All questions/concerns answered. ROS could not be obtained secondary to patient's status. (Yaima River ., IDAC) Medications Current Inpatient Medications Medications (Trade) Dose Ordered Sig/Marisa Route Start Time Stop Time Status Last Admin Dose Admin Ondansetron HCl (Zofran Inj) 4 mg Q6H PRN IV 11/02/16 22:00 12/02/16 21:59 Vitamin B Complex (Vitamin B Complex) 1 tab QAM PO 11/03/16 09:00 12/03/16 08:59 11/06/16 08:06 1 TAB Calcium/Vitamin D (Caltrate Plus Tab) 1 tab QAM PO 11/03/16 09:00 12/03/16 08:59 11/06/16 08:06 1 TAB Diclofenac Sodium (Voltaren 1% Top Gel) 1 appln DAILY PRN EXT 11/02/16 22:15 12/02/16 22:14 Escitalopram Oxalate (Lexapro Tab) 10 mg DAILY PO 11/03/16 09:00 12/03/16 08:59 11/06/16 08:12 10 MG Multivitamins (Multivitamin Tab) 1 tab HS PO 11/03/16 21:00 12/03/16 20:59 11/05/16 21:12 1 TAB Senna/Docusate Sodium (Senokot S Tab) 1 tab QAM PO 11/03/16 09:00 12/03/16 08:59 11/06/16 08:12 1 TAB Lorazepam (Ativan Inj) PRN Dosing -Active Protocol Q1H PRN IV 11/03/16 03:45 12/03/16 03:44 11/06/16 16:53 3 MG Lorazepam 1 mg/ Syringe 1 ml @ 1 mls/min Q1H PRN IV 11/03/16 03:45 12/03/16 03:44 Acetaminophen 650 mg/Empty Bag 65 ml @ 260 mls/hr Q8 PRN IV 11/04/16 06:00 12/03/16 19:14 11/04/16 14:11 260 MLS/HR Heparin Sodium (Porcine) (Heparin Sq 5000 Unit/0.5ml) 5,000 unit Q8 SQ 11/04/16 14:00 12/04/16 13:59 11/07/16 06:19 5,000 UNIT Ceftriaxone Sodium 1000 mg/ Dextrose 60 ml @ 120 mls/hr Q24H IV 11/05/16 10:00 11/15/16 09:59 11/07/16 09:52 120 MLS/HR Chlordiazepoxide (Librium Cap) 50 mg Q8 PO 11/05/16 22:00 12/03/16 13:59 11/06/16 13:30 50 MG Potassium Chloride/Dextrose/ Sod Cl 1,000 ml @ 75 mls/hr [id number] IV 11/05/16 19:15 12/05/16 19:14 11/07/16 04:40 125 MLS/HR Dexmedetomidine HCl 200 mcg/ Sodium Chloride 50 ml @ 0 mls/hr Q0M PRN IV 11/06/16 19:15 11/10/16 19:14 11/07/16 02:10 2.2 MLS/HR Thiamine HCl 200 mg/Sodium Chloride 52 ml @ 208 mls/hr QAM IV 11/07/16 09:00 12/07/16 08:59 11/07/16 08:41 208 MLS/HR Folic Acid 1 mg/ Syringe 10 ml @ 5 mls/min QAM IV 11/07/16 09:00 12/07/16 08:59 11/07/16 08:42 5 MLS/MIN (Yaima River, SIERRA) Objective Vital Signs Date Time Temp Pulse Resp B/P (MAP) Pulse Ox O2 Delivery O2 Flow Rate FiO2 11/07/16 10:00 63 24 124/69 (87) 94 Room Air 11/07/16 08:00 96 Nasal Cannula 2.0 11/07/16 08:00 36.3 63 22 121/63 (82) 96 Nasal Cannula 2.0 11/07/16 06:00 67 25 132/79 (96) 96 Nasal Cannula 2.0 11/07/16 04:00 36.7 71 26 119/67 (84) 96 Nasal Cannula 2.0 11/07/16 04:00 97 Nasal Cannula 2.0 11/07/16 02:00 66 24 91/49 (63) 94 Nasal Cannula 2.0 11/07/16 00:01 36.6 70 28 104/61 (75) 96 Nasal Cannula 2.0 11/06/16 23:59 96 Nasal Cannula 2.0 11/06/16 22:00 69 27 96/57 (70) 96 Nasal Cannula 2.0 11/06/16 21:00 72 33 108/60 (76) 97 Nasal Cannula 2.0 11/06/16 20:00 36.6 81 25 153/96 (115) 98 Nasal Cannula 2.0 11/06/16 19:38 103 20 168/106 (126) 98 Nasal Cannula 2.0 11/06/16 18:57 106 22 152/99 (116) 99 Nasal Cannula 3.0 11/06/16 18:30 36.8 89 20 96/75 (82) 94 Nasal Cannula 3.0 11/06/16 16:33 36.7 95 20 157/83 (107) 97 Nasal Cannula 2.0 11/06/16 15:17 36.4 87 20 140/85 (103) 100 Nasal Cannula 2.0 11/06/16 15:07 36.4 90 20 140/85 (103) 100 Nasal Cannula 1.0 90 (Yaima River, PA-C) Physical Exam General Appearance: no apparent distress Eyes: PERRL ENT: hearing grossly normal Neck: supple Respiratory/Chest: lungs clear, no respiratory distress, no accessory muscle use Cardiovascular: regular rate, rhythm Abdomen: normal bowel sounds, non tender, soft Extremities: no pedal edema, no calf tenderness Neurologic/Psychiatric: + pertinent finding (lethargic, opens eyes to verbal command ) Skin: normal color, warm/dry, no rash (Yaima River, ENID-C) Laboratory Results Last 24 Hours Test 11/07/16 05:30 11/07/16 10:59 White Blood Count 5.08 K/uL Red Blood Count 3.74 M/uL Hemoglobin 13.5 g/dL Hematocrit 37.8 % Mean Corpuscular Volume 101.1 fL Mean Corpuscular Hemoglobin 36.1 pg Mean Corpuscular Hemoglobin Concent 35.7 g/dl RDW Standard Deviation 53.7 fL RDW Coefficient of Variation 14.6 % Platelet Count 86 K/uL Mean Platelet Volume 11.0 fL Sodium Level 145 mmol/L Potassium Level 4.1 mmol/L Chloride Level 117 mmol/L Carbon Dioxide Level 23 mmol/L Anion Gap 5.0 mmol/L Blood Urea Nitrogen 10 mg/dl Creatinine 0.43 mg/dl Est Creatinine Clear Calc Drug Dose 97.4 ml/min Estimated GFR () 129.0 Estimated GFR (Non- 111.3 BUN/Creatinine Ratio 24.1 Random Glucose 98 mg/dl Calcium Level 8.7 mg/dl Phosphorus Level 4.0 mg/dl Magnesium Level 1.7 mg/dl 2.4 mg/dl (Yaima River, SIERRA) Assessment and Plan The patient is a 61-year-old female who presents emergency department with vomiting that began at 11:30 AM. She was started on antibiotic recently, and she attributes this vomiting due to antibiotic use. She is also had some chills , and lightheadedness. She reports having a cyst removed from her elbow one month ago and that the wound opened a little after sutures were removed. She reports her surgeon with painting procedure and elbow next week, and that is why she is on antibiotics at this time. She does regularly drink alcohol, reporting that her last drink was earlier today. Severe sepsis/?right elbow osteomyelitis/colitis- IMPROVING: -- Transferred to ICU on 11/04 due to worsening tachycardia, seizure, and ongoing high fevers- stable for transfer to tele on 11/05 -- Transferred back to ICU on 11/06 due to excessive amounts of IV Ativan needs - Treated w/ Cefepime, Vancomycin, Flagyl- transition to IV Rocephin on 11/05 - Leukocytosis and fevers- RESOLVED - Wound care consulted - Orthopedic consulted - BCx and UCx negative - Stool studies negative - Follow CBC and PRP Anxiety/alcohol withdrawal: - Treating w/ IV Precedex - Lexapro 10 mg by mouth daily - Librium QID and Ativan PRN - Thiamine and folic acid supplement - IVF Depression: - Lexapro as above - Will consult psych once patient's status improves Hypomagnesemia: Replace w/ IV Mag PRN, follow mag level ARF- RESOLVED: Treated w/ IVF, follow PRP HTN w/ hypotension due to sepsis- RESOLVED: - Treated w/ IVF while in ICU - Held Metoprolol Hyperlipidemia: Simvastatin 40 mg HS held while NPO DVT prophylaxis: Heparin TID Code Status: LEVEL I, FULL Dispo: Discharge uncertain at this time- lives w/ cousin- rn social work consulted (Yaima River ., PA-C) Attending Attestation: Pt seen/examined, chart reviewed, care plan d/w ENID River. I agree w/ the brennan components of her documentation. Pt resting comfortably during the visit. Very confused and tremulous/tremors but much more calm than yesterday. Remains on precedex. Denies any complaints but difficulty to get any ROS. VSS no fever gen - looks older than stated age, confused, tremors mouth - MMM today heart - RRR lungs - CTA b/l abd - soft, NT ext - no edema A/P: severe etoh withdrawal with DTs - on librium, precedex drip, MVI, thiamine, folic acid, supportive care right elbow wound - ortho has seen - wound care recommended only, no surgery, need for IV abx ?? hypomagnesemia - replace again Kai Thurston MD (Kai Thurston MD)
[2016-11-07] MEDS: MULTIVITAMIN TAB PO SCH (21:43)
[2016-11-08] VITALS (17 sets, daily range): BP systolic 119–152; BP diastolic 64–96; PULSE 64–86; TEMP 36.3–36.9; O2SAT 93–100
[2016-11-08] MEDS: D5NSS + 20MEQ KCL 1,000 ML IV SCH (04:48)
[2016-11-08 06:10] LABS: HEMATOCRIT 36.1 % (37-47); MEAN CORPUSCULAR HGB CONC 34.3 g/dl (32-36); MEAN PLATELET VOLUME 10.6 fL (7.4-10.4); PLATELET COUNT 128 K/uL (130-400); RED BLOOD COUNT 3.54 M/uL (4.2-5.4); WHITE BLOOD COUNT 4.92 K/uL (4.8-10.8)
[2016-11-08] MEDS: CHLORDIAZEPOXIDE 25 MG CAP PO SCH ×3 (06:22→22:18)
[2016-11-08] MEDS: HEPARIN SOD 5000 UNIT/0.5 ML CARP SQ SCH ×3 (06:23→22:00)
[2016-11-08 06:42] LABS: BUN/CREATININE RATIO 16.3 (10-20); CALCIUM 8.9 mg/dl (8.5-10.1); CREATININE 0.4 mg/dl (0.60-1.20); MAGNESIUM 1.5 mg/dl (1.8-2.4)
[2016-11-08 06:46] LABS: PHOSPHORUS 3.4 mg/dl (2.5-4.9)
[2016-11-08] MEDS: ESCITALOPRAM OXALATE 10 MG TAB PO SCH (07:57)
[2016-11-08] MEDS: CALCIUM 600MG + VIT D 400 IU TAB PO SCH (07:57)
[2016-11-08] MEDS: FoLIC ACID INJ 1 MG in SYRINGE 9.8 ML IV SCH (07:57)
[2016-11-08] MEDS: VITAMIN B COMPLEX TAB PO SCH (07:57)
[2016-11-08] MEDS: THIAMINE HCL INJ 200 MG in SODIUM CHLORIDE 0.9% 50ML 50 ML IV SCH (07:57)
[2016-11-08] MEDS: DOCUSATE SODIUM/SENNA 50/8.6MG TAB PO SCH (07:57)
[2016-11-08] MEDS: CEFTRIAXONE SOD INJ 1000 MG in DEXTROSE 5% 50ML IV SCH (10:19)
[2016-11-08] MEDS ORDERED: MAGNESIUM SULFATE 1GM / D5W 1 GM in PREMIXED IN D5W 100 ML IV SCH (10:30)
[2016-11-08] MEDS: DexMEDEtomidine HCL INJ 200 MCG in SODIUM CHLORIDE 0.9% 50ML 48 ML IV PRN (12:21)
--- NOTE | 2016-11-08 15:09 | Hospitalist Progress Note ---
Hospitalist Progress Note Date of Service Nov 08, 2016. (Yaima River ., PA-C) Subjective Pt evaluation today including: conversation w/ patient, physical exam, lab review, review of inpatient medication list Voiding: no voiding problems Patient awake/oriented sitting in bedside chair. Advanced diet- ate a small portion of lunch. States she has no appetite due to depression. +depression States she is dealing with a lot- recently had CVA and brother diagnosed with cancer. Discussed talking with psych- patient is agreeable Only follows w/ PCP currently- on Lexapro and Xanax States she "rarely" drinks. +rash to bilateral lower extremities Denies any symptoms Patient denies any fever, chills, sweats, lightheadedness, dizziness, vision changes, CP, palpitations, edema, SOB, wheezing, cough, abdominal pain, nausea, vomiting, diarrhea, urinary symptoms, melena, numbness/tingling, weakness, muscle/joint pain, anxiety, active bleeding. (Yaima River ., PA-C) Medications Current Inpatient Medications Medications (Trade) Dose Ordered Sig/Marisa Route Start Time Stop Time Status Last Admin Dose Admin Ondansetron HCl (Zofran Inj) 4 mg Q6H PRN IV 11/02/16 22:00 12/02/16 21:59 Vitamin B Complex (Vitamin B Complex) 1 tab QAM PO 11/03/16 09:00 12/03/16 08:59 11/08/16 07:57 1 TAB Calcium/Vitamin D (Caltrate Plus Tab) 1 tab QAM PO 11/03/16 09:00 12/03/16 08:59 11/08/16 07:57 1 TAB Diclofenac Sodium (Voltaren 1% Top Gel) 1 appln DAILY PRN EXT 11/02/16 22:15 12/02/16 22:14 Escitalopram Oxalate (Lexapro Tab) 10 mg DAILY PO 11/03/16 09:00 12/03/16 08:59 11/08/16 07:57 10 MG Multivitamins (Multivitamin Tab) 1 tab HS PO 11/03/16 21:00 12/03/16 20:59 11/07/16 21:43 1 TAB Senna/Docusate Sodium (Senokot S Tab) 1 tab QAM PO 11/03/16 09:00 12/03/16 08:59 11/08/16 07:57 1 TAB Lorazepam (Ativan Inj) PRN Dosing -Active Protocol Q1H PRN IV 11/03/16 03:45 12/03/16 03:44 11/06/16 16:53 3 MG Lorazepam 1 mg/ Syringe 1 ml @ 1 mls/min Q1H PRN IV 11/03/16 03:45 12/03/16 03:44 Acetaminophen 650 mg/Empty Bag 65 ml @ 260 mls/hr Q8 PRN IV 11/04/16 06:00 12/03/16 19:14 11/04/16 14:11 260 MLS/HR Heparin Sodium (Porcine) (Heparin Sq 5000 Unit/0.5ml) 5,000 unit Q8 SQ 11/04/16 14:00 12/04/16 13:59 11/08/16 06:23 5,000 UNIT Ceftriaxone Sodium 1000 mg/ Dextrose 60 ml @ 120 mls/hr Q24H IV 11/05/16 10:00 11/12/16 12:00 11/08/16 10:19 120 MLS/HR Chlordiazepoxide (Librium Cap) 50 mg Q8 PO 11/05/16 22:00 12/03/16 13:59 11/08/16 14:45 50 MG Dexmedetomidine HCl 200 mcg/ Sodium Chloride 50 ml @ 0 mls/hr Q0M PRN IV 11/06/16 19:15 11/10/16 19:14 11/08/16 12:21 1.1 MLS/HR Magnesium Oxide (Mag-Ox Tab) 400 mg BID PO 11/08/16 21:00 11/13/16 20:59 Metoprolol Succinate (Toprol Xl Tab) 25 mg DAILY PO 11/09/16 09:00 12/09/16 08:59 Folic Acid (Folvite Tab) 400 mcg QAM PO 11/09/16 09:00 12/09/16 08:59 Thiamine HCl (Vitamin B-1 Tab) 100 mg QAM PO 11/09/16 09:00 12/09/16 08:59 (Yaima River, SIERRA) Objective Vital Signs Date Time Temp Pulse Resp B/P (MAP) Pulse Ox O2 Delivery O2 Flow Rate FiO2 11/08/16 12:00 100 Nasal Cannula 2.0 11/08/16 12:00 36.6 86 18 128/64 (85) 100 Nasal Cannula 2.0 11/08/16 10:00 71 24 98 Nasal Cannula 2.0 11/08/16 08:00 100 Nasal Cannula 2.0 11/08/16 08:00 36.4 70 20 142/84 (103) 100 Nasal Cannula 2.0 11/08/16 06:00 72 24 149/80 (103) 99 Nasal Cannula 2.0 11/08/16 05:01 68 27 135/74 (94) 94 Nasal Cannula 2.0 11/08/16 04:00 Nasal Cannula 2.0 11/08/16 04:00 36.4 68 23 131/69 (89) 94 Nasal Cannula 2.0 11/08/16 03:00 67 24 125/70 (88) 93 Nasal Cannula 2.0 11/08/16 02:00 67 25 133/69 (90) 93 Nasal Cannula 2.0 11/08/16 01:00 66 24 131/77 (95) 95 Nasal Cannula 2.0 11/08/16 00:00 Nasal Cannula 2.0 11/08/16 00:00 36.3 67 23 133/71 (91) 94 Nasal Cannula 2.0 11/07/16 23:00 68 24 114/63 (80) 94 Nasal Cannula 2.0 11/07/16 22:00 65 27 138/75 (96) 95 Nasal Cannula 2.0 11/07/16 21:01 66 25 141/73 (95) 100 Nasal Cannula 2.0 11/07/16 20:01 36.7 67 22 157/72 (100) 100 Nasal Cannula 2.0 11/07/16 20:00 Nasal Cannula 2.0 11/07/16 18:00 69 20 132/75 (94) 98 Nasal Cannula 2.0 11/07/16 16:00 97 Nasal Cannula 2.0 11/07/16 16:00 36.4 69 20 147/62 (90) 97 Nasal Cannula 2.0 (Yaima River, PA-C) Physical Exam General Appearance: no apparent distress, + thin, + pertinent finding (2L O2 NC ) Eyes: PERRL ENT: hearing grossly normal Neck: supple Respiratory/Chest: lungs clear, no respiratory distress, no accessory muscle use Cardiovascular: regular rate, rhythm Abdomen: normal bowel sounds, non tender, soft Extremities: no pedal edema, no calf tenderness, + pertinent finding ( petechial rash noted to bilateral lower extremities ) Neurologic/Psychiatric: alert, oriented x 3, + depressed affect (tearful at times ) Skin: normal color, warm/dry (Yaima River ., PA-C) Laboratory Results Last 24 Hours Test 11/07/16 23:52 11/08/16 05:53 Bedside Glucose 111 mg/dl White Blood Count 4.92 K/uL Red Blood Count 3.54 M/uL Hemoglobin 12.4 g/dL Hematocrit 36.1 % Mean Corpuscular Volume 102.0 fL Mean Corpuscular Hemoglobin 35.0 pg Mean Corpuscular Hemoglobin Concent 34.3 g/dl RDW Standard Deviation 55.1 fL RDW Coefficient of Variation 14.8 % Platelet Count 128 K/uL Mean Platelet Volume 10.6 fL Sodium Level 147 mmol/L Potassium Level 4.0 mmol/L Chloride Level 117 mmol/L Carbon Dioxide Level 24 mmol/L Anion Gap 6.0 mmol/L Blood Urea Nitrogen 7 mg/dl Creatinine 0.40 mg/dl Est Creatinine Clear Calc Drug Dose 105.9 ml/min Estimated GFR () 132.1 Estimated GFR (Non- 114.0 BUN/Creatinine Ratio 16.3 Random Glucose 101 mg/dl Calcium Level 8.9 mg/dl Phosphorus Level 3.4 mg/dl Magnesium Level 1.5 mg/dl (Yaima River ., PA-C) Assessment and Plan The patient is a 61-year-old female who presents emergency department with vomiting that began at 11:30 AM. She was started on antibiotic recently, and she attributes this vomiting due to antibiotic use. She is also had some chills , and lightheadedness. She reports having a cyst removed from her elbow one month ago and that the wound opened a little after sutures were removed. She reports her surgeon with painting procedure and elbow next week, and that is why she is on antibiotics at this time. She does regularly drink alcohol, reporting that her last drink was earlier today. Severe sepsis/?right elbow osteomyelitis/colitis- IMPROVING: -- Transferred to ICU on 11/04 due to worsening tachycardia, seizure, and ongoing high fevers- stable for transfer to tele on 11/05 -- Transferred back to ICU on 11/06 due to excessive amounts of IV Ativan needs - Treated w/ Cefepime, Vancomycin, Flagyl- transition to IV Rocephin on 11/05 - Leukocytosis and fevers- RESOLVED - Wound care consulted - Orthopedic consulted - BCx and UCx negative - Stool studies negative - Follow CBC and PRP Anxiety/alcohol withdrawal: - Treating w/ IV Precedex - Lexapro 10 mg by mouth daily - Librium QID and Ativan PRN - Thiamine and folic acid supplement - IVF Depression: - Lexapro as above - Consult richard, appreciate recommendations Hypomagnesemia: Replace w/ IV Mag PRN, Mag-Ox supplement BID, follow mag level Hypernatremia, likely secondary to IVF: IVF discontinued, follow PRP ARF- RESOLVED: Treated w/ IVF, follow PRP HTN w/ hypotension due to sepsis- RESOLVED: - IVF - Held Metoprolol- resumed on 11/08 Hyperlipidemia: Simvastatin 40 mg HS held while NPO DVT prophylaxis: Heparin TID Code Status: LEVEL I, FULL Dispo: Discharge uncertain at this time- lives w/ cousin- social work therapist consulted - Hopeful transfer out of ICU within the next 1 day if can be weaned off IV Precedex (Yaima River ., PAVernaC) Attending Attestation: Pt seen/examined, chart reviewed, care plan d/w ENID River. I agree w/ the brennan components of her documentation. Pt in the chair during the visit. Confused - thinks she is in [place]. Denies any complaints. VSS no fever gen - looks older than stated age, confused, tremors present but improved today mouth - MMM today heart - RRR lungs - CTA b/l abd - soft, NT, no HSM ext - no edema A/P: severe etoh withdrawal with DTs - on librium, precedex drip, MVI, thiamine, folic acid, supportive care - overall doing better; precedex working nicely for her right elbow wound - ortho has seen - wound care recommended only, no surgery, need for IV abx - transition to po soon? hypomagnesemia - replace again PT, OT evals agree w/ psych eval Kai Thurston MD (Kai Thurston MD)
[2016-11-08] MEDS: MAGNESIUM OXIDE 400 MG TAB PO SCH (19:50)
[2016-11-08] MEDS: MULTIVITAMIN TAB PO SCH (19:50)
--- NOTE | 2016-11-08 21:27 | Critical Care Progress Note ---
Critical Care Progress Note Date of Service Nov 08, 2016. Attending Dr. Metz Subjective Patient more alert today and responding appropriately to questions. Only alert to person stating it was the year 1999 and we are in [place]. The patient was very agitated and adamant about seeing her who is also in the hospital, but at [facility]. She insisted that he was in the hospital and that she was depressed and needed to see him. Objective GENERAL: Patient resting comfortably in bed this morning in no acute distress. HENT: Normocephalic, atraumatic. Oropharynx unremarkable. EYES: Normal conjunctiva. Sclera non-icteric. NECK: Supple. No nuchal rigidity. RESPIRATORY: Clear to auscultation. CARDIAC: Regular rate, normal rhythm. Extremities warm and well perfused. Pulses equal. ABDOMEN: Soft, non-distended. No tenderness to palpation. No rebound or guarding. No masses. RECTAL: Deferred. MUSCULOSKELETAL: Chest examination reveals no tenderness. LOWER EXTREMITIES: Calves are equal size bilaterally and non-tender. No edema. No discoloration. NEURO: Patient alert, oriented to person, responds appropriately to questions. Very anxious. Mild tremor. SKIN: No rash or jaundice noted. Current SOFA Score SOFA Score Response (Comments) Value PaO2/FiO2 (mmHg) < 400 1 SaO2 / FIO2 221 - 301 1 Platelets (x10) < 100 2 Bilirubin (mg/dL) 1.2 - 1.9 1 Gerry Coma Score 13 - 14 1 Level of Hypotension No Hypotension 0 Creatinine (mg/dL) < 1.2 0 Total 6 Previous SOFA Scores 6 Assessment & Plan The patient is a 61 year old female that presented to the ED Saturday morning with vomiting, chills, and lightheadedness. The patient was found to be tachycardic and hypotensive and the source of her severe sepsis was believed to be either her right elbow wound or a questionable colitis seen on CT. The patient was started on broad spectrum antibiotics and today we will narrow the spectrum of antibiotics to Rocephin (from Vanc, Cefepime, and flagyl). The patient is also and alcoholic (unknown severity) and stated her last drink was Saturday morning. She became increasingly tremulous and mumbling so she was transferred to the ICU. The patient has been was on Precedex, receiving Ativan 2mg q2h, and had been refusing Librium. On Saturday (11/05) morning the patient was more responsive and was requiring frequently less doses of Ativan and the Precedex was discontinued. After not requiring Ativan throughout the morning and taking her medications by mouth the patient was transferred to the PCU. On the patient has been mumbling incoherently and becoming continuously more agitated despite receiving 2-3mg of Ativan every hour, having received over 20mg of Ativan throughout the day and was subsequently transferred back to the ICU. In the ICU the patient was initially very sedated on the Precedex drip, but it has now been weaned down to 0.15mcg/kg/hr and the patient is alert and answering questions appropriately. She is still agitated and anxious, but her mental status has significantly improved and she is now taking PO medications including 3 doses of Librium. Neuro - CAM-ICU negative - Precedex drip now at rate of 0.1mcg/kg/hr - IV Thiamine 200mg qAM - IV Folate 1mg qAM - IV Ativan 2mg q2h PRN --> Did not require any Ativan overnight - Lexapro 10mg PO Daily - Librium 50mg PO q8h - Restraints discontinued - One-to-one at bedside Resp - 2L NC - Previously was placed on BIPAP tachypnea - Current Smoker --> ordered tobacco cessation GI - Started on regular diet - KUB shows no free air no air fluid levels suggestive of obstruction - Multivitamin PO - C Diff Negative - Zofran 4mg q6h PRN CV - Precedex at 0.1mg/kg/hr - Restart 25mg of Toprol XL Renal - Discontinue IV fluids - Creatinine of 0.43 - Magnesium 1.5 - 1g IV mag, 400mg Mag Ox BID for 5 days - Repeat BMP, Mag, and Phos with tomorrow AM labs - D/C saud this morning ID - Possible sources of infection is either colon (colitis/diverticulitis) or the abscess in her right elbow - Right elbow X-ray: Developing loss of cortical margin posterior margin distal humeral shaft suggestive of developing osteomyelitis - Rocephin IV 1g daily -->Currently on Day 08/04 of IV antibiotics (previously received Cefepime, Flagyl, Vancomycin) --> Treatment for skin and soft tissue infection at this point - Orthopaedic surgery --> Continue with wound care, may need VAC vs primary closure at some point, continue IV abx, no need for irrigation and debridement at this time - No growth with urine and blood cultures - Procalcitonin of 6.22 this morning - 47.69 on 11/03, Recheck in 72 hours - Wound care on board for elbow Heme - DVT Ppx- Heparin SC 5,000 units - Thrombocytopenia improving (platelets 126) Resident Physician Supervision Note: Dr. Olsen was resident physician during care of patient. I separately evaluated patient and did history and exam. I discussed the case with the resident and generally agree with the findings and plan. Patient with acute encephalopathy secondary to alcohol withdrawal, Cam ICU positive requiring intravenous medication for control of symptoms. Continued improvement over last 2 days, however still tremulous and requiring sitter, still significant progressive agitation. Requiring IV medications for control of symptoms I have personally spent 35 minutes of critical care time in the direct management of this patient. This is a life/limb threatening event. This includes time spent evaluating patient, direct bedside care, chart review, placing orders, interpretation of diagnostic studies, discussion with consultants, patient, and family members, as well as other required patient management activities. This time is exclusive of all separately billable procedures, and teaching time and separate from and in addition to any other critical care service time. Consults & Procedures Consultants: none Procedures: none Data Medications: Current Inpatient Medications Medications (Trade) Dose Ordered Sig/Marisa Route Start Time Stop Time Status Last Admin Dose Admin Ondansetron HCl (Zofran Inj) 4 mg Q6H PRN IV 11/02/16 22:00 12/02/16 21:59 Vitamin B Complex (Vitamin B Complex) 1 tab QAM PO 11/03/16 09:00 12/03/16 08:59 11/08/16 07:57 1 TAB Calcium/Vitamin D (Caltrate Plus Tab) 1 tab QAM PO 11/03/16 09:00 12/03/16 08:59 11/08/16 07:57 1 TAB Diclofenac Sodium (Voltaren 1% Top Gel) 1 appln DAILY PRN EXT 11/02/16 22:15 12/02/16 22:14 Escitalopram Oxalate (Lexapro Tab) 10 mg DAILY PO 11/03/16 09:00 12/03/16 08:59 11/08/16 07:57 10 MG Multivitamins (Multivitamin Tab) 1 tab HS PO 11/03/16 21:00 12/03/16 20:59 11/08/16 19:50 1 TAB Senna/Docusate Sodium (Senokot S Tab) 1 tab QAM PO 11/03/16 09:00 12/03/16 08:59 11/08/16 07:57 1 TAB Lorazepam (Ativan Inj) PRN Dosing -Active Protocol Q1H PRN IV 11/03/16 03:45 12/03/16 03:44 11/06/16 16:53 3 MG Lorazepam 1 mg/ Syringe 1 ml @ 1 mls/min Q1H PRN IV 11/03/16 03:45 12/03/16 03:44 Acetaminophen 650 mg/Empty Bag 65 ml @ 260 mls/hr Q8 PRN IV 11/04/16 06:00 12/03/16 19:14 11/04/16 14:11 260 MLS/HR Heparin Sodium (Porcine) (Heparin Sq 5000 Unit/0.5ml) 5,000 unit Q8 SQ 11/04/16 14:00 12/04/16 13:59 11/08/16 06:23 5,000 UNIT Ceftriaxone Sodium 1000 mg/ Dextrose 60 ml @ 120 mls/hr Q24H IV 11/05/16 10:00 11/12/16 12:00 11/08/16 10:19 120 MLS/HR Chlordiazepoxide (Librium Cap) 50 mg Q8 PO 11/05/16 22:00 12/03/16 13:59 11/08/16 14:45 50 MG Dexmedetomidine HCl 200 mcg/ Sodium Chloride 50 ml @ 0 mls/hr Q0M PRN IV 11/06/16 19:15 11/10/16 19:14 11/08/16 12:21 1.1 MLS/HR Magnesium Oxide (Mag-Ox Tab) 400 mg BID PO 11/08/16 21:00 11/13/16 20:59 11/08/16 19:50 400 MG Metoprolol Succinate (Toprol Xl Tab) 25 mg DAILY PO 11/09/16 09:00 12/09/16 08:59 Folic Acid (Folvite Tab) 400 mcg QAM PO 11/09/16 09:00 12/09/16 08:59 Thiamine HCl (Vitamin B-1 Tab) 100 mg QAM PO 11/09/16 09:00 12/09/16 08:59 I & O: 24-Hour Column 11/09/16 08:00 Intake Total 1172 ml Output Total 1300 ml Balance -128 ml Vital Signs: Date Time Temp Pulse Resp B/P (MAP) Pulse Ox O2 Delivery O2 Flow Rate FiO2 11/08/16 20:01 36.9 64 22 141/85 (103) 96 2.0 11/08/16 20:00 Nasal Cannula 2.0 11/08/16 19:59 67 22 96 11/08/16 18:00 79 20 136/96 (109) 99 Nasal Cannula 2.0 11/08/16 16:00 Nasal Cannula 2.0 11/08/16 16:00 36.8 74 18 123/66 (85) 98 Nasal Cannula 2.0 11/08/16 14:00 73 22 119/91 (100) 98 Nasal Cannula 6.0 11/08/16 12:00 100 Nasal Cannula 2.0 11/08/16 12:00 36.6 86 18 128/64 (85) 100 Nasal Cannula 2.0 11/08/16 10:00 71 24 98 Nasal Cannula 2.0 11/08/16 08:00 100 Nasal Cannula 2.0 11/08/16 08:00 36.4 70 20 142/84 (103) 100 Nasal Cannula 2.0 11/08/16 06:00 72 24 149/80 (103) 99 Nasal Cannula 2.0 11/08/16 05:01 68 27 135/74 (94) 94 Nasal Cannula 2.0 11/08/16 04:00 Nasal Cannula 2.0 11/08/16 04:00 36.4 68 23 131/69 (89) 94 Nasal Cannula 2.0 11/08/16 03:00 67 24 125/70 (88) 93 Nasal Cannula 2.0 11/08/16 02:00 67 25 133/69 (90) 93 Nasal Cannula 2.0 11/08/16 01:00 66 24 131/77 (95) 95 Nasal Cannula 2.0 11/08/16 00:00 Nasal Cannula 2.0 11/08/16 00:00 36.3 67 23 133/71 (91) 94 Nasal Cannula 2.0 11/07/16 23:00 68 24 114/63 (80) 94 Nasal Cannula 2.0 11/07/16 22:00 65 27 138/75 (96) 95 Nasal Cannula 2.0 Laboratory Results: Last 24 Hours Test 11/07/16 23:52 11/08/16 05:53 Bedside Glucose 111 mg/dl White Blood Count 4.92 K/uL Red Blood Count 3.54 M/uL Hemoglobin 12.4 g/dL Hematocrit 36.1 % Mean Corpuscular Volume 102.0 fL Mean Corpuscular Hemoglobin 35.0 pg Mean Corpuscular Hemoglobin Concent 34.3 g/dl RDW Standard Deviation 55.1 fL RDW Coefficient of Variation 14.8 % Platelet Count 128 K/uL Mean Platelet Volume 10.6 fL Sodium Level 147 mmol/L Potassium Level 4.0 mmol/L Chloride Level 117 mmol/L Carbon Dioxide Level 24 mmol/L Anion Gap 6.0 mmol/L Blood Urea Nitrogen 7 mg/dl Creatinine 0.40 mg/dl Est Creatinine Clear Calc Drug Dose 105.9 ml/min Estimated GFR () 132.1 Estimated GFR (Non- 114.0 BUN/Creatinine Ratio 16.3 Random Glucose 101 mg/dl Calcium Level 8.9 mg/dl Phosphorus Level 3.4 mg/dl Magnesium Level 1.5 mg/dl Resident Tracking Resident Involvement: Resident Care Provided Care Provided: Adult Hospital Medicine
[2016-11-09] VITALS (21 sets, daily range): BP systolic 108–151; BP diastolic 52–87; PULSE 56–90; TEMP 36.6–37; O2SAT 82–100
[2016-11-09] MEDS: HEPARIN SOD 5000 UNIT/0.5 ML CARP SQ SCH ×3 (06:00→21:46)
[2016-11-09 06:09] LABS: BUN/CREATININE RATIO 15.9 (10-20); CALCIUM 8.9 mg/dl (8.5-10.1); CREATININE 0.41 mg/dl (0.60-1.20); MAGNESIUM 1.5 mg/dl (1.8-2.4); POTASSIUM 3.6 mmol/L (3.5-5.1)
[2016-11-09] MEDS: CHLORDIAZEPOXIDE 25 MG CAP PO SCH ×3 (06:39→21:43)
[2016-11-09] MEDS: MAGNESIUM SULFATE 1GM / D5W 1 GM in PREMIXED IN D5W 100 ML IV SCH ×2 (07:29→08:40)
[2016-11-09] MEDS: ESCITALOPRAM OXALATE 10 MG TAB PO SCH (07:39)
[2016-11-09] MEDS: MAGNESIUM OXIDE 400 MG TAB PO SCH ×2 (07:39→21:43)
[2016-11-09] MEDS: VITAMIN B COMPLEX TAB PO SCH (07:40)
[2016-11-09] MEDS: METOPROLOL SUCC 25MG EXT REL TAB PO SCH (07:40)
[2016-11-09] MEDS: FoLIC ACID TAB 400 MCG TAB PO SCH (07:40)
[2016-11-09] MEDS: DOCUSATE SODIUM/SENNA 50/8.6MG TAB PO SCH (07:40)
[2016-11-09] MEDS: CALCIUM 600MG + VIT D 400 IU TAB PO SCH (07:40)
[2016-11-09] MEDS ORDERED: THIAMINE HCL 100 MG TAB PO SCH (09:00)
[2016-11-09] MEDS: CEFTRIAXONE SOD INJ 1000 MG in DEXTROSE 5% 50ML IV SCH (10:11)
--- NOTE | 2016-11-09 10:37 | Critical Care Progress Note ---
Critical Care Progress Note Date of Service Nov 09, 2016. Attending Dr. Forrester Subjective Patient is resting comfortably in bed this morning with no acute complaints overnight. The patient is alert and oriented x 3 and states she wants to get out of bed for therapy. She has also bee having tremors that she states are a little worse than her baseline essential tremor. Objective GENERAL: Patient resting comfortably in bed this morning in no acute distress. HENT: Normocephalic, atraumatic. Oropharynx unremarkable. EYES: Normal conjunctiva. Sclera non-icteric. NECK: Supple. No nuchal rigidity. RESPIRATORY: Clear to auscultation. CARDIAC: Regular rate, normal rhythm. Extremities warm and well perfused. Pulses equal. ABDOMEN: Soft, non-distended. No tenderness to palpation. No rebound or guarding. No masses. RECTAL: Deferred. MUSCULOSKELETAL: Chest examination reveals no tenderness. LOWER EXTREMITIES: Calves are equal size bilaterally and non-tender. No edema. No discoloration. NEURO: Patient alert, oriented x 3. Mild anxiety. Mild tremor, more pronounced with intentional movements than at rest. SKIN: No rash or jaundice noted. Current SOFA Score SOFA Score Response (Comments) Value PaO2/FiO2 (mmHg) < 400 1 SaO2 / FIO2 221 - 301 1 Platelets (x10) < 100 2 Bilirubin (mg/dL) 1.2 - 1.9 1 [place] Coma Score 13 - 14 1 Level of Hypotension No Hypotension 0 Creatinine (mg/dL) < 1.2 0 Total 6 Previous SOFA Scores 6 Assessment & Plan The patient is a 61 year old female that presented to the ED Saturday morning with vomiting, chills, and lightheadedness. The patient was found to be tachycardic and hypotensive and the source of her severe sepsis was believed to be either her right elbow wound or a questionable colitis seen on CT. The patient was started on broad spectrum antibiotics and today we will narrow the spectrum of antibiotics to Rocephin (from Vanc, Cefepime, and flagyl). The patient is also and alcoholic (unknown severity) and stated her last drink was Saturday morning. She became increasingly tremulous and mumbling so she was transferred to the ICU. The patient has been was on Precedex, receiving Ativan 2mg q2h, and had been refusing Librium. On Saturday (11/05) morning the patient was more responsive and was requiring frequently less doses of Ativan and the Precedex was discontinued. After not requiring Ativan throughout the morning and taking her medications by mouth the patient was transferred to the PCU. On the patient has been mumbling incoherently and becoming continuously more agitated despite receiving 2-3mg of Ativan every hour, having received over 20mg of Ativan throughout the day and was subsequently transferred back to the ICU. In the ICU the patient was initially very sedated on the Precedex drip, but it has now been weaned down to 0.15mcg/kg/hr and the patient is alert and answering questions appropriately. The patient appears to be alert and oriented at this time with improved mental status now that she has been on PO Librium for over 24 hours. We plan to discontinue the Precedex this morning and monitor her mental status accordingly. Neuro - CAM-ICU negative - Precedex drip now at rate of 0.15mcg/kg/hr --> Plan to discontinue the drip this morning - Thiamine 100mg PO qAM - Folate 400mcg PO qAM - IV Ativan 2mg q2h PRN - Lexapro 10mg PO Daily - Librium 50mg PO q8h - Restraints discontinued - One-to-one at bedside Resp - 2L NC - No current diagnosis of COPD - Previously was placed on BIPAP for tachypnea - Current Smoker --> ordered tobacco cessation GI - Regular Diet - KUB shows no free air no air fluid levels suggestive of obstruction - Multivitamin PO - C Diff Negative - Zofran 4mg q6h PRN CV - Precedex at 0.15 mg/kg/hr --> Plan to d/c this morning - Toprol XL 25mg PO daily Renal - Discontinue IV fluids - Creatinine of 0.41 - Magnesium 2.4- 400mg Mag Ox BID - D/C villavicencio ID - Possible sources of infection is either colon (colitis/diverticulitis) or the abscess in her right elbow - Right elbow X-ray: Developing loss of cortical margin posterior margin distal humeral shaft suggestive of developing osteomyelitis - Rocephin IV 1g daily -->Currently on Day 7 of IV antibiotics (previously received Cefepime, Flagyl, Vancomycin) --> Treatment for skin and soft tissue infection at this point - Orthopaedic surgery --> Continue with wound care, may need VAC vs primary closure at some point, continue IV abx, no need for irrigation and debridement at this time - No growth with urine and blood cultures - Procalcitonin of 6.22 this morning - 47.69 on 11/03, Recheck in 72 hours - Wound care on board for elbow Heme - DVT Ppx- Heparin SC 5,000 units - Thrombocytopenia improving (platelets 126) Consults & Procedures Consultants: none Procedures: none Data Medications: Current Inpatient Medications Medications (Trade) Dose Ordered Sig/Marisa Route Start Time Stop Time Status Last Admin Dose Admin Ondansetron HCl (Zofran Inj) 4 mg Q6H PRN IV 11/02/16 22:00 12/02/16 21:59 Vitamin B Complex (Vitamin B Complex) 1 tab QAM PO 11/03/16 09:00 12/03/16 08:59 11/09/16 07:40 1 TAB Calcium/Vitamin D (Caltrate Plus Tab) 1 tab QAM PO 11/03/16 09:00 12/03/16 08:59 11/09/16 07:40 1 TAB Diclofenac Sodium (Voltaren 1% Top Gel) 1 appln DAILY PRN EXT 11/02/16 22:15 12/02/16 22:14 Escitalopram Oxalate (Lexapro Tab) 10 mg DAILY PO 11/03/16 09:00 12/03/16 08:59 11/09/16 07:39 10 MG Multivitamins (Multivitamin Tab) 1 tab HS PO 11/03/16 21:00 12/03/16 20:59 11/08/16 19:50 1 TAB Senna/Docusate Sodium (Senokot S Tab) 1 tab QAM PO 11/03/16 09:00 12/03/16 08:59 11/09/16 07:40 1 TAB Lorazepam (Ativan Inj) PRN Dosing -Active Protocol Q1H PRN IV 11/03/16 03:45 12/03/16 03:44 11/06/16 16:53 3 MG Lorazepam 1 mg/ Syringe 1 ml @ 1 mls/min Q1H PRN IV 11/03/16 03:45 12/03/16 03:44 Acetaminophen 650 mg/Empty Bag 65 ml @ 260 mls/hr Q8 PRN IV 11/04/16 06:00 12/03/16 19:14 11/04/16 14:11 260 MLS/HR Heparin Sodium (Porcine) (Heparin Sq 5000 Unit/0.5ml) 5,000 unit Q8 SQ 11/04/16 14:00 12/04/16 13:59 11/08/16 06:23 5,000 UNIT Ceftriaxone Sodium 1000 mg/ Dextrose 60 ml @ 120 mls/hr Q24H IV 11/05/16 10:00 11/12/16 12:00 11/09/16 10:11 120 MLS/HR Chlordiazepoxide (Librium Cap) 50 mg Q8 PO 11/05/16 22:00 12/03/16 13:59 11/09/16 06:39 50 MG Dexmedetomidine HCl 200 mcg/ Sodium Chloride 50 ml @ 0 mls/hr Q0M PRN IV 11/06/16 19:15 11/10/16 19:14 11/08/16 12:21 1.1 MLS/HR Magnesium Oxide (Mag-Ox Tab) 400 mg BID PO 11/08/16 21:00 11/13/16 20:59 11/09/16 07:39 400 MG Metoprolol Succinate (Toprol Xl Tab) 25 mg DAILY PO 11/09/16 09:00 12/09/16 08:59 11/09/16 07:40 25 MG Folic Acid (Folvite Tab) 400 mcg QAM PO 11/09/16 09:00 12/09/16 08:59 11/09/16 07:40 400 MCG Thiamine HCl (Vitamin B-1 Tab) 100 mg QAM PO 11/09/16 09:00 12/09/16 08:59 11/09/16 07:40 100 MG Vital Signs: Date Time Temp Pulse Resp B/P (MAP) Pulse Ox O2 Delivery O2 Flow Rate FiO2 11/09/16 10:08 63 16 109/63 (78) 90 Nasal Cannula 2.0 11/09/16 08:00 Nasal Cannula 2.0 11/09/16 08:00 37.0 75 20 108/68 (81) 92 11/09/16 06:01 70 20 132/73 (92) 94 11/09/16 04:01 36.8 69 19 127/76 (93) 90 11/09/16 04:00 Nasal Cannula 2.0 11/09/16 02:01 64 18 123/64 (83) 91 11/09/16 01:50 64 18 90 11/09/16 00:01 36.8 72 23 151/86 (107) 99 11/09/16 00:01 Nasal Cannula 2.0 11/09/16 00:00 65 21 98 11/08/16 22:01 65 23 152/83 (106) 98 Nasal Cannula 2.0 11/08/16 21:00 78 25 11/08/16 20:01 36.9 64 22 141/85 (103) 96 2.0 11/08/16 20:00 Nasal Cannula 2.0 11/08/16 19:59 67 22 96 11/08/16 18:00 79 20 136/96 (109) 99 Nasal Cannula 2.0 11/08/16 16:00 Nasal Cannula 2.0 11/08/16 16:00 36.8 74 18 123/66 (85) 98 Nasal Cannula 2.0 11/08/16 14:00 73 22 119/91 (100) 98 Nasal Cannula 6.0 11/08/16 12:00 100 Nasal Cannula 2.0 11/08/16 12:00 36.6 86 18 128/64 (85) 100 Nasal Cannula 2.0 Laboratory Results: Last 24 Hours Test 11/09/16 05:25 11/09/16 09:27 Sodium Level 146 mmol/L Potassium Level 3.6 mmol/L Chloride Level 114 mmol/L Carbon Dioxide Level 26 mmol/L Anion Gap 6.0 mmol/L Blood Urea Nitrogen 7 mg/dl Creatinine 0.41 mg/dl Est Creatinine Clear Calc Drug Dose 103.1 ml/min Estimated GFR () 131.1 Estimated GFR (Non- 113.1 BUN/Creatinine Ratio 15.9 Random Glucose 85 mg/dl Calcium Level 8.9 mg/dl Magnesium Level 1.5 mg/dl 2.4 mg/dl Procalcitonin 0.64 ng/ml Resident Tracking Resident Involvement: Resident Care Provided Care Provided: Adult Hospital Medicine Assessment and Plan She is more alert and appropriate with me. No cardiopulmonary concerns. No GI / changes. Current Rx reviewed and Precedex to be weaned off. Vitals--afeb/VSS PE HEENT--no target Pulmonary--exchange is fine Cardio--rate and volume appropriate GI--no target Musculo--no new targets Neuro/Psych--no behaviors noted. Imp/Rec--weaning the Precedex. Hemodynamics appropriate. She can be transferred out of the ICU
--- NOTE | 2016-11-09 19:02 | Psychiatric Progress Notes ---
Progress Note Date of Service Nov 09, 2016. Chief Complaint "[]". Subjective Patient was seen & assessed interval progress reviewed with [Treatment Team] [ Nursing] Data Vital Signs Last 24 Hrs: Date Time Temp Pulse Resp B/P (MAP) Pulse Ox O2 Delivery O2 Flow Rate FiO2 11/09/16 17:01 63 23 135/73 (93) Nasal Cannula 2.0 11/09/16 16:22 Nasal Cannula 2.0 11/09/16 16:17 71 99 11/09/16 16:01 36.8 81 17 123/63 (83) Nasal Cannula 2.0 11/09/16 15:20 70 27 137/73 (94) 99 Nasal Cannula 2.0 11/09/16 15:11 76 20 130/63 (85) 82 Nasal Cannula 2.0 11/09/16 15:01 78 25 118/83 (95) Nasal Cannula 2.0 11/09/16 14:00 36.9 90 18 124/87 (99) 99 Nasal Cannula 2.0 11/09/16 12:00 36.9 65 20 110/70 (83) 100 Nasal Cannula 2.0 11/09/16 12:00 Nasal Cannula 2.0 11/09/16 10:08 63 16 109/63 (78) 90 Nasal Cannula 2.0 11/09/16 08:00 Nasal Cannula 2.0 11/09/16 08:00 37.0 75 20 108/68 (81) 92 11/09/16 06:01 70 20 132/73 (92) 94 11/09/16 04:01 36.8 69 19 127/76 (93) 90 11/09/16 04:00 Nasal Cannula 2.0 11/09/16 02:01 64 18 123/64 (83) 91 11/09/16 01:50 64 18 90 11/09/16 00:01 36.8 72 23 151/86 (107) 99 11/09/16 00:01 Nasal Cannula 2.0 11/09/16 00:00 65 21 98 11/08/16 22:01 65 23 152/83 (106) 98 Nasal Cannula 2.0 11/08/16 21:00 78 25 11/08/16 20:01 36.9 64 22 141/85 (103) 96 2.0 11/08/16 20:00 Nasal Cannula 2.0 11/08/16 19:59 67 22 96 Meds Administered Last 24 Hrs: Meds Administered (Past 24Hrs) Medications (Trade) Dose Ordered Sig/Marisa Route Start Time Stop Time Status Last Admin Dose Admin Magnesium Oxide (Mag-Ox Tab) 400 mg BID PO 11/08/16 21:00 11/13/16 20:59 11/09/16 07:39 400 MG Magnesium Sulfate 1 gm/Prmx 100 ml @ 100 mls/hr TODAY@1030 IV 11/08/16 10:30 11/08/16 13:00 DC 11/08/16 10:59 100 MLS/HR Metoprolol Succinate (Toprol Xl Tab) 25 mg DAILY PO 11/09/16 09:00 12/09/16 08:59 11/09/16 07:40 25 MG Folic Acid (Folvite Tab) 400 mcg QAM PO 11/09/16 09:00 12/09/16 08:59 11/09/16 07:40 400 MCG Thiamine HCl (Vitamin B-1 Tab) 100 mg QAM PO 11/09/16 09:00 12/09/16 08:59 11/09/16 07:40 100 MG Magnesium Sulfate 1 gm/Prmx 100 ml @ 100 mls/hr 0700,0800 IV 11/09/16 07:00 11/09/16 08:59 DC 11/09/16 08:40 100 MLS/HR Lab Results Last 24 Hrs: Last 24 Hours Test 11/09/16 05:25 11/09/16 09:27 Sodium Level 146 mmol/L Potassium Level 3.6 mmol/L Chloride Level 114 mmol/L Carbon Dioxide Level 26 mmol/L Anion Gap 6.0 mmol/L Blood Urea Nitrogen 7 mg/dl Creatinine 0.41 mg/dl Est Creatinine Clear Calc Drug Dose 103.1 ml/min Estimated GFR () 131.1 Estimated GFR (Non- 113.1 BUN/Creatinine Ratio 15.9 Random Glucose 85 mg/dl Calcium Level 8.9 mg/dl Magnesium Level 1.5 mg/dl 2.4 mg/dl Procalcitonin 0.64 ng/ml
--- NOTE | 2016-11-09 19:55 | Psychiatric Consultation ---
Consultation Date of Consultation Nov 09, 2016. Identifying Data The patient is a 61-year-old woman, currently a patient in the intensive care unit, who was admitted after she presented in the emergency room on 11/02/2016 and complained of hyperemesis that had begun earlier in the day. The patient reported that she had had a cyst removed from her right elbow approximately a month earlier, had been started on the antibiotic Bactrim, and attributed her persistent vomiting to the Bactrim. It was subsequently determined that the patient was septic, and she became progressively more agitated and confused over the course of the next 24-48 hours. The record indicates that there was a concern that the patient was experiencing alcohol withdrawal, and she was treated with an alcohol withdrawal protocol and placed on a broad-spectrum antibiotic. The patient's condition improved, but she remains tremulous, weak, and unable to safely ambulate independently. She is currently experiencing a number of psychosocial stressors, the greatest of which is the fact that her and partner of 25 years suffered a CVA, possibly a related to a traumatic brain injury, on August 21 and remains hospitalized with residual neurologic and possibly cognitive impairments. The couple, according the patient, is also facing considerable financial challenges Chief Complaint "[I'm worried about my . I love him so much.]". History of Present Illness The patient is a 61-year-old woman, currently a patient in the intensive care unit, who was admitted after she presented in the emergency room on 11/02/2016 and complained of hyperemesis that had begun earlier in the day. The patient reported that she had had a cyst removed from her right elbow approximately a month earlier, had been started on the antibiotic Bactrim, and attributed her persistent vomiting to the Bactrim. It was subsequently determined that the patient was septic, and she became progressively more agitated and confused over the course of the next 24-48 hours. The record indicates that there was a concern that the patient was experiencing alcohol withdrawal, and she was treated with an alcohol withdrawal protocol and placed on a broad-spectrum antibiotic. The patient's condition improved, but she remains tremulous, weak, and unable to safely ambulate independently. She is currently experiencing a number of psychosocial stressors, the greatest of which is the fact that her and partner of 25 years suffered a CVA, possibly a related to a traumatic brain injury, on August 21 and remains hospitalized with residual neurologic and possibly cognitive impairments. The couple, according the patient, is also facing considerable financial challenges. The patient's current assertion is that while she and her , Danilo, would typically drink 1 or 2 drinks every day, she has not been consuming alcohol a daily basis since he was hospitalized in July. She says that she does have "1 or 2 drinks" when friends or relatives stop by, but she does not drink to the point of intoxication and is not drinking on a daily basis. The patient tells me that she has been both sad and fretful ever since her 's CVA in July. She reports that she was in the kitchen while he was working in the basement when she heard a "side," based on, and found her laying on the floor with his eyes rolled back in his head. She accompanied him to the hospital and says that the entire experience was highly traumatic for her. As that time, she has been having difficulty sleeping, has trouble organizing her thoughts, has not been motivated to "much of anything," and adds that "I clean the bathroom about once a week, and that's about it." She is enjoying the support of a female cousin who has been staying with her during her 's absence, but she recently asked the cousin to allow her to have "a little bit of time alone." She endorses symptoms that include crying spells, anhedonia, anergia, depressed mood, ruminations, and psychosocial withdrawal. The patient tells me that the symptoms did not predate her 's illness. She also told me that she is not taking any psychiatric medications. However, her medication list include alprazolam 0.5 mg twice a day and escitalopram 10 mg daily. She believes these medications were started by her primary care physician, and she adds that she is not sure that they have helped. She denies any history of suicidal ideation , and reports that she has never engaged in intentional self-injurious behaviors. But she acknowledges that she realizes that she is depressed and is amenable to the idea of being treated for depression. Past Psychiatric History Current OP Treatment: no current treatment (the patient is evidently receiving prescriptions for alprazolam 0.5 mg twice a day and Lexapro 10 mg daily from her primary care physician.) Prior OP Treatment: no prior treatment Prior Psych Hospitalizations: none Access to a Gun: Yes (the patient says that she is keeping the gun of a friend in her house. However she says that the gun is loaded, she does not have access to bullets, and adds, "I have no idea how to load her shoot a gun.") Suicide Attempts: No Past Medical/Surgical History History of Concussion/Seizure: No (1) Depression Allergies Allergies: Coded Allergies: Codeine (Verified Adverse Reaction, Mild, NAUSEA, 10/05/16) Home Medications Scheduled Alprazolam (Xanax), 0.5 MG PO BID B-Complex Vitamins (B Complex), 1 CAP PO QAM Calcium Polycarbophil (Fiber), 2,500 MG PO BID Calcium/Vitamin D (Os-Justin 500 Plus D), 1 TAB PO QAM Escitalopram (Lexapro), 10 MG PO DAILY Fish Oil (Gordon-3), 1 CAP PO QAM Folic Acid (Folvite), 1 MG PO QAM Garlic (Garlic), 1,000 MG PO QAM Metoprolol Succ (Toprol Xl) (Toprol-Xl), 25 MG PO QAM Multivitamin (Multivitamin), 1 TAB PO HS Sennosides-Docusate Sodium (Stool Softener), 1 TAB PO QAM Simvastatin (Zocor), 40 MG PO HS Thiamine Mononitrate (Vitamin B1), 200 MG PO QAM Scheduled PRN Diclofenac Sodium (Topical) (Voltaren 1% Top Gel), 1 APPLN TOP DAILY PRN for Pain Family History History of Suicide: No History of Substance Abuse: No Psychiatric History: No Alcohol Use Alcohol Use In Past 12 Months: Yes Although it was supposed that the patient had been abusing alcohol, she tells me today that this is not the case. She says that she and her did typically drink 1 or 2 drinks a day. However she says that she has not been drinking on a daily basis since her 's CVA. Instead, she says that she drinks only occasionally, if friends or family member stopped by, and then she limits consumption of alcohol to no more than 2 drinks. Smoking Use Smoking Status: Heavy Tobacco Smoker Personal History Education: graduated from high school Relationship History: Children: No Children. She has two adult stepsons. Psychological Trauma History: Denies Hx Traumatic Event (other than finding her on the basement floor after he suffered a CVA.) Review of Systems Constitutional: weakness, other (SIRS (Systemic Inflammatory Response Syndrome) ) Eyes: reports: no symptoms Cardiovascular: reports: other (patient has a history of hypertension is treated with Metroprolol) Respiratory: reports: other (patient denies any history of pulmonary difficulties, but is using nasal oxygen. She says that she smokes about a pack and a half cigarettes a day.) Gastrointestinal: vomiting (now resolved.) Genitourinary - Female: reports: no symptoms (the patient has a history of breast cancer.) Musculoskeletal: other (patient had a cyst removed from her right elbow. She also has a torn meniscus.) Integumentary: no symptoms reported Neurologic: reports: other (patient has a familial tremor which she says has worsened under her current stress.) Endocrine: no symptoms Hematologic / Lymphatic: no symptoms Examination Vital Signs Vital Signs Past 12 Hours Date Time Temp Pulse Resp B/P (MAP) Pulse Ox O2 Delivery O2 Flow Rate FiO2 11/09/16 17:01 63 23 135/73 (93) Nasal Cannula 2.0 11/09/16 16:22 Nasal Cannula 2.0 11/09/16 16:17 71 99 11/09/16 16:01 36.8 81 17 123/63 (83) Nasal Cannula 2.0 11/09/16 15:20 70 27 137/73 (94) 99 Nasal Cannula 2.0 11/09/16 15:11 76 20 130/63 (85) 82 Nasal Cannula 2.0 11/09/16 15:01 78 25 118/83 (95) Nasal Cannula 2.0 11/09/16 14:00 36.9 90 18 124/87 (99) 99 Nasal Cannula 2.0 11/09/16 12:00 36.9 65 20 110/70 (83) 100 Nasal Cannula 2.0 11/09/16 12:00 Nasal Cannula 2.0 11/09/16 10:08 63 16 109/63 (78) 90 Nasal Cannula 2.0 11/09/16 08:00 Nasal Cannula 2.0 11/09/16 08:00 37.0 75 20 108/68 (81) 92 Laboratory Results Last 24 Hours Test 11/09/16 05:25 11/09/16 09:27 Sodium Level 146 mmol/L Potassium Level 3.6 mmol/L Chloride Level 114 mmol/L Carbon Dioxide Level 26 mmol/L Anion Gap 6.0 mmol/L Blood Urea Nitrogen 7 mg/dl Creatinine 0.41 mg/dl Est Creatinine Clear Calc Drug Dose 103.1 ml/min Estimated GFR () 131.1 Estimated GFR (Non- 113.1 BUN/Creatinine Ratio 15.9 Random Glucose 85 mg/dl Calcium Level 8.9 mg/dl Magnesium Level 1.5 mg/dl 2.4 mg/dl Procalcitonin 0.64 ng/ml Mental Examination During interview pt is: alert and oriented, cooperative Appearance: appropriately dressed Eye contact is: good Motor behavior is: tremor (the patient has a IIIB per second tremor of both upper extremities and head.) Speech: normal in rate, rhythm & volume Affect: depressed, tearful, anxious Mood is: depressed Thought process: goal directed, linear, logical, clear, coherent Thought content: reality based without delusions Suicidal thought are: denied Homicidal thoughts are: denied Hallucinations: denies auditory, denies visual Cognition: memory grossly intact Intelligence estimated to be: average Insight: fair Judgement: good Impression / Recommendations Impression Clearly, the patient is suffering a major depression. She has cardinal symptoms of depression, including depressed mood, anhedonia, apathy, anergia, psychosocial withdrawal, crying spells, difficulty concentrating, lack of motivation, and intermittent and terminal insomnia. The degree to which the patient's alcohol consumption may be contributing to her present symptoms is not clear. The patient, herself, insists that she does not consume alcohol in excess, and does not drink on a daily basis. She does acknowledge that when her was home the 2 drank on a daily basis, but she has not done so since her 's illness began in July. Clearly, the focus of the patient's distress is her 's CVA and persistent impairment. The degree of the patient's 's impairment is not clear, but it is clear that nearly 3 months after they CVA he is still hospitalized or about to be placed in a rehabilitation facility. The patient describes her relationship with her as being "wonderful," and says that she finds it extremely distressing to be without his daily company. She doesn't really active support of friends and family. She is particularly close with her brother, although a recent source of stress is been the fact that the patient's brother has been treated for throat cancer. She has the active support of her cousin and his , and the patient's cousin's has been staying with the patient most days except when she is working. It is not clear to me whether the patient's concerns about finances are partially a function of her depression. She reports that her receives a mcfp check from [employer], and also receives Social Security benefits. Inventory Assets Strengths: Supportive family. Good sense of humor. Loves animals. Strong marriage. Risk Factors Assessment : Yes /single/: No Higher / Fall in social status: No Access to guns: No (the patient says that there is a gun in the house that she is storing for an incarcerated friend. However, she says that the gun is loaded and she has no access to ammunition) Health problems: Yes Mental Health Diagnoses: Yes Substance use disorders: No Previous attempt: No Previous attempt;highly lethal: No Previous attempt; planned: No Previous attempt; didn't tell: No Family history of suicide: No Previous psychiatric stay: No Hopelessness: No Smoker: Yes Protective Factors Assessment Orthodox beliefs: Yes : Yes Responsible for young children: No Employed: No Stable relationships: Yes Supportive family: Yes Good rapport with provider: Yes Absence of risk factors above: No Recommendations (1) Generalized anxiety disorder Upon discharge the patient will need to be referred to a psychiatrist and a psychotherapist for more active treatment of her depression and anxiety.. The patient has insight of the fact that she is suffering from depression and also agrees to a plan to enter treatment with a psychiatrist and therapist, but is concerned about her ability to pay. Given the patient's weakness and difficulty ambulating, tapering and then discontinuing her dose of alprazolam over a period of several weeks would be indicated. She might also respond favorably to a higher dose of Lexapro (20 mg daily) 1 she is medically stable. She might also benefit from the addition of buspirone, starting at 5 mg twice a day, for anxiety. Trazodone 50 mg at bedtime may help with sleep, and may also serve as an adjunctive to Lexapro. I have cautioned her that she must not consume alcohol while taking psychiatric medications. I have also advised her that alcohol can worsen an underlying depression, even if temporarily it makes one feel more comfortable. (2) Depression Upon discharge the patient will need to be referred to a psychiatrist and a psychotherapist for more active treatment of her depression and anxiety.. The patient has insight of the fact that she is suffering from depression and also agrees to a plan to enter treatment with a psychiatrist and therapist, but is concerned about her ability to pay. Given the patient's weakness and difficulty ambulating, tapering and then discontinuing her dose of alprazolam over a period of several weeks would be indicated. She might also respond favorably to a higher dose of Lexapro (20 mg daily) 1 she is medically stable. She might also benefit from the addition of buspirone, starting at 5 mg twice a day, for anxiety. Trazodone 50 mg at bedtime may help with sleep, and may also serve as an adjunctive to Lexapro. I have cautioned her that she must not consume alcohol while taking psychiatric medications. I have also advised her that alcohol can worsen an underlying depression, even if temporarily it makes one feel more comfortable.
--- NOTE | 2016-11-09 21:39 | Progress Note ---
Subjective Date of Service: Nov 09, 2016. Subjective Pt evaluation today including: conversation w/ patient, physical exam, chart review, lab review, review of inpatient medication list Pain: denies any location of pain PO Intake: improving Voiding: no voiding problems much more alert today - knows she is in [facility] precedex has been turned off tremors still present but improved anxiety improved Problem List Medical Problems: (1) Acute electrocardiogram changes Status: Acute (2) JOSE (acute kidney injury) Status: Acute (3) Elevated troponin Status: Acute (4) Hypomagnesemia Status: Acute (5) Sepsis Status: Acute (6) Septic shock Status: Acute (7) Vomiting Status: Acute Review of Systems Constitutional: No fever Respiratory: No shortness of breath Cardiac: No chest pain Abdomen: No pain Objective Vital Signs Date Time Temp Pulse Resp B/P (MAP) Pulse Ox O2 Delivery O2 Flow Rate FiO2 11/09/16 20:25 36.6 75 18 139/72 (94) 100 Nasal Cannula 2.0 11/09/16 20:24 Nasal Cannula 2.0 11/09/16 20:02 36.8 71 23 134/69 (90) 100 Nasal Cannula 2.0 11/09/16 19:01 63 22 121/74 (90) 100 Nasal Cannula 2.0 11/09/16 18:01 59 21 136/73 (94) Nasal Cannula 2.0 11/09/16 17:01 63 23 135/73 (93) Nasal Cannula 2.0 11/09/16 16:22 Nasal Cannula 2.0 11/09/16 16:17 71 99 11/09/16 16:01 36.8 81 17 123/63 (83) Nasal Cannula 2.0 11/09/16 15:20 70 27 137/73 (94) 99 Nasal Cannula 2.0 11/09/16 15:11 76 20 130/63 (85) 82 Nasal Cannula 2.0 11/09/16 15:01 78 25 118/83 (95) Nasal Cannula 2.0 11/09/16 14:00 36.9 90 18 124/87 (99) 99 Nasal Cannula 2.0 11/09/16 12:00 36.9 65 20 110/70 (83) 100 Nasal Cannula 2.0 11/09/16 12:00 Nasal Cannula 2.0 11/09/16 10:08 63 16 109/63 (78) 90 Nasal Cannula 2.0 11/09/16 08:00 Nasal Cannula 2.0 11/09/16 08:00 37.0 75 20 108/68 (81) 92 11/09/16 06:01 70 20 132/73 (92) 94 11/09/16 04:01 36.8 69 19 127/76 (93) 90 11/09/16 04:00 Nasal Cannula 2.0 11/09/16 02:01 64 18 123/64 (83) 91 11/09/16 01:50 64 18 90 11/09/16 00:01 36.8 72 23 151/86 (107) 99 11/09/16 00:01 Nasal Cannula 2.0 11/09/16 00:00 65 21 98 11/08/16 22:01 65 23 152/83 (106) 98 Nasal Cannula 2.0 Physical Exam General Appearance: no apparent distress, + thin, + pertinent finding (sitting in chair, looks much better, less tremors) ENT: pharynx normal Neck: no JVD Respiratory/Chest: lungs clear, no respiratory distress, no accessory muscle use Cardiovascular: regular rate, rhythm, no gallop, no murmur Abdomen: normal bowel sounds, non tender, soft, no organomegaly Extremities: no pedal edema Neurologic/Psychiatric: alert, oriented x 3, + pertinent finding (tremors markedly improved) Laboratory Results Last 24 Hours Test 11/09/16 05:25 11/09/16 09:27 Sodium Level 146 mmol/L Potassium Level 3.6 mmol/L Chloride Level 114 mmol/L Carbon Dioxide Level 26 mmol/L Anion Gap 6.0 mmol/L Blood Urea Nitrogen 7 mg/dl Creatinine 0.41 mg/dl Est Creatinine Clear Calc Drug Dose 103.1 ml/min Estimated GFR () 131.1 Estimated GFR (Non- 113.1 BUN/Creatinine Ratio 15.9 Random Glucose 85 mg/dl Calcium Level 8.9 mg/dl Magnesium Level 1.5 mg/dl 2.4 mg/dl Procalcitonin 0.64 ng/ml Assessment and Plan 61yo female: 1. severe etoh withdrawal with DTs - slowly improving. Last etoh beverage was likely about 8 days ago. Remains on 50mg TID librium. Precedex drip has been shut off. Cont MVI, thiamine, folic acid, supportive care - would increase thiamine to 200mg BID. Suspect most physical withdrawal sx's should be complete in the next 2-3 days. 2. mod-severe protein calorie malnutrition - cont MVI/thiamine/folic acid/ calcium/vit D/b-complex. Add boost BID. 3. right elbow wound - previously grew out enterobacter from culture done about 1 month ago. ortho has seen - wound care recommended only, no surgery. procalcitonin level has normalized with numerous days of IV antibiotics - today is day #8 of abx. d/c rocephin since enterobacter was sensitive to cipro will change to such. 4. hypomagnesemia - replaced again and now normal; repeat level in am 5. severe deconditioning - PT, OT evals appreciated; may need rehab 6. thrombocytopenia - was likely 2nd to etoh - improving/resolving. Platelet count in am. 7. DVT proph - heparin TID. 8. severe depression/anxiety disorder/insomnia - appreciate psych consult. cont lexapro - consider higher dose at 20mg/day. consider buspar consider trazodone 9. acute kidney injury - resolved ok to transfer to tele today Continued [facility] stay due to: ambulation difficulties, multiple IV medications needed, other (etoh withdrawal) Discharge planning: uncertain
[2016-11-09] MEDS: MULTIVITAMIN TAB PO SCH (21:44)
[2016-11-10 04:00] VITALS: BP 118/60; PULSE 76; TEMP 36.7; O2SAT 96
[2016-11-10] MEDS ORDERED: ACETAMINOPHEN 325 MG TAB PO STA (04:43)
[2016-11-10] MEDS: CHLORDIAZEPOXIDE 25 MG CAP PO SCH ×3 (05:23→21:27)
[2016-11-10] MEDS: HEPARIN SOD 5000 UNIT/0.5 ML CARP SQ SCH ×3 (05:24→21:28)
[2016-11-10] MEDS ORDERED: BOOST VANILLA PO SCH ×2 (07:30)
[2016-11-10] MEDS: FoLIC ACID TAB 400 MCG TAB PO SCH (08:14)
[2016-11-10] MEDS: ESCITALOPRAM OXALATE 10 MG TAB PO SCH (08:14)
[2016-11-10] MEDS: DOCUSATE SODIUM/SENNA 50/8.6MG TAB PO SCH (08:14)
[2016-11-10] MEDS: VITAMIN B COMPLEX TAB PO SCH (08:15)
[2016-11-10] MEDS: CIPROFLOXACIN 500 MG TAB PO SCH ×2 (08:15→21:28)
[2016-11-10] MEDS: THIAMINE HCL 100 MG TAB PO SCH ×2 (08:15→21:29)
[2016-11-10] MEDS: CALCIUM 600MG + VIT D 400 IU TAB PO SCH (08:16)
[2016-11-10] MEDS: MAGNESIUM OXIDE 400 MG TAB PO SCH ×2 (08:16→21:28)
[2016-11-10 08:25] VITALS: BP 90/54; PULSE 73; TEMP 36.6; O2SAT 94
[2016-11-10 08:26] LABS: BUN/CREATININE RATIO 15.5 (10-20); CALCIUM 9.6 mg/dl (8.5-10.1); CREATININE 0.49 mg/dl (0.60-1.20); MAGNESIUM 1.7 mg/dl (1.8-2.4); POTASSIUM 3.8 mmol/L (3.5-5.1)
[2016-11-10 08:30] LABS: PLATELET COUNT 250 K/uL (130-400)
[2016-11-10] MEDS: METOPROLOL SUCC 25MG EXT REL TAB PO SCH (09:00)
--- NOTE | 2016-11-10 10:00 | PROGRESS NOTE ---
DATE: 11/10/2016 HISTORY OF PRESENT ILLNESS: Ms. Gann is a 61-year-old white female, alcoholic and was admitted with a right elbow lesion with possible sepsis, and delirium tremens from alcohol withdrawal. She is severely nutritionally deficient and as a result is hypoproteinemic, hypomagnesemic, and has a macrocytic hypochromic anemia. Notes that nutritional deficiencies are being addressed currently. The patient is anxious to go home. She became quite tearful when asked her how she was doing. She states that her tremors are improved, although they come and go to some degree. She is only eating small portions of her meals. She offers no other complaints. She denies any fevers or chills. Denies any chest pain, heaviness, tightness, or pressure. She denies any shortness of breath. No orthopnea or PND. No syncope or near syncope. She denies any nausea or vomiting. MEDICATIONS: 1. Ciprofloxacin 500 mg b.i.d. 2. Thiamine 200 mg b.i.d. 3. Boost nutritional formula 1 can b.i.d. 4. Toprol-XL 25 mg daily. 5. Folic acid 400 mcg each morning. 6. Mag ox 400 mg b.i.d. 7. Librium 50 mg p.o. q. 8 hours. 8. Subcutaneous heparin 5000 units q. 8 hours. 9. Multivitamin daily. 10. Vitamin B complex. 11. Calcium with vitamin D 1 tablet daily. 12. Lexapro 10 mg daily. 13. Senokot-S tablets. 14. Lorazepam p.r.n. for alcohol withdrawal symptoms. 15. Voltaren gel. 16. Zofran 4 mg IV q. 6 hours p.r.n. ALLERGIES: CODEINE. PHYSICAL EXAMINATION: VITAL SIGNS: Temperature is 36.6 degrees Celsius, pulse is 73 and regular, respiratory rate is 16 and unlabored, blood pressure is 90/54 and SpO2 is 94% on room air. GENERAL: Chronically ill appearing white female in no acute distress. HEENT: Head is atraumatic and normocephalic. EOMs intact. Sclerae are anicteric. Face is symmetric. No perioral cyanosis. NECK: Without adenopathy or JVD. Carotid upstrokes +2 bilaterally. CHEST AND LUNGS: Clear to auscultation throughout all lung rizo, no wheezes, rales or rhonchi. CARDIOVASCULAR: S1 and S2 are regular without murmur, gallop or rub. PMI is nondisplaced. No lifts, heaves, or thrills. ABDOMINAL EXAM: Bowel sounds are present. No masses, organomegaly or tenderness. NEUROLOGIC: The patient is with a high frequency tremor of the hands. She is awake, alert and oriented. Interactive. As mentioned, she becomes tearful at times and would like to go home by Saturday at the latest. She follows commands. Gait pattern not assessed. LABORATORIES: White blood cell count is 4.92, hemoglobin 12.4 g/dL, hematocrit 36.1%, and platelet count 250,000. Sodium is 148 mmol/L, potassium 3.8 mmol/L, BUN 8, and creatinine 0.49 mg/dL. Blood sugar is 83 mg/dL. Serum magnesium still slightly low at 1.7 mg/dL. Telemetry monitoring reveals predominantly normal sinus rhythm. ASSESSMENT: 1. Severe alcohol withdrawal with delirium tremens -- slowly improving. Last alcoholic beverage was about 9 days ago. 2. Moderate to severe protein/calorie malnutrition. 3. Right elbow wound, which grew out Enterobacter about 1 month ago. 4. Hypomagnesemia, improving. 5. Severe deconditioning. 6. Thrombocytopenia, resolved. 7. Severe depression/anxiety. 8. Acute kidney injury, resolved. PLAN: 1. The patient is gradually becoming less tremulous. Continue Librium 50 mg q. 8 hours. Could potentially taper this dose in coming days. 2. Continue multivitamin, thiamine, folic acid, and supportive care for nutritional deficiencies. 3. Encouraged to increase caloric intake. 4. Continue localized wound care of the right elbow wound. 5. Continue supplementing magnesium as she is approaching a normal range. 6. Continue physical therapy and occupational therapy. We will also recommend ambulating in the hallways with a walker and with nurse only along with physical therapy and occupational therapy. 7. Ongoing DVT prophylaxis with heparin t.i.d. 8. Continue to monitor daily laboratories. 9. She will remain in the hospital for the time being as she has severe deconditioning and ambulation difficulties, and multiple IV medications needed. Additionally, she is still having signs of alcohol withdrawal, which should continue to improve. Attending Attestation: Pt seen/examined, chart reviewed, care plan d/w ENID Santos. I agree w/ the brennan components of her documentation. During my visit she was resting quietly in the chair watching TV. Knew she was at [facility] in [place] but could not tell me the month ( "November"). Did not know the day of the week. Tearful when talking about her who apparently is hospitalized at [facility]. Tele stable. VSS no fever gen - chronically ill appearing and looks older than stated age, tremulous heart - RRR lungs - CTA b/l abd - soft, NT ext - no edema, dry skin on legs right elbow with optifoam in place A/P: 1. severe DTs/etoh withdrawal - day 9 of such - hopefully we are at tail-end of such. Cont librium and etoh withdrawal precautions. MVI/thiamine/folic acid/boost. 2. encephalopathy - presumed metabolic from #1 - could she have Wernecke's- Korsakoff's? cont thiamine 200mg BID. 3. right elbow nonhealing wound - seen by ortho - wound vac recommended. Cont PO abx. 4. severe deconditioning - will need rehab. update family when able Hillary GASPAR MD MTDD
[2016-11-10] MEDS: MAGNESIUM SULFATE 1GM / D5W 1 GM in PREMIXED IN D5W 100 ML IV SCH ×3 (11:00→11:56)
[2016-11-10 12:37] VITALS: BP 106/71; PULSE 77; TEMP 36.6; O2SAT 99
[2016-11-10 15:06] VITALS: BP 136/72; PULSE 79; TEMP 36.2; O2SAT 100
[2016-11-10 19:48] VITALS: BP 130/74; PULSE 86; TEMP 37; O2SAT 97
[2016-11-10] MEDS: MULTIVITAMIN TAB PO SCH (21:28)
[2016-11-10] MEDS: BOOST VANILLA PO SCH ×2 (21:32)
[2016-11-10 23:00] VITALS: BP 121/64; PULSE 79; TEMP 36.4; O2SAT 96
[2016-11-10] MEDS: LORAZEPAM 1MG IV ACTIVE PROTOCOL IV PRN (23:19)
[2016-11-10] MEDS ORDERED: LORAZEPAM 2 MG/ML 1 ML VIAL IV STA (23:46)
[2016-11-11 03:15] VITALS: BP 139/76; PULSE 85; TEMP 36.4; O2SAT 93
[2016-11-11] MEDS: LORAZEPAM 1MG IV ACTIVE PROTOCOL IV PRN ×7 (04:04→22:19)
[2016-11-11] MEDS: HEPARIN SOD 5000 UNIT/0.5 ML CARP SQ SCH ×3 (05:31→21:18)
[2016-11-11] MEDS: CHLORDIAZEPOXIDE 25 MG CAP PO SCH ×2 (05:32→21:17)
[2016-11-11 06:52] VITALS: BP 159/88; PULSE 84; TEMP 36.5; O2SAT 97
[2016-11-11 07:30] LABS: HEMATOCRIT 34.5 % (37-47); MEAN CELL VOLUME 101.5 fL (80-100); MEAN CORPUSCULAR HEMOGLOBIN 35.3 pg (25-34); MEAN CORPUSCULAR HGB CONC 34.8 g/dl (32-36); MEAN PLATELET VOLUME 9.9 fL (7.4-10.4); PLATELET COUNT 296 K/uL (130-400); WHITE BLOOD COUNT 6.43 K/uL (4.8-10.8)
[2016-11-11 08:07] LABS: CALCIUM 9.4 mg/dl (8.5-10.1); CREATININE 0.45 mg/dl (0.60-1.20); MAGNESIUM 1.8 mg/dl (1.8-2.4); POTASSIUM 3.4 mmol/L (3.5-5.1)
[2016-11-11] MEDS: BOOST VANILLA PO SCH ×4 (08:30→21:17)
[2016-11-11] MEDS: DOCUSATE SODIUM/SENNA 50/8.6MG TAB PO SCH (08:31)
[2016-11-11] MEDS: MAGNESIUM OXIDE 400 MG TAB PO SCH ×2 (08:59→21:18)
[2016-11-11] MEDS: VITAMIN B COMPLEX TAB PO SCH (08:59)
[2016-11-11] MEDS: ESCITALOPRAM OXALATE 10 MG TAB PO SCH (08:59)
[2016-11-11] MEDS: THIAMINE HCL 100 MG TAB PO SCH ×2 (09:00→21:18)
[2016-11-11] MEDS: METOPROLOL SUCC 25MG EXT REL TAB PO SCH (09:00)
[2016-11-11] MEDS: CIPROFLOXACIN 500 MG TAB PO SCH (09:00)
[2016-11-11] MEDS: FoLIC ACID TAB 400 MCG TAB PO SCH (09:00)
[2016-11-11] MEDS: CALCIUM 600MG + VIT D 400 IU TAB PO SCH (09:00)
[2016-11-11] MEDS ORDERED: LORAZEPAM 2 MG/ML 1 ML VIAL IV ONE (09:21)
[2016-11-11] MEDS ORDERED: POTASSIUM CHLORIDE 10 MEQ TABCR PO STA (09:23)
--- NOTE | 2016-11-11 10:36 | Hospitalist Progress Note ---
Hospitalist Progress Note Date of Service Nov 11, 2016. (Catrachita Swanson ., PA-C) Subjective Pt evaluation today including: conversation w/ patient, physical exam, chart review, lab review, review of studies, review of inpatient medication list Patient is very confused this morning. She did have an episode of severe agitation again over night. She was given 4 mg Ativan IV this morning and is less agitated now but continues to be confused. Psych is going to re-evaluate the patient this morning for concerns of possible Benzo toxicity since the patient has been inpatient for 9 days with waxing and waning confusion/ agitation. Patient has had very little PO intake. She drank very little coffee this morning but otherwise does not eat her meals or drink Boost provided. Labs 11/11: WBC 6.43 Hgb 12.0 Magnesium 1.8 Calcium 9.4 Inpatient wound images reviewed. Discussed patient briefly with Naun Prado, PENNIE- psych All Other Systems: Reviewed and Negative (Catrachita Swanson ., PA-C) Medications Current Inpatient Medications Medications (Trade) Dose Ordered Sig/Marisa Route Start Time Stop Time Status Last Admin Dose Admin Ondansetron HCl (Zofran Inj) 4 mg Q6H PRN IV 11/02/16 22:00 12/02/16 21:59 Vitamin B Complex (Vitamin B Complex) 1 tab QAM PO 11/03/16 09:00 12/03/16 08:59 11/11/16 08:59 1 TAB Calcium/Vitamin D (Caltrate Plus Tab) 1 tab QAM PO 11/03/16 09:00 12/03/16 08:59 11/11/16 09:00 1 TAB Diclofenac Sodium (Voltaren 1% Top Gel) 1 appln DAILY PRN EXT 11/02/16 22:15 12/02/16 22:14 Escitalopram Oxalate (Lexapro Tab) 10 mg DAILY PO 11/03/16 09:00 12/03/16 08:59 11/11/16 08:59 10 MG Multivitamins (Multivitamin Tab) 1 tab HS PO 11/03/16 21:00 12/03/16 20:59 11/10/16 21:28 1 TAB Senna/Docusate Sodium (Senokot S Tab) 1 tab QAM PO 11/03/16 09:00 12/03/16 08:59 11/10/16 08:14 1 TAB Lorazepam (Ativan Inj) PRN Dosing -Active Protocol Q1H PRN IV 11/03/16 03:45 12/03/16 03:44 11/11/16 08:56 2 MG Lorazepam 1 mg/ Syringe 1 ml @ 1 mls/min Q1H PRN IV 11/03/16 03:45 12/03/16 03:44 Heparin Sodium (Porcine) (Heparin Sq 5000 Unit/0.5ml) 5,000 unit Q8 SQ 11/04/16 14:00 12/04/16 13:59 11/10/16 14:21 5,000 UNIT Chlordiazepoxide (Librium Cap) 50 mg Q8 PO 11/05/16 22:00 12/03/16 13:59 11/11/16 05:32 50 MG Magnesium Oxide (Mag-Ox Tab) 400 mg BID PO 11/08/16 21:00 11/13/16 20:59 11/11/16 08:59 400 MG Metoprolol Succinate (Toprol Xl Tab) 25 mg DAILY PO 11/09/16 09:00 12/09/16 08:59 11/11/16 09:00 25 MG Folic Acid (Folvite Tab) 400 mcg QAM PO 11/09/16 09:00 12/09/16 08:59 11/11/16 09:00 400 MCG Ciprofloxacin (Cipro Tab) 500 mg BID PO 11/10/16 09:00 11/20/16 08:59 11/11/16 09:00 500 MG Thiamine HCl (Vitamin B-1 Tab) 200 mg BID PO 11/10/16 09:00 12/09/16 08:59 11/11/16 09:00 200 MG Enteral Nutritional Formula (Boost) 1 can BID@0830,2100 PO 11/10/16 21:00 12/10/16 20:59 11/10/16 21:32 1 CAN Potassium Chloride (Klor-Con Tab) 20 meq QAM PO 11/12/16 09:00 12/12/16 08:59 (Catrachita Swanson ., SIERRA) Objective Vital Signs Date Time Temp Pulse Resp B/P (MAP) Pulse Ox O2 Delivery O2 Flow Rate FiO2 11/11/16 06:52 36.5 84 17 159/88 (111) 97 Room Air 11/11/16 04:00 Room Air 11/11/16 03:15 36.4 85 22 139/76 (97) 93 Room Air 11/10/16 23:59 Room Air 11/10/16 23:00 36.4 79 20 121/64 (83) 96 Room Air 11/10/16 20:00 Room Air 11/10/16 19:48 37.0 86 18 130/74 (92) 97 Room Air 11/10/16 16:00 Room Air 11/10/16 15:06 36.2 79 16 136/72 (93) 100 Room Air 11/10/16 12:37 36.6 77 16 106/71 (83) 99 Room Air 11/10/16 12:00 Room Air (Catrachita Swanson ., PA-C) Physical Exam General Appearance: + thin, + pertinent finding (Patient is confused, mildly agitated but agreeable ) Eyes: normal inspection, sclerae normal ENT: hearing grossly normal Neck: supple, trachea midline Respiratory/Chest: chest non-tender, lungs clear, normal breath sounds, no respiratory distress, no accessory muscle use Cardiovascular: regular rate, rhythm, no murmur Abdomen: normal bowel sounds, non tender, soft Extremities: non-tender, + pertinent finding (rash on left anterior tibial surface) Neurologic/Psychiatric: + disoriented (States that she is at home. Talks in circles and speaking some nonsense ), + pertinent finding (mild agitation, disoriented) Skin: + rash (left anterior tibial surface. Mild erythematous, maculopapular rash- none noted on rest of skin. No open lesions.) (Catrachita Swanson ., PA-C) Laboratory Results Item Value Date Time C.difficile Toxin B Gene (PCR) - Final Complete 11/06/16 0000 Stool No C. difficile toxin B gene detected Shiga Toxin Test - Final Complete 11/05/16 1030 Stool No E. Coli shiga toxin 1 or shiga tox... C.difficile Toxin B Gene (PCR) - Final Complete 11/05/16 1030 Stool Last 24 Hours Test 11/11/16 06:35 White Blood Count 6.43 K/uL Red Blood Count 3.40 M/uL Hemoglobin 12.0 g/dL Hematocrit 34.5 % Mean Corpuscular Volume 101.5 fL Mean Corpuscular Hemoglobin 35.3 pg Mean Corpuscular Hemoglobin Concent 34.8 g/dl RDW Standard Deviation 53.6 fL RDW Coefficient of Variation 14.4 % Platelet Count 296 K/uL Mean Platelet Volume 9.9 fL Sodium Level 143 mmol/L Potassium Level 3.4 mmol/L Chloride Level 109 mmol/L Carbon Dioxide Level 28 mmol/L Anion Gap 6.0 mmol/L Blood Urea Nitrogen 6 mg/dl Creatinine 0.45 mg/dl Est Creatinine Clear Calc Drug Dose 98.2 ml/min Estimated GFR () 127.1 Estimated GFR (Non- 109.7 BUN/Creatinine Ratio 14.0 Random Glucose 90 mg/dl Calcium Level 9.4 mg/dl Magnesium Level 1.8 mg/dl (Catrachita Swanson .SIERRA) Assessment and Plan 1. Severe alcohol W/D with DT- slowly improving, but did have episodoe of severe agitation overnight -Restarted withdrawal protocol -4 mg IV Ativan given this morning- helped with agitation- patient no longer in soft restraints -Psych planned to re-evaluate this morning- concerned for possible Benzo toxicity -Currently on Librium 50 mg TID, will begin to taper- change to Librium 50 mg BID today and monitor -Will await any further Psych recommendations -Continue Ativan PRN agitation -Continue Thiamine, MVI, Folic Acid, supportive care -Continue to monitor daily labs 2. Moderate to severe protein/caloric malnutrition -Patient continues to refuse food/Boost. Encourage PO intake and Boost supplementation. Will continue to monitor nutritional status 3. Right Elbow wound -Improving- previously with Enterobacter from wound. Completed 8 days of IV Ctx. Now on PO Cipro and appears to be tolerating well -Continue abx pending further improvement. -Continue local wound care 4. Hypomagnesemia, improving. -Continue PO supplementation 5. Severe deconditioning. 6. Thrombocytopenia, resolved. 7. Severe depression/anxiety -Psych following -Patient will need continued Psych follow up after discharge for severe depression/anxiety 8. New onset maculopapular rash of left lower extremity -Question etiology of rash- will monitor for spread/changes 9. DVT ppx -Continue heparin TID (Catrachita Swanson ., SIERRA) Attending Attestation: Pt seen/examined, chart reviewed, care plan d/w PA Karis Geoff. I agree w/ the brennan components of her documentation. Had uneventful day yesterday, then overnight had severe confusion & agitation. During my visit she was sleeping due to ativan. Later on in the day she became quite agitated once again and restraints were reordered. Spoke with pt's cousins who confirm severe alcoholism - she & her would drink a bottle of vodka daily. Have a bar in their basement with copious amounts of liquor. Has been severely depressed for 6+ months. hospitalized in [place] since July - she stopped going to see him because of her depression. Eats very little and has lost weight. VSS no fever gen - sleeping mouth - MMM heart - RRR, s1, s2 lungs - CTA b/l abd - soft ext - no edema skin - palmar erythema; right elbow wound - 2cm wound/opening overlying the olecrenon area; exposed tissue present; no drainage or odor; no cellulitis; I cannot see bone mag 1.7 BMP nl A/P: Ongoing encephalopathy - could still be in the last stage of DTs/etoh withdrawal. Cannot r/o Wernicke's encephalopathy. Cannot rule out pre-existing mild cognitive impairment (CT head and MRI brain with mild atrophy) with hospital psychosis. Cannot rule out other metabolic issue (elevated ammonia, etc). Cannot r/o toxic encephalopathy (e.g. cipro). Plan - lower librium to 50mg BID continue etoh withdrawal protocol haldol 2.5mg IV or PO prn restraint order renewed thiamine 200mg BID supportive care d/c cipro since it can cause confusion; change back to rocephin for right elbow wound family updated Kai Thurston MD (Kai Thurston MD)
--- NOTE | 2016-11-11 11:24 | Psychiatric Progress Notes ---
Psychiatric Progress Note Date of Service Nov 11, 2016. Notes ID: Patient reviewed with liaison nurse. Initial consult completed by Dr. Napier for depression and anxiety. Recs at that time were to titrate Lexapro when more medically stable. CC: increase acting out HPI: Patient has been scoring 15 on AWSS despite standing Librium and receiving additional prn Ativans. Case reviewed with Dr. Vilchis who states patient had a good day yesterday sitting in chair but had symptoms consistent with . Has tremor at baseline and previously experienced ETOH withdrawal during a recent admit. No family have been in and reportedly hospitalized in [place]. ROS: patient unable to complete Date Time Temp Pulse Resp B/P (MAP) Pulse Ox O2 Delivery O2 Flow Rate FiO2 11/11/16 08:00 Room Air 11/11/16 06:52 36.5 84 17 159/88 (111) 97 Room Air 11/11/16 04:00 Room Air 11/11/16 03:15 36.4 85 22 139/76 (97) 93 Room Air 11/10/16 23:59 Room Air 11/10/16 23:00 36.4 79 20 121/64 (83) 96 Room Air 11/10/16 20:00 Room Air 11/10/16 19:48 37.0 86 18 130/74 (92) 97 Room Air 11/10/16 16:00 Room Air 11/10/16 15:06 36.2 79 16 136/72 (93) 100 Room Air 11/10/16 12:37 36.6 77 16 106/71 (83) 99 Room Air 11/10/16 12:00 Room Air MSE: currently resting after hours of restlessness Current Inpatient Medications Medications (Trade) Dose Ordered Sig/Marisa Route Start Time Stop Time Status Last Admin Dose Admin Ondansetron HCl (Zofran Inj) 4 mg Q6H PRN IV 11/02/16 22:00 12/02/16 21:59 Vitamin B Complex (Vitamin B Complex) 1 tab QAM PO 11/03/16 09:00 12/03/16 08:59 11/11/16 08:59 1 TAB Calcium/Vitamin D (Caltrate Plus Tab) 1 tab QAM PO 11/03/16 09:00 12/03/16 08:59 11/11/16 09:00 1 TAB Diclofenac Sodium (Voltaren 1% Top Gel) 1 appln DAILY PRN EXT 11/02/16 22:15 12/02/16 22:14 Escitalopram Oxalate (Lexapro Tab) 10 mg DAILY PO 11/03/16 09:00 12/03/16 08:59 11/11/16 08:59 10 MG Multivitamins (Multivitamin Tab) 1 tab HS PO 11/03/16 21:00 12/03/16 20:59 11/10/16 21:28 1 TAB Senna/Docusate Sodium (Senokot S Tab) 1 tab QAM PO 11/03/16 09:00 12/03/16 08:59 11/10/16 08:14 1 TAB Lorazepam (Ativan Inj) PRN Dosing -Active Protocol Q1H PRN IV 11/03/16 03:45 12/03/16 03:44 11/11/16 08:56 2 MG Lorazepam 1 mg/ Syringe 1 ml @ 1 mls/min Q1H PRN IV 11/03/16 03:45 12/03/16 03:44 Heparin Sodium (Porcine) (Heparin Sq 5000 Unit/0.5ml) 5,000 unit Q8 SQ 11/04/16 14:00 12/04/16 13:59 11/10/16 14:21 5,000 UNIT Magnesium Oxide (Mag-Ox Tab) 400 mg BID PO 11/08/16 21:00 11/13/16 20:59 11/11/16 08:59 400 MG Metoprolol Succinate (Toprol Xl Tab) 25 mg DAILY PO 11/09/16 09:00 12/09/16 08:59 11/11/16 09:00 25 MG Folic Acid (Folvite Tab) 400 mcg QAM PO 11/09/16 09:00 12/09/16 08:59 11/11/16 09:00 400 MCG Ciprofloxacin (Cipro Tab) 500 mg BID PO 11/10/16 09:00 11/20/16 08:59 11/11/16 09:00 500 MG Thiamine HCl (Vitamin B-1 Tab) 200 mg BID PO 11/10/16 09:00 12/09/16 08:59 11/11/16 09:00 200 MG Enteral Nutritional Formula (Boost) 1 can BID@0830,2100 PO 11/10/16 21:00 12/10/16 20:59 9/16/17 21:32 1 CAN Potassium Chloride (Klor-Con Tab) 20 meq QAM PO 11/12/16 09:00 12/12/16 08:59 Chlordiazepoxide (Librium Cap) 50 mg BID PO 11/11/16 21:00 12/03/16 13:59 UNV Imp: ETOH withdrawal delirium, ?paradoxical agitation from benzo given delirium , don't know baseline cognition, hx of depression Plan: amount of benzos being given should cover any Xanax withdrawal, patient obviously minimizing ETOH intake I do suspect that not all tremor is related to ETOH withdrawal and cipro can also cipro can also contribute to AMS in elderly In retrospect, use of hospital withdrawal protocol with neurontin may have decreased amount of benzo required PDMP database queried to ensure opiate withdrawal not complicating picture. Patient had 20 tabs of hydrocodone on 10/05 so doubtful possible that increasing beta joaquim may help with tremor and bp though inderal classically used for tremor it can be helpful to give benzo based on BP/P vs tremor or agitation and use Haldol 2 mg q6 hr prn for prns for agitation--will defer order to primary team so can decide in what order to give prns and if preference for ICU team is IM/ IV or PO. would also suggest thyroid panel
[2016-11-11 11:40] VITALS: BP 108/61; PULSE 80; TEMP 37.4; O2SAT 92
[2016-11-11 15:24] VITALS: BP 132/75; PULSE 91; TEMP 36.5; O2SAT 97
[2016-11-11] MEDS: HALOPERIDOL LACTATE 5 MG/ML 1 ML VIAL IV PRN (17:12)
[2016-11-11 19:06] VITALS: BP 128/74; PULSE 65; TEMP 36.6; O2SAT 95
[2016-11-11] MEDS: CEFTRIAXONE SOD INJ 1 GM in DEXTROSE 5% ADD-VANTAGE 50ML 50 ML IV SCH (21:17)
[2016-11-11] MEDS: MULTIVITAMIN TAB PO SCH (21:18)
[2016-11-11 23:00] VITALS: BP 135/63; PULSE 74; TEMP 36.4; O2SAT 99
[2016-11-12 04:14] VITALS: BP 140/81; PULSE 60; TEMP 36.4; O2SAT 98
[2016-11-12] MEDS: HEPARIN SOD 5000 UNIT/0.5 ML CARP SQ SCH ×3 (06:00→21:54)
[2016-11-12 06:19] LABS: HEMATOCRIT 35.5 % (37-47); MEAN CELL VOLUME 103.2 fL (80-100); MEAN CORPUSCULAR HEMOGLOBIN 34.9 pg (25-34); MEAN CORPUSCULAR HGB CONC 33.8 g/dl (32-36); MEAN PLATELET VOLUME 9.8 fL (7.4-10.4); PLATELET COUNT 324 K/uL (130-400); RED BLOOD COUNT 3.44 M/uL (4.2-5.4); WHITE BLOOD COUNT 5.14 K/uL (4.8-10.8)
[2016-11-12 06:54] LABS: BUN/CREATININE RATIO 11.5 (10-20); CALCIUM 9.5 mg/dl (8.5-10.1); CREATININE 0.48 mg/dl (0.60-1.20); MAGNESIUM 1.7 mg/dl (1.8-2.4); POTASSIUM 3.7 mmol/L (3.5-5.1)
[2016-11-12 07:03] VITALS: BP 127/75; PULSE 70; TEMP 36.7; O2SAT 98
[2016-11-12 07:05] LABS: THYROID STIMULATING HORMONE 2.29 uIu/ml (0.300-4.500)
[2016-11-12] MEDS: POTASSIUM CHLORIDE 20 MEQ TABCR PO SCH (10:32)
[2016-11-12] MEDS: MAGNESIUM OXIDE 400 MG TAB PO SCH ×2 (10:33→21:46)
[2016-11-12] MEDS: ESCITALOPRAM OXALATE 10 MG TAB PO SCH (10:33)
[2016-11-12] MEDS: TRIAMCINOLONE ACET 0.1% CR 80 GM TUBE EXT SCH ×3 (10:34→21:49)
[2016-11-12] MEDS: CALCIUM 600MG + VIT D 400 IU TAB PO SCH (10:34)
[2016-11-12] MEDS: FoLIC ACID TAB 400 MCG TAB PO SCH (10:34)
[2016-11-12] MEDS: VITAMIN B COMPLEX TAB PO SCH (10:35)
[2016-11-12] MEDS: METOPROLOL SUCC 25MG EXT REL TAB PO SCH (10:35)
[2016-11-12] MEDS: DOCUSATE SODIUM/SENNA 50/8.6MG TAB PO SCH (10:35)
[2016-11-12] MEDS: THIAMINE HCL 100 MG TAB PO SCH ×2 (10:35→21:47)
[2016-11-12] MEDS: BOOST VANILLA PO SCH ×4 (10:39→21:53)
[2016-11-12] MEDS: CHLORDIAZEPOXIDE 25 MG CAP PO SCH ×2 (10:39→21:53)
[2016-11-12 12:05] VITALS: BP 120/74; PULSE 80; TEMP 36.5; O2SAT 97
--- NOTE | 2016-11-12 13:50 | Psychiatric Progress Notes ---
Progress Note Date of Service Nov 12, 2016. Interval History 61 yo female admitted medically with rt elbow infection/sepsis. Consult placed to evaluate depression. Chief Complaint none stated. Subjective Patient was seen & assessed interval progress reviewed. Was previously seen by Dr. Napier, who recommended possibly increasing Lexapro to 20 mg. to address depressive symptoms. the patient initially says that she doesn't remember seeing him, then later says that she "loved him". She is clearly still depressed, tearful when talking of her to whom she has been for 25 years but is more than 12 years her senior. She says that she needs to get home to get things ready for his return home from [facility] in [place]. She wants to sign herself out AMA feeling that she has been mistreated here, and "hates it here". Upon questioning, she is disoriented to place thinking that she is in [facility], and has to ponder a very long time to come up with the year. she thinks that its November. She again denies that she is an "alcoholic " and is not happy that this is still being talked about. She repeats that she would have several drinksin the evening with her each night, but since his injury, has not been drinking except for an occasional drink when a friend stops by. 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 Review of Systems Constitutional: No fever, No chills, No sweats, No weight loss, No weakness, No fatigue, No problem reported ENT: No hearing loss, No unusual epistaxis, No nasal symptoms, No sore throat, No tinnitus, No dental problems, No trouble swallowing, No problem reported Respiratory: No cough, No sputum, No wheezing, No shortness of breath, No dyspnea on exertion, No dyspnea at rest, No hemoptysis, No problem reported Cardiovascular: No chest pain, No orthopnea, No PND, No edema, No claudication , No palpitations, No problem reported Abdomen: No pain, No nausea, No vomiting, No diarrhea, No constipation, No GI bleeding, No problem reported Musculoskeletal: No joint pain, No muscle pain, No swelling, No calf pain, No problem reported Neurologic: No memory loss, No paralysis, No weakness, No numbness/tingling, No vertigo, No balance problems, No problem reported Psychiatric: + depression symptoms (tearful) Integumentary: + problem reported (Rt elbow wrapped) Mental Status Exam During interview pt is: cooperative Appearance: appropriately dressed Eye contact is: good Motor behavior is: tremor (the patient has a IIIB per second tremor of both upper extremities and head.) Speech: normal in rate, rhythm & volume Affect: depressed, tearful, anxious Mood is: depressed Thought process: goal directed, linear, logical Thought content: other (disoriented) Suicidal thought are: denied Homicidal thoughts are: denied Hallucinations: denies auditory, denies visual Cognition: memory grossly intact Intelligence estimated to be: average Insight: fair Judgement: good Impression The patient is disoriented, and nursing reports that she has been hallucinating. Is in soft limb restraints at this time for her safety. I cannot find any evidence in the chart that we have contacted family to explore her recent drinking habits, and although this will not change the trajectory of her treatment, it would helpful in determining whether delirium is secondary to medical conditions or alcohol withdrawal. Will ask the liaison nurse to facilitate. Plan (1) Generalized anxiety disorder Upon discharge the patient will need to be referred to a psychiatrist and a psychotherapist for more active treatment of her depression and anxiety.. The patient has insight of the fact that she is suffering from depression and also agrees to a plan to enter treatment with a psychiatrist and therapist, but is concerned about her ability to pay. Given the patient's weakness and difficulty ambulating, tapering and then discontinuing her dose of alprazolam over a period of several weeks would be indicated. She might also respond favorably to a higher dose of Lexapro (20 mg daily) 1 she is medically stable. She might also benefit from the addition of buspirone, starting at 5 mg twice a day, for anxiety. Trazodone 50 mg at bedtime may help with sleep, and may also serve as an adjunctive to Lexapro. I have cautioned her that she must not consume alcohol while taking psychiatric medications. I have also advised her that alcohol can worsen an underlying depression, even if temporarily it makes one feel more comfortable. 11/12 - Contact family for supplemental information about recent mood and drinking habits. (2) Depression Upon discharge the patient will need to be referred to a psychiatrist and a psychotherapist for more active treatment of her depression and anxiety.. The patient has insight of the fact that she is suffering from depression and also agrees to a plan to enter treatment with a psychiatrist and therapist, but is concerned about her ability to pay. Given the patient's weakness and difficulty ambulating, tapering and then discontinuing her dose of alprazolam over a period of several weeks would be indicated. She might also respond favorably to a higher dose of Lexapro (20 mg daily) 1 she is medically stable. She might also benefit from the addition of buspirone, starting at 5 mg twice a day, for anxiety. Trazodone 50 mg at bedtime may help with sleep, and may also serve as an adjunctive to Lexapro. I have cautioned her that she must not consume alcohol while taking psychiatric medications. I have also advised her that alcohol can worsen an underlying depression, even if temporarily it makes one feel more comfortable. Visit Code E&M Code: 34217 Inventory Assets Strengths: Supportive family. Good sense of humor. Loves animals. Strong marriage. Risk Factors Assessment : Yes /single/: No Higher / Fall in social status: No Health problems: Yes Mental Health Diagnoses: Yes Substance use disorders: No Previous attempt: No Previous attempt;highly lethal: No Previous attempt; planned: No Previous attempt; didn't tell: No Family history of suicide: No Previous psychiatric stay: No Hopelessness: No Smoker: Yes Protective Factors Assessment Worship beliefs: Yes : Yes Responsible for young children: No Employed: No Stable relationships: Yes Supportive family: Yes Good rapport with provider: Yes Absence of risk factors above: No Data Vital Signs Last 24 Hrs: Date Time Temp Pulse Resp B/P (MAP) Pulse Ox O2 Delivery O2 Flow Rate FiO2 11/12/16 12:05 36.5 80 23 120/74 (89) 97 Room Air 11/12/16 08:30 Room Air 11/12/16 07:03 36.7 70 20 127/75 (92) 98 Room Air 11/12/16 04:14 36.4 60 15 140/81 (100) 98 Room Air 11/12/16 04:00 Room Air 11/11/16 23:59 Room Air 11/11/16 23:00 36.4 74 18 135/63 (87) 99 Room Air 11/11/16 20:00 Room Air 11/11/16 19:06 36.6 65 18 128/74 (92) 95 Room Air 11/11/16 16:00 Room Air 11/11/16 15:24 36.5 91 20 132/75 (94) 97 Room Air Meds Administered Last 24 Hrs: Meds Administered (Past 24Hrs) Medications (Trade) Dose Ordered Sig/Marisa Route Start Time Stop Time Status Last Admin Dose Admin Enteral Nutritional Formula (Boost) 1 can BID@0830,2100 PO 11/10/16 21:00 12/10/16 20:59 11/12/16 10:39 1 CAN Lorazepam (Ativan Inj) 2 mg NOW STAT IV 11/10/16 23:46 11/10/16 23:56 DC 11/11/16 00:41 2 MG Lorazepam (Ativan Inj) 2 mg TODAY@0921 ONCE IV 11/11/16 09:21 11/11/16 09:22 DC 11/11/16 09:22 2 MG Potassium Chloride (Klor-Con Tab) 20 meq QAM PO 11/12/16 09:00 12/12/16 08:59 11/12/16 10:32 20 MEQ Chlordiazepoxide (Librium Cap) 50 mg BID PO 11/11/16 21:00 12/03/16 13:59 11/12/16 10:39 50 MG Haloperidol Lactate (Haldol Inj) 2.5 mg Q6H PRN IV 11/11/16 17:00 12/11/16 16:59 11/11/16 17:12 2.5 MG Ceftriaxone Sodium 1 gm/ Dextrose 50 ml @ 100 mls/hr Q24H IV 11/11/16 21:00 11/21/16 20:59 11/11/16 21:17 100 MLS/HR Triamcinolone Acetonide (Triamcinolone Acet 0.1% Crm) 1 appln TID EXT 11/12/16 09:00 12/12/16 08:59 11/12/16 10:34 1 APPLN Lab Results Last 24 Hrs: Last 24 Hours Test 11/12/16 06:05 11/12/16 06:08 White Blood Count 5.14 K/uL Red Blood Count 3.44 M/uL Hemoglobin 12.0 g/dL Hematocrit 35.5 % Mean Corpuscular Volume 103.2 fL Mean Corpuscular Hemoglobin 34.9 pg Mean Corpuscular Hemoglobin Concent 33.8 g/dl RDW Standard Deviation 55.3 fL RDW Coefficient of Variation 14.7 % Platelet Count 324 K/uL Mean Platelet Volume 9.8 fL Sodium Level 143 mmol/L Potassium Level 3.7 mmol/L Chloride Level 106 mmol/L Carbon Dioxide Level 30 mmol/L Anion Gap 7.0 mmol/L Blood Urea Nitrogen 6 mg/dl Creatinine 0.48 mg/dl Est Creatinine Clear Calc Drug Dose 92.0 ml/min Estimated GFR () 124.4 Estimated GFR (Non- 107.4 BUN/Creatinine Ratio 11.5 Random Glucose 90 mg/dl Calcium Level 9.5 mg/dl Magnesium Level 1.7 mg/dl Thyroid Stimulating Hormone (TSH) 2.290 uIu/ml Ammonia < 10.0 umol/L
--- NOTE | 2016-11-12 13:56 | Progress Note ---
Subjective Date of Service: Nov 12, 2016. Subjective Pt evaluation today including: conversation w/ patient, physical exam, lab review, review of inpatient medication list Pain: denies pain PO Intake: poor appetite Voiding: no voiding problems patient laying in bed, mild tremors, mild agitation discussed her hospital stay, she says she just wants to go home denies any problems with alcohol, angry that she has been labeled an alcoholic explained to her that I did not feel she was medically ready to go home she was worried about staff tonight, accused them of being rough with her oriented to person and time, but thinks she is in a [facility] knows her is in a hospital at [facility], fixated on going home so she can take care of him explained calmly that she needs to take care of her own health right now not eating or drinking much, she says this is typical for her Problem List Medical Problems: (1) Acute electrocardiogram changes Status: Acute (2) JOSE (acute kidney injury) Status: Acute (3) Elevated troponin Status: Acute (4) Hypomagnesemia Status: Acute (5) Sepsis Status: Acute (6) Septic shock Status: Acute (7) Vomiting Status: Acute Review of Systems Constitutional: + weakness, + fatigue Neurologic: + memory loss, + problem reported (confusion) Psychiatric: + anxiety, + substance abuse (alcohol) All Other Systems: Reviewed and Negative Medications Current Inpatient Medications Medications (Trade) Dose Ordered Sig/Marisa Route Start Time Stop Time Status Last Admin Dose Admin Ondansetron HCl (Zofran Inj) 4 mg Q6H PRN IV 11/02/16 22:00 12/02/16 21:59 Vitamin B Complex (Vitamin B Complex) 1 tab QAM PO 11/03/16 09:00 12/03/16 08:59 11/12/16 10:35 1 TAB Calcium/Vitamin D (Caltrate Plus Tab) 1 tab QAM PO 11/03/16 09:00 12/03/16 08:59 11/12/16 10:34 1 TAB Diclofenac Sodium (Voltaren 1% Top Gel) 1 appln DAILY PRN EXT 11/02/16 22:15 12/02/16 22:14 Escitalopram Oxalate (Lexapro Tab) 10 mg DAILY PO 11/03/16 09:00 12/03/16 08:59 11/12/16 10:33 10 MG Multivitamins (Multivitamin Tab) 1 tab HS PO 11/03/16 21:00 12/03/16 20:59 11/11/16 21:18 1 TAB Senna/Docusate Sodium (Senokot S Tab) 1 tab QAM PO 11/03/16 09:00 12/03/16 08:59 11/12/16 10:35 1 TAB Lorazepam (Ativan Inj) PRN Dosing -Active Protocol Q1H PRN IV 11/03/16 03:45 12/03/16 03:44 11/11/16 22:19 2 MG Lorazepam 1 mg/ Syringe 1 ml @ 1 mls/min Q1H PRN IV 11/03/16 03:45 12/03/16 03:44 Heparin Sodium (Porcine) (Heparin Sq 5000 Unit/0.5ml) 5,000 unit Q8 SQ 11/04/16 14:00 12/04/16 13:59 11/10/16 14:21 5,000 UNIT Magnesium Oxide (Mag-Ox Tab) 400 mg BID PO 11/08/16 21:00 11/13/16 20:59 11/12/16 10:33 400 MG Metoprolol Succinate (Toprol Xl Tab) 25 mg DAILY PO 11/09/16 09:00 12/09/16 08:59 11/12/16 10:35 25 MG Folic Acid (Folvite Tab) 400 mcg QAM PO 11/09/16 09:00 12/09/16 08:59 11/12/16 10:34 400 MCG Thiamine HCl (Vitamin B-1 Tab) 200 mg BID PO 11/10/16 09:00 12/09/16 08:59 11/12/16 10:35 200 MG Enteral Nutritional Formula (Boost) 1 can BID@0830,2100 PO 11/10/16 21:00 12/10/16 20:59 11/12/16 10:39 1 CAN Potassium Chloride (Klor-Con Tab) 20 meq QAM PO 11/12/16 09:00 12/12/16 08:59 11/12/16 10:32 20 MEQ Chlordiazepoxide (Librium Cap) 50 mg BID PO 11/11/16 21:00 12/03/16 13:59 11/12/16 10:39 50 MG Haloperidol Lactate (Haldol Inj) 2.5 mg Q6H PRN IV 11/11/16 17:00 12/11/16 16:59 11/11/16 17:12 2.5 MG Haloperidol (Haldol Tab) 2.5 mg Q6H PRN PO 11/11/16 17:00 12/11/16 16:59 Ceftriaxone Sodium 1 gm/ Dextrose 50 ml @ 100 mls/hr Q24H IV 11/11/16 21:00 11/21/16 20:59 11/11/16 21:17 100 MLS/HR Triamcinolone Acetonide (Triamcinolone Acet 0.1% Crm) 1 appln TID EXT 11/12/16 09:00 12/12/16 08:59 11/12/16 10:34 1 APPLN Objective Vital Signs Date Time Temp Pulse Resp B/P (MAP) Pulse Ox O2 Delivery O2 Flow Rate FiO2 11/12/16 12:05 36.5 80 23 120/74 (89) 97 Room Air 11/12/16 08:30 Room Air 11/12/16 07:03 36.7 70 20 127/75 (92) 98 Room Air 11/12/16 04:14 36.4 60 15 140/81 (100) 98 Room Air 11/12/16 04:00 Room Air 11/11/16 23:59 Room Air 11/11/16 23:00 36.4 74 18 135/63 (87) 99 Room Air 11/11/16 20:00 Room Air 11/11/16 19:06 36.6 65 18 128/74 (92) 95 Room Air 11/11/16 16:00 Room Air 11/11/16 15:24 36.5 91 20 132/75 (94) 97 Room Air Physical Exam General Appearance: no apparent distress, + thin Eyes: normal inspection, EOMI, sclerae normal ENT: normal ENT inspection, hearing grossly normal, pharynx normal Neck: supple, no adenopathy, no JVD, trachea midline Respiratory/Chest: chest non-tender, lungs clear, normal breath sounds, no respiratory distress, no accessory muscle use Cardiovascular: regular rate, rhythm, no edema, no gallop, no JVD, no murmur Abdomen: normal bowel sounds, non tender, soft, no organomegaly Extremities: normal range of motion, non-tender, normal inspection, no pedal edema, no calf tenderness, pelvis stable 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, no motor/sensory deficits, + disoriented, + pertinent finding (agitated, intention tremors) Skin: normal color, warm/dry, no rash Lymphatic: no adenopathy Laboratory Results Last 24 Hours Test 11/12/16 06:05 11/12/16 06:08 White Blood Count 5.14 K/uL Red Blood Count 3.44 M/uL Hemoglobin 12.0 g/dL Hematocrit 35.5 % Mean Corpuscular Volume 103.2 fL Mean Corpuscular Hemoglobin 34.9 pg Mean Corpuscular Hemoglobin Concent 33.8 g/dl RDW Standard Deviation 55.3 fL RDW Coefficient of Variation 14.7 % Platelet Count 324 K/uL Mean Platelet Volume 9.8 fL Sodium Level 143 mmol/L Potassium Level 3.7 mmol/L Chloride Level 106 mmol/L Carbon Dioxide Level 30 mmol/L Anion Gap 7.0 mmol/L Blood Urea Nitrogen 6 mg/dl Creatinine 0.48 mg/dl Est Creatinine Clear Calc Drug Dose 92.0 ml/min Estimated GFR () 124.4 Estimated GFR (Non- 107.4 BUN/Creatinine Ratio 11.5 Random Glucose 90 mg/dl Calcium Level 9.5 mg/dl Magnesium Level 1.7 mg/dl Thyroid Stimulating Hormone (TSH) 2.290 uIu/ml Ammonia < 10.0 umol/L Assessment and Plan 1. Severe alcohol W/D with DT- continues to slowly improve, appears to be aware of some of her issues still with confusion, thinks she is in [facility], denies alcohol abuse continue withdrawal protocol continue Librium 50mg BID, taper Continue Ativan PRN agitation Continue Thiamine, MVI, Folic Acid, supportive care Continue to monitor daily labs 2. Moderate to severe protein/caloric malnutrition Patient continues to refuse food/Boost. Encourage PO intake and Boost supplementation. Will continue to monitor nutritional status patient says she does not eat much at home, never eats breakfast, she and would have soup at lunch, drink in evenings 3. Right Elbow wound -Improving- previously with Enterobacter from wound. Completed 8 days of IV Ctx. Now on PO Cipro and appears to be tolerating well switched back to Ceftriaxone for possible agitation/confusion from Cipro, complete 10-14 days, today is day 9 -Continue local wound care 4. Hypomagnesemia, improving. -Continue PO supplementation 5. Severe deconditioning. 6. Thrombocytopenia, resolved. 7. Severe depression/anxiety -Psych following -Patient will need continued Psych follow up after discharge for severe depression/anxiety - continue Lexapro 8. New onset maculopapular rash of left lower extremity - stable, likely self limiting, perhaps medication induced 9. DVT ppx -Continue heparin TID keep on tele today wants to leave AMA, she is confused, lacks capacity currently, can ask psychiatry to re-evaluate tomorrow Continued [facility] stay due to: ambulation difficulties, multiple IV medications needed, other (etoh withdrawal) Discharge planning: uncertain
[2016-11-12 16:04] VITALS: BP 91/53; PULSE 90; TEMP 36.5; O2SAT 96
[2016-11-12 18:56] VITALS: BP 151/89; PULSE 65; TEMP 36.5; O2SAT 95
[2016-11-12] MEDS: LORAZEPAM 1MG IV ACTIVE PROTOCOL IV PRN (19:36)
[2016-11-12] MEDS: HALOPERIDOL 5 MG TAB PO PRN (21:46)
[2016-11-12] MEDS: MULTIVITAMIN TAB PO SCH (21:49)
[2016-11-12] MEDS: CEFTRIAXONE SOD INJ 1 GM in DEXTROSE 5% ADD-VANTAGE 50ML 50 ML IV SCH (21:50)
[2016-11-12 23:24] VITALS: BP 135/68; PULSE 71; TEMP 36.6; O2SAT 98
[2016-11-13] VITALS (7 sets, daily range): BP systolic 102–146; BP diastolic 53–109; PULSE 64–87; TEMP 36.4–36.8; O2SAT 93–97
[2016-11-13] MEDS: LORAZEPAM 1MG IV ACTIVE PROTOCOL IV PRN ×7 (01:28→23:18)
[2016-11-13] MEDS: HEPARIN SOD 5000 UNIT/0.5 ML CARP SQ SCH ×3 (05:24→22:14)
[2016-11-13] MEDS: BOOST VANILLA PO SCH ×4 (08:06→21:00)
[2016-11-13] MEDS: CALCIUM 600MG + VIT D 400 IU TAB PO SCH (08:07)
[2016-11-13] MEDS: TRIAMCINOLONE ACET 0.1% CR 80 GM TUBE EXT SCH ×3 (08:07→22:12)
[2016-11-13] MEDS: FoLIC ACID TAB 400 MCG TAB PO SCH (08:08)
[2016-11-13] MEDS: POTASSIUM CHLORIDE 20 MEQ TABCR PO SCH (08:08)
[2016-11-13] MEDS: MAGNESIUM OXIDE 400 MG TAB PO SCH (08:08)
[2016-11-13] MEDS: ESCITALOPRAM OXALATE 10 MG TAB PO SCH (08:08)
[2016-11-13] MEDS: DOCUSATE SODIUM/SENNA 50/8.6MG TAB PO SCH (08:09)
[2016-11-13] MEDS: THIAMINE HCL 100 MG TAB PO SCH ×2 (08:09→22:10)
[2016-11-13] MEDS: METOPROLOL SUCC 25MG EXT REL TAB PO SCH (08:09)
[2016-11-13] MEDS: VITAMIN B COMPLEX TAB PO SCH (08:10)
[2016-11-13] MEDS: CHLORDIAZEPOXIDE 25 MG CAP PO SCH ×2 (08:13→22:11)
--- NOTE | 2016-11-13 14:27 | Progress Note ---
Subjective Date of Service: Nov 13, 2016. Subjective Pt evaluation today including: conversation w/ patient, physical exam, lab review, review of inpatient medication list Pain: denies pain PO Intake: improving Voiding: no voiding problems patient required Ativan 3mg IV last evening and Haldol earlier in the evening due to agitation calmer today, sitting in chair with tremors did not eat breakfast, eating more at lunch, trying to drink Boost still with confusion about her situation, still going through withdrawal Problem List Medical Problems: (1) Acute electrocardiogram changes Status: Acute (2) JOSE (acute kidney injury) Status: Acute (3) Elevated troponin Status: Acute (4) Hypomagnesemia Status: Acute (5) Sepsis Status: Acute (6) Septic shock Status: Acute (7) Vomiting Status: Acute Review of Systems Constitutional: + weakness, + fatigue Neurologic: + memory loss, + weakness Psychiatric: + anxiety, + problem reported (agitation, confusion) All Other Systems: Reviewed and Negative Medications Current Inpatient Medications Medications (Trade) Dose Ordered Sig/Marisa Route Start Time Stop Time Status Last Admin Dose Admin Ondansetron HCl (Zofran Inj) 4 mg Q6H PRN IV 11/02/16 22:00 12/02/16 21:59 Vitamin B Complex (Vitamin B Complex) 1 tab QAM PO 11/03/16 09:00 12/03/16 08:59 11/13/16 08:10 1 TAB Calcium/Vitamin D (Caltrate Plus Tab) 1 tab QAM PO 11/03/16 09:00 12/03/16 08:59 11/13/16 08:07 1 TAB Diclofenac Sodium (Voltaren 1% Top Gel) 1 appln DAILY PRN EXT 11/02/16 22:15 12/02/16 22:14 Escitalopram Oxalate (Lexapro Tab) 10 mg DAILY PO 11/03/16 09:00 12/03/16 08:59 11/13/16 08:08 10 MG Multivitamins (Multivitamin Tab) 1 tab HS PO 11/03/16 21:00 12/03/16 20:59 11/12/16 21:49 1 TAB Senna/Docusate Sodium (Senokot S Tab) 1 tab QAM PO 11/03/16 09:00 12/03/16 08:59 11/13/16 08:09 1 TAB Lorazepam (Ativan Inj) PRN Dosing -Active Protocol Q1H PRN IV 11/03/16 03:45 12/03/16 03:44 11/13/16 05:15 3 MG Lorazepam 1 mg/ Syringe 1 ml @ 1 mls/min Q1H PRN IV 11/03/16 03:45 12/03/16 03:44 Heparin Sodium (Porcine) (Heparin Sq 5000 Unit/0.5ml) 5,000 unit Q8 SQ 11/04/16 14:00 12/04/16 13:59 11/13/16 05:24 5,000 UNIT Magnesium Oxide (Mag-Ox Tab) 400 mg BID PO 11/08/16 21:00 11/13/16 20:59 11/13/16 08:08 400 MG Metoprolol Succinate (Toprol Xl Tab) 25 mg DAILY PO 11/09/16 09:00 12/09/16 08:59 11/13/16 08:09 25 MG Folic Acid (Folvite Tab) 400 mcg QAM PO 11/09/16 09:00 12/09/16 08:59 11/13/16 08:08 400 MCG Thiamine HCl (Vitamin B-1 Tab) 200 mg BID PO 11/10/16 09:00 12/09/16 08:59 11/13/16 08:09 200 MG Enteral Nutritional Formula (Boost) 1 can BID@0830,2100 PO 11/10/16 21:00 12/10/16 20:59 11/13/16 08:06 1 CAN Potassium Chloride (Klor-Con Tab) 20 meq QAM PO 11/12/16 09:00 12/12/16 08:59 11/13/16 08:08 20 MEQ Chlordiazepoxide (Librium Cap) 50 mg BID PO 11/11/16 21:00 12/03/16 13:59 11/13/16 08:13 50 MG Haloperidol Lactate (Haldol Inj) 2.5 mg Q6H PRN IV 11/11/16 17:00 12/11/16 16:59 11/11/16 17:12 2.5 MG Haloperidol (Haldol Tab) 2.5 mg Q6H PRN PO 11/11/16 17:00 12/11/16 16:59 11/12/16 21:46 2.5 MG Ceftriaxone Sodium 1 gm/ Dextrose 50 ml @ 100 mls/hr Q24H IV 11/11/16 21:00 11/21/16 20:59 11/12/16 21:50 100 MLS/HR Triamcinolone Acetonide (Triamcinolone Acet 0.1% Crm) 1 appln TID EXT 11/12/16 09:00 12/12/16 08:59 11/13/16 08:07 1 APPLN Objective Vital Signs Date Time Temp Pulse Resp B/P (MAP) Pulse Ox O2 Delivery O2 Flow Rate FiO2 11/13/16 11:27 36.8 74 18 102/63 (76) 94 Room Air 11/13/16 08:30 Room Air 11/13/16 07:09 36.4 78 20 136/74 (94) 97 Room Air 11/13/16 05:30 36.7 80 16 117/109 (112) 96 Room Air 0.0 11/13/16 04:00 Room Air 11/13/16 03:03 36.7 64 16 146/84 (104) 96 Room Air 11/13/16 00:54 Room Air 11/13/16 00:00 Room Air 11/12/16 23:24 36.6 71 18 135/68 (90) 98 Room Air 11/12/16 18:56 36.5 65 20 151/89 (109) 95 Room Air 11/12/16 16:04 36.5 90 22 91/53 (66) 96 Room Air 11/12/16 16:00 Room Air Physical Exam General Appearance: no apparent distress, + thin Eyes: normal inspection, EOMI, sclerae normal Neck: supple, no adenopathy, no JVD, trachea midline Respiratory/Chest: chest non-tender, lungs clear, normal breath sounds, no respiratory distress, no accessory muscle use Cardiovascular: regular rate, rhythm, no edema, no gallop, no JVD, no murmur Abdomen: normal bowel sounds, non tender, soft, no organomegaly Extremities: normal range of motion, non-tender, normal inspection, no pedal edema, no calf tenderness, pelvis stable 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 Severe alcohol W/D with DT- continues to go through active withdrawal, required Ativan again last night, 3mg, slept for several hours still with confusion, denies alcohol abuse continue withdrawal protocol continue Librium 50mg BID, taper Continue Ativan PRN agitation Continue Thiamine, MVI, Folic Acid, supportive care Continue to monitor daily labs 2. Moderate to severe protein/caloric malnutrition eating slightly better today, drinking Boost, eating macaroni and cheese 3. Right Elbow wound -Improving- previously with Enterobacter from wound. Completed 8 days of IV Ctx. Now on PO Cipro and appears to be tolerating well switched back to Ceftriaxone for possible agitation/confusion from Cipro, complete 10-14 days, today is day 10, will assess again tomorrow -Continue local wound care 4. Hypomagnesemia, improving. -Continue PO supplementation 5. Severe deconditioning. 6. Thrombocytopenia, resolved. 7. Severe depression/anxiety -Psych following -Patient will need continued Psych follow up after discharge for severe depression/anxiety - continue Lexapro 8. DVT ppx -Continue heparin TID keep on tele, withdrawal protocol, soft restraints Continued [facility] stay due to: ambulation difficulties, multiple IV medications needed, other (etoh withdrawal) Discharge planning: uncertain
[2016-11-13] MEDS: CEFTRIAXONE SOD INJ 1 GM in DEXTROSE 5% ADD-VANTAGE 50ML 50 ML IV SCH (22:10)
[2016-11-13] MEDS: HALOPERIDOL 5 MG TAB PO PRN (22:11)
[2016-11-13] MEDS: MULTIVITAMIN TAB PO SCH (22:11)
[2016-11-14 00:07] VITALS: BP 135/72; PULSE 73; TEMP 36.4; O2SAT 94
[2016-11-14] MEDS: LORAZEPAM 1MG IV ACTIVE PROTOCOL IV PRN ×6 (01:24→18:46)
[2016-11-14] MEDS: HEPARIN SOD 5000 UNIT/0.5 ML CARP SQ SCH ×3 (06:00→18:47)
[2016-11-14 07:14] LABS: HEMATOCRIT 39.1 % (37-47); MEAN CELL VOLUME 102.6 fL (80-100); MEAN CORPUSCULAR HEMOGLOBIN 34.9 pg (25-34); PLATELET COUNT 369 K/uL (130-400); RED BLOOD COUNT 3.81 M/uL (4.2-5.4); WHITE BLOOD COUNT 7.62 K/uL (4.8-10.8)
[2016-11-14 08:01] VITALS: BP 143/87; PULSE 82
[2016-11-14] MEDS: BOOST VANILLA PO SCH ×4 (08:43→18:47)
[2016-11-14] MEDS: CHLORDIAZEPOXIDE 25 MG CAP PO SCH ×2 (08:43→18:40)
[2016-11-14] MEDS: ESCITALOPRAM OXALATE 10 MG TAB PO SCH (08:44)
[2016-11-14] MEDS: THIAMINE HCL 100 MG TAB PO SCH ×2 (08:48→18:41)
[2016-11-14] MEDS: METOPROLOL SUCC 25MG EXT REL TAB PO SCH (08:48)
[2016-11-14] MEDS: CALCIUM 600MG + VIT D 400 IU TAB PO SCH (08:49)
[2016-11-14] MEDS: FoLIC ACID TAB 400 MCG TAB PO SCH (08:49)
[2016-11-14] MEDS: POTASSIUM CHLORIDE 20 MEQ TABCR PO SCH (08:49)
[2016-11-14] MEDS: HALOPERIDOL 5 MG TAB PO PRN ×2 (08:49→18:42)
[2016-11-14] MEDS: DOCUSATE SODIUM/SENNA 50/8.6MG TAB PO SCH (08:49)
[2016-11-14] MEDS: TRIAMCINOLONE ACET 0.1% CR 80 GM TUBE EXT SCH ×3 (08:50→18:46)
[2016-11-14] MEDS: VITAMIN B COMPLEX TAB PO SCH (08:50)
[2016-11-14 11:21] VITALS: BP 125/73; PULSE 62; O2SAT 96
--- NOTE | 2016-11-14 12:34 | Hospitalist Progress Note ---
Hospitalist Progress Note Date of Service Nov 14, 2016. Subjective Pt evaluation today including: conversation w/ patient, physical exam, chart review, lab review, review of studies, review of inpatient medication list Patient seen and evaluated. Still requiring Haldol and Ativan. She is alert but closes eyes easily. She is crying, when asked what was wrong she said her rabbit was lost. Minimally following commands. Mostly mumbles but barely talks. Mild tremor noted of hands. Per staff patient didn't eat breakfast. Additional Comments: Unable to perform due to mental status and lack of cooperation. Medications Current Inpatient Medications Medications (Trade) Dose Ordered Sig/Marisa Route Start Time Stop Time Status Last Admin Dose Admin Ondansetron HCl (Zofran Inj) 4 mg Q6H PRN IV 11/02/16 22:00 12/02/16 21:59 Vitamin B Complex (Vitamin B Complex) 1 tab QAM PO 11/03/16 09:00 12/03/16 08:59 11/14/16 08:50 1 TAB Calcium/Vitamin D (Caltrate Plus Tab) 1 tab QAM PO 11/03/16 09:00 12/03/16 08:59 11/14/16 08:49 1 TAB Diclofenac Sodium (Voltaren 1% Top Gel) 1 appln DAILY PRN EXT 11/02/16 22:15 12/02/16 22:14 Escitalopram Oxalate (Lexapro Tab) 10 mg DAILY PO 11/03/16 09:00 12/03/16 08:59 11/14/16 08:44 10 MG Multivitamins (Multivitamin Tab) 1 tab HS PO 11/03/16 21:00 12/03/16 20:59 11/13/16 22:11 1 TAB Senna/Docusate Sodium (Senokot S Tab) 1 tab QAM PO 11/03/16 09:00 12/03/16 08:59 11/14/16 08:49 1 TAB Lorazepam (Ativan Inj) PRN Dosing -Active Protocol Q1H PRN IV 11/03/16 03:45 12/03/16 03:44 11/14/16 09:08 2 MG Lorazepam 1 mg/ Syringe 1 ml @ 1 mls/min Q1H PRN IV 11/03/16 03:45 12/03/16 03:44 Heparin Sodium (Porcine) (Heparin Sq 5000 Unit/0.5ml) 5,000 unit Q8 SQ 11/04/16 14:00 12/04/16 13:59 11/13/16 22:14 5,000 UNIT Metoprolol Succinate (Toprol Xl Tab) 25 mg DAILY PO 11/09/16 09:00 12/09/16 08:59 11/14/16 08:48 25 MG Folic Acid (Folvite Tab) 400 mcg QAM PO 11/09/16 09:00 12/09/16 08:59 11/14/16 08:49 400 MCG Thiamine HCl (Vitamin B-1 Tab) 200 mg BID PO 11/10/16 09:00 12/09/16 08:59 11/14/16 08:48 200 MG Enteral Nutritional Formula (Boost) 1 can BID@0830,2100 PO 11/10/16 21:00 12/10/16 20:59 11/14/16 08:43 1 CAN Potassium Chloride (Klor-Con Tab) 20 meq QAM PO 11/12/16 09:00 12/12/16 08:59 11/14/16 08:49 20 MEQ Chlordiazepoxide (Librium Cap) 50 mg BID PO 11/11/16 21:00 12/03/16 13:59 11/14/16 08:43 50 MG Haloperidol Lactate (Haldol Inj) 2.5 mg Q6H PRN IV 11/11/16 17:00 12/11/16 16:59 11/11/16 17:12 2.5 MG Haloperidol (Haldol Tab) 2.5 mg Q6H PRN PO 11/11/16 17:00 12/11/16 16:59 11/14/16 08:49 2.5 MG Ceftriaxone Sodium 1 gm/ Dextrose 50 ml @ 100 mls/hr Q24H IV 11/11/16 21:00 11/21/16 20:59 11/13/16 22:10 100 MLS/HR Triamcinolone Acetonide (Triamcinolone Acet 0.1% Crm) 1 appln TID EXT 11/12/16 09:00 12/12/16 08:59 11/14/16 08:50 1 APPLN Objective Vital Signs Date Time Temp Pulse Resp B/P (MAP) Pulse Ox O2 Delivery O2 Flow Rate FiO2 11/14/16 11:21 62 18 125/73 (90) 96 Room Air 11/14/16 08:01 82 16 143/87 (105) 11/14/16 08:00 Room Air 11/14/16 04:00 Room Air 11/14/16 00:07 36.4 73 20 135/72 (93) 94 Room Air 11/13/16 23:59 Room Air 11/13/16 20:00 Room Air 11/13/16 18:42 36.4 87 20 123/53 (76) 95 Room Air 11/13/16 16:15 Room Air 11/13/16 15:26 36.6 80 18 112/69 (83) 93 Room Air Physical Exam General Appearance: + mild distress (emotional distress), + thin, + pertinent finding (chronically ill-appearing) Eyes: sclerae normal Respiratory/Chest: lungs clear, normal breath sounds, no respiratory distress, no accessory muscle use Cardiovascular: regular rate, rhythm, no gallop, no murmur Abdomen: normal bowel sounds, non tender, soft Extremities: no pedal edema, no calf tenderness Neurologic/Psychiatric: alert, + disoriented Skin: normal color, warm/dry Laboratory Results Last 24 Hours Test 11/14/16 06:49 White Blood Count 7.62 K/uL Red Blood Count 3.81 M/uL Hemoglobin 13.3 g/dL Hematocrit 39.1 % Mean Corpuscular Volume 102.6 fL Mean Corpuscular Hemoglobin 34.9 pg Mean Corpuscular Hemoglobin Concent 34.0 g/dl RDW Standard Deviation 55.0 fL RDW Coefficient of Variation 14.6 % Platelet Count 369 K/uL Mean Platelet Volume 10.0 fL Assessment and Plan Severe ETOH Withdrawal with DT: Encephalopathy - Possible Wernecke? - Continues to withdrawal - Required Ativan 4 mg today and Haldol last night - AWSS protocol with PRN Ativan - Librium 50 mg BID and will begin taper - Vitamin replacement - Thiamine, MVI, folic acid Severe Anxiety/Depression: - Lexapro 10 mg daily - consideration for increased dose when stable from withdrawal - Psych following - recommending psychiatric monitoring as outpatient with follow-up R Elbow Enterobacter Wound: - Completed Rocephin x 8 days and converted to Cipro but back on Ceftriaxone - DAY 01/08 Severe Deconditioning and Mod/Severe Protein/Caloric Malnutrition: May need SNF/ rehab - Boost - encourage intake Thrombocytopenia: RESOLVED Hypomagnesemia: RESOLVED - Continue supplement DVT Prophylaxis: Heparin 5000 units SC Q8H Disposition: - Continue withdrawal protocol and hopefully will stabilize - May need SNF/rehab Continued [facility] stay due to: multiple IV medications needed Discharge planning: uncertain
[2016-11-14 15:10] VITALS: BP 116/63; PULSE 70; TEMP 36.4; O2SAT 95
[2016-11-14] MEDS: HALOPERIDOL LACTATE 5 MG/ML 1 ML VIAL IV PRN (15:47)
[2016-11-14] MEDS: MULTIVITAMIN TAB PO SCH (18:40)
[2016-11-14 19:10] VITALS: BP 150/57; PULSE 63; TEMP 36.5; O2SAT 99
[2016-11-14] MEDS: CEFTRIAXONE SOD INJ 1 GM in DEXTROSE 5% ADD-VANTAGE 50ML 50 ML IV SCH (21:27)
[2016-11-14 23:04] VITALS: BP 126/70; PULSE 85; TEMP 36.8; O2SAT 98
[2016-11-15] MEDS: LORAZEPAM 1MG IV ACTIVE PROTOCOL IV PRN (01:36)
[2016-11-15 04:52] VITALS: BP 107/58; PULSE 67; TEMP 36.6; O2SAT 93
[2016-11-15] MEDS: HEPARIN SOD 5000 UNIT/0.5 ML CARP SQ SCH ×3 (05:20→22:00)
[2016-11-15 07:07] VITALS: BP 99/58; PULSE 71; TEMP 36.8; O2SAT 94
[2016-11-15] MEDS: BOOST VANILLA PO SCH ×4 (08:30→20:27)
[2016-11-15] MEDS: METOPROLOL SUCC 25MG EXT REL TAB PO SCH (08:52)
[2016-11-15] MEDS: CALCIUM 600MG + VIT D 400 IU TAB PO SCH (08:53)
[2016-11-15] MEDS: ESCITALOPRAM OXALATE 10 MG TAB PO SCH (08:53)
[2016-11-15] MEDS: FoLIC ACID TAB 400 MCG TAB PO SCH (08:53)
[2016-11-15] MEDS: DOCUSATE SODIUM/SENNA 50/8.6MG TAB PO SCH (08:53)
[2016-11-15] MEDS: POTASSIUM CHLORIDE 20 MEQ TABCR PO SCH (08:53)
[2016-11-15] MEDS: THIAMINE HCL 100 MG TAB PO SCH ×2 (08:53→20:28)
[2016-11-15] MEDS: TRIAMCINOLONE ACET 0.1% CR 80 GM TUBE EXT SCH ×3 (09:00→20:28)
[2016-11-15] MEDS: CHLORDIAZEPOXIDE 25 MG CAP PO SCH ×2 (09:06→16:53)
[2016-11-15] MEDS: VITAMIN B COMPLEX TAB PO SCH (10:35)
[2016-11-15] MEDS ORDERED: LORAZEPAM 2 MG/ML 1 ML VIAL IV PRN (11:30)
[2016-11-15 12:48] VITALS: BP 100/66; PULSE 88; TEMP 36.7; O2SAT 99
--- NOTE | 2016-11-15 13:15 | Hospitalist Progress Note ---
Hospitalist Progress Note Date of Service Nov 15, 2016. Subjective Pt evaluation today including: conversation w/ patient, conversation w/ family (Friend), physical exam, chart review, lab review, review of studies, review of inpatient medication list Patient seen and evaluated. Required 11 mg Ativan yesterday and 3 injections of Haldol. Patient is more alert today. Not talking much other than expressing she wants to go home. Discussed with psychiatry with concern for too much benzodiazepines as cause of worsening symptoms instead of withdrawal. Friend at bedside stated patient has a chronic tremor that her parents and grandparents had as well. Friend stated that a group of her friends have discussed assisting patient in drinking cessation but noone drinking around her. Friend stated patient would likely not go to any rehab due to wanting to be with her . Additional Comments: Deferred. Patient more alert but was drowsy during visit. Only intermittently answers questions. Only stated she has anxiety because she is anxious to go home. Medications Current Inpatient Medications Medications (Trade) Dose Ordered Sig/Marisa Route Start Time Stop Time Status Last Admin Dose Admin Ondansetron HCl (Zofran Inj) 4 mg Q6H PRN IV 11/02/16 22:00 12/02/16 21:59 Vitamin B Complex (Vitamin B Complex) 1 tab QAM PO 11/03/16 09:00 12/03/16 08:59 11/15/16 10:35 1 TAB Calcium/Vitamin D (Caltrate Plus Tab) 1 tab QAM PO 11/03/16 09:00 12/03/16 08:59 11/15/16 08:53 1 TAB Diclofenac Sodium (Voltaren 1% Top Gel) 1 appln DAILY PRN EXT 11/02/16 22:15 12/02/16 22:14 Escitalopram Oxalate (Lexapro Tab) 10 mg DAILY PO 11/03/16 09:00 12/03/16 08:59 11/15/16 08:53 10 MG Multivitamins (Multivitamin Tab) 1 tab HS PO 11/03/16 21:00 12/03/16 20:59 11/14/16 18:40 1 TAB Senna/Docusate Sodium (Senokot S Tab) 1 tab QAM PO 11/03/16 09:00 12/03/16 08:59 11/15/16 08:53 1 TAB Heparin Sodium (Porcine) (Heparin Sq 5000 Unit/0.5ml) 5,000 unit Q8 SQ 11/04/16 14:00 12/04/16 13:59 11/15/16 05:20 5,000 UNIT Metoprolol Succinate (Toprol Xl Tab) 25 mg DAILY PO 11/09/16 09:00 12/09/16 08:59 11/14/16 08:48 25 MG Folic Acid (Folvite Tab) 400 mcg QAM PO 11/09/16 09:00 12/09/16 08:59 11/15/16 08:53 400 MCG Thiamine HCl (Vitamin B-1 Tab) 200 mg BID PO 11/10/16 09:00 12/09/16 08:59 11/15/16 08:53 200 MG Enteral Nutritional Formula (Boost) 1 can BID@0830,2100 PO 11/10/16 21:00 12/10/16 20:59 11/14/16 08:43 1 CAN Potassium Chloride (Klor-Con Tab) 20 meq QAM PO 11/12/16 09:00 12/12/16 08:59 11/15/16 08:53 20 MEQ Haloperidol Lactate (Haldol Inj) 2.5 mg Q6H PRN IV 11/11/16 17:00 12/11/16 16:59 11/14/16 15:47 2.5 MG Haloperidol (Haldol Tab) 2.5 mg Q6H PRN PO 11/11/16 17:00 12/11/16 16:59 11/14/16 18:42 2.5 MG Ceftriaxone Sodium 1 gm/ Dextrose 50 ml @ 100 mls/hr Q24H IV 11/11/16 21:00 11/21/16 20:59 11/14/16 21:27 100 MLS/HR Triamcinolone Acetonide (Triamcinolone Acet 0.1% Crm) 1 appln TID EXT 11/12/16 09:00 12/12/16 08:59 11/15/16 09:00 1 APPLN Chlordiazepoxide (Librium Cap) 25 mg Q8H PO 11/15/16 17:00 12/03/16 13:59 Lorazepam (Ativan Inj) 1 mg Q4H PRN IV 11/15/16 11:30 12/15/16 11:29 Objective Vital Signs Date Time Temp Pulse Resp B/P (MAP) Pulse Ox O2 Delivery O2 Flow Rate FiO2 11/15/16 12:48 36.7 88 18 100/66 (77) 99 Room Air 11/15/16 12:00 Room Air 11/15/16 08:00 Room Air 11/15/16 07:07 36.8 71 18 99/58 (72) 94 Room Air 11/15/16 04:53 Room Air 11/15/16 04:52 36.6 67 14 107/58 (74) 93 Room Air 11/15/16 00:58 Room Air 11/14/16 23:04 36.8 85 16 126/70 (88) 98 Room Air 11/14/16 20:00 Room Air 11/14/16 19:10 36.5 63 20 150/57 (88) 99 Room Air 11/14/16 16:00 Room Air 11/14/16 15:10 36.4 70 20 116/63 (80) 95 Room Air Physical Exam General Appearance: no apparent distress, + thin, + pertinent finding ( disheveled; mild hand and head tremor) Respiratory/Chest: lungs clear, normal breath sounds, no respiratory distress, no accessory muscle use Cardiovascular: regular rate, rhythm, no gallop, no murmur Abdomen: normal bowel sounds, non tender, soft Extremities: + pertinent finding (Dressing C/D/I to R elbow) Neurologic/Psychiatric: alert Skin: normal color, warm/dry Assessment and Plan Severe ETOH Withdrawal with DT: Encephalopathy - Possible Wernecke? - Requiring large amount of Ativan and Haldol - discussed with psychiatry for concern for benzodiazepine toxicity - Will stop AWSS protocol as patients underlying psych issues/agitation may be influencing scale as well as toxicity could present similarly - Ativan 1 mg Q4H PRN for withdrawal/anxiety complaints with PRN Haldol for agitation - Librium 25 mg Q8H and will taper - Vitamin replacement - Thiamine, MVI, folic acid Severe Anxiety/Depression: - Lexapro 10 mg daily - consideration for increased dose when stable from withdrawal - Psych following - recommending psychiatric monitoring as outpatient with follow-up R Elbow Enterobacter Wound: - Completed Rocephin x 8 days and converted to Cipro but back on Ceftriaxone - DAY 02/07 Severe Deconditioning and Mod/Severe Protein/Caloric Malnutrition: May need SNF/ rehab - Boost - encourage intake Thrombocytopenia: RESOLVED Hypomagnesemia: RESOLVED - Continue supplement DVT Prophylaxis: Heparin 5000 units SC Q8H Disposition: - Will taper benzodiazepines - May need SNF/rehab Continued [facility] stay due to: multiple IV medications needed Discharge planning: uncertain
[2016-11-15] MEDS: HALOPERIDOL LACTATE 5 MG/ML 1 ML VIAL IV PRN (14:49)
[2016-11-15 14:53] VITALS: BP 108/67; PULSE 85; TEMP 36.5; O2SAT 96
[2016-11-15] MEDS: CEFTRIAXONE SOD INJ 1 GM in DEXTROSE 5% ADD-VANTAGE 50ML 50 ML IV SCH (20:28)
[2016-11-15] MEDS: MULTIVITAMIN TAB PO SCH (20:29)
[2016-11-16] VITALS (7 sets, daily range): BP systolic 94–128; BP diastolic 55–81; PULSE 74–93; TEMP 36.4–36.9; O2SAT 93–97
[2016-11-16] MEDS: CHLORDIAZEPOXIDE 25 MG CAP PO SCH ×4 (00:17→17:45)
[2016-11-16] MEDS: HEPARIN SOD 5000 UNIT/0.5 ML CARP SQ SCH ×3 (06:00→21:15)
[2016-11-16 06:18] LABS: MEAN CELL VOLUME 101.9 fL (80-100); MEAN CORPUSCULAR HEMOGLOBIN 33.3 pg (25-34); MEAN CORPUSCULAR HGB CONC 32.7 g/dl (32-36); MEAN PLATELET VOLUME 9.5 fL (7.4-10.4); PLATELET COUNT 329 K/uL (130-400); RED BLOOD COUNT 3.63 M/uL (4.2-5.4); WHITE BLOOD COUNT 7.78 K/uL (4.8-10.8)
[2016-11-16 06:55] LABS: BUN/CREATININE RATIO 20.1 (10-20); CALCIUM 8.9 mg/dl (8.5-10.1); CREATININE 0.55 mg/dl (0.60-1.20); POTASSIUM 3.7 mmol/L (3.5-5.1)
[2016-11-16] MEDS: TRIAMCINOLONE ACET 0.1% CR 80 GM TUBE EXT SCH ×3 (09:07→21:14)
[2016-11-16] MEDS: FoLIC ACID TAB 400 MCG TAB PO SCH (09:07)
[2016-11-16] MEDS: ESCITALOPRAM OXALATE 10 MG TAB PO SCH (09:08)
[2016-11-16] MEDS: CALCIUM 600MG + VIT D 400 IU TAB PO SCH (09:08)
[2016-11-16] MEDS: VITAMIN B COMPLEX TAB PO SCH (09:09)
[2016-11-16] MEDS: THIAMINE HCL 100 MG TAB PO SCH ×2 (09:09→21:15)
[2016-11-16] MEDS: METOPROLOL SUCC 25MG EXT REL TAB PO SCH (09:09)
[2016-11-16] MEDS: DOCUSATE SODIUM/SENNA 50/8.6MG TAB PO SCH (09:09)
[2016-11-16] MEDS: POTASSIUM CHLORIDE 20 MEQ TABCR PO SCH (09:09)
[2016-11-16] MEDS: BOOST VANILLA PO SCH ×4 (09:16→21:14)
--- NOTE | 2016-11-16 11:57 | Hospitalist Progress Note ---
Hospitalist Progress Note Date of Service Nov 16, 2016. Subjective Pt evaluation today including: conversation w/ patient, physical exam, chart review, lab review, review of studies, review of inpatient medication list Patient seen and evaluated. More alert today and yesterday and requiring less Ativan/Haldol. Patient is in agreement to SNF vs [facility] as she feels weak. Got angry when discussing ETOH use as she states she does not have a problem and states it is rude to keep bringing this up. Reports that the only symptom she has was shakes that are chronic and not ETOH related. Refusing ETOH rehab. Patient verbalizes no other complaints or needs. If requires minimal sedation today hopefully can get her transitioned to SNF vs [facility] with outpatient psychiatric follow-up. Constitutional: No fever, No chills Respiratory: No shortness of breath Cardiovascular: No chest pain Abdomen: No pain, No nausea, No vomiting, No diarrhea, No constipation Musculoskeletal: No joint pain Heme: No abnormal bleeding/bruising Medications Current Inpatient Medications Medications (Trade) Dose Ordered Sig/Marisa Route Start Time Stop Time Status Last Admin Dose Admin Ondansetron HCl (Zofran Inj) 4 mg Q6H PRN IV 11/02/16 22:00 12/02/16 21:59 Vitamin B Complex (Vitamin B Complex) 1 tab QAM PO 11/03/16 09:00 12/03/16 08:59 11/16/16 09:09 1 TAB Calcium/Vitamin D (Caltrate Plus Tab) 1 tab QAM PO 11/03/16 09:00 12/03/16 08:59 11/16/16 09:08 1 TAB Diclofenac Sodium (Voltaren 1% Top Gel) 1 appln DAILY PRN EXT 11/02/16 22:15 12/02/16 22:14 Escitalopram Oxalate (Lexapro Tab) 10 mg DAILY PO 11/03/16 09:00 12/03/16 08:59 11/16/16 09:08 10 MG Multivitamins (Multivitamin Tab) 1 tab HS PO 11/03/16 21:00 12/03/16 20:59 11/15/16 20:29 1 TAB Senna/Docusate Sodium (Senokot S Tab) 1 tab QAM PO 11/03/16 09:00 12/03/16 08:59 11/16/16 09:09 1 TAB Heparin Sodium (Porcine) (Heparin Sq 5000 Unit/0.5ml) 5,000 unit Q8 SQ 11/04/16 14:00 12/04/16 13:59 11/15/16 14:06 5,000 UNIT Metoprolol Succinate (Toprol Xl Tab) 25 mg DAILY PO 11/09/16 09:00 12/09/16 08:59 11/16/16 09:09 25 MG Folic Acid (Folvite Tab) 400 mcg QAM PO 11/09/16 09:00 12/09/16 08:59 11/16/16 09:07 400 MCG Thiamine HCl (Vitamin B-1 Tab) 200 mg BID PO 11/10/16 09:00 12/09/16 08:59 11/16/16 09:09 200 MG Enteral Nutritional Formula (Boost) 1 can BID@0830,2100 PO 11/10/16 21:00 12/10/16 20:59 11/16/16 09:16 1 CAN Potassium Chloride (Klor-Con Tab) 20 meq QAM PO 11/12/16 09:00 12/12/16 08:59 11/16/16 09:09 20 MEQ Haloperidol Lactate (Haldol Inj) 2.5 mg Q6H PRN IV 11/11/16 17:00 12/11/16 16:59 11/15/16 14:49 2.5 MG Haloperidol (Haldol Tab) 2.5 mg Q6H PRN PO 11/11/16 17:00 12/11/16 16:59 11/14/16 18:42 2.5 MG Ceftriaxone Sodium 1 gm/ Dextrose 50 ml @ 100 mls/hr Q24H IV 11/11/16 21:00 11/21/16 20:59 11/15/16 20:28 100 MLS/HR Triamcinolone Acetonide (Triamcinolone Acet 0.1% Crm) 1 appln TID EXT 11/12/16 09:00 12/12/16 08:59 11/16/16 09:07 1 APPLN Chlordiazepoxide (Librium Cap) 25 mg Q8H PO 11/15/16 17:00 12/03/16 13:59 11/16/16 09:16 25 MG Lorazepam (Ativan Inj) 1 mg Q12H PRN IV 11/16/16 12:00 12/15/16 11:29 UNV Objective Vital Signs Date Time Temp Pulse Resp B/P (MAP) Pulse Ox O2 Delivery O2 Flow Rate FiO2 11/16/16 11:25 36.7 80 20 121/78 (92) 97 Room Air 11/16/16 07:09 36.8 86 20 125/73 (90) 96 Room Air 11/16/16 04:30 36.7 93 20 94/59 (71) 94 Room Air 11/16/16 04:00 Room Air 11/16/16 00:21 36.9 83 16 102/64 (77) 93 Room Air 11/16/16 00:00 Room Air 11/15/16 20:30 Room Air 11/15/16 16:00 Room Air 11/15/16 14:53 36.5 85 19 108/67 (81) 96 Room Air 11/15/16 14:45 Room Air 11/15/16 12:48 36.7 88 18 100/66 (77) 99 Room Air 11/15/16 12:00 Room Air Physical Exam General Appearance: no apparent distress, + pertinent finding (chronically ill- appearing) Eyes: sclerae normal ENT: hearing grossly normal Neck: supple, no JVD, trachea midline Respiratory/Chest: lungs clear, normal breath sounds, no respiratory distress, no accessory muscle use Cardiovascular: regular rate, rhythm, no gallop, no murmur Abdomen: normal bowel sounds, non tender, soft Extremities: + pertinent finding (dressing to R elbow C/D/I) Neurologic/Psychiatric: alert Skin: normal color, warm/dry Laboratory Results Last 24 Hours Test 11/16/16 05:58 White Blood Count 7.78 K/uL Red Blood Count 3.63 M/uL Hemoglobin 12.1 g/dL Hematocrit 37.0 % Mean Corpuscular Volume 101.9 fL Mean Corpuscular Hemoglobin 33.3 pg Mean Corpuscular Hemoglobin Concent 32.7 g/dl RDW Standard Deviation 53.0 fL RDW Coefficient of Variation 14.2 % Platelet Count 329 K/uL Mean Platelet Volume 9.5 fL Sodium Level 141 mmol/L Potassium Level 3.7 mmol/L Chloride Level 107 mmol/L Carbon Dioxide Level 27 mmol/L Anion Gap 7.0 mmol/L Blood Urea Nitrogen 11 mg/dl Creatinine 0.55 mg/dl Est Creatinine Clear Calc Drug Dose 79.3 ml/min Estimated GFR () 119.0 Estimated GFR (Non- 102.7 BUN/Creatinine Ratio 20.1 Random Glucose 88 mg/dl Calcium Level 8.9 mg/dl Assessment and Plan Severe ETOH Withdrawal with DT: Encephalopathy - IMPROVING - Will stop AWSS protocol as patients underlying psych issues/agitation may be influencing scale as well as benzo toxicity could present similarly - Ativan 1 mg Q12H PRN for withdrawal/anxiety complaints with PRN Haldol for agitation - Librium 25 mg Q8H and will taper - Vitamin replacement - Thiamine, MVI, folic acid Severe Anxiety/Depression: - Lexapro 10 mg daily - consideration for increased dose when stable from withdrawal - Psych following - recommending psychiatric monitoring as outpatient with follow-up R Elbow Enterobacter Wound: - Completed Abx course Severe Deconditioning and Mod/Severe Protein/Caloric Malnutrition: May need SNF/ rehab - Boost - encourage intake Thrombocytopenia: RESOLVED Hypomagnesemia: RESOLVED - Continue supplement DVT Prophylaxis: Heparin 5000 units SC Q8H Disposition: - In agreement for SNF vs [facility] but no ETOH rehab. If remains with minimal benzo needs can D/C to facility Continued [facility] stay due to: multiple IV medications needed Discharge planning: custodial facility
[2016-11-16] MEDS ORDERED: LORAZEPAM 2 MG/ML 1 ML VIAL IV PRN (12:00)
[2016-11-16] MEDS ORDERED: LORAZEPAM 1 MG TAB PO PRN (12:15)
--- NOTE | 2016-11-16 12:53 | Psychiatric Progress Notes ---
Psychiatric Progress Note Date of Service Nov 16, 2016. Notes ID: Patient reviewed with liaison nurse. Initial consult completed by Dr. Napier for depression and anxiety. Recs at that time were to titrate Lexapro when more medically stable. CC: delirium, requiring large doses of benzodiazepines HPI: patient is alert and communicating this am with a friend/relative at bedside. She states that she doesn't want "more medicine" because it makes her too sleep and was just making her more confused. Patient was scoring on AWSS and receiving up to 11 mg Ativan daily in addition to the Librium taper but team has been working on limiting this given that has baseline tremor. ROS: patient denies complaints, states tremor is baseline and "wants to leave [facility]" Current Inpatient Medications Medications (Trade) Dose Ordered Sig/Marisa Route Start Time Stop Time Status Last Admin Dose Admin Ondansetron HCl (Zofran Inj) 4 mg Q6H PRN IV 11/02/16 22:00 12/02/16 21:59 Vitamin B Complex (Vitamin B Complex) 1 tab QAM PO 11/03/16 09:00 12/03/16 08:59 11/16/16 09:09 1 TAB Calcium/Vitamin D (Caltrate Plus Tab) 1 tab QAM PO 11/03/16 09:00 12/03/16 08:59 11/16/16 09:08 1 TAB Diclofenac Sodium (Voltaren 1% Top Gel) 1 appln DAILY PRN EXT 11/02/16 22:15 12/02/16 22:14 Escitalopram Oxalate (Lexapro Tab) 10 mg DAILY PO 11/03/16 09:00 12/03/16 08:59 11/16/16 09:08 10 MG Multivitamins (Multivitamin Tab) 1 tab HS PO 11/03/16 21:00 12/03/16 20:59 11/15/16 20:29 1 TAB Senna/Docusate Sodium (Senokot S Tab) 1 tab QAM PO 11/03/16 09:00 12/03/16 08:59 11/16/16 09:09 1 TAB Heparin Sodium (Porcine) (Heparin Sq 5000 Unit/0.5ml) 5,000 unit Q8 SQ 11/04/16 14:00 12/04/16 13:59 11/15/16 14:06 5,000 UNIT Metoprolol Succinate (Toprol Xl Tab) 25 mg DAILY PO 11/09/16 09:00 12/09/16 08:59 11/16/16 09:09 25 MG Folic Acid (Folvite Tab) 400 mcg QAM PO 11/09/16 09:00 12/09/16 08:59 11/16/16 09:07 400 MCG Thiamine HCl (Vitamin B-1 Tab) 200 mg BID PO 11/10/16 09:00 12/09/16 08:59 11/16/16 09:09 200 MG Enteral Nutritional Formula (Boost) 1 can BID@0830,2100 PO 11/10/16 21:00 12/10/16 20:59 11/16/16 09:16 1 CAN Potassium Chloride (Klor-Con Tab) 20 meq QAM PO 11/12/16 09:00 12/12/16 08:59 11/16/16 09:09 20 MEQ Haloperidol Lactate (Haldol Inj) 2.5 mg Q6H PRN IV 11/11/16 17:00 12/11/16 16:59 11/15/16 14:49 2.5 MG Haloperidol (Haldol Tab) 2.5 mg Q6H PRN PO 11/11/16 17:00 12/11/16 16:59 11/14/16 18:42 2.5 MG Ceftriaxone Sodium 1 gm/ Dextrose 50 ml @ 100 mls/hr Q24H IV 11/11/16 21:00 11/21/16 20:59 11/15/16 20:28 100 MLS/HR Triamcinolone Acetonide (Triamcinolone Acet 0.1% Crm) 1 appln TID EXT 11/12/16 09:00 12/12/16 08:59 11/16/16 09:07 1 APPLN Chlordiazepoxide (Librium Cap) 25 mg Q8H PO 11/15/16 17:00 12/03/16 13:59 11/16/16 09:16 25 MG Lorazepam (Ativan Tab) 1 mg Q12H PRN PO 11/16/16 12:15 12/16/16 12:14 Last 8 Hrs Date Time Temp Pulse Resp B/P (MAP) Pulse Ox O2 Delivery O2 Flow Rate FiO2 11/16/16 11:25 36.7 80 20 121/78 (92) 97 Room Air 11/16/16 07:09 36.8 86 20 125/73 (90) 96 Room Air MSE:alert, cooperative, oriented to place and self, thoughts concrete but organized, worried about finances. No SI/HI reported and doesn't appear to be responding to internal stimuli. Insight and judgement somewhat limited as ambivalent re: outpatient treatment and also continue to minimize drinking Plan: ideally patient would be discharged on no benzos (ie not resume Xanax given ETOH use) but still on librium taper and received significant amount of prn Ativan so cannot be stopped abruptly. Is clearing with less benzo/Haldol. no indication for inpatient psych hospitalization defer any lexapro titration to outpatient liaison can assist with outpatient therapy/psych referrals if patient remains agreeable upon discharge.
[2016-11-16] MEDS ORDERED: LORAZEPAM 2 MG/ML 1 ML VIAL IV STA (13:27)
[2016-11-16] MEDS ORDERED: LORAZEPAM 2 MG/ML 1 ML VIAL ONE (13:28)
[2016-11-16] MEDS ORDERED: HALOPERIDOL LACTATE 5 MG/ML 1 ML VIAL IV ONE (13:45)
[2016-11-16] MEDS ORDERED: LORAZEPAM 2 MG/ML 1 ML VIAL IV ONE (15:30)
[2016-11-16] MEDS: LORAZEPAM 2 MG/ML 1 ML VIAL IV PRN (21:10)
[2016-11-16] MEDS: MULTIVITAMIN TAB PO SCH (21:14)
[2016-11-16] MEDS: HALOPERIDOL LACTATE 5 MG/ML 1 ML VIAL IV PRN (23:16)
[2016-11-17] MEDS: LORAZEPAM 2 MG/ML 1 ML VIAL IV PRN ×3 (01:54→12:31)
[2016-11-17 03:03] VITALS: BP 137/71; PULSE 70; TEMP 36.3; O2SAT 98
[2016-11-17] MEDS: CHLORDIAZEPOXIDE 25 MG CAP PO SCH ×3 (04:18→16:41)
[2016-11-17] MEDS: HEPARIN SOD 5000 UNIT/0.5 ML CARP SQ SCH ×3 (05:47→19:28)
[2016-11-17 06:58] VITALS: BP 115/60; PULSE 78; TEMP 36.7; O2SAT 96
[2016-11-17 07:18] LABS: HEMATOCRIT 38.3 % (37-47); MEAN CELL VOLUME 102.1 fL (80-100); MEAN CORPUSCULAR HEMOGLOBIN 35.2 pg (25-34); MEAN CORPUSCULAR HGB CONC 34.5 g/dl (32-36); MEAN PLATELET VOLUME 10.3 fL (7.4-10.4); PLATELET COUNT 337 K/uL (130-400); RED BLOOD COUNT 3.75 M/uL (4.2-5.4); WHITE BLOOD COUNT 9.29 K/uL (4.8-10.8)
[2016-11-17 11:15] VITALS: BP 123/72; PULSE 77; TEMP 36.7; O2SAT 96
[2016-11-17] MEDS: TRIAMCINOLONE ACET 0.1% CR 80 GM TUBE EXT SCH ×3 (14:00→19:27)
[2016-11-17] MEDS: POTASSIUM CHLORIDE 20 MEQ TABCR PO SCH (14:01)
[2016-11-17] MEDS: CALCIUM 600MG + VIT D 400 IU TAB PO SCH (14:01)
[2016-11-17] MEDS: FoLIC ACID TAB 400 MCG TAB PO SCH (14:01)
[2016-11-17] MEDS: ESCITALOPRAM OXALATE 10 MG TAB PO SCH (14:01)
[2016-11-17] MEDS: BOOST VANILLA PO SCH ×4 (14:02→18:05)
[2016-11-17] MEDS: THIAMINE HCL 100 MG TAB PO SCH ×2 (14:02→19:27)
[2016-11-17] MEDS: VITAMIN B COMPLEX TAB PO SCH (14:02)
[2016-11-17] MEDS: METOPROLOL SUCC 25MG EXT REL TAB PO SCH (14:02)
[2016-11-17] MEDS: DOCUSATE SODIUM/SENNA 50/8.6MG TAB PO SCH (14:02)
--- NOTE | 2016-11-17 15:28 | Progress Note ---
Subjective Date of Service: Nov 17, 2016. Subjective Pt evaluation today including: conversation w/ patient, conversation w/ family , physical exam, chart review, lab review, review of studies, review of inpatient medication list Voiding: no voiding problems She states that she doesn't want "more medicine" because it makes her too sleep and was just making her more confused. Problem List Medical Problems: (1) Acute electrocardiogram changes Status: Acute (2) JOSE (acute kidney injury) Status: Acute (3) Elevated troponin Status: Acute (4) Hypomagnesemia Status: Acute (5) Sepsis Status: Acute (6) Septic shock Status: Acute (7) Vomiting Status: Acute Review of Systems Constitutional: No fever, No chills Respiratory: No shortness of breath Cardiovascular: No chest pain Abdomen: No pain, No nausea, No vomiting, No diarrhea, No constipation Musculoskeletal: No joint pain Heme: No abnormal bleeding/bruising Medications Medications (Trade) Dose Ordered Sig/Marisa Route Start Time Stop Time Status Last Admin Dose Admin Lorazepam (Ativan Inj) 2 mg NOW ONCE IV 11/16/16 15:30 11/16/16 15:31 DC 11/16/16 15:17 2 MG Lorazepam (Ativan Inj) 2 mg Q4H PRN IV 11/16/16 16:30 12/16/16 16:29 11/17/16 12:31 2 MG Objective Vital Signs Date Time Temp Pulse Resp B/P (MAP) Pulse Ox O2 Delivery O2 Flow Rate FiO2 11/17/16 11:15 36.7 77 18 123/72 (89) 96 Room Air 11/17/16 08:00 Room Air 11/17/16 06:58 36.7 78 20 115/60 (78) 96 Room Air 11/17/16 04:00 Room Air 11/17/16 03:03 36.3 70 15 137/71 (93) 98 Room Air 11/17/16 00:00 Room Air 11/16/16 23:00 36.5 74 18 106/61 (76) 97 Room Air 11/16/16 20:30 Room Air 11/16/16 18:59 36.4 79 18 105/55 (72) 94 Room Air 11/16/16 16:05 Room Air Physical Exam Comments: General Appearance: no apparent distress, + pertinent finding (chronically ill- appearing) Eyes: sclerae normal ENT: hearing grossly normal Neck: supple, no JVD, trachea midline Respiratory/Chest: lungs clear, normal breath sounds, no respiratory distress, no accessory muscle use Cardiovascular: regular rate, rhythm, no gallop, no murmur Abdomen: normal bowel sounds, non tender, soft Extremities: + pertinent finding (dressing to R elbow C/D/I) Neurologic/Psychiatric: alert Skin: normal color, warm/dry Laboratory Results Last 24 Hours Test 11/17/16 06:27 White Blood Count 9.29 K/uL Red Blood Count 3.75 M/uL Hemoglobin 13.2 g/dL Hematocrit 38.3 % Mean Corpuscular Volume 102.1 fL Mean Corpuscular Hemoglobin 35.2 pg Mean Corpuscular Hemoglobin Concent 34.5 g/dl RDW Standard Deviation 53.1 fL RDW Coefficient of Variation 14.1 % Platelet Count 337 K/uL Mean Platelet Volume 10.3 fL Assessment and Plan Severe ETOH Withdrawal with DT: Encephalopathy - IMPROVING - Ativan 2mg q 4 PRN for withdrawal/anxiety , Haldol for aggressive behavior - Librium 25 mg Q8H and will taper - Vitamin replacement - Thiamine, MVI, folic acid Severe Anxiety/Depression: - Lexapro 10 mg daily - consideration for increased dose when stable from withdrawal - Psych following - recommending psychiatric monitoring as outpatient with follow-up DVT Prophylaxis: Heparin 5000 units SC Q8H Continued [facility] stay due to: multiple IV medications needed Discharge planning: residential facility
[2016-11-17 15:31] VITALS: BP 123/72; PULSE 77; TEMP 36.7; O2SAT 96
[2016-11-17] MEDS: LORAZEPAM INJ 2 MG in SYRINGE 1 ML IV PRN (18:08)
[2016-11-17] MEDS: HALOPERIDOL LACTATE 5 MG/ML 1 ML VIAL IV PRN (18:30)
[2016-11-17] MEDS: MULTIVITAMIN TAB PO SCH (19:27)
[2016-11-17] MEDS ORDERED: LORAZEPAM INJ 2 MG in SYRINGE 1 ML IV STA (20:53)
[2016-11-17] MEDS ORDERED: NURSING VERBAL MED ORDER ONE (21:00)
[2016-11-17 21:24] VITALS: BP 111/66; PULSE 90; TEMP 36.5; O2SAT 93
[2016-11-17] MEDS: HALOPERIDOL LACTATE 5 MG/ML 1 ML VIAL IM PRN (21:59)
[2016-11-17 23:06] VITALS: BP 114/65; PULSE 88; O2SAT 93
[2016-11-18] MEDS: CHLORDIAZEPOXIDE 25 MG CAP PO SCH ×3 (01:00→22:11)
[2016-11-18] MEDS: HEPARIN SOD 5000 UNIT/0.5 ML CARP SQ SCH ×3 (06:26→22:00)
[2016-11-18] MEDS ORDERED: NURSING VERBAL MED ORDER ONE (06:45)
[2016-11-18] MEDS ORDERED: SODIUM CHLORIDE 0.9% 1000ML 500 ML IV SCH (07:00)
[2016-11-18 07:07] VITALS: BP 122/77; PULSE 86; TEMP 36.4; O2SAT 96
[2016-11-18] MEDS: TRIAMCINOLONE ACET 0.1% CR 80 GM TUBE EXT SCH ×3 (12:15→22:18)
[2016-11-18] MEDS: THIAMINE HCL 100 MG TAB PO SCH ×2 (12:16→22:14)
[2016-11-18] MEDS: ESCITALOPRAM OXALATE 10 MG TAB PO SCH (12:16)
[2016-11-18] MEDS: METOPROLOL SUCC 25MG EXT REL TAB PO SCH (12:16)
[2016-11-18] MEDS: DOCUSATE SODIUM/SENNA 50/8.6MG TAB PO SCH (12:16)
[2016-11-18] MEDS: FoLIC ACID TAB 400 MCG TAB PO SCH (12:17)
[2016-11-18] MEDS: BOOST VANILLA PO SCH ×4 (12:17→22:11)
[2016-11-18] MEDS: POTASSIUM CHLORIDE 20 MEQ TABCR PO SCH (12:17)
[2016-11-18] MEDS: CALCIUM 600MG + VIT D 400 IU TAB PO SCH (12:18)
[2016-11-18] MEDS: VITAMIN B COMPLEX TAB PO SCH (12:18)
[2016-11-18] MEDS: LORAZEPAM INJ 2 MG in SYRINGE 1 ML IV PRN (14:29)
[2016-11-18] MEDS: DICLOFENAC SOD 1% GEL 100 GM TUBE EXT PRN (14:51)
[2016-11-18 14:54] VITALS: BP 110/70; PULSE 86; TEMP 36.8; O2SAT 95
--- NOTE | 2016-11-18 16:45 | Progress Note ---
Subjective Date of Service: Nov 18, 2016. Subjective Pt evaluation today including: conversation w/ patient, physical exam, chart review, lab review Pain: no pain reported PO Intake: good oral mintake Voiding: no voiding problems, no incontinence Pt is seen and examined by me.No acute events reported by nursing and line of sight. Pt is doing better from behavioral stand point. Problem List Medical Problems: (1) Acute electrocardiogram changes Status: Acute (2) JOSE (acute kidney injury) Status: Acute (3) Elevated troponin Status: Acute (4) Hypomagnesemia Status: Acute (5) Sepsis Status: Acute (6) Septic shock Status: Acute (7) Vomiting Status: Acute Review of Systems All Other Systems: Reviewed and Negative Objective Vital Signs Date Time Temp Pulse Resp B/P (MAP) Pulse Ox O2 Delivery O2 Flow Rate FiO2 11/18/16 14:54 36.8 86 17 110/70 (83) 95 Room Air 11/18/16 08:00 Room Air 11/18/16 07:07 36.4 86 20 122/77 (92) 96 Room Air 11/18/16 01:15 Room Air 11/17/16 23:06 88 16 114/65 (81) 93 Room Air 11/17/16 21:24 36.5 90 18 111/66 (81) 93 Room Air Physical Exam General Appearance: no apparent distress Neck: supple Respiratory/Chest: lungs clear, normal breath sounds Cardiovascular: regular rate, rhythm, no edema, no murmur Abdomen: normal bowel sounds, non tender, soft Extremities: non-tender, normal inspection, no pedal edema Neurologic/Psychiatric: no motor/sensory deficits, alert, normal mood/affect, oriented x 3 Skin: no rash Assessment and Plan Severe ETOH Withdrawal with DT: Encephalopathy - IMPROVING - Ativan 2mg q 4 PRN for withdrawal/anxiety , Haldol for aggressive behavior - Librium 25 mg Q8H and will taper - Vitamin replacement - Thiamine, MVI, folic acid Severe Anxiety/Depression: - Lexapro 10 mg daily - consideration for increased dose when stable from withdrawal - Psych following - recommending psychiatric monitoring as outpatient with follow-up DVT Prophylaxis: Heparin 5000 units SC Q8H Plan: - If agree with psychic may discharge tomorrow Continued [facility] stay due to: multiple IV medications needed Discharge planning: [facility] facility
[2016-11-18] MEDS: MULTIVITAMIN TAB PO SCH (22:15)
[2016-11-19] MEDS: CHLORDIAZEPOXIDE 25 MG CAP PO SCH ×5 (01:00→16:41)
[2016-11-19 01:19] VITALS: BP 102/57; PULSE 83; O2SAT 92
[2016-11-19 01:30] VITALS: O2SAT 92
[2016-11-19] MEDS: LORAZEPAM INJ 2 MG in SYRINGE 1 ML IV PRN (02:34)
[2016-11-19] MEDS: HALOPERIDOL LACTATE 5 MG/ML 1 ML VIAL IM PRN ×2 (03:58→17:56)
[2016-11-19] MEDS: HEPARIN SOD 5000 UNIT/0.5 ML CARP SQ SCH ×3 (05:48→19:54)
[2016-11-19 07:02] VITALS: BP 116/68; PULSE 69; TEMP 37; O2SAT 93
[2016-11-19] MEDS: BOOST VANILLA PO SCH ×4 (08:30→19:54)
[2016-11-19] MEDS: TRIAMCINOLONE ACET 0.1% CR 80 GM TUBE EXT SCH ×4 (09:00→19:54)
[2016-11-19] MEDS: POTASSIUM CHLORIDE 20 MEQ TABCR PO SCH (09:05)
[2016-11-19] MEDS: CALCIUM 600MG + VIT D 400 IU TAB PO SCH (09:05)
[2016-11-19] MEDS: VITAMIN B COMPLEX TAB PO SCH (09:06)
[2016-11-19] MEDS: FoLIC ACID TAB 400 MCG TAB PO SCH (09:06)
[2016-11-19] MEDS: METOPROLOL SUCC 25MG EXT REL TAB PO SCH (09:06)
[2016-11-19] MEDS: ESCITALOPRAM OXALATE 10 MG TAB PO SCH (09:07)
[2016-11-19] MEDS: DOCUSATE SODIUM/SENNA 50/8.6MG TAB PO SCH (09:07)
[2016-11-19] MEDS: THIAMINE HCL 100 MG TAB PO SCH ×2 (09:08→19:54)
--- NOTE | 2016-11-19 13:56 | Hospitalist Progress Note ---
Hospitalist Progress Note Date of Service Nov 19, 2016. (Yaima River ., PAVernaC) Subjective Pt evaluation today including: conversation w/ patient, conversation w/ family (family friend at bedside), physical exam, lab review, review of inpatient medication list Voiding: no voiding problems Patient denies any complaints. Laying in bed, no acute distress/agitation. Eating and drinking OK. Alert/oriented. Anxious for discharge- discussed rehab once off IV Ativan and Haldol/1:1 sitter. Patient denies any fever, chills, sweats, lightheadedness, dizziness, vision changes, CP, palpitations, edema, SOB, wheezing, cough, abdominal pain, nausea, vomiting, diarrhea, urinary symptoms, melena, numbness/tingling, weakness, muscle/joint pain, anxiety/depression, active bleeding, or new skin discoloration/changes. Per RN and sitter, patient doing well this AM. Required IV Haldol last PM. Discussed trying to remove 1:1 and transitioning to PO Ativan PRN Spoke w/ case management, needs to be off IV PRN medications and 1:1 for 24 hours before placement can be determine. Patient doing well, will try to remove 1:1. Discussed plan of care w/ friend at bedside. All questions/concerns answered. (Yaima River ., PA-C) Medications Current Inpatient Medications Medications (Trade) Dose Ordered Sig/Marisa Route Start Time Stop Time Status Last Admin Dose Admin Ondansetron HCl (Zofran Inj) 4 mg Q6H PRN IV 11/02/16 22:00 12/02/16 21:59 Vitamin B Complex (Vitamin B Complex) 1 tab QAM PO 11/03/16 09:00 12/03/16 08:59 11/19/16 09:06 1 TAB Calcium/Vitamin D (Caltrate Plus Tab) 1 tab QAM PO 11/03/16 09:00 12/03/16 08:59 11/19/16 09:05 1 TAB Diclofenac Sodium (Voltaren 1% Top Gel) 1 appln DAILY PRN EXT 11/02/16 22:15 12/02/16 22:14 11/18/16 14:51 1 APPLN Escitalopram Oxalate (Lexapro Tab) 10 mg DAILY PO 11/03/16 09:00 12/03/16 08:59 11/19/16 09:07 10 MG Multivitamins (Multivitamin Tab) 1 tab HS PO 11/03/16 21:00 12/03/16 20:59 11/18/16 22:15 1 TAB Senna/Docusate Sodium (Senokot S Tab) 1 tab QAM PO 11/03/16 09:00 12/03/16 08:59 11/19/16 09:07 1 TAB Heparin Sodium (Porcine) (Heparin Sq 5000 Unit/0.5ml) 5,000 unit Q8 SQ 11/04/16 14:00 12/04/16 13:59 11/19/16 13:31 5,000 UNIT Metoprolol Succinate (Toprol Xl Tab) 25 mg DAILY PO 11/09/16 09:00 12/09/16 08:59 11/19/16 09:06 25 MG Folic Acid (Folvite Tab) 400 mcg QAM PO 11/09/16 09:00 12/09/16 08:59 11/19/16 09:06 400 MCG Thiamine HCl (Vitamin B-1 Tab) 200 mg BID PO 11/10/16 09:00 12/09/16 08:59 11/19/16 09:08 200 MG Enteral Nutritional Formula (Boost) 1 can BID@0830,2100 PO 11/10/16 21:00 12/10/16 20:59 11/18/16 22:11 1 CAN Potassium Chloride (Klor-Con Tab) 20 meq QAM PO 11/12/16 09:00 12/12/16 08:59 11/19/16 09:05 20 MEQ Haloperidol (Haldol Tab) 2.5 mg Q6H PRN PO 11/11/16 17:00 12/11/16 16:59 11/14/16 18:42 2.5 MG Triamcinolone Acetonide (Triamcinolone Acet 0.1% Crm) 1 appln TID EXT 11/12/16 09:00 12/12/16 08:59 11/18/16 22:18 1 APPLN Chlordiazepoxide (Librium Cap) 25 mg Q8H PO 11/15/16 17:00 12/03/16 13:59 11/19/16 09:05 25 MG Lorazepam (Ativan Inj) 2 mg Q4H PRN IV 11/16/16 16:30 10/22/17 16:29 11/17/16 12:31 2 MG Lorazepam 2 mg/ Syringe 2 ml @ 1 mls/min Q4H PRN IV 11/16/16 16:30 12/16/16 16:29 11/19/16 02:34 1 MLS/MIN Haloperidol Lactate (Haldol Inj) 5 mg QPM PRN IM 11/17/16 21:45 12/17/16 21:44 11/19/16 03:58 5 MG (Yaima River, ENID-C) Objective Vital Signs Date Time Temp Pulse Resp B/P (MAP) Pulse Ox O2 Delivery O2 Flow Rate FiO2 11/19/16 08:00 Room Air 11/19/16 07:02 37.0 69 20 116/68 (84) 93 11/19/16 01:30 92 Room Air 11/19/16 01:19 83 102/57 (72) 92 Room Air 11/18/16 18:00 Room Air 11/18/16 14:54 36.8 86 17 110/70 (83) 95 Room Air (Yaima River ., PA-C) Physical Exam General Appearance: no apparent distress Eyes: PERRL ENT: hearing grossly normal Neck: supple Respiratory/Chest: lungs clear, no respiratory distress, no accessory muscle use Cardiovascular: regular rate, rhythm Abdomen: normal bowel sounds, non tender, soft Extremities: no pedal edema, no calf tenderness Neurologic/Psychiatric: alert, oriented x 3 Skin: normal color, warm/dry, no rash (Yaima River, ENID-C) Assessment and Plan The patient is a 61-year-old female who presents emergency department with vomiting that began at 11:30 AM. She was started on antibiotic recently, and she attributes this vomiting due to antibiotic use. She is also had some chills , and lightheadedness. She reports having a cyst removed from her elbow one month ago and that the wound opened a little after sutures were removed. She reports her surgeon with painting procedure and elbow next week, and that is why she is on antibiotics at this time. She does regularly drink alcohol, reporting that her last drink was earlier today. Alcohol withdrawal w/ encephalopathy- IMPROVING: - Lexapro 10 mg by mouth daily - Librium TID and taper and IV Ativan or Haldol PRN- transition to PO Ativan PRN in preparation for discharge - Thiamine and folic acid supplement Depression/anxiety: - Lexapro 10 mg daily- consideration for increased dose when stable from withdrawal - Psych following- recommending psychiatric monitoring as outpatient with follow -up Severe deconditioning and mod/severe protein/caloric malnutrition: - Pending [facility] - Boost- encourage intake HTN- STABLE: Metoprolol 25 mg daily Severe sepsis/right elbow cellulitis- RESOLVED: Treated w/ IV Rocephin Hypomagnesemia- RESOLVED: Treated w/ IV and PO Mag supplement Hypernatremia- RESOLVED ARF- RESOLVED Thrombocytopenia- RESOLVED DVT prophylaxis: Heparin TID Code Status: LEVEL I, FULL Dispo: Pending [facility]SN[facility]- needs to be off 1:1 and IV Ativan/Haldol PRN for 24 hours- nephrology social worker consulted (Yaima River, PAVernaC) I examined patient. Reviewed note General Appearance: no apparent distress Eyes: PERRL ENT: hearing grossly normal Neck: supple Respiratory/Chest: lungs clear, no respiratory distress, no accessory muscle use Cardiovascular: regular rate, rhythm Abdomen: normal bowel sounds, non tender, soft Extremities: no pedal edema, no calf tenderness Neurologic/Psychiatric: alert, oriented x 2 Skin: normal color, warm/dry, no rash I discussed case with APC and agree with plan. (Evens Mcdonald M.D.)
[2016-11-19 14:51] VITALS: BP 109/72; PULSE 73; TEMP 36.9; O2SAT 94
[2016-11-19] MEDS ORDERED: LORAZEPAM 2 MG TAB PO PRN (16:00)
[2016-11-19] MEDS ORDERED: LORAZEPAM 1 MG TAB PO PRN (16:00)
[2016-11-19] MEDS ORDERED: LORAZEPAM INJ 2 MG in SYRINGE 1 ML IV PRN (19:45)
[2016-11-19] MEDS ORDERED: NURSING VERBAL MED ORDER ONE (19:45)
[2016-11-19] MEDS: MULTIVITAMIN TAB PO SCH (19:54)
--- NOTE | 2016-11-19 19:54 | Progress Note ---
Progress Note Date of Service Nov 19, 2016. Progress Note Paged to bedside Nursing notes that patient is acutely agitated. 5 mg IM Haldol given with no effect. Patient does not have IV site and is refusing oral agents The patient was hemodynamically stable and refused oral medications when offered. I have reviewed the notes stating anticipated discharge tomorrow and needing to be off AWSS and one-to-one Advised nursing to encourage patient to take 2.5 mg PO Haldol If no effect, I have started Lorazepam 2 mg q2 hours IM PRN for sedation I will follow over the course of the night.
[2016-11-19] MEDS: LORAZEPAM 2 MG/ML 1 ML VIAL IM PRN ×2 (20:25→22:54)
[2016-11-19] MEDS: ACETAMINOPHEN 325 MG TAB PO PRN (22:02)
[2016-11-20 00:51] VITALS: BP 127/78; PULSE 71; TEMP 37.1; O2SAT 96
[2016-11-20] MEDS: CHLORDIAZEPOXIDE 25 MG CAP PO SCH (01:13)
[2016-11-20] MEDS: LORAZEPAM 2 MG/ML 1 ML VIAL IM PRN ×2 (01:14→21:49)
[2016-11-20] MEDS: HEPARIN SOD 5000 UNIT/0.5 ML CARP SQ SCH ×3 (05:46→21:50)
[2016-11-20 07:29] VITALS: BP 109/69; PULSE 72; TEMP 37.1; O2SAT 94
--- NOTE | 2016-11-20 09:42 | Hospitalist Progress Note ---
Hospitalist Progress Note Date of Service Nov 20, 2016. (Yaima River ., PA-C) Subjective Pt evaluation today including: conversation w/ patient, physical exam, review of inpatient medication list Per overnight nursing notes, patient aggressive overnight and required IM Haldol /Ativan. Did not have IV site and refused oral medications. Patient alert/oriented. Sitting in bedside chair. Denies any complaints. Eating and drinking OK. She is anxious for discharge. Discussed needing IM injections last evening- she recalls events and is very unhappy. Discussed needing to take PO medications- in agreement. Patient denies any fever, chills, sweats, lightheadedness, dizziness, vision changes, CP, palpitations, edema, SOB, wheezing, cough, abdominal pain, nausea, vomiting, diarrhea, urinary symptoms, melena, numbness/tingling, weakness, muscle/joint pain, anxiety/depression, active bleeding, or new skin discoloration/changes. (Yaima River ., PA-C) Medications Current Inpatient Medications Medications (Trade) Dose Ordered Sig/Marisa Route Start Time Stop Time Status Last Admin Dose Admin Ondansetron HCl (Zofran Inj) 4 mg Q6H PRN IV 11/02/16 22:00 12/02/16 21:59 Vitamin B Complex (Vitamin B Complex) 1 tab QAM PO 11/03/16 09:00 12/03/16 08:59 11/19/16 09:06 1 TAB Calcium/Vitamin D (Caltrate Plus Tab) 1 tab QAM PO 11/03/16 09:00 12/03/16 08:59 11/19/16 09:05 1 TAB Diclofenac Sodium (Voltaren 1% Top Gel) 1 appln DAILY PRN EXT 11/02/16 22:15 12/02/16 22:14 11/18/16 14:51 1 APPLN Escitalopram Oxalate (Lexapro Tab) 10 mg DAILY PO 11/03/16 09:00 12/03/16 08:59 11/19/16 09:07 10 MG Multivitamins (Multivitamin Tab) 1 tab HS PO 11/03/16 21:00 12/03/16 20:59 11/18/16 22:15 1 TAB Senna/Docusate Sodium (Senokot S Tab) 1 tab QAM PO 11/03/16 09:00 12/03/16 08:59 11/19/16 09:07 1 TAB Heparin Sodium (Porcine) (Heparin Sq 5000 Unit/0.5ml) 5,000 unit Q8 SQ 11/04/16 14:00 12/04/16 13:59 11/19/16 13:31 5,000 UNIT Metoprolol Succinate (Toprol Xl Tab) 25 mg DAILY PO 11/09/16 09:00 12/09/16 08:59 11/19/16 09:06 25 MG Folic Acid (Folvite Tab) 400 mcg QAM PO 11/09/16 09:00 12/09/16 08:59 11/19/16 09:06 400 MCG Thiamine HCl (Vitamin B-1 Tab) 200 mg BID PO 11/10/16 09:00 12/09/16 08:59 11/19/16 09:08 200 MG Enteral Nutritional Formula (Boost) 1 can BID@0830,2100 PO 11/10/16 21:00 12/10/16 20:59 11/18/16 22:11 1 CAN Potassium Chloride (Klor-Con Tab) 20 meq QAM PO 11/12/16 09:00 12/12/16 08:59 11/19/16 09:05 20 MEQ Haloperidol (Haldol Tab) 2.5 mg Q6H PRN PO 11/11/16 17:00 12/11/16 16:59 11/14/16 18:42 2.5 MG Triamcinolone Acetonide (Triamcinolone Acet 0.1% Crm) 1 appln TID EXT 11/12/16 09:00 12/12/16 08:59 11/18/16 22:18 1 APPLN Chlordiazepoxide (Librium Cap) 25 mg Q8H PO 11/15/16 17:00 12/03/16 13:59 11/20/16 01:13 25 MG Lorazepam (Ativan Inj) 2 mg Q4H PRN IV 11/16/16 16:30 12/16/16 16:29 Future Hold 11/17/16 12:31 2 MG Lorazepam 2 mg/ Syringe 2 ml @ 1 mls/min Q4H PRN IV 11/16/16 16:30 12/16/16 16:29 Future Hold 11/19/16 02:34 1 MLS/MIN Haloperidol Lactate (Haldol Inj) 5 mg QPM PRN IM 11/17/16 21:45 12/17/16 21:44 11/19/16 17:56 5 MG Lorazepam (Ativan Tab) 1 mg Q4H PRN PO 11/19/16 16:00 12/19/16 15:59 11/19/16 17:18 1 MG Lorazepam (Ativan Tab) 2 mg Q6H PRN PO 11/19/16 16:00 12/19/16 15:59 Acetaminophen (Tylenol Tab) 325 mg Q4H PRN PO 11/19/16 16:00 12/19/16 15:59 11/19/16 22:02 325 MG Lorazepam (Ativan Inj) 2 mg Q2H PRN IM 11/19/16 20:00 12/19/16 19:59 11/20/16 01:14 2 MG (Yaima River, PA-C) Objective Vital Signs Date Time Temp Pulse Resp B/P (MAP) Pulse Ox O2 Delivery O2 Flow Rate FiO2 11/20/16 07:29 37.1 72 18 109/69 (82) 94 Room Air 11/20/16 00:51 37.1 71 16 127/78 (94) 96 Room Air 11/19/16 16:00 Room Air 11/19/16 14:51 36.9 73 18 109/72 (84) 94 Room Air (Yaima River, PA-C) Physical Exam General Appearance: no apparent distress, + thin Eyes: PERRL ENT: hearing grossly normal Neck: supple Respiratory/Chest: lungs clear, no respiratory distress, no accessory muscle use Cardiovascular: regular rate, rhythm Abdomen: normal bowel sounds, non tender, soft Extremities: no pedal edema, no calf tenderness Neurologic/Psychiatric: alert, oriented x 3 Skin: normal color, warm/dry, no rash (Yaima River, PA-C) Assessment and Plan The patient is a 61-year-old female being treated for: Alcohol withdrawal w/ encephalopathy- IMPROVING: - Lexapro 10 mg by mouth daily - Librium 25 mg TID- wean to 20 mg TID today - IV Ativan or Haldol PRN- transition to PO Ativan PRN and Haldol PO PRN in preparation for discharge - Thiamine and folic acid supplement Depression/anxiety: - Lexapro 10 mg daily- consideration for increased dose when stable from withdrawal - Psych following- recommending psychiatric monitoring as outpatient with follow -up Severe deconditioning and mod/severe protein/caloric malnutrition: - Pending placemetn - Continue PT/OT - Boost- encourage intake HTN- STABLE: Metoprolol 25 mg daily Severe sepsis/right elbow cellulitis- RESOLVED: Treated w/ IV Rocephin Hypomagnesemia- RESOLVED: Treated w/ IV and PO Mag supplement Hypernatremia- RESOLVED ARF- RESOLVED Thrombocytopenia- RESOLVED DVT prophylaxis: Heparin TID Code Status: LEVEL I, FULL Dispo: Pending placement- clinical social worker and PT/OT consulted (Yaima River, PAVernaC) I examined patient and reviewed note. General Appearance: no apparent distress Eyes: PERRL ENT: hearing grossly normal Neck: supple Respiratory/Chest: lungs clear, no respiratory distress, no accessory muscle use Cardiovascular: regular rate, rhythm Abdomen: normal bowel sounds, non tender, soft Extremities: no pedal edema, no calf tenderness Neurologic/Psychiatric: alert, oriented x 3 Skin: normal color, warm/dry, no rash I discussed case with APC and agree with plan. (Evens Mcdonald M.D.)
[2016-11-20] MEDS: DOCUSATE SODIUM/SENNA 50/8.6MG TAB PO SCH (10:19)
[2016-11-20] MEDS: FoLIC ACID TAB 400 MCG TAB PO SCH (10:19)
[2016-11-20] MEDS: VITAMIN B COMPLEX TAB PO SCH (10:19)
[2016-11-20] MEDS: METOPROLOL SUCC 25MG EXT REL TAB PO SCH ×2 (10:20→10:24)
[2016-11-20] MEDS: THIAMINE HCL 100 MG TAB PO SCH ×2 (10:20→21:00)
[2016-11-20] MEDS: ESCITALOPRAM OXALATE 10 MG TAB PO SCH (10:20)
[2016-11-20] MEDS: BOOST VANILLA PO SCH ×4 (10:21→21:00)
[2016-11-20] MEDS: TRIAMCINOLONE ACET 0.1% CR 80 GM TUBE EXT SCH ×3 (10:21→21:00)
[2016-11-20] MEDS: CALCIUM 600MG + VIT D 400 IU TAB PO SCH (10:21)
[2016-11-20] MEDS: POTASSIUM CHLORIDE 20 MEQ TABCR PO SCH (10:21)
[2016-11-20 10:24] VITALS: BP 97/57; PULSE 70
[2016-11-20] MEDS: CHLORDIAZEPOXIDE 10 MG CAP PO SCH ×3 (13:03→21:00)
[2016-11-20] MEDS: ACETAMINOPHEN 325 MG TAB PO PRN (14:50)
[2016-11-20 15:24] VITALS: BP 115/75; PULSE 73; TEMP 36.3; O2SAT 96
[2016-11-20] MEDS: HALOPERIDOL LACTATE 5 MG/ML 1 ML VIAL IM PRN (19:32)
[2016-11-20] MEDS: MULTIVITAMIN TAB PO SCH (21:00)
[2016-11-20] MEDS ORDERED: HALOPERIDOL LACTATE 5 MG/ML 1 ML VIAL IV STA (22:29)
[2016-11-20] MEDS ORDERED: HALOPERIDOL LACTATE 5 MG/ML 1 ML VIAL IM STA (22:33)
[2016-11-21] MEDS: HEPARIN SOD 5000 UNIT/0.5 ML CARP SQ SCH ×3 (06:00→20:39)
[2016-11-21] MEDS: TRIAMCINOLONE ACET 0.1% CR 80 GM TUBE EXT SCH ×3 (07:58→20:35)
[2016-11-21] MEDS: BOOST VANILLA PO SCH ×4 (07:58→20:37)
[2016-11-21] MEDS: POTASSIUM CHLORIDE 20 MEQ TABCR PO SCH (09:00)
[2016-11-21] MEDS: DOCUSATE SODIUM/SENNA 50/8.6MG TAB PO SCH (09:00)
[2016-11-21 09:55] VITALS: BP 127/88; PULSE 135; TEMP 36.4; O2SAT 93
[2016-11-21] MEDS: THIAMINE HCL 100 MG TAB PO SCH ×2 (10:04→20:39)
[2016-11-21] MEDS: METOPROLOL SUCC 25MG EXT REL TAB PO SCH (10:05)
[2016-11-21] MEDS: FoLIC ACID TAB 400 MCG TAB PO SCH (10:06)
[2016-11-21] MEDS: VITAMIN B COMPLEX TAB PO SCH (10:06)
[2016-11-21] MEDS: CALCIUM 600MG + VIT D 400 IU TAB PO SCH (10:06)
[2016-11-21] MEDS: ESCITALOPRAM OXALATE 10 MG TAB PO SCH (10:07)
[2016-11-21] MEDS: CHLORDIAZEPOXIDE 10 MG CAP PO SCH ×3 (10:07→20:51)
[2016-11-21] MEDS: HALOPERIDOL 5 MG TAB PO PRN ×2 (10:08→20:37)
[2016-11-21 11:45] LABS: HEMATOCRIT 37.7 % (37-47); MEAN CELL VOLUME 101.3 fL (80-100); MEAN CORPUSCULAR HEMOGLOBIN 34.7 pg (25-34); MEAN CORPUSCULAR HGB CONC 34.2 g/dl (32-36); PLATELET COUNT 314 K/uL (130-400); RED BLOOD COUNT 3.72 M/uL (4.2-5.4); WHITE BLOOD COUNT 7.48 K/uL (4.8-10.8)
[2016-11-21 12:08] LABS: BUN/CREATININE RATIO 8.4 (10-20); CALCIUM 9.9 mg/dl (8.5-10.1); CREATININE 0.69 mg/dl (0.60-1.20); MAGNESIUM 1.7 mg/dl (1.8-2.4); POTASSIUM 3.9 mmol/L (3.5-5.1)
[2016-11-21] MEDS ORDERED: MAGNESIUM SULFATE 1GM / D5W 1 GM in PREMIXED IN D5W 100 ML IV ONE (12:45)
--- NOTE | 2016-11-21 13:42 | Hospitalist Progress Note ---
Hospitalist Progress Note Date of Service Nov 21, 2016. (Yaima River ., PAVernaC) Subjective Pt evaluation today including: conversation w/ patient, conversation w/ family (cousin at bedside), physical exam, lab review, review of studies, conversation w/ showroom sales consultant, review of inpatient medication list Voiding: no voiding problems Patient denies any complaints. Sitting in bedside chair eating lunch. Alert/oriented- oriented to person, month, year, location. Although, thought it was Saturday. Aggressive/agitated overnight- required Haldol/Ativan. Placed back on 1:1. Will ask psych to reevaluate patient as her behavior issues are hindering discharge. Medically she is stable. Fell today while ambulating in room. Staff present. Hit her knee. No LOC/syncope , or head injury. Eating and drinking OK. At times refusing PO medications. Patient denies any fever, chills, sweats, lightheadedness, dizziness, vision changes, CP, palpitations, edema, SOB, wheezing, cough, abdominal pain, nausea, vomiting, diarrhea, urinary symptoms, melena, numbness/tingling, weakness, muscle/joint pain, anxiety/depression, active bleeding, or new skin discoloration/changes. Spoke w/ psychiatry- recommend avoiding Ativan as could be contributing to symptoms and using Haldol PRN. Recommend continuing Librium wean. (Yaima River ., PA-C) Medications Current Inpatient Medications Medications (Trade) Dose Ordered Sig/Marisa Route Start Time Stop Time Status Last Admin Dose Admin Ondansetron HCl (Zofran Inj) 4 mg Q6H PRN IV 11/02/16 22:00 12/02/16 21:59 Vitamin B Complex (Vitamin B Complex) 1 tab QAM PO 11/03/16 09:00 12/03/16 08:59 11/21/16 10:06 1 TAB Calcium/Vitamin D (Caltrate Plus Tab) 1 tab QAM PO 11/03/16 09:00 12/03/16 08:59 11/21/16 10:06 1 TAB Diclofenac Sodium (Voltaren 1% Top Gel) 1 appln DAILY PRN EXT 11/02/16 22:15 12/02/16 22:14 11/18/16 14:51 1 APPLN Escitalopram Oxalate (Lexapro Tab) 10 mg DAILY PO 11/03/16 09:00 12/03/16 08:59 11/21/16 10:07 10 MG Multivitamins (Multivitamin Tab) 1 tab HS PO 11/03/16 21:00 12/03/16 20:59 11/18/16 22:15 1 TAB Senna/Docusate Sodium (Senokot S Tab) 1 tab QAM PO 11/03/16 09:00 12/03/16 08:59 11/20/16 10:19 1 TAB Heparin Sodium (Porcine) (Heparin Sq 5000 Unit/0.5ml) 5,000 unit Q8 SQ 11/04/16 14:00 12/04/16 13:59 11/19/16 13:31 5,000 UNIT Metoprolol Succinate (Toprol Xl Tab) 25 mg DAILY PO 11/09/16 09:00 12/09/16 08:59 11/21/16 10:05 25 MG Folic Acid (Folvite Tab) 400 mcg QAM PO 11/09/16 09:00 12/09/16 08:59 11/21/16 10:06 400 MCG Thiamine HCl (Vitamin B-1 Tab) 200 mg BID PO 11/10/16 09:00 12/09/16 08:59 11/21/16 10:04 100 MG Enteral Nutritional Formula (Boost) 1 can BID@0830,2100 PO 11/10/16 21:00 12/10/16 20:59 11/18/16 22:11 1 CAN Potassium Chloride (Klor-Con Tab) 20 meq QAM PO 11/12/16 09:00 12/12/16 08:59 11/20/16 10:21 20 MEQ Haloperidol (Haldol Tab) 2.5 mg Q6H PRN PO 11/11/16 17:00 12/11/16 16:59 11/21/16 10:08 2.5 MG Triamcinolone Acetonide (Triamcinolone Acet 0.1% Crm) 1 appln TID EXT 11/12/16 09:00 12/12/16 08:59 11/18/16 22:18 1 APPLN Lorazepam (Ativan Inj) 2 mg Q4H PRN IV 11/16/16 16:30 12/16/16 16:29 Future Hold 11/17/16 12:31 2 MG Lorazepam 2 mg/ Syringe 2 ml @ 1 mls/min Q4H PRN IV 11/16/16 16:30 12/16/16 16:29 Future Hold 11/19/16 02:34 1 MLS/MIN Haloperidol Lactate (Haldol Inj) 5 mg QPM PRN IM 11/17/16 21:45 12/17/16 21:44 11/20/16 19:32 5 MG Lorazepam (Ativan Tab) 1 mg Q4H PRN PO 11/19/16 16:00 12/19/16 15:59 11/19/16 17:18 1 MG Lorazepam (Ativan Tab) 2 mg Q6H PRN PO 11/19/16 16:00 12/19/16 15:59 Acetaminophen (Tylenol Tab) 325 mg Q4H PRN PO 11/19/16 16:00 12/19/16 15:59 11/20/16 14:50 325 MG Lorazepam (Ativan Inj) 2 mg Q2H PRN IM 11/19/16 20:00 12/19/16 19:59 11/20/16 21:49 2 MG Chlordiazepoxide (Librium Cap) 20 mg TID PO 11/20/16 10:00 12/20/16 09:59 11/21/16 10:07 20 MG Trazodone HCl (Desyrel Tab) 50 mg HS PO 11/21/16 21:00 12/21/16 20:59 Magnesium Sulfate 1 gm/Prmx 100 ml @ 100 mls/hr TODAY@1245 ONCE IV 11/21/16 12:45 11/21/16 13:44 (Yaima River ., PA-C) Objective Vital Signs Date Time Temp Pulse Resp B/P (MAP) Pulse Ox O2 Delivery O2 Flow Rate FiO2 11/21/16 09:55 36.4 135 18 127/88 (101) 93 Room Air 11/20/16 23:39 Room Air 11/20/16 16:00 Room Air 11/20/16 15:24 36.3 73 16 115/75 (88) 96 Room Air (Yaima River, PA-C) Physical Exam General Appearance: no apparent distress, + thin Eyes: PERRL ENT: hearing grossly normal Neck: supple Respiratory/Chest: lungs clear, no respiratory distress, no accessory muscle use Cardiovascular: regular rate, rhythm Abdomen: normal bowel sounds, non tender, soft Extremities: no pedal edema, no calf tenderness Neurologic/Psychiatric: alert, + depressed affect Skin: normal color, warm/dry, no rash (Yaima River, IDAC) Laboratory Results Last 24 Hours Test 11/21/16 11:23 White Blood Count 7.48 K/uL Red Blood Count 3.72 M/uL Hemoglobin 12.9 g/dL Hematocrit 37.7 % Mean Corpuscular Volume 101.3 fL Mean Corpuscular Hemoglobin 34.7 pg Mean Corpuscular Hemoglobin Concent 34.2 g/dl RDW Standard Deviation 51.0 fL RDW Coefficient of Variation 13.7 % Platelet Count 314 K/uL Mean Platelet Volume 10.0 fL Sodium Level 139 mmol/L Potassium Level 3.9 mmol/L Chloride Level 103 mmol/L Carbon Dioxide Level 26 mmol/L Anion Gap 10.0 mmol/L Blood Urea Nitrogen 6 mg/dl Creatinine 0.69 mg/dl Est Creatinine Clear Calc Drug Dose 63.2 ml/min Estimated GFR () 110.4 Estimated GFR (Non- 95.3 BUN/Creatinine Ratio 8.4 Random Glucose 104 mg/dl Calcium Level 9.9 mg/dl Magnesium Level 1.7 mg/dl (Yaima River, IDAC) Assessment and Plan The patient is a 61-year-old female being treated for: Alcohol withdrawal w/ encephalopathy- IMPROVING: - Lexapro 10 mg by mouth daily - Librium 25 mg TID- weaning- decreased to 20 BID - PO Ativan or IV/PO Haldol PRN- psychiatry recommending use of Haldol over Ativan -- Haldol 2.5 mg q6 hrs PO PRN and IV Haldol 5 mg q4 hrs PRN if PO cannot be administered -- Ativan 0.5 mg q4 hrs PO PRN available, but limit use - Trazodone 50 mg HS to help reduce nighttime anxiety/agitation - Thiamine and folic acid supplement Depression/anxiety: - Lexapro 10 mg daily- consideration for increased dose when stable from withdrawal - Psych consulted- recommending psychiatric monitoring as outpatient with follow -up Severe deconditioning and mod/severe protein/caloric malnutrition: - Pending placement - Continue PT/OT - Boost- encourage intake HTN- STABLE: Metoprolol 25 mg daily Severe sepsis/right elbow cellulitis- RESOLVED: Treated w/ IV Rocephin Hypomagnesemia: Treat w/ IV 1 gm mag supplement, continue to follow mag level Hypernatremia- RESOLVED ARF- RESOLVED Thrombocytopenia- RESOLVED DVT prophylaxis: Heparin TID Code Status: LEVEL I, FULL Dispo: Pending placement- social research assistant and PT/OT consulted (Yaima River, PAVernaC) I examined patient and reviewed note. General Appearance: no apparent distress, + thin Eyes: PERRL ENT: hearing grossly normal Neck: supple Respiratory/Chest: lungs clear, no respiratory distress, no accessory muscle use Cardiovascular: regular rate, rhythm Abdomen: normal bowel sounds, non tender, soft Extremities: no pedal edema, no calf tenderness Neurologic/Psychiatric: alert, + depressed affect, oriented x1 Skin: normal color, warm/dry, no rash I discussed case with APC and agree with plan. (Evens Mcdonald M.D.)
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
[2016-11-21] MEDS ORDERED: LORAZEPAM 0.5 MG TAB PO PRN (14:45)
[2016-11-21 15:20] VITALS: BP 108/73; PULSE 78; TEMP 36.3; O2SAT 98
[2016-11-21] MEDS: ACETAMINOPHEN 325 MG TAB PO PRN (20:00)
[2016-11-21] MEDS: MULTIVITAMIN TAB PO SCH (20:39)
[2016-11-21] MEDS: HALOPERIDOL LACTATE 5 MG/ML 1 ML VIAL IM PRN (20:57)
[2016-11-21] MEDS ORDERED: TRAZODONE HCL 50 MG TAB PO SCH (21:00)
[2016-11-21] MEDS ORDERED: OLANZAPINE 10 MG/2.1 ML SDV IM ONE (22:15)
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
[2016-11-22] MEDS: HEPARIN SOD 5000 UNIT/0.5 ML CARP SQ SCH ×3 (05:27→21:22)
[2016-11-22 06:44] VITALS: BP 143/82; PULSE 78; TEMP 36.6; O2SAT 97
[2016-11-22 07:12] VITALS: BP 126/74; PULSE 82
[2016-11-22] MEDS: BOOST VANILLA PO SCH ×4 (07:18→21:00)
[2016-11-22] MEDS: TRIAMCINOLONE ACET 0.1% CR 80 GM TUBE EXT SCH ×3 (07:18→21:24)
[2016-11-22] MEDS: CHLORDIAZEPOXIDE 10 MG CAP PO SCH ×2 (07:20→21:22)
[2016-11-22] MEDS: METOPROLOL SUCC 25MG EXT REL TAB PO SCH (07:20)
[2016-11-22] MEDS: ESCITALOPRAM OXALATE 10 MG TAB PO SCH (07:20)
[2016-11-22] MEDS: HALOPERIDOL 5 MG TAB PO PRN ×2 (07:21→16:13)
[2016-11-22] MEDS: FoLIC ACID TAB 400 MCG TAB PO SCH (07:22)
[2016-11-22] MEDS: DOCUSATE SODIUM/SENNA 50/8.6MG TAB PO SCH (07:22)
[2016-11-22] MEDS: VITAMIN B COMPLEX TAB PO SCH (07:22)
[2016-11-22] MEDS: POTASSIUM CHLORIDE 20 MEQ TABCR PO SCH (07:22)
[2016-11-22] MEDS: CALCIUM 600MG + VIT D 400 IU TAB PO SCH (07:22)
[2016-11-22] MEDS: THIAMINE HCL 100 MG TAB PO SCH ×2 (07:23→21:00)
--- NOTE | 2016-11-22 11:46 | Hospitalist Progress Note ---
Hospitalist Progress Note Date of Service Nov 22, 2016. (Yaima River ., PA-C) Subjective Pt evaluation today including: conversation w/ patient, conversation w/ family (CousinRobbie on the phone ), physical exam, lab review, review of studies, review of inpatient medication list Patient laying in bed in restraints. Very aggressive overnight. Required Haldol and Zyprexa. Still agitated this AM requiring Haldol. Per Dr. Rosen- psych recommending Zyprexa 5 mg HS . Case management requesting neurology consultation to r/o neurological causes. Patient continues to threaten leaving AMA. Will need psychiatry to review capacity. Refusing PO medications. Confused- states her name is Elsa, thinks its November 25. ROS cannot be obtained secondary to mental status. Called and update CousinGoran. At this time, is POA- however, he recently suffered a CVA and is requiring hospitalization himself. Robbie states he was in the process of becoming both of their POAs but they got sick before it could be done. All questions/concerns answered at this time. (Yaima River ., PA-C) Medications Current Inpatient Medications Medications (Trade) Dose Ordered Sig/Marisa Route Start Time Stop Time Status Last Admin Dose Admin Ondansetron HCl (Zofran Inj) 4 mg Q6H PRN IV 11/02/16 22:00 12/02/16 21:59 Vitamin B Complex (Vitamin B Complex) 1 tab QAM PO 11/03/16 09:00 12/03/16 08:59 11/21/16 10:06 1 TAB Calcium/Vitamin D (Caltrate Plus Tab) 1 tab QAM PO 11/03/16 09:00 12/03/16 08:59 11/21/16 10:06 1 TAB Diclofenac Sodium (Voltaren 1% Top Gel) 1 appln DAILY PRN EXT 11/02/16 22:15 12/02/16 22:14 11/18/16 14:51 1 APPLN Escitalopram Oxalate (Lexapro Tab) 10 mg DAILY PO 11/03/16 09:00 12/03/16 08:59 11/22/16 07:20 10 MG Multivitamins (Multivitamin Tab) 1 tab HS PO 11/03/16 21:00 12/03/16 20:59 11/21/16 20:39 1 TAB Senna/Docusate Sodium (Senokot S Tab) 1 tab QAM PO 11/03/16 09:00 12/03/16 08:59 11/20/16 10:19 1 TAB Heparin Sodium (Porcine) (Heparin Sq 5000 Unit/0.5ml) 5,000 unit Q8 SQ 11/04/16 14:00 12/04/16 13:59 11/19/16 13:31 5,000 UNIT Metoprolol Succinate (Toprol Xl Tab) 25 mg DAILY PO 11/09/16 09:00 12/09/16 08:59 11/22/16 07:20 25 MG Folic Acid (Folvite Tab) 400 mcg QAM PO 11/09/16 09:00 12/09/16 08:59 11/21/16 10:06 400 MCG Thiamine HCl (Vitamin B-1 Tab) 200 mg BID PO 11/10/16 09:00 12/09/16 08:59 11/21/16 20:39 200 MG Enteral Nutritional Formula (Boost) 1 can BID@0830,2100 PO 11/10/16 21:00 12/10/16 20:59 11/18/16 22:11 1 CAN Potassium Chloride (Klor-Con Tab) 20 meq QAM PO 11/12/16 09:00 12/12/16 08:59 11/20/16 10:21 20 MEQ Haloperidol (Haldol Tab) 2.5 mg Q6H PRN PO 11/11/16 17:00 12/11/16 16:59 11/22/16 07:21 2.5 MG Triamcinolone Acetonide (Triamcinolone Acet 0.1% Crm) 1 appln TID EXT 11/12/16 09:00 12/12/16 08:59 11/18/16 22:18 1 APPLN Lorazepam (Ativan Inj) 2 mg Q4H PRN IV 11/16/16 16:30 12/16/16 16:29 Future Hold 11/17/16 12:31 2 MG Lorazepam 2 mg/ Syringe 2 ml @ 1 mls/min Q4H PRN IV 11/16/16 16:30 12/16/16 16:29 Future Hold 11/19/16 02:34 1 MLS/MIN Lorazepam (Ativan Tab) 1 mg Q4H PRN PO 11/19/16 16:00 12/19/16 15:59 Future Hold 11/19/16 17:18 1 MG Lorazepam (Ativan Tab) 2 mg Q6H PRN PO 11/19/16 16:00 12/19/16 15:59 Future Hold Acetaminophen (Tylenol Tab) 325 mg Q4H PRN PO 11/19/16 16:00 12/19/16 15:59 11/21/16 20:00 325 MG Lorazepam (Ativan Inj) 2 mg Q2H PRN IM 11/19/16 20:00 12/19/16 19:59 Future Hold 11/20/16 21:49 2 MG Trazodone HCl (Desyrel Tab) 50 mg HS PO 11/21/16 21:00 12/21/16 20:59 11/21/16 20:39 50 MG Chlordiazepoxide (Librium Cap) 20 mg BID PO 11/21/16 21:00 12/20/16 09:59 11/22/16 07:20 20 MG Haloperidol Lactate (Haldol Inj) 5 mg Q4H PRN IM 11/21/16 14:30 12/21/16 14:29 11/21/16 20:57 5 MG Lorazepam (Ativan Tab) 0.5 mg Q4H PRN PO 11/21/16 14:45 12/21/16 14:44 Future Hold Olanzapine (Zyprexa Tab) 5 mg HS PO 11/22/16 21:00 12/22/16 20:59 (Yaima River ., PA-C) Objective Vital Signs Date Time Temp Pulse Resp B/P (MAP) Pulse Ox O2 Delivery O2 Flow Rate FiO2 11/22/16 08:00 Room Air 11/22/16 07:12 82 126/74 (91) 11/22/16 06:44 36.6 78 18 143/82 (102) 97 Room Air 11/22/16 00:00 Room Air 11/21/16 20:00 Room Air 11/21/16 16:00 Room Air 11/21/16 15:20 36.3 78 18 108/73 (85) 98 Room Air (Yaima River, PA-C) Physical Exam General Appearance: no apparent distress, + thin, + pertinent finding (in restraints ) ENT: hearing grossly normal Neck: supple Respiratory/Chest: lungs clear, no respiratory distress, no accessory muscle use Cardiovascular: regular rate, rhythm Abdomen: normal bowel sounds, non tender, soft Extremities: no pedal edema, no calf tenderness Neurologic/Psychiatric: alert, + disoriented Skin: normal color, warm/dry, no rash (Yaima River, IDAC) Laboratory Results Last 24 Hours Test 11/22/16 05:29 Magnesium Level 1.8 mg/dl (Yaima River PA-C) Assessment and Plan The patient is a 61-year-old female being treated for: Alcohol withdrawal w/ encephalopathy: - Lexapro 10 mg by mouth daily - Librium 25 mg TID- weaning- decreased to 20 BID - PO Ativan or IV/PO Haldol PRN- psychiatry recommending use of Haldol over Ativan -- Haldol 2.5 mg q6 hrs PO PRN and IV Haldol 5 mg q4 hrs PRN if PO cannot be administered -- Ativan 0.5 mg q4 hrs PO PRN available, but limit use - Trazodone 50 mg HS + Zyprexa 5 mg HS to help reduce nighttime anxiety/ agitation per pysch - Thiamine and folic acid supplement - Repeat CMP tomorrow AM, check UA, repeat head CT due to worsening mental status - Consult neurology, appreciate recommendations- ?need for EEG, or LP Depression/anxiety: - Lexapro 10 mg daily- consideration for increased dose when stable from withdrawal - Psych consulted- recommending psychiatric monitoring as outpatient with follow -up Severe deconditioning and mod/severe protein/caloric malnutrition: - Pending placement - Continue PT/OT - Boost- encourage intake HTN- STABLE: Metoprolol 25 mg daily Severe sepsis/right elbow cellulitis- RESOLVED: Treated w/ IV Rocephin Hypomagnesemia- RESOLVED: Treated w/ IV and PO Mag supplement Hypernatremia- RESOLVED ARF- RESOLVED Thrombocytopenia- RESOLVED DVT prophylaxis: Heparin TID Code Status: LEVEL I, FULL Dispo: Pending placement- social media community manager and PT/OT consulted (Yaima River, IDAC) I examined patient and reviewed above note. General Appearance: no apparent distress, + thin, + pertinent finding (in restraints ) ENT: hearing grossly normal Neck: supple Respiratory/Chest: lungs clear, no respiratory distress, no accessory muscle use Cardiovascular: regular rate, rhythm Abdomen: normal bowel sounds, non tender, soft Extremities: no pedal edema, no calf tenderness Neurologic/Psychiatric: alert, + disoriented Skin: normal color, warm/dry, no rash I discussed case wtih APC and agree with current plan of care. (Evens Mcdonald M.D.)
--- NOTE | 2016-11-22 13:16 | Psychiatric Progress Notes ---
Psychiatric Progress Note Date of Service Nov 22, 2016. Notes ID: Patient reviewed with liaison nurse and interval records reviewed. Initial consult completed by Dr. Napier for depression and anxiety, and patient has since been seen by multiple psychiatric providers, who have recommended limiting lorazepam use, as she was showing signs of benzodiazepine intoxication , which can worsen delirium and cause disinhibition, and that Haldol be used for agitation instead. I saw her yesterday, discussed the case with the PA, and recommended that Haldol be used for agitation and lorazepam discontinued, while continuing to taper her off chlordiazepoxide for alcohol withdrawal. CC: delirium, agitation HPI: Over night, the patient was again agitated and combative with staff, received 5 mg of Haldol and then 10 mg of olanzapine, and this morning is in soft restraints. On my assessment, she states that she is "doing better," but says she has "no clue" what happened last night. She claims not to remember being aggressive towards staff. She says "all this headache broke loose at wants," but can't explain this statement further. She then starts talking about her [id number] having a stroke, and another family member with cancer. She refuses to answer orientation questions, and her speech is slurred and difficult to understand at times. She then proceeds to search for "a green camera, I just had it, now I can't find it." She demands to know "for sure when I'm getting out of here?" ROS: Denies pain, GI symptoms, BARROW, URI and UTI sx. MSE: Thin, unkempt, malodorous WF appearing older than stated age. Wearing a hospital gown, lying in bed in wrist restraints. Alert, refusing to answer orientation questions, irritable and partially cooperative, thoughts confused, and times answering with irrelevant or unrelated information. Mood is "better, " and affect is restricted to confused and irritable. No SI/HI, and doesn't appear to be responding to internal stimuli. Insight and judgement are limited. Dx: Alcohol withdrawal delirium Recs: 1. Delirium: Avoid excessive benzodiazepines, as was intoxicated on lorazepam and chlordiazepoxide earlier in her stay, likely worsening delirium and disinhibiting her, leading to increased risk of aggression towards staff and falls. Taper chlordiazepoxide as able while monitoring VS, and can use haloperidol 5-10mg oral olanzapine as needed for agitation. Olanzapine 5 mg daily at bedtime has been scheduled by the primary team, as well as trazodone 50 mg daily at bedtime. It can be helpful to give a scheduled antipsychotic prior to the typical time that delirious patients become more confused and agitated. -Avoid deliriogenic medications, including benzodiazepines, antihistamines, anticholinergics, and opiates. -Defer escitalopram titration to outpatient. -Liaison nurse provided her with a list of local providers, and can assist with outpatient therapy/psych referrals if patient decides she wishes to pursue treatment.
[2016-11-22] MEDS ORDERED: OLANZAPINE 10 MG/2.1 ML SDV IM PRN (14:30)
[2016-11-22 14:50] VITALS: BP 146/87; PULSE 77; TEMP 36.5; O2SAT 95
[2016-11-22 16:35] LABS: URINE APPEARANCE CLEAR (CLEAR); URINE BILIRUBIN NEG (NEG); URINE COLOR YELLOW; URINE EPITHELIAL CELL AUTO >30 /lpf (0-5); URINE NITRITE NEG (NEG); URINE SPECIFIC GRAVITY 1.014 (1.000-1.030); UROBILINOGEN NEG (NEG); ZZUR CULT IF INDIC CLEAN CATCH NO
[2016-11-22 16:36] LABS: MANUAL MICROSCOPIC REQUIRED? NO; REVIEW REQ? NO
--- NOTE | 2016-11-22 17:28 | DIAGNOSTIC IMAGING REPORT ---
HEAD CT NONCONTRAST CT DOSE: 700.35 mGycm HISTORY: altered mental status TECHNIQUE: Multiaxial CT images of the head were performed without the use of intravenous contrast. Automated exposure control was utilized for this study. A dose lowering technique was utilized adhering to the principles of ALARA. Comparison: Head CT 11/03/2016. Findings: The paranasal sinuses and mastoid air cells are clear. The calvarium and skull base are intact. The ventricles and sulci are within normal limits. There is no mass, hematoma, midline shift, or acute infarct. Impression: No significant change compared to the prior study. No acute intracranial abnormality. Electronically signed by: William Jane M.D. 11/22/2016 5:26 PM Dictated Date/Time: 11/22/2016 5:23 PM
[2016-11-22] MEDS ORDERED: TRAZODONE HCL 50 MG TAB PO SCH (18:30)
[2016-11-22] MEDS ORDERED: OLANZAPINE 5 MG TAB PO SCH ×2 (18:30→21:00)
[2016-11-22 20:00] VITALS: O2SAT 95
[2016-11-22] MEDS: MULTIVITAMIN TAB PO SCH (21:00)
[2016-11-22] MEDS: DICLOFENAC SOD 1% GEL 100 GM TUBE EXT PRN (21:23)
[2016-11-23] VITALS: O2SAT 95
[2016-11-23] MEDS: HEPARIN SOD 5000 UNIT/0.5 ML CARP SQ SCH ×3 (05:54→20:55)
[2016-11-23] MEDS: TRIAMCINOLONE ACET 0.1% CR 80 GM TUBE EXT SCH ×3 (07:15→20:55)
[2016-11-23] MEDS: BOOST VANILLA PO SCH ×4 (07:15→20:50)
[2016-11-23 08:08] LABS: BUN/CREATININE RATIO 13.5 (10-20); CALCIUM 9.9 mg/dl (8.5-10.1); CREATININE 0.55 mg/dl (0.60-1.20); MAGNESIUM 1.8 mg/dl (1.8-2.4); POTASSIUM 3.9 mmol/L (3.5-5.1)
[2016-11-23 08:11] LABS: ALB/GLOB RATIO 0.8 (0.9-2)
[2016-11-23 08:29] VITALS: BP 114/74; PULSE 91; TEMP 36.6; O2SAT 93
[2016-11-23] MEDS: CHLORDIAZEPOXIDE 10 MG CAP PO SCH ×2 (09:00→20:49)
[2016-11-23] MEDS: CALCIUM 600MG + VIT D 400 IU TAB PO SCH (09:00)
[2016-11-23] MEDS: THIAMINE HCL 100 MG TAB PO SCH ×2 (09:00→20:51)
[2016-11-23] MEDS: POTASSIUM CHLORIDE 20 MEQ TABCR PO SCH (09:00)
[2016-11-23] MEDS: DOCUSATE SODIUM/SENNA 50/8.6MG TAB PO SCH (09:00)
[2016-11-23] MEDS: ESCITALOPRAM OXALATE 10 MG TAB PO SCH (09:00)
[2016-11-23] MEDS: VITAMIN B COMPLEX TAB PO SCH (09:00)
[2016-11-23] MEDS: METOPROLOL SUCC 25MG EXT REL TAB PO SCH (09:00)
[2016-11-23] MEDS: FoLIC ACID TAB 400 MCG TAB PO SCH (09:00)
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
--- NOTE | 2016-11-23 12:17 | Psychiatric Progress Notes ---
Psychiatric Progress Note Date of Service Nov 23, 2016. Notes ID: Patient reviewed with liaison nurse and interval records reviewed. Initial consult completed by Dr. Napier for depression and anxiety, and patient has since been seen by multiple psychiatric providers, who have recommended limiting lorazepam use, as she was showing signs of benzodiazepine intoxication , which can worsen delirium and cause disinhibition, and that Haldol be used for agitation instead. CC: delirium, agitation HPI: sleeping this am, out of wrist restraints, 1-on-1 at bedside reports no aggression overnight. PRN Ativan was discontinued. ROS: patient unable to complete MSE: sleeping, unable to fully assess Dx: Alcohol withdrawal delirium Recs: case discussed with nursing techn Joel Gomez. Zyprexa last evening and d/c of prn Ativans appears to have been helpful. Would encourage primary team to d/ c Librium at this point to minimize sedation with Zyprexa. Haldol IM still available as prn.
[2016-11-23] MEDS: HALOPERIDOL 5 MG TAB PO PRN (15:45)
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
[2016-11-23 15:56] VITALS: BP 124/72; PULSE 88; TEMP 36.7; O2SAT 94
[2016-11-23 16:00] VITALS: O2SAT 94
[2016-11-23] MEDS ORDERED: TRAZODONE HCL 50 MG TAB PO SCH (18:30)
[2016-11-23] MEDS: OLANZAPINE 5 MG TAB PO SCH (18:51)
[2016-11-23] MEDS: ACETAMINOPHEN 325 MG TAB PO PRN (20:49)
[2016-11-23] MEDS: MULTIVITAMIN TAB PO SCH (20:51)
[2016-11-23] MEDS: HALOPERIDOL LACTATE 5 MG/ML 1 ML VIAL IM PRN (21:36)
[2016-11-23 22:00] VITALS: BP 118/64; PULSE 74; TEMP 36.6; O2SAT 95
[2016-11-24] MEDS: HEPARIN SOD 5000 UNIT/0.5 ML CARP SQ SCH ×3 (07:17→21:12)
[2016-11-24 07:27] LABS: BUN/CREATININE RATIO 19.6 (10-20); CREATININE 0.51 mg/dl (0.60-1.20); MAGNESIUM 1.8 mg/dl (1.8-2.4); POTASSIUM 3.9 mmol/L (3.5-5.1)
[2016-11-24 07:29] LABS: ALB/GLOB RATIO 0.8 (0.9-2)
[2016-11-24 08:01] VITALS: BP 106/76; PULSE 107; TEMP 36.2; O2SAT 94
[2016-11-24] MEDS: DOCUSATE SODIUM/SENNA 50/8.6MG TAB PO SCH (08:43)
[2016-11-24] MEDS: CALCIUM 600MG + VIT D 400 IU TAB PO SCH (08:43)
[2016-11-24] MEDS: METOPROLOL SUCC 25MG EXT REL TAB PO SCH (08:44)
[2016-11-24] MEDS: FoLIC ACID TAB 400 MCG TAB PO SCH (08:46)
[2016-11-24] MEDS: POTASSIUM CHLORIDE 20 MEQ TABCR PO SCH (08:46)
[2016-11-24] MEDS: ESCITALOPRAM OXALATE 10 MG TAB PO SCH (08:46)
[2016-11-24] MEDS: VITAMIN B COMPLEX TAB PO SCH (08:46)
[2016-11-24] MEDS: THIAMINE HCL 100 MG TAB PO SCH ×2 (08:46→20:49)
[2016-11-24] MEDS: TRIAMCINOLONE ACET 0.1% CR 80 GM TUBE EXT SCH ×3 (08:47→20:49)
[2016-11-24] MEDS: ACETAMINOPHEN 325 MG TAB PO PRN (08:49)
[2016-11-24] MEDS: BOOST VANILLA PO SCH ×4 (08:49→20:48)
[2016-11-24] MEDS: CHLORDIAZEPOXIDE 10 MG CAP PO SCH ×2 (08:49→20:48)
--- NOTE | 2016-11-24 10:38 | Psychiatric Progress Notes ---
Psychiatric Progress Note Date of Service Nov 24, 2016. Notes interim progress reviewed, much more appropriate with prn antipsychotic given rather than Ativan. Sedation noted. Will d/c trazodone. Continue Zyprexa for now. I will take the liberty of decreasing Librium to 10 mg BID, primary team should continue taper. Would hold librium rather than Zyprexa for excessive sedation. Still got prn Haldol last pm so too early to taper Zyprexa.
[2016-11-24 11:16] VITALS: BP 130/68; PULSE 81; TEMP 36.4; O2SAT 98
--- NOTE | 2016-11-24 12:36 | Hospitalist Progress Note ---
Hospitalist Progress Note Date of Service Nov 24, 2016. (Yaima River ., PA-C) Subjective Pt evaluation today including: conversation w/ patient, physical exam, lab review, review of studies, review of inpatient medication list Voiding: voiding difficulty (retention) Patient sitting in bed. Eating lunch. Oriented to person, year, day. Disoriented to location- states she is at "the garage." Psych decreased Librium today. Patient denies any fever, chills, sweats, lightheadedness, dizziness, vision changes, CP, palpitations, edema, SOB, wheezing, cough, abdominal pain, nausea, vomiting, diarrhea, urinary symptoms, melena, numbness/tingling, weakness, muscle/joint pain, anxiety/depression, active bleeding, or new skin discoloration/changes. Per RN and FINANCIAL SALES REPRESENTATIVE: Patient doing well this AM. Non-aggressive. Did well overnight. Slept for 5+ hours straight. Required straight cath for ~900cc. Drinking plenty of fluids. UA negative on 11/22. Patient denies any symptoms. Denies h/o kidney stones. (Yaima Rivre ., PA-C) Medications Current Inpatient Medications Medications (Trade) Dose Ordered Sig/Marisa Route Start Time Stop Time Status Last Admin Dose Admin Ondansetron HCl (Zofran Inj) 4 mg Q6H PRN IV 11/02/16 22:00 12/02/16 21:59 Vitamin B Complex (Vitamin B Complex) 1 tab QAM PO 11/03/16 09:00 12/03/16 08:59 11/24/16 08:46 1 TAB Calcium/Vitamin D (Caltrate Plus Tab) 1 tab QAM PO 11/03/16 09:00 12/03/16 08:59 11/24/16 08:43 1 TAB Diclofenac Sodium (Voltaren 1% Top Gel) 1 appln DAILY PRN EXT 11/02/16 22:15 12/02/16 22:14 11/18/16 14:51 1 APPLN Escitalopram Oxalate (Lexapro Tab) 10 mg DAILY PO 11/03/16 09:00 12/03/16 08:59 11/24/16 08:46 10 MG Multivitamins (Multivitamin Tab) 1 tab HS PO 11/03/16 21:00 12/03/16 20:59 11/23/16 20:51 1 TAB Senna/Docusate Sodium (Senokot S Tab) 1 tab QAM PO 11/03/16 09:00 12/03/16 08:59 11/24/16 08:43 1 TAB Heparin Sodium (Porcine) (Heparin Sq 5000 Unit/0.5ml) 5,000 unit Q8 SQ 11/04/16 14:00 12/04/16 13:59 11/19/16 13:31 5,000 UNIT Metoprolol Succinate (Toprol Xl Tab) 25 mg DAILY PO 11/09/16 09:00 12/09/16 08:59 11/24/16 08:44 25 MG Folic Acid (Folvite Tab) 400 mcg QAM PO 11/09/16 09:00 12/09/16 08:59 11/24/16 08:46 400 MCG Thiamine HCl (Vitamin B-1 Tab) 200 mg BID PO 11/10/16 09:00 12/09/16 08:59 11/24/16 08:46 200 MG Enteral Nutritional Formula (Boost) 1 can BID@0830,2100 PO 11/10/16 21:00 12/10/16 20:59 11/24/16 08:49 1 CAN Potassium Chloride (Klor-Con Tab) 20 meq QAM PO 11/12/16 09:00 12/12/16 08:59 11/24/16 08:46 20 MEQ Haloperidol (Haldol Tab) 2.5 mg Q6H PRN PO 11/11/16 17:00 12/11/16 16:59 11/23/16 15:45 2.5 MG Triamcinolone Acetonide (Triamcinolone Acet 0.1% Crm) 1 appln TID EXT 11/12/16 09:00 12/12/16 08:59 11/24/16 08:47 1 APPLN Lorazepam (Ativan Inj) 2 mg Q4H PRN IV 11/16/16 16:30 12/16/16 16:29 Future Hold 11/17/16 12:31 2 MG Lorazepam 2 mg/ Syringe 2 ml @ 1 mls/min Q4H PRN IV 11/16/16 16:30 12/16/16 16:29 Future Hold 11/19/16 02:34 1 MLS/MIN Lorazepam (Ativan Tab) 1 mg Q4H PRN PO 11/19/16 16:00 12/19/16 15:59 Future Hold 11/19/16 17:18 1 MG Lorazepam (Ativan Tab) 2 mg Q6H PRN PO 11/19/16 16:00 12/19/16 15:59 Future Hold Acetaminophen (Tylenol Tab) 325 mg Q4H PRN PO 11/19/16 16:00 12/19/16 15:59 11/24/16 08:49 325 MG Lorazepam (Ativan Inj) 2 mg Q2H PRN IM 11/19/16 20:00 12/19/16 19:59 Future Hold 11/20/16 21:49 2 MG Haloperidol Lactate (Haldol Inj) 5 mg Q4H PRN IM 11/21/16 14:30 12/21/16 14:29 11/23/16 21:36 5 MG Lorazepam (Ativan Tab) 0.5 mg Q4H PRN PO 11/21/16 14:45 12/21/16 14:44 Future Hold Olanzapine (Zyprexa Tab) 5 mg DAILY@1830 PO 11/23/16 18:30 12/23/16 18:29 11/23/16 18:51 5 MG Chlordiazepoxide (Librium Cap) 10 mg BID PO 11/24/16 21:00 12/20/16 09:59 (Yaima River, PA-C) Objective Vital Signs Date Time Temp Pulse Resp B/P (MAP) Pulse Ox O2 Delivery O2 Flow Rate FiO2 11/24/16 11:16 36.4 81 22 130/68 (88) 98 Room Air 11/24/16 08:01 36.2 107 20 106/76 (86) 94 Room Air 11/24/16 00:00 Room Air 11/23/16 22:00 36.6 74 18 118/64 (82) 95 Room Air 11/23/16 16:00 94 Room Air 11/23/16 15:56 36.7 88 18 124/72 (89) 94 Room Air (Yaima River, PA-C) Physical Exam General Appearance: no apparent distress, + thin Eyes: PERRL ENT: hearing grossly normal Neck: supple Respiratory/Chest: lungs clear, no respiratory distress, no accessory muscle use, + decreased breath sounds Cardiovascular: regular rate, rhythm Abdomen: normal bowel sounds, non tender, soft Extremities: no pedal edema, no calf tenderness Neurologic/Psychiatric: alert, + depressed affect, + disoriented Skin: normal color, warm/dry, no rash (Yaima River ., PA-C) Laboratory Results Last 24 Hours Test 11/24/16 06:46 Sodium Level 139 mmol/L Potassium Level 3.9 mmol/L Chloride Level 104 mmol/L Carbon Dioxide Level 27 mmol/L Anion Gap 8.0 mmol/L Blood Urea Nitrogen 10 mg/dl Creatinine 0.51 mg/dl Est Creatinine Clear Calc Drug Dose 85.5 ml/min Estimated GFR () 122.0 Estimated GFR (Non- 105.3 BUN/Creatinine Ratio 19.6 Random Glucose 120 mg/dl Calcium Level 9.0 mg/dl Magnesium Level 1.8 mg/dl Total Bilirubin 0.4 mg/dl Aspartate Amino Transf (AST/SGOT) 31 U/L Alanine Aminotransferase (ALT/SGPT) 25 U/L Alkaline Phosphatase 74 U/L Total Protein 6.1 gm/dl Albumin 2.7 gm/dl Globulin 3.4 gm/dl Albumin/Globulin Ratio 0.8 (Yaima River ., PA-C) Assessment and Plan The patient is a 61-year-old female being treated for: Alcohol withdrawal w/ encephalopathy- STABLE: - Lexapro 10 mg by mouth daily - Librium 25 mg TID- weaning- decreased to 10 BID - PO Ativan or IV/PO Haldol PRN- psychiatry recommending use of Haldol over Ativan -- Haldol 2.5 mg q6 hrs PO PRN and IV Haldol 5 mg q4 hrs PRN if PO cannot be administered -- All Ativan on hold per psychiatry recommendations - Trazodone 50 mg HS + Zyprexa 5 mg HS to help reduce nighttime anxiety/ agitation per pysch - Thiamine and folic acid supplement - Consulted neurology- no new recommendations Depression/anxiety: - Lexapro 10 mg daily- consideration for increased dose when stable from withdrawal - Psych consulted- recommending psychiatric monitoring as outpatient with follow -up Urinary retention, ?secondary to obstruction vs medication (Haldol): - Bladder scan and straight cath PRN - UA negative on 11/22 - Consider checking renal U/S to r/o obstruction if retention continues Severe deconditioning and mod/severe protein/caloric malnutrition: - Pending placement - Continue PT/OT - Boost- encourage intake HTN- STABLE: Metoprolol 25 mg daily Severe sepsis/right elbow cellulitis- RESOLVED: Treated w/ IV Rocephin Hypomagnesemia- RESOLVED: Treated w/ IV and PO Mag supplement Hypernatremia- RESOLVED ARF- RESOLVED Thrombocytopenia- RESOLVED DVT prophylaxis: Heparin TID Code Status: LEVEL I, FULL Dispo: Pending placement- social services assistant and PT/OT consulted (Yaima River, PA-C) I examined patient and agree with above note. General Appearance: no apparent distress, + thin Eyes: PERRL ENT: hearing grossly normal Neck: supple Respiratory/Chest: lungs clear, no respiratory distress, no accessory muscle use, Cardiovascular: regular rate, rhythm Abdomen: normal bowel sounds, non tender, soft Extremities: no pedal edema, no calf tenderness Neurologic/Psychiatric: alert, + depressed affect, + disoriented Skin: normal color, warm/dry, no rash I agree with analysis and plan. (Evens Mcdonald M.D.)
[2016-11-24] MEDS: HALOPERIDOL 5 MG TAB PO PRN ×2 (13:40→19:40)
[2016-11-24 15:11] VITALS: BP 117/67; PULSE 90; TEMP 36.7; O2SAT 95
[2016-11-24 16:00] VITALS: O2SAT 95
[2016-11-24] MEDS: OLANZAPINE 5 MG TAB PO SCH (19:40)
[2016-11-24] MEDS: MULTIVITAMIN TAB PO SCH (20:50)
[2016-11-24 23:30] VITALS: BP 129/78; PULSE 82; TEMP 36.7; O2SAT 97
[2016-11-25] VITALS: O2SAT 95
[2016-11-25] MEDS: HALOPERIDOL LACTATE 5 MG/ML 1 ML VIAL IM PRN ×2 (00:13→17:13)
[2016-11-25] MEDS: HALOPERIDOL 5 MG TAB PO PRN ×3 (04:29→21:36)
[2016-11-25] MEDS: HEPARIN SOD 5000 UNIT/0.5 ML CARP SQ SCH ×4 (05:32→21:33)
[2016-11-25 08:02] LABS: BUN/CREATININE RATIO 14.9 (10-20); CALCIUM 9.3 mg/dl (8.5-10.1); CREATININE 0.43 mg/dl (0.60-1.20); MAGNESIUM 1.7 mg/dl (1.8-2.4); POTASSIUM 3.6 mmol/L (3.5-5.1)
[2016-11-25 08:05] LABS: ALB/GLOB RATIO 0.8 (0.9-2)
[2016-11-25 08:30] VITALS: O2SAT 95
[2016-11-25] MEDS: BOOST VANILLA PO SCH ×4 (08:30→21:23)
[2016-11-25] MEDS: TRIAMCINOLONE ACET 0.1% CR 80 GM TUBE EXT SCH ×3 (09:00→21:24)
--- NOTE | 2016-11-25 10:41 | Hospitalist Progress Note ---
Hospitalist Progress Note Date of Service Nov 25, 2016. (Yaima River ., SIERRA) Subjective Pt evaluation today including: physical exam, review of inpatient medication list Voiding: voiding difficulty (retention) Patient sleeping in bed. No signs of acute distress. ROS could not be obtained due to sleeping- did not want to wake patient due to restless/agitated night w/ little sleep. Per RN and FUNCTIONAL CONSULTANT- patient had a restless night. Required IM Haldol. Was restless/ aggressive this AM- finally fell asleep around 7AM. Per records- required straight cath again last evening for ~750ml. Voided this AM for ~600 ml. (Yaima River ., IDAC) Medications Current Inpatient Medications Medications (Trade) Dose Ordered Sig/Marisa Route Start Time Stop Time Status Last Admin Dose Admin Ondansetron HCl (Zofran Inj) 4 mg Q6H PRN IV 11/02/16 22:00 12/02/16 21:59 Vitamin B Complex (Vitamin B Complex) 1 tab QAM PO 11/03/16 09:00 12/03/16 08:59 11/24/16 08:46 1 TAB Calcium/Vitamin D (Caltrate Plus Tab) 1 tab QAM PO 11/03/16 09:00 12/03/16 08:59 11/24/16 08:43 1 TAB Diclofenac Sodium (Voltaren 1% Top Gel) 1 appln DAILY PRN EXT 11/02/16 22:15 12/02/16 22:14 11/18/16 14:51 1 APPLN Escitalopram Oxalate (Lexapro Tab) 10 mg DAILY PO 11/03/16 09:00 12/03/16 08:59 11/24/16 08:46 10 MG Multivitamins (Multivitamin Tab) 1 tab HS PO 11/03/16 21:00 12/03/16 20:59 11/24/16 20:50 1 TAB Senna/Docusate Sodium (Senokot S Tab) 1 tab QAM PO 11/03/16 09:00 12/03/16 08:59 11/24/16 08:43 1 TAB Heparin Sodium (Porcine) (Heparin Sq 5000 Unit/0.5ml) 5,000 unit Q8 SQ 11/04/16 14:00 12/04/16 13:59 11/24/16 21:12 5,000 UNIT Metoprolol Succinate (Toprol Xl Tab) 25 mg DAILY PO 11/09/16 09:00 12/09/16 08:59 11/24/16 08:44 25 MG Folic Acid (Folvite Tab) 400 mcg QAM PO 11/09/16 09:00 12/09/16 08:59 11/24/16 08:46 400 MCG Thiamine HCl (Vitamin B-1 Tab) 200 mg BID PO 11/10/16 09:00 12/09/16 08:59 11/24/16 20:49 200 MG Enteral Nutritional Formula (Boost) 1 can BID@0830,2100 PO 11/10/16 21:00 12/10/16 20:59 11/24/16 20:48 1 CAN Potassium Chloride (Klor-Con Tab) 20 meq QAM PO 11/12/16 09:00 12/12/16 08:59 11/24/16 08:46 20 MEQ Haloperidol (Haldol Tab) 2.5 mg Q6H PRN PO 11/11/16 17:00 12/11/16 16:59 11/25/16 04:29 2.5 MG Triamcinolone Acetonide (Triamcinolone Acet 0.1% Crm) 1 appln TID EXT 11/12/16 09:00 12/12/16 08:59 11/24/16 20:49 1 APPLN Lorazepam (Ativan Inj) 2 mg Q4H PRN IV 11/16/16 16:30 12/16/16 16:29 Future Hold 11/17/16 12:31 2 MG Lorazepam 2 mg/ Syringe 2 ml @ 1 mls/min Q4H PRN IV 11/16/16 16:30 12/16/16 16:29 Future Hold 11/19/16 02:34 1 MLS/MIN Lorazepam (Ativan Tab) 1 mg Q4H PRN PO 11/19/16 16:00 12/19/16 15:59 Future Hold 11/19/16 17:18 1 MG Lorazepam (Ativan Tab) 2 mg Q6H PRN PO 11/19/16 16:00 12/19/16 15:59 Future Hold Acetaminophen (Tylenol Tab) 325 mg Q4H PRN PO 11/19/16 16:00 12/19/16 15:59 11/24/16 08:49 325 MG Lorazepam (Ativan Inj) 2 mg Q2H PRN IM 11/19/16 20:00 12/19/16 19:59 Future Hold 11/20/16 21:49 2 MG Haloperidol Lactate (Haldol Inj) 5 mg Q4H PRN IM 11/21/16 14:30 12/21/16 14:29 11/25/16 00:13 5 MG Lorazepam (Ativan Tab) 0.5 mg Q4H PRN PO 11/21/16 14:45 12/21/16 14:44 Future Hold Olanzapine (Zyprexa Tab) 5 mg DAILY@1830 PO 11/23/16 18:30 12/23/16 18:29 11/24/16 19:40 5 MG Chlordiazepoxide (Librium Cap) 10 mg BID PO 11/24/16 21:00 12/20/16 09:59 11/24/16 20:48 10 MG (Yaima River, PA-C) Objective Vital Signs Date Time Temp Pulse Resp B/P (MAP) Pulse Ox O2 Delivery O2 Flow Rate FiO2 11/25/16 00:00 95 Room Air 11/24/16 23:30 36.7 82 18 129/78 (95) 97 Room Air 11/24/16 16:00 95 Room Air 11/24/16 15:11 36.7 90 18 117/67 (84) 95 Room Air 11/24/16 11:16 36.4 81 22 130/68 (88) 98 Room Air (Yaima River PA-C) Physical Exam General Appearance: no apparent distress, + thin ENT: hearing grossly normal Neck: supple Respiratory/Chest: lungs clear, no respiratory distress, no accessory muscle use Cardiovascular: regular rate, rhythm Abdomen: normal bowel sounds, non tender, soft Extremities: no pedal edema, no calf tenderness Neurologic/Psychiatric: + pertinent finding (resting in bed, no signs of acute distress ) Skin: normal color, warm/dry, no rash (Yaima River ., PA-C) Laboratory Results Last 24 Hours Test 11/25/16 07:02 Sodium Level 139 mmol/L Potassium Level 3.6 mmol/L Chloride Level 106 mmol/L Carbon Dioxide Level 25 mmol/L Anion Gap 8.0 mmol/L Blood Urea Nitrogen 6 mg/dl Creatinine 0.43 mg/dl Est Creatinine Clear Calc Drug Dose 101.4 ml/min Estimated GFR () 129.0 Estimated GFR (Non- 111.3 BUN/Creatinine Ratio 14.9 Random Glucose 100 mg/dl Calcium Level 9.3 mg/dl Magnesium Level 1.7 mg/dl Total Bilirubin 0.3 mg/dl Aspartate Amino Transf (AST/SGOT) 31 U/L Alanine Aminotransferase (ALT/SGPT) 22 U/L Alkaline Phosphatase 70 U/L Total Protein 5.8 gm/dl Albumin 2.5 gm/dl Globulin 3.3 gm/dl Albumin/Globulin Ratio 0.8 (Yaima River, SIERRA) Assessment and Plan The patient is a 61-year-old female being treated for: Alcohol withdrawal w/ encephalopathy- STABLE: - Lexapro 10 mg by mouth daily - Librium 25 mg TID- weaning- decreased to 10 BID on 11/24 - PO Ativan or IV/PO Haldol PRN- psychiatry recommending use of Haldol over Ativan -- Haldol 2.5 mg q6 hrs PO PRN and IM Haldol 5 mg q4 hrs PRN if PO cannot be administered -- All Ativan on hold per psychiatry recommendations - Trazodone 50 mg HS + Zyprexa 5 mg HS to help reduce nighttime anxiety/ agitation per pysch - Thiamine and folic acid supplement - Consulted neurology- no new recommendations Depression/anxiety: - Lexapro 10 mg daily- consideration for increased dose when stable from withdrawal - Psych consulted- recommending psychiatric monitoring as outpatient with follow -up Urinary retention, ?secondary to obstruction vs medication (Haldol): - Bladder scan and straight cath PRN - UA negative on 11/22 - Consider checking renal U/S to r/o obstruction if retention continues Severe deconditioning and mod/severe protein/caloric malnutrition: - Pending placement - Continue PT/OT - Boost- encourage intake HTN- STABLE: Metoprolol 25 mg daily Severe sepsis/right elbow cellulitis- RESOLVED: Treated w/ IV Rocephin Hypomagnesemia- RESOLVED: Treated w/ IV and PO Mag supplement- start Mag-Ox 400 mg daily on 11/25 due to continued hypoMag around 1.7 Hypernatremia- RESOLVED ARF- RESOLVED Thrombocytopenia- RESOLVED DVT prophylaxis: Heparin TID Code Status: LEVEL I, FULL Dispo: Pending placement- social work nurse and PT/OT consulted (Yaima River, PA-C) I agree with the above progress note. I examined patient and discussed case and plan with patient and APC. My physical exam did not vary from APC's exam of patient. (Evens Mcdonald M.D.)
[2016-11-25] MEDS: CHLORDIAZEPOXIDE 10 MG CAP PO SCH ×2 (14:13→21:24)
[2016-11-25] MEDS: DOCUSATE SODIUM/SENNA 50/8.6MG TAB PO SCH (14:13)
[2016-11-25] MEDS: VITAMIN B COMPLEX TAB PO SCH (14:14)
[2016-11-25] MEDS: FoLIC ACID TAB 400 MCG TAB PO SCH (14:14)
[2016-11-25] MEDS: ESCITALOPRAM OXALATE 10 MG TAB PO SCH (14:14)
[2016-11-25] MEDS: THIAMINE HCL 100 MG TAB PO SCH ×2 (14:17→21:25)
[2016-11-25] MEDS: CALCIUM 600MG + VIT D 400 IU TAB PO SCH (14:18)
[2016-11-25] MEDS: POTASSIUM CHLORIDE 20 MEQ TABCR PO SCH (14:19)
[2016-11-25] MEDS: MAGNESIUM OXIDE 400 MG TAB PO SCH (14:21)
[2016-11-25] MEDS: METOPROLOL SUCC 25MG EXT REL TAB PO SCH (14:23)
[2016-11-25 14:36] VITALS: BP 118/74; PULSE 92
[2016-11-25] MEDS ORDERED: HALOPERIDOL LACTATE 5 MG/ML 1 ML VIAL IV STA (16:52)
[2016-11-25] MEDS: OLANZAPINE 5 MG TAB PO SCH (18:07)
[2016-11-25] MEDS: MULTIVITAMIN TAB PO SCH (21:25)
[2016-11-26] MEDS: HEPARIN SOD 5000 UNIT/0.5 ML CARP SQ SCH ×3 (06:00→22:00)
[2016-11-26 07:00] VITALS: BP 108/68; PULSE 80; TEMP 37.2; O2SAT 94
[2016-11-26] MEDS: BOOST VANILLA PO SCH ×6 (11:48→21:28)
[2016-11-26] MEDS: TRIAMCINOLONE ACET 0.1% CR 80 GM TUBE EXT SCH ×3 (11:48→21:26)
[2016-11-26] MEDS: MAGNESIUM OXIDE 400 MG TAB PO SCH ×2 (11:49→11:56)
[2016-11-26] MEDS: DOCUSATE SODIUM/SENNA 50/8.6MG TAB PO SCH ×2 (11:49→11:57)
[2016-11-26] MEDS: CALCIUM 600MG + VIT D 400 IU TAB PO SCH ×2 (11:49→11:53)
[2016-11-26] MEDS: METOPROLOL SUCC 25MG EXT REL TAB PO SCH ×2 (11:49→11:56)
[2016-11-26] MEDS: POTASSIUM CHLORIDE 20 MEQ TABCR PO SCH ×2 (11:49→11:57)
[2016-11-26] MEDS: FoLIC ACID TAB 400 MCG TAB PO SCH ×2 (11:49→11:57)
[2016-11-26] MEDS: ESCITALOPRAM OXALATE 10 MG TAB PO SCH ×2 (11:49→11:57)
[2016-11-26] MEDS: VITAMIN B COMPLEX TAB PO SCH ×2 (11:50→11:55)
[2016-11-26] MEDS: THIAMINE HCL 100 MG TAB PO SCH ×3 (11:50→21:27)
[2016-11-26] MEDS: HALOPERIDOL 5 MG TAB PO PRN ×2 (11:55→21:27)
--- NOTE | 2016-11-26 12:21 | Psychiatric Progress Notes ---
Psychiatric Progress Note Date of Service Nov 26, 2016. Notes Case discussed with psychiatric liaison nurse, and interim progress reviewed. The patient has been tapered off of benzodiazepines. 2 nights ago, she was agitated overnight and received IM Haldol, and was awake all night. She was agitated yesterday afternoon, but calmed down when allowed to ambulate in the hallway with the MANAGEMENT AND BUDGET ANALYST. She has been oriented to person only. She is getting olanzapine 5 mg in the evening, Haldol 2.5 mg by mouth 1-3 times a day, and Haldol 5 mg IM twice yesterday and once the day before. On my assessment today , she is sedated and sleeping, and resistant to attempts to wake her and engage her in discussion. She repeatedly says "I'm sleeping," and when asked if she has any concerns, says "whatever." Her one-to-one aide indicates that she has been asleep for some time. Diagnosis: Delirium Recommendations: Continue standard delirium recommendations as outlined in note from 11/22/2016. Continue scheduled olanzapine 5 mg daily at bedtime, and has when necessary Haldol and olanzapine if needed for agitation. Staff should attempt to keep patient awake and active during the day, ambulating as able, to minimize sleep difficulties overnight and worsening behavior.
[2016-11-26 15:08] VITALS: BP 129/81; PULSE 90; O2SAT 97
--- NOTE | 2016-11-26 17:07 | Progress Note ---
Subjective Date of Service: Nov 26, 2016. Subjective Pt evaluation today including: conversation w/ patient, physical exam, review of inpatient medication list Pain: denies pain PO Intake: poor appetite still Voiding: no voiding problems visited patient twice, this AM she was sleeping soundly in the afternoon she was more alert, cooperative, walked in halls with therapy still lacks insight into her situation with alcohol and why she is in the hospital Problem List Medical Problems: (1) Acute electrocardiogram changes Status: Acute (2) JOSE (acute kidney injury) Status: Acute (3) Elevated troponin Status: Acute (4) Hypomagnesemia Status: Acute (5) Sepsis Status: Acute (6) Septic shock Status: Acute (7) Vomiting Status: Acute Review of Systems Constitutional: + weakness, + fatigue Psychiatric: + depression symptoms, + anxiety, + substance abuse (alcohol) All Other Systems: Reviewed and Negative Medications Current Inpatient Medications Medications (Trade) Dose Ordered Sig/Marisa Route Start Time Stop Time Status Last Admin Dose Admin Ondansetron HCl (Zofran Inj) 4 mg Q6H PRN IV 11/02/16 22:00 12/02/16 21:59 Vitamin B Complex (Vitamin B Complex) 1 tab QAM PO 11/03/16 09:00 12/03/16 08:59 11/26/16 11:55 1 TAB Calcium/Vitamin D (Caltrate Plus Tab) 1 tab QAM PO 11/03/16 09:00 12/03/16 08:59 11/26/16 11:53 1 TAB Diclofenac Sodium (Voltaren 1% Top Gel) 1 appln DAILY PRN EXT 11/02/16 22:15 12/02/16 22:14 11/18/16 14:51 1 APPLN Escitalopram Oxalate (Lexapro Tab) 10 mg DAILY PO 11/03/16 09:00 12/03/16 08:59 11/26/16 11:57 10 MG Multivitamins (Multivitamin Tab) 1 tab HS PO 11/03/16 21:00 12/03/16 20:59 11/25/16 21:25 1 TAB Senna/Docusate Sodium (Senokot S Tab) 1 tab QAM PO 11/03/16 09:00 12/03/16 08:59 11/26/16 11:57 1 TAB Heparin Sodium (Porcine) (Heparin Sq 5000 Unit/0.5ml) 5,000 unit Q8 SQ 11/04/16 14:00 12/04/16 13:59 11/25/16 21:33 5,000 UNIT Metoprolol Succinate (Toprol Xl Tab) 25 mg DAILY PO 11/09/16 09:00 12/09/16 08:59 11/26/16 11:56 25 MG Folic Acid (Folvite Tab) 400 mcg QAM PO 11/09/16 09:00 12/09/16 08:59 11/26/16 11:57 400 MCG Thiamine HCl (Vitamin B-1 Tab) 200 mg BID PO 11/10/16 09:00 12/09/16 08:59 11/26/16 11:56 200 MG Enteral Nutritional Formula (Boost) 1 can BID@0830,2100 PO 11/10/16 21:00 12/10/16 20:59 11/25/16 21:23 1 CAN Potassium Chloride (Klor-Con Tab) 20 meq QAM PO 11/12/16 09:00 12/12/16 08:59 11/26/16 11:57 20 MEQ Haloperidol (Haldol Tab) 2.5 mg Q6H PRN PO 11/11/16 17:00 12/11/16 16:59 11/26/16 11:55 2.5 MG Triamcinolone Acetonide (Triamcinolone Acet 0.1% Crm) 1 appln TID EXT 11/12/16 09:00 12/12/16 08:59 11/26/16 14:21 1 APPLN Lorazepam (Ativan Inj) 2 mg Q4H PRN IV 11/16/16 16:30 12/16/16 16:29 Future Hold 11/17/16 12:31 2 MG Lorazepam 2 mg/ Syringe 2 ml @ 1 mls/min Q4H PRN IV 11/16/16 16:30 12/16/16 16:29 Future Hold 11/19/16 02:34 1 MLS/MIN Lorazepam (Ativan Tab) 1 mg Q4H PRN PO 11/19/16 16:00 12/19/16 15:59 Future Hold 11/19/16 17:18 1 MG Lorazepam (Ativan Tab) 2 mg Q6H PRN PO 11/19/16 16:00 12/19/16 15:59 Future Hold Acetaminophen (Tylenol Tab) 325 mg Q4H PRN PO 11/19/16 16:00 12/19/16 15:59 11/24/16 08:49 325 MG Lorazepam (Ativan Inj) 2 mg Q2H PRN IM 11/19/16 20:00 12/19/16 19:59 Future Hold 11/20/16 21:49 2 MG Haloperidol Lactate (Haldol Inj) 5 mg Q4H PRN IM 11/21/16 14:30 12/21/16 14:29 11/25/16 17:13 5 MG Lorazepam (Ativan Tab) 0.5 mg Q4H PRN PO 11/21/16 14:45 12/21/16 14:44 Future Hold Olanzapine (Zyprexa Tab) 5 mg DAILY@1830 PO 11/23/16 18:30 12/23/16 18:29 11/25/16 18:07 5 MG Magnesium Oxide (Mag-Ox Tab) 400 mg QAM PO 11/25/16 11:30 12/25/16 11:29 11/26/16 11:56 400 MG Objective Vital Signs Date Time Temp Pulse Resp B/P (MAP) Pulse Ox O2 Delivery O2 Flow Rate FiO2 11/26/16 15:08 90 18 129/81 (97) 97 Room Air 11/26/16 11:00 Room Air 11/26/16 07:00 37.2 80 16 108/68 (81) 94 Room Air 11/26/16 00:00 Room Air 11/25/16 20:00 Room Air Physical Exam General Appearance: no apparent distress, + thin Neck: supple, no adenopathy, no JVD Respiratory/Chest: chest non-tender, lungs clear, normal breath sounds, no respiratory distress, no accessory muscle use Cardiovascular: regular rate, rhythm, no edema, no gallop, no JVD, no murmur Abdomen: normal bowel sounds, non tender, soft, no organomegaly Extremities: normal range of motion, non-tender, normal inspection, no pedal edema, no calf tenderness, pelvis stable Neurologic/Psychiatric: driver service technician II-XII nml as tested, no motor/sensory deficits, oriented x 3, + depressed affect Skin: normal color, warm/dry, no rash Assessment and Plan The patient is a 61-year-old female being treated for: Alcohol withdrawal w/ encephalopathy- STABLE: - Lexapro 10 mg by mouth daily - Librium 25 mg TID- weaning- decreased to 10 BID on 11/24, will need to wean off eventually - PO Ativan or IV/PO Haldol PRN- psychiatry recommending use of Haldol over Ativan -- Haldol 2.5 mg q6 hrs PO PRN and IM Haldol 5 mg q4 hrs PRN if PO cannot be administered -- All Ativan on hold per psychiatry recommendations - Zyprexa 5 mg HS to help reduce nighttime anxiety/agitation per pysch - Thiamine and folic acid supplement - Consulted neurology- no new recommendations - ultimate goal is to stabilize mood to be able to d/c to SNF, possible alcohol rehab eventually Depression/anxiety: - Lexapro 10 mg daily- consideration for increased dose when stable from withdrawal - Psych consulted- recommending psychiatric monitoring as outpatient with follow -up Urinary retention, ?secondary to obstruction vs medication (Haldol): - Bladder scan and straight cath PRN - UA negative on 11/22 Severe deconditioning and mod/severe protein/caloric malnutrition: - Pending placement - Continue PT/OT - Boost- encourage intake HTN- STABLE: Metoprolol 25 mg daily Severe sepsis/right elbow cellulitis- RESOLVED: Treated w/ IV Rocephin Hypomagnesemia- RESOLVED: Treated w/ IV and PO Mag supplement- start Mag-Ox 400 mg daily on 11/25 due to continued hypoMag around 1.7 Hypernatremia- RESOLVED ARF- RESOLVED Thrombocytopenia- RESOLVED DVT prophylaxis: Heparin TID Code Status: LEVEL I, FULL Dispo: Pending placement- protective services social worker and PT/OT consulted Continued [facility] stay due to: multiple IV medications needed [facility]charge planning[facility] [place] [facility]
[2016-11-26] MEDS: OLANZAPINE 5 MG TAB PO SCH (18:09)
[2016-11-26] MEDS: MULTIVITAMIN TAB PO SCH (21:26)
[2016-11-26] MEDS: HALOPERIDOL LACTATE 5 MG/ML 1 ML VIAL IM PRN (22:14)
[2016-11-26 22:53] VITALS: BP 134/75; PULSE 92; TEMP 36.8; O2SAT 95
[2016-11-27] MEDS: HEPARIN SOD 5000 UNIT/0.5 ML CARP SQ SCH ×3 (07:13→20:42)
[2016-11-27 10:40] VITALS: BP 124/82; PULSE 94; TEMP 36.2; O2SAT 94
[2016-11-27] MEDS: BOOST VANILLA PO SCH ×2 (10:55)
[2016-11-27] MEDS: THIAMINE HCL 100 MG TAB PO SCH ×2 (10:56→20:42)
[2016-11-27] MEDS: DOCUSATE SODIUM/SENNA 50/8.6MG TAB PO SCH (10:56)
[2016-11-27] MEDS: TRIAMCINOLONE ACET 0.1% CR 80 GM TUBE EXT SCH ×3 (10:56→20:41)
[2016-11-27] MEDS: MAGNESIUM OXIDE 400 MG TAB PO SCH (10:57)
[2016-11-27] MEDS: ESCITALOPRAM OXALATE 10 MG TAB PO SCH (10:57)
[2016-11-27] MEDS: CALCIUM 600MG + VIT D 400 IU TAB PO SCH (10:57)
[2016-11-27] MEDS: METOPROLOL SUCC 25MG EXT REL TAB PO SCH (10:57)
[2016-11-27] MEDS: FoLIC ACID TAB 400 MCG TAB PO SCH (10:58)
[2016-11-27] MEDS: POTASSIUM CHLORIDE 20 MEQ TABCR PO SCH (10:58)
[2016-11-27] MEDS: VITAMIN B COMPLEX TAB PO SCH (10:58)
[2016-11-27 14:13] VITALS: BP 101/67; PULSE 81; TEMP 36.4; O2SAT 97
[2016-11-27] MEDS: ACETAMINOPHEN 325 MG TAB PO PRN (15:17)
--- NOTE | 2016-11-27 16:16 | Progress Note ---
Subjective Date of Service: Nov 27, 2016. Subjective Pt evaluation today including: conversation w/ patient, physical exam, review of inpatient medication list Pain: no pain PO Intake: adequate Voiding: no voiding problems patient resting in bed with street clothes on calm and conversive, says she wants to go home, once there she will have a big drink she accepts the idea of going to rehab but not if too expensive tired of being trapped here, tired of having someone watch her all the time explained that medically I recommend she go to rehab, explained that I would worry that she may get worse, drink a lot if she goes directly home talked with psychiatry, they will evaluate for capacity tomorrow Problem List Medical Problems: (1) Acute electrocardiogram changes Status: Acute (2) JOSE (acute kidney injury) Status: Acute (3) Elevated troponin Status: Acute (4) Hypomagnesemia Status: Acute (5) Sepsis Status: Acute (6) Septic shock Status: Acute (7) Vomiting Status: Acute Review of Systems Psychiatric: + depression symptoms, + anxiety, + insomnia All Other Systems: Reviewed and Negative Medications Current Inpatient Medications Medications (Trade) Dose Ordered Sig/Marisa Route Start Time Stop Time Status Last Admin Dose Admin Ondansetron HCl (Zofran Inj) 4 mg Q6H PRN IV 11/02/16 22:00 12/02/16 21:59 Vitamin B Complex (Vitamin B Complex) 1 tab QAM PO 11/03/16 09:00 12/03/16 08:59 11/27/16 10:58 1 TAB Calcium/Vitamin D (Caltrate Plus Tab) 1 tab QAM PO 11/03/16 09:00 12/03/16 08:59 11/27/16 10:57 1 TAB Diclofenac Sodium (Voltaren 1% Top Gel) 1 appln DAILY PRN EXT 11/02/16 22:15 12/02/16 22:14 11/18/16 14:51 1 APPLN Escitalopram Oxalate (Lexapro Tab) 10 mg DAILY PO 11/03/16 09:00 12/03/16 08:59 11/27/16 10:57 10 MG Multivitamins (Multivitamin Tab) 1 tab HS PO 11/03/16 21:00 12/03/16 20:59 11/26/16 21:26 1 TAB Senna/Docusate Sodium (Senokot S Tab) 1 tab QAM PO 11/03/16 09:00 12/03/16 08:59 11/27/16 10:56 1 TAB Heparin Sodium (Porcine) (Heparin Sq 5000 Unit/0.5ml) 5,000 unit Q8 SQ 11/04/16 14:00 12/04/16 13:59 11/25/16 21:33 5,000 UNIT Metoprolol Succinate (Toprol Xl Tab) 25 mg DAILY PO 11/09/16 09:00 12/09/16 08:59 11/27/16 10:57 25 MG Folic Acid (Folvite Tab) 400 mcg QAM PO 11/09/16 09:00 12/09/16 08:59 11/27/16 10:58 400 MCG Thiamine HCl (Vitamin B-1 Tab) 200 mg BID PO 11/10/16 09:00 12/09/16 08:59 11/27/16 10:56 200 MG Potassium Chloride (Klor-Con Tab) 20 meq QAM PO 11/12/16 09:00 12/12/16 08:59 11/27/16 10:58 20 MEQ Haloperidol (Haldol Tab) 2.5 mg Q6H PRN PO 11/11/16 17:00 12/11/16 16:59 11/26/16 21:27 2.5 MG Triamcinolone Acetonide (Triamcinolone Acet 0.1% Crm) 1 appln TID EXT 11/12/16 09:00 12/12/16 08:59 11/27/16 10:56 1 APPLN Lorazepam (Ativan Inj) 2 mg Q4H PRN IV 11/16/16 16:30 12/16/16 16:29 Future Hold 11/17/16 12:31 2 MG Lorazepam 2 mg/ Syringe 2 ml @ 1 mls/min Q4H PRN IV 11/16/16 16:30 12/16/16 16:29 Future Hold 11/19/16 02:34 1 MLS/MIN Lorazepam (Ativan Tab) 1 mg Q4H PRN PO 11/19/16 16:00 12/19/16 15:59 Future Hold 11/19/16 17:18 1 MG Lorazepam (Ativan Tab) 2 mg Q6H PRN PO 11/19/16 16:00 12/19/16 15:59 Future Hold Acetaminophen (Tylenol Tab) 325 mg Q4H PRN PO 11/19/16 16:00 12/19/16 15:59 11/27/16 15:17 325 MG Lorazepam (Ativan Inj) 2 mg Q2H PRN IM 11/19/16 20:00 12/19/16 19:59 Future Hold 11/20/16 21:49 2 MG Haloperidol Lactate (Haldol Inj) 5 mg Q4H PRN IM 11/21/16 14:30 12/21/16 14:29 11/26/16 22:14 5 MG Lorazepam (Ativan Tab) 0.5 mg Q4H PRN PO 11/21/16 14:45 12/21/16 14:44 Future Hold Olanzapine (Zyprexa Tab) 5 mg DAILY@1830 PO 11/23/16 18:30 12/23/16 18:29 11/26/16 18:09 5 MG Magnesium Oxide (Mag-Ox Tab) 400 mg QAM PO 11/25/16 11:30 12/25/16 11:29 11/27/16 10:57 400 MG Enteral Nutritional Formula (Boost Plus Vanilla) 1 can HS PO 11/27/16 21:00 12/27/16 20:59 Objective Vital Signs Date Time Temp Pulse Resp B/P (MAP) Pulse Ox O2 Delivery O2 Flow Rate FiO2 11/27/16 14:13 36.4 81 18 101/67 (78) 97 Room Air 11/27/16 10:40 36.2 94 18 124/82 (96) 94 Room Air 11/27/16 08:00 Room Air 11/27/16 00:00 Room Air 11/26/16 22:53 36.8 92 16 134/75 (94) 95 Room Air Physical Exam General Appearance: no apparent distress, + thin Respiratory/Chest: chest non-tender, lungs clear, normal breath sounds, no respiratory distress, no accessory muscle use Cardiovascular: regular rate, rhythm, no edema, no gallop, no JVD, no murmur Abdomen: normal bowel sounds, non tender, soft, no organomegaly Extremities: normal range of motion, non-tender, normal inspection, no pedal edema, no calf tenderness Neurologic/Psychiatric: 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, no motor/sensory deficits, alert, oriented x 3, + depressed affect, + pertinent finding (agitated at times) Skin: normal color, warm/dry, no rash Assessment and Plan The patient is a 61-year-old female being treated for: Alcohol withdrawal w/ encephalopathy- STABLE: completed the withdrawal process at this time - Lexapro 10 mg by mouth daily - Librium 10mg BID - Haldol 2.5 mg q6 hrs PO PRN and IM Haldol 5 mg q4 hrs PRN if PO cannot be administered -- All Ativan on hold per psychiatry recommendations - Zyprexa 5 mg HS to help reduce nighttime anxiety/agitation per pysch - Thiamine and folic acid supplement - Consulted neurology- no new recommendations - ultimate goal is to stabilize mood to be able to d/c to SNF, possible alcohol rehab eventually - patient accepts idea of SNF if not too expensive, concerned about bills from 's hospitalization - not agreeable to alcohol rehab at this time Depression/anxiety: - Lexapro 10 mg daily- consideration for increased dose when stable from withdrawal - Psych consulted- recommending psychiatric monitoring as outpatient with follow -up - will ask psychiatry to assess capacity to make medical decision regarding SNF tomorrow Urinary retention, ?secondary to obstruction vs medication (Haldol): - Bladder scan and straight cath PRN - UA negative on 11/22 Severe deconditioning and mod/severe protein/caloric malnutrition: - Pending placement - Continue PT/OT - Boost- encourage intake HTN- STABLE: Metoprolol 25 mg daily Severe sepsis/right elbow cellulitis- RESOLVED: Treated w/ IV Rocephin Hypomagnesemia- RESOLVED: Treated w/ IV and PO Mag supplement- start Mag-Ox 400 mg daily on 11/25 due to continued hypoMag around 1.7 Hypernatremia- RESOLVED ARF- RESOLVED Thrombocytopenia- RESOLVED DVT prophylaxis: Heparin TID Code Status: LEVEL I, FULL Dispo: Pending placement- transition social worker and PT/OT consulted Continued [facility] stay due to: multiple IV medications needed Discharge planning: [facility] facility
[2016-11-27] MEDS: OLANZAPINE 5 MG TAB PO SCH (18:03)
[2016-11-27] MEDS: HALOPERIDOL 5 MG TAB PO PRN (18:04)
[2016-11-27] MEDS: BOOST PLUS VANILLA PO SCH ×2 (20:41)
[2016-11-27] MEDS: MULTIVITAMIN TAB PO SCH (20:41)
[2016-11-28] MEDS: ACETAMINOPHEN 325 MG TAB PO PRN (00:31)
[2016-11-28] MEDS: HALOPERIDOL 5 MG TAB PO PRN ×3 (00:42→18:08)
[2016-11-28] MEDS: HEPARIN SOD 5000 UNIT/0.5 ML CARP SQ SCH ×3 (06:00→21:26)
[2016-11-28 06:45] VITALS: BP 122/74; PULSE 82; TEMP 36.4; O2SAT 95
[2016-11-28] MEDS: DOCUSATE SODIUM/SENNA 50/8.6MG TAB PO SCH (08:42)
[2016-11-28] MEDS: ESCITALOPRAM OXALATE 10 MG TAB PO SCH (08:43)
[2016-11-28] MEDS: POTASSIUM CHLORIDE 20 MEQ TABCR PO SCH (08:43)
[2016-11-28] MEDS: FoLIC ACID TAB 400 MCG TAB PO SCH (08:43)
[2016-11-28] MEDS: TRIAMCINOLONE ACET 0.1% CR 80 GM TUBE EXT SCH ×3 (08:43→20:33)
[2016-11-28] MEDS: MAGNESIUM OXIDE 400 MG TAB PO SCH (08:43)
[2016-11-28] MEDS: CALCIUM 600MG + VIT D 400 IU TAB PO SCH (08:43)
[2016-11-28] MEDS: METOPROLOL SUCC 25MG EXT REL TAB PO SCH (08:43)
[2016-11-28] MEDS: THIAMINE HCL 100 MG TAB PO SCH ×2 (08:43→20:32)
[2016-11-28] MEDS: VITAMIN B COMPLEX TAB PO SCH (08:43)
[2016-11-28] MEDS: HALOPERIDOL LACTATE 5 MG/ML 1 ML VIAL IM PRN ×3 (11:40→19:18)
--- NOTE | 2016-11-28 13:07 | Psychiatric Progress Notes ---
Progress Note Date of Service Nov 28, 2016. Interval History 61 yo female admitted medically with rt elbow infection/sepsis. Consult placed to evaluate depression. Chief Complaint "I was told I couldn't go home until I see you.". Subjective Patient was seen & assessed interval progress reviewed with Treatment Team. The patient is fully dressed, and seated slouched over in a chair playing with her phone. She was expecting my visit, and made it clear she was "pissed off" about not being able to go home. She is difficult to keep directed toward the conversation at hand. Her cousin's Diana is in the room as the patient called her to come in. She is aware that the recommendation is for her to go to rehab for physical strengthening, which she refuses to do. She sees no reason that she cannot go home. She says that she needs to take care of her , dog and house, despite the fact that her in a care home following his stroke. I attempt to discuss her severe alcohol withdrawal syndrome, which she continues to debate, saying that she wasn't drinking that much, but Diana confirmed she was drinking right up to hospitalization. Nicole made several comments about wanting to go home and have a big drink. She is oriented X 4. Her memory is intact to 2 of 3 items after several minutes. When asked who our current president was she responded "Hugh Vanegas" and when asked to explain she hesitated, then said "Claudia" (past president of [facility]). She could not identify 5 cities [place] the [place], but was able to identify 2 simple objects. We attempted to search for a compromise to the situation regarding going to rehab, but she was unreasonable, angry and unwilling even to stop playing with her phone in order to focus on the conversation. She is unaware of her impairments saying that she has not lost any weight here in the hospital, when she has actually lost over 10 lbs and appears cachectic. Diana confirms that Nicole is not at baseline and is more confused today than yesterday. Diana and her are able to help patient at home, but cannot provide 24/7 care, and Nicole today is angry at even them, and saying she would have the locks changed on the house. Review of Systems Constitutional: No fever, No chills, No sweats, No weight loss, No weakness, No fatigue, No problem reported ENT: No hearing loss, No unusual epistaxis, No nasal symptoms, No sore throat, No tinnitus, No dental problems, No trouble swallowing, No problem reported Respiratory: No cough, No sputum, No wheezing, No shortness of breath, No dyspnea on exertion, No dyspnea at rest, No hemoptysis, No problem reported Cardiovascular: No chest pain, No orthopnea, No PND, No edema, No claudication , No palpitations, No problem reported Abdomen: No pain, No nausea, No vomiting, No diarrhea, No constipation, No GI bleeding, No problem reported Musculoskeletal: + problem reported (points out a bruise to her rt frontal area ) Neurologic: No memory loss, No paralysis, No weakness, No numbness/tingling, No vertigo, No balance problems, No problem reported Psychiatric: + problem reported ("I'm pissed off") Integumentary: No rash, No itch, No new/changing skin lesions, No color change , No bleeding, No problem reported Mental Status Exam During interview pt is: alert and oriented, uncooperative Appearance: appropriately dressed Eye contact is: poor Motor behavior is: psychomotor agitation Speech: normal in rate, rhythm & volume Affect: angry, anxious Mood is: angry Thought process: tangential Thought content: other (anger and perseveration about needing to go home) Suicidal thought are: denied Homicidal thoughts are: denied Hallucinations: denies auditory, denies visual Cognition: other (memory impaired) Intelligence estimated to be: average Insight: poor Judgement: poor Impression The primary team is recommending rehab for physical strengthening, which the patient is refuses to accept. We are asked to to evaluate her capacity to make decisions regarding discharge disposition. Based on my interview, I believe that the patient lacks capacity to make this decision based on her inability to be reasonable, and manipulate information in a reality based manner. She is driven by her anger, which is interfering with even her willingness to appropriately participate in the interview. She is also threatening to cut off the only form of support she might have in the home, her cousin and his . Although her condition is improving over time, I believe that she is not yet at the point that she can make reasonable decisions about her disposition. Recommendation has been reviewed with Dr. Xin Roland. Mayelin Snowden PA-C was present for the interview with patient permission. Plan (1) Generalized anxiety disorder Upon discharge the patient will need to be referred to a psychiatrist and a psychotherapist for more active treatment of her depression and anxiety.. The patient has insight of the fact that she is suffering from depression and also agrees to a plan to enter treatment with a psychiatrist and therapist, but is concerned about her ability to pay. Given the patient's weakness and difficulty ambulating, tapering and then discontinuing her dose of alprazolam over a period of several weeks would be indicated. She might also respond favorably to a higher dose of Lexapro (20 mg daily) 1 she is medically stable. She might also benefit from the addition of buspirone, starting at 5 mg twice a day, for anxiety. Trazodone 50 mg at bedtime may help with sleep, and may also serve as an adjunctive to Lexapro. I have cautioned her that she must not consume alcohol while taking psychiatric medications. I have also advised her that alcohol can worsen an underlying depression, even if temporarily it makes one feel more comfortable. 11/12 - Contact family for supplemental information about recent mood and drinking habits. (2) Depression Upon discharge the patient will need to be referred to a psychiatrist and a psychotherapist for more active treatment of her depression and anxiety.. The patient has insight of the fact that she is suffering from depression and also agrees to a plan to enter treatment with a psychiatrist and therapist, but is concerned about her ability to pay. Given the patient's weakness and difficulty ambulating, tapering and then discontinuing her dose of alprazolam over a period of several weeks would be indicated. She might also respond favorably to a higher dose of Lexapro (20 mg daily) 1 she is medically stable. She might also benefit from the addition of buspirone, starting at 5 mg twice a day, for anxiety. Trazodone 50 mg at bedtime may help with sleep, and may also serve as an adjunctive to Lexapro. I have cautioned her that she must not consume alcohol while taking psychiatric medications. I have also advised her that alcohol can worsen an underlying depression, even if temporarily it makes one feel more comfortable. Visit Code E&M Code: 35702 Inventory Assets Strengths: Supportive family. Good sense of humor. Loves animals. Strong marriage. Risk Factors Assessment : Yes /single/: No Higher / Fall in social status: No Health problems: Yes Mental Health Diagnoses: Yes Substance use disorders: No Previous attempt: No Previous attempt;highly lethal: No Previous attempt; planned: No Previous attempt; didn't tell: No Family history of suicide: No Previous psychiatric stay: No Hopelessness: No Smoker: Yes Protective Factors Assessment Mosque beliefs: Yes : Yes Responsible for young children: No Employed: No Stable relationships: Yes Supportive family: Yes Good rapport with provider: Yes Absence of risk factors above: No Data Vital Signs Last 24 Hrs: Date Time Temp Pulse Resp B/P (MAP) Pulse Ox O2 Delivery O2 Flow Rate FiO2 11/28/16 08:00 Room Air 11/28/16 06:45 36.4 82 20 122/74 (90) 95 Room Air 11/28/16 00:00 Room Air 11/27/16 20:00 Room Air 11/27/16 16:00 Room Air 11/27/16 14:13 36.4 81 18 101/67 (78) 97 Room Air Meds Administered Last 24 Hrs: Meds Administered (Past 24Hrs) Medications (Trade) Dose Ordered Sig/Marisa Route Start Time Stop Time Status Last Admin Dose Admin Enteral Nutritional Formula (Boost Plus Vanilla) 1 can HS PO 11/27/16 21:00 12/27/16 20:59 11/27/16 20:41 1 CAN Lab Results Last 24 Hrs: 11/21/16 11:23 11/25/16 07:02 Test 11/02/16 21:20 11/03/16 06:13 11/03/16 15:27 11/03/16 19:27 Urine Pathogenic Casts 0-3 GRANULAR CASTS /lpf (0) Ethyl Alcohol mg/dL < 3.0 mg/dl (0-3) Nucleated RBC Absolute Count (auto) 0.03 K/uL (0-0) Nucleated Red Blood Cells % 0.2 % Dohle Bodies 1+ Total Creatine Kinase U/L (26-192) Creatine Kinase MB 1.9 ng/ml (0.5-3.6) Creatine Kinase MB Ratio (0-3.0) Troponin I 0.092 ng/ml (0-0.045) Lactic Acid Level 1.8 mmol/L (0.4-2.0) Lipase 47 U/L (73-393) Test 11/04/16 05:25 11/04/16 08:15 11/05/16 04:44 11/07/16 23:52 Target Cells 1+ Blood Gas Specimen Type venous. Blood Gas Sample Site L Radial Bedside Blood Gas pH (LAB) 7.36 (7.35-7.45) Bedside Blood Gas pCO2 (LAB) 33 mmHg (35-46) Bedside Blood Gas pO2 (LAB) < 32 mmHg (80-95) Bedside Blood Gas HCO3 (LAB) 18 meq/L (19-24) Bedside Blood Gas Total CO2 19 mEq/l (24-31) Bedside Blood Gas Base Excess (LAB) -7.0 meq/L (-9-1.8) Bedside Blood Gas O2 Saturation 48.0 % (90-95) Jose Guadalupe Test Pass Oxygen Delivery Device Room Air Immature Granulocyte % (Auto) 0.3 % White Blood Count 9.62 K/uL (4.8-10.8) Red Blood Count 3.47 M/uL (4.2-5.4) Hemoglobin 12.1 g/dL (12.0-16.0) Hematocrit 35.1 % (37-47) Mean Corpuscular Volume 101.2 fL (80-100) Mean Corpuscular Hemoglobin 34.9 pg (25-34) Mean Corpuscular Hemoglobin Concent 34.5 g/dl (32-36) Platelet Count 76 K/uL (130-400) Mean Platelet Volume 11.0 fL (7.4-10.4) Neutrophils (%) (Auto) 76.5 % Lymphocytes (%) (Auto) 13.4 % Monocytes (%) (Auto) 4.0 % Eosinophils (%) (Auto) 5.6 % Basophils (%) (Auto) 0.2 % Neutrophils # (Auto) 7.36 K/uL (1.4-6.5) Lymphocytes # (Auto) 1.29 K/uL (1.2-3.4) Monocytes # (Auto) 0.38 K/uL (0.11-0.59) Eosinophils # (Auto) 0.54 K/uL (0-0.5) Basophils # (Auto) 0.02 K/uL (0-0.2) Immature Granulocyte # (Auto) 0.03 K/uL (0.00-0.02) Red Blood Cell Morphology Unremarkable Prothrombin Time 11.7 SECONDS (9.0-12.0) Prothromb Time International Ratio 1.1 (0.9-1.1) Activated Partial Thromboplast Time 38.4 SECONDS (21.0-31.0) Partial Thromboplastin Ratio 1.5 Direct Bilirubin 0.1 mg/dl (0-0.2) Bedside Glucose 111 mg/dl (70-90) Test 11/08/16 05:53 11/09/16 05:25 11/12/16 06:05 11/12/16 06:08 Phosphorus Level 3.4 mg/dl (2.5-4.9) Procalcitonin 0.64 ng/ml (0-0.5) Thyroid Stimulating Hormone (TSH) 2.290 uIu/ml (0.300-4.500) Ammonia < 10.0 umol/L (11-32) Test 11/13/16 05:53 11/21/16 11:23 11/22/16 15:50 11/25/16 07:02 Vitamin B12 Level 953 pg/mL (211-911) Red Blood Count 3.72 M/uL (4.2-5.4) Mean Corpuscular Volume 101.3 fL (80-100) Mean Corpuscular Hemoglobin 34.7 pg (25-34) Mean Corpuscular Hemoglobin Concent 34.2 g/dl (32-36) RDW Standard Deviation 51.0 fL (36.4-46.3) RDW Coefficient of Variation 13.7 % (11.5-14.5) Mean Platelet Volume 10.0 fL (7.4-10.4) Urine Color YELLOW Urine Appearance CLEAR (CLEAR) Urine pH 7.0 (4.5-7.5) Urine Specific [place] 1.014 (1.000-1.030) Urine Protein NEG (NEG) Urine Glucose (UA) NEG (NEG) Urine Ketones NEG (NEG) Urine Occult Blood NEG (NEG) Urine Nitrite NEG (NEG) Urine Bilirubin NEG (NEG) Urine Urobilinogen NEG (NEG) Urine Leukocyte Esterase TRACE (NEG) Urine WBC (Auto) 1-5 /hpf (0-5) Urine RBC (Auto) 0-4 /hpf (0-4) Urine Hyaline Casts (Auto) 1-5 /lpf (0-5) Urine Epithelial Cells (Auto) >30 /lpf (0-5) Urine Bacteria (Auto) NEG (NEG) Anion Gap 8.0 mmol/L (3-11) Est Creatinine Clear Calc Drug Dose 101.4 ml/min Estimated GFR () 129.0 Estimated GFR (Non- 111.3 BUN/Creatinine Ratio 14.9 (10-20) Calcium Level 9.3 mg/dl (8.5-10.1) Magnesium Level 1.7 mg/dl (1.8-2.4) Total Bilirubin 0.3 mg/dl (0.2-1) Aspartate Amino Transf (AST/SGOT) 31 U/L (15-37) Alanine Aminotransferase (ALT/SGPT) 22 U/L (12-78) Alkaline Phosphatase 70 U/L (45-117) Total Protein 5.8 gm/dl (6.4-8.2) Albumin 2.5 gm/dl (3.4-5.0) Globulin 3.3 gm/dl (2.5-4.0) Albumin/Globulin Ratio 0.8 (0.9-2) Date/Time Source Procedure Growth Status 11/03/16 23:17 Blood Blood Culture - Final NO GROWTH Complete 11/03/16 20:30 Nasal MRSA DNA Surveillance Screen - Final Specimen Negative for MRSA by DNA Probe Complete 11/06/16 00:00 Stool C.difficile Toxin B Gene (PCR) - Final No C. difficile toxin B gene detected Complete 11/04/16 00:57 Urine , Clean Catch Urine Culture - Final NO GROWTH - LESS THAN 1,000 COLONIES/ML Complete
[2016-11-28] MEDS: LORAZEPAM 1 MG TAB PO ONE ×2 (13:42→14:29)
[2016-11-28] MEDS ORDERED: NURSING VERBAL MED ORDER ONE ×3 (13:45→20:00)
--- NOTE | 2016-11-28 17:10 | Progress Note ---
Subjective Date of Service: Nov 28, 2016. Subjective Pt evaluation today including: conversation w/ patient, physical exam, conversation w/ informatics consultant, review of inpatient medication list Pain: no pain PO Intake: poor appetite Voiding: no voiding problems evaluated by psychiatry today, deemed to not have full capacity to make decisions about her medical care discussed with patient that she could not go home, would need placement, she became very angry fixated on going home, seeing her dog said that she would go home and drink and then drive her car said that she would go jump in front of a car kept trying to leave the room, struck me once because I was blocking the door RN gave patient Haldol 5mg IM x 1 and Ativan 1mg PO to calm her down continue one on one for her own safety d/w CM, will need placement but will need POA first, the patient's cousin will be signing POA paperwork Problem List Medical Problems: (1) Acute electrocardiogram changes Status: Acute (2) JOSE (acute kidney injury) Status: Acute (3) Elevated troponin Status: Acute (4) Hypomagnesemia Status: Acute (5) Sepsis Status: Acute (6) Septic shock Status: Acute (7) Vomiting Status: Acute Review of Systems Psychiatric: + depression symptoms, + anxiety All Other Systems: Reviewed and Negative Medications Current Inpatient Medications Medications (Trade) Dose Ordered Sig/Marisa Route Start Time Stop Time Status Last Admin Dose Admin Ondansetron HCl (Zofran Inj) 4 mg Q6H PRN IV 11/02/16 22:00 12/02/16 21:59 Vitamin B Complex (Vitamin B Complex) 1 tab QAM PO 11/03/16 09:00 12/03/16 08:59 11/28/16 08:43 1 TAB Calcium/Vitamin D (Caltrate Plus Tab) 1 tab QAM PO 11/03/16 09:00 12/03/16 08:59 11/28/16 08:43 1 TAB Diclofenac Sodium (Voltaren 1% Top Gel) 1 appln DAILY PRN EXT 11/02/16 22:15 12/02/16 22:14 11/18/16 14:51 1 APPLN Escitalopram Oxalate (Lexapro Tab) 10 mg DAILY PO 11/03/16 09:00 12/03/16 08:59 11/28/16 08:43 10 MG Multivitamins (Multivitamin Tab) 1 tab HS PO 11/03/16 21:00 12/03/16 20:59 11/27/16 20:41 1 TAB Senna/Docusate Sodium (Senokot S Tab) 1 tab QAM PO 11/03/16 09:00 12/03/16 08:59 11/28/16 08:42 1 TAB Heparin Sodium (Porcine) (Heparin Sq 5000 Unit/0.5ml) 5,000 unit Q8 SQ 11/04/16 14:00 12/04/16 13:59 11/25/16 21:33 5,000 UNIT Metoprolol Succinate (Toprol Xl Tab) 25 mg DAILY PO 11/09/16 09:00 12/09/16 08:59 11/28/16 08:43 25 MG Folic Acid (Folvite Tab) 400 mcg QAM PO 11/09/16 09:00 12/09/16 08:59 11/28/16 08:43 400 MCG Thiamine HCl (Vitamin B-1 Tab) 200 mg BID PO 11/10/16 09:00 12/09/16 08:59 11/28/16 08:43 200 MG Potassium Chloride (Klor-Con Tab) 20 meq QAM PO 11/12/16 09:00 12/12/16 08:59 11/28/16 08:43 20 MEQ Haloperidol (Haldol Tab) 2.5 mg Q6H PRN PO 11/11/16 17:00 12/11/16 16:59 11/28/16 10:36 2.5 MG Triamcinolone Acetonide (Triamcinolone Acet 0.1% Crm) 1 appln TID EXT 11/12/16 09:00 12/12/16 08:59 11/27/16 20:41 1 APPLN Lorazepam (Ativan Inj) 2 mg Q4H PRN IV 11/16/16 16:30 12/16/16 16:29 Future Hold 11/17/16 12:31 2 MG Lorazepam 2 mg/ Syringe 2 ml @ 1 mls/min Q4H PRN IV 11/16/16 16:30 12/16/16 16:29 Future Hold 11/19/16 02:34 1 MLS/MIN Lorazepam (Ativan Tab) 1 mg Q4H PRN PO 11/19/16 16:00 12/19/16 15:59 Future Hold 11/19/16 17:18 1 MG Lorazepam (Ativan Tab) 2 mg Q6H PRN PO 11/19/16 16:00 12/19/16 15:59 Future Hold Acetaminophen (Tylenol Tab) 325 mg Q4H PRN PO 11/19/16 16:00 12/19/16 15:59 11/28/16 00:31 325 MG Lorazepam (Ativan Inj) 2 mg Q2H PRN IM 11/19/16 20:00 12/19/16 19:59 Future Hold 11/20/16 21:49 2 MG Haloperidol Lactate (Haldol Inj) 5 mg Q4H PRN IM 11/21/16 14:30 12/21/16 14:29 11/28/16 14:30 5 MG Lorazepam (Ativan Tab) 0.5 mg Q4H PRN PO 11/21/16 14:45 12/21/16 14:44 Future Hold Olanzapine (Zyprexa Tab) 5 mg DAILY@1830 PO 11/23/16 18:30 12/23/16 18:29 11/27/16 18:03 5 MG Magnesium Oxide (Mag-Ox Tab) 400 mg QAM PO 11/25/16 11:30 12/25/16 11:29 11/28/16 08:43 400 MG Enteral Nutritional Formula (Boost Plus Vanilla) 1 can HS PO 11/27/16 21:00 12/27/16 20:59 11/27/16 20:41 1 CAN Objective Vital Signs Date Time Temp Pulse Resp B/P (MAP) Pulse Ox O2 Delivery O2 Flow Rate FiO2 11/28/16 16:00 Room Air 11/28/16 08:00 Room Air 11/28/16 06:45 36.4 82 20 122/74 (90) 95 Room Air 11/28/16 00:00 Room Air 11/27/16 20:00 Room Air Physical Exam General Appearance: no apparent distress, + thin Eyes: normal inspection, EOMI, sclerae normal ENT: normal ENT inspection, hearing grossly normal, pharynx normal Neck: supple, no adenopathy, no JVD Respiratory/Chest: chest non-tender, lungs clear, normal breath sounds, no respiratory distress, no accessory muscle use Cardiovascular: regular rate, rhythm, no edema, no gallop, no JVD, no murmur Abdomen: normal bowel sounds, non tender, soft, no organomegaly Extremities: normal range of motion, non-tender, normal inspection, no pedal edema, no calf tenderness, pelvis stable Neurologic/Psychiatric: 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, no motor/sensory deficits, + depressed affect, + disoriented, + pertinent finding (agitated, making threats to harm herself and others) Skin: normal color, warm/dry, no rash Assessment and Plan The patient is a 61-year-old female being treated for: Alcohol withdrawal w/ encephalopathy- STABLE: completed the withdrawal process at this time - Lexapro 10 mg by mouth daily - Librium 10mg BID - Haldol 2.5 mg q6 hrs PO PRN and IM Haldol 5 mg q4 hrs PRN if PO cannot be administered -- All Ativan on hold per psychiatry recommendations -- had to give a single dose today to calm her down after telling her that she would not be going home - Zyprexa 5 mg HS to help reduce nighttime anxiety/agitation per pysch - Thiamine and folic acid supplement - Consulted neurology- no new recommendations - ultimate goal is to stabilize mood to be able to d/c to SNF, possible alcohol rehab eventually - patient cannot make her own medical decisions, lacks capacity per psychiatry evaluation - her cousin will sign POA paperwork and will work towards placement Depression/anxiety: - Lexapro 10 mg daily- consideration for increased dose when stable from withdrawal - Psych consulted- recommending psychiatric monitoring as outpatient with follow -up Urinary retention, ?secondary to obstruction vs medication (Haldol): - Bladder scan and straight cath PRN - UA negative on 11/22 Severe deconditioning and mod/severe protein/caloric malnutrition: - Pending placement - Continue PT/OT - Boost- encourage intake HTN- STABLE: Metoprolol 25 mg daily Severe sepsis/right elbow cellulitis- RESOLVED: Treated w/ IV Rocephin Hypomagnesemia- RESOLVED: Treated w/ IV and PO Mag supplement- start Mag-Ox 400 mg daily on 11/25 due to continued hypoMag around 1.7 Hypernatremia- RESOLVED ARF- RESOLVED Thrombocytopenia- RESOLVED DVT prophylaxis: Heparin TID Code Status: LEVEL I, FULL Dispo: Pending placement- social media designer and PT/OT consulted Continued [facility] stay due to: multiple IV medications needed Discharge planning: group home facility
[2016-11-28] MEDS: OLANZAPINE 5 MG TAB PO SCH (18:06)
[2016-11-28] MEDS ORDERED: OLANZAPINE 10 MG/2.1 ML SDV IM ONE (20:15)
[2016-11-28] MEDS: BOOST PLUS VANILLA PO SCH ×2 (20:31)
[2016-11-28] MEDS: MULTIVITAMIN TAB PO SCH (20:32)
[2016-11-28] MEDS: NICOTINE 14 MG/24 HR TDSY TD SCH (20:39)
[2016-11-28] MEDS ORDERED: NURSING VERBAL MED ORDER STA (21:21)
[2016-11-28] MEDS ORDERED: HALOPERIDOL LACTATE 5 MG/ML 1 ML VIAL IM STA (21:27)
[2016-11-28 22:27] VITALS: BP 103/67; PULSE 92; TEMP 37.1; O2SAT 94
[2016-11-29] MEDS: HEPARIN SOD 5000 UNIT/0.5 ML CARP SQ SCH ×3 (05:44→21:51)
[2016-11-29 08:00] VITALS: O2SAT 94
[2016-11-29] MEDS: POTASSIUM CHLORIDE 20 MEQ TABCR PO SCH (09:00)
[2016-11-29] MEDS: CALCIUM 600MG + VIT D 400 IU TAB PO SCH (09:00)
[2016-11-29] MEDS: DOCUSATE SODIUM/SENNA 50/8.6MG TAB PO SCH (09:00)
[2016-11-29] MEDS: THIAMINE HCL 100 MG TAB PO SCH ×2 (09:00→20:22)
[2016-11-29] MEDS: FoLIC ACID TAB 400 MCG TAB PO SCH (09:00)
[2016-11-29] MEDS: TRIAMCINOLONE ACET 0.1% CR 80 GM TUBE EXT SCH ×3 (09:00→20:23)
[2016-11-29] MEDS: HALOPERIDOL 5 MG TAB PO PRN (10:41)
[2016-11-29] MEDS: MAGNESIUM OXIDE 400 MG TAB PO SCH (10:42)
[2016-11-29] MEDS: VITAMIN B COMPLEX TAB PO SCH (10:42)
[2016-11-29] MEDS: METOPROLOL SUCC 25MG EXT REL TAB PO SCH (10:43)
[2016-11-29 10:45] VITALS: BP 112/76; PULSE 82; TEMP 36.6; O2SAT 100
[2016-11-29] MEDS: ESCITALOPRAM OXALATE 10 MG TAB PO SCH (10:53)
[2016-11-29 14:56] VITALS: BP 104/70; PULSE 82; TEMP 36.4; O2SAT 99
[2016-11-29] MEDS: OLANZAPINE 5 MG TAB PO SCH (18:02)
[2016-11-29] MEDS: BOOST PLUS VANILLA PO SCH ×2 (20:20)
[2016-11-29] MEDS: MULTIVITAMIN TAB PO SCH (20:22)
[2016-11-29] MEDS: NICOTINE 14 MG/24 HR TDSY TD SCH (20:26)
--- NOTE | 2016-11-29 21:04 | Progress Note ---
Subjective Date of Service: Nov 29, 2016. Subjective Pt evaluation today including: conversation w/ patient, physical exam, review of inpatient medication list Pain: no pain PO Intake: improving slowly Voiding: no voiding problems patient calm, remained in room today, no acute issues working on placement, will meet with family tomorrow Problem List Medical Problems: (1) Acute electrocardiogram changes Status: Acute (2) JOSE (acute kidney injury) Status: Acute (3) Elevated troponin Status: Acute (4) Hypomagnesemia Status: Acute (5) Sepsis Status: Acute (6) Septic shock Status: Acute (7) Vomiting Status: Acute Review of Systems All Other Systems: Reviewed and Negative Medications Current Inpatient Medications Medications (Trade) Dose Ordered Sig/Marisa Route Start Time Stop Time Status Last Admin Dose Admin Ondansetron HCl (Zofran Inj) 4 mg Q6H PRN IV 11/02/16 22:00 12/02/16 21:59 Vitamin B Complex (Vitamin B Complex) 1 tab QAM PO 11/03/16 09:00 12/03/16 08:59 11/29/16 10:42 1 TAB Calcium/Vitamin D (Caltrate Plus Tab) 1 tab QAM PO 11/03/16 09:00 12/03/16 08:59 11/28/16 08:43 1 TAB Diclofenac Sodium (Voltaren 1% Top Gel) 1 appln DAILY PRN EXT 11/02/16 22:15 12/02/16 22:14 11/18/16 14:51 1 APPLN Escitalopram Oxalate (Lexapro Tab) 10 mg DAILY PO 11/03/16 09:00 12/03/16 08:59 11/29/16 10:53 10 MG Multivitamins (Multivitamin Tab) 1 tab HS PO 11/03/16 21:00 12/03/16 20:59 11/29/16 20:22 1 TAB Senna/Docusate Sodium (Senokot S Tab) 1 tab QAM PO 11/03/16 09:00 12/03/16 08:59 11/28/16 08:42 1 TAB Heparin Sodium (Porcine) (Heparin Sq 5000 Unit/0.5ml) 5,000 unit Q8 SQ 11/04/16 14:00 12/04/16 13:59 11/25/16 21:33 5,000 UNIT Metoprolol Succinate (Toprol Xl Tab) 25 mg DAILY PO 11/09/16 09:00 12/09/16 08:59 11/29/16 10:43 25 MG Folic Acid (Folvite Tab) 400 mcg QAM PO 11/09/16 09:00 12/09/16 08:59 11/28/16 08:43 400 MCG Thiamine HCl (Vitamin B-1 Tab) 200 mg BID PO 11/10/16 09:00 12/09/16 08:59 11/29/16 20:22 200 MG Potassium Chloride (Klor-Con Tab) 20 meq QAM PO 11/12/16 09:00 12/12/16 08:59 11/28/16 08:43 20 MEQ Haloperidol (Haldol Tab) 2.5 mg Q6H PRN PO 11/11/16 17:00 12/11/16 16:59 11/29/16 10:41 2.5 MG Triamcinolone Acetonide (Triamcinolone Acet 0.1% Crm) 1 appln TID EXT 11/12/16 09:00 12/12/16 08:59 11/27/16 20:41 1 APPLN Lorazepam (Ativan Inj) 2 mg Q4H PRN IV 11/16/16 16:30 12/16/16 16:29 Future Hold 11/17/16 12:31 2 MG Lorazepam 2 mg/ Syringe 2 ml @ 1 mls/min Q4H PRN IV 11/16/16 16:30 12/16/16 16:29 Future Hold 11/19/16 02:34 1 MLS/MIN Lorazepam (Ativan Tab) 1 mg Q4H PRN PO 11/19/16 16:00 12/19/16 15:59 Future Hold 11/19/16 17:18 1 MG Lorazepam (Ativan Tab) 2 mg Q6H PRN PO 11/19/16 16:00 12/19/16 15:59 Future Hold Acetaminophen (Tylenol Tab) 325 mg Q4H PRN PO 11/19/16 16:00 12/19/16 15:59 11/28/16 00:31 325 MG Lorazepam (Ativan Inj) 2 mg Q2H PRN IM 11/19/16 20:00 12/19/16 19:59 Future Hold 11/20/16 21:49 2 MG Haloperidol Lactate (Haldol Inj) 5 mg Q4H PRN IM 11/21/16 14:30 12/21/16 14:29 11/28/16 19:18 5 MG Lorazepam (Ativan Tab) 0.5 mg Q4H PRN PO 11/21/16 14:45 12/21/16 14:44 Future Hold Olanzapine (Zyprexa Tab) 5 mg DAILY@1830 PO 11/23/16 18:30 12/23/16 18:29 11/29/16 18:02 5 MG Magnesium Oxide (Mag-Ox Tab) 400 mg QAM PO 11/25/16 11:30 12/25/16 11:29 11/29/16 10:42 400 MG Enteral Nutritional Formula (Boost Plus Vanilla) 1 can HS PO 11/27/16 21:00 12/27/16 20:59 11/29/16 20:20 1 CAN Nicotine (Nicoderm Cq 14MG Patch) 1 patch HS TD 11/28/16 21:00 12/28/16 20:59 11/29/16 20:26 1 PATCH Miscellaneous (Remove Nicoderm Patch) 1 ea HS N/A 11/29/16 21:00 12/29/16 20:59 11/29/16 20:25 1 EA Objective Vital Signs Date Time Temp Pulse Resp B/P (MAP) Pulse Ox O2 Delivery O2 Flow Rate FiO2 11/29/16 16:00 Room Air 11/29/16 14:56 36.4 82 17 104/70 (81) 99 Room Air 11/29/16 10:45 36.6 82 18 112/76 (88) 100 Room Air 11/29/16 08:00 94 Room Air 0.0 11/29/16 00:00 Room Air 11/28/16 22:27 37.1 92 18 103/67 (79) 94 Room Air Physical Exam General Appearance: WD/WN, no apparent distress Neck: supple, no adenopathy, no JVD Respiratory/Chest: chest non-tender, lungs clear, normal breath sounds, no respiratory distress, no accessory muscle use Cardiovascular: regular rate, rhythm, no edema, no gallop, no JVD, no murmur Abdomen: normal bowel sounds, non tender, soft, no organomegaly Extremities: normal range of motion, non-tender, normal inspection, no pedal edema, no calf tenderness Neurologic/Psychiatric: 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, no motor/sensory deficits, + pertinent finding (agitated, anxious, confused) Skin: normal color, warm/dry, no rash Assessment and Plan The patient is a 61-year-old female being treated for: Alcohol withdrawal w/ encephalopathy- STABLE: completed the withdrawal process at this time - Lexapro 10 mg by mouth daily - Librium 10mg BID - Haldol 2.5 mg q6 hrs PO PRN and IM Haldol 5 mg q4 hrs PRN if PO cannot be administered -- All Ativan on hold per psychiatry recommendations - Zyprexa 5 mg HS to help reduce nighttime anxiety/agitation per pysch - Thiamine and folic acid supplement - Consulted neurology- no new recommendations - ultimate goal is to stabilize mood to be able to d/c to SNF, possible alcohol rehab eventually - patient cannot make her own medical decisions, lacks capacity per psychiatry evaluation - her cousin will sign POA paperwork and will work towards placement Depression/anxiety: - Lexapro 10 mg daily- will increase to 20mg daily since withdrawal complete - Psych consulted- recommending psychiatric monitoring as outpatient with follow -up Urinary retention, ?secondary to obstruction vs medication (Haldol): - Bladder scan and straight cath PRN - UA negative on 11/22 Severe deconditioning and mod/severe protein/caloric malnutrition: - Pending placement - Continue PT/OT - Boost- encourage intake HTN- STABLE: Metoprolol 25 mg daily Severe sepsis/right elbow cellulitis- RESOLVED: Treated w/ IV Rocephin Hypomagnesemia- RESOLVED: Treated w/ IV and PO Mag supplement- start Mag-Ox 400 mg daily on 11/25 due to continued hypoMag around 1.7 Hypernatremia- RESOLVED ARF- RESOLVED Thrombocytopenia- RESOLVED DVT prophylaxis: Heparin TID Code Status: LEVEL I, FULL Dispo: Pending placement- social media marketing specialist and PT/OT consulted, family meeting tomorrow Continued [facility] stay due to: multiple IV medications needed Discharge planning: half-way facility
[2016-11-29 22:56] VITALS: BP 94/52; PULSE 71; TEMP 36.6; O2SAT 98
[2016-11-30] MEDS: HEPARIN SOD 5000 UNIT/0.5 ML CARP SQ SCH ×3 (06:00→21:53)
[2016-11-30 08:00] VITALS: O2SAT 93
[2016-11-30] MEDS: TRIAMCINOLONE ACET 0.1% CR 80 GM TUBE EXT SCH ×3 (09:00→20:54)
[2016-11-30] MEDS: DOCUSATE SODIUM/SENNA 50/8.6MG TAB PO SCH (09:00)
[2016-11-30 10:09] VITALS: BP 112/74; PULSE 86; TEMP 37; O2SAT 93
[2016-11-30] MEDS: ESCITALOPRAM OXALATE 10 MG TAB PO SCH (10:21)
[2016-11-30] MEDS: VITAMIN B COMPLEX TAB PO SCH (10:21)
[2016-11-30] MEDS: POTASSIUM CHLORIDE 20 MEQ TABCR PO SCH (10:22)
[2016-11-30] MEDS: CALCIUM 600MG + VIT D 400 IU TAB PO SCH (10:22)
[2016-11-30] MEDS: THIAMINE HCL 100 MG TAB PO SCH ×2 (10:22→20:56)
[2016-11-30] MEDS: FoLIC ACID TAB 400 MCG TAB PO SCH (10:23)
[2016-11-30] MEDS: METOPROLOL SUCC 25MG EXT REL TAB PO SCH (10:23)
[2016-11-30] MEDS: MAGNESIUM OXIDE 400 MG TAB PO SCH (10:24)
[2016-11-30] MEDS: DICLOFENAC SOD 1% GEL 100 GM TUBE EXT PRN ×2 (10:25→13:28)
--- NOTE | 2016-11-30 12:03 | Psychiatric Progress Notes ---
Psychiatric Progress Note Date of Service Nov 30, 2016. Notes ID: Patient reviewed with liaison nurse. Interim progress reviewed. CC: "I'm bored" HPI: 1-on-1 on medical floor, currently calm but hx of trying to leave when angry so for redirection, free of aggression at this time. Seemingly unaware of plan for SNF or family meeting today. No IM Haldol yesterday, 2.5 mg PO X1. ROS: patient denies physical complaints MSE: alert, oriented to place and self, thought processes remain concrete. No SI/HI/trejo. Imp: alcohol withdrawal delirium--ongoing improvement Plan: there is not psychiatric indication for acute inpatient mental health admission. Will monitor prn use. Hopefully Zyprexa can be tapered within next 1 -2 weeks.
[2016-11-30 16:22] VITALS: BP 115/74; PULSE 56; TEMP 37; O2SAT 92
[2016-11-30] MEDS: OLANZAPINE 5 MG TAB PO SCH (18:04)
[2016-11-30] MEDS: BOOST PLUS VANILLA PO SCH ×2 (20:53)
[2016-11-30] MEDS: NICOTINE 14 MG/24 HR TDSY TD SCH (20:56)
[2016-11-30] MEDS: MULTIVITAMIN TAB PO SCH (20:56)
[2016-11-30 23:40] VITALS: BP 117/78; PULSE 89; TEMP 36.8; O2SAT 98
[2016-12-01] MEDS: HEPARIN SOD 5000 UNIT/0.5 ML CARP SQ SCH ×3 (05:16→21:56)
[2016-12-01] MEDS: TRIAMCINOLONE ACET 0.1% CR 80 GM TUBE EXT SCH ×3 (09:00→20:20)
[2016-12-01] MEDS: ESCITALOPRAM OXALATE 10 MG TAB PO SCH (09:42)
[2016-12-01] MEDS: VITAMIN B COMPLEX TAB PO SCH (09:42)
[2016-12-01] MEDS: FoLIC ACID TAB 400 MCG TAB PO SCH (09:42)
[2016-12-01] MEDS: MAGNESIUM OXIDE 400 MG TAB PO SCH (09:42)
[2016-12-01] MEDS: METOPROLOL SUCC 25MG EXT REL TAB PO SCH (09:42)
[2016-12-01] MEDS: THIAMINE HCL 100 MG TAB PO SCH ×2 (09:43→20:21)
[2016-12-01] MEDS: POTASSIUM CHLORIDE 20 MEQ TABCR PO SCH (09:43)
[2016-12-01] MEDS: CALCIUM 600MG + VIT D 400 IU TAB PO SCH (09:43)
[2016-12-01] MEDS: DOCUSATE SODIUM/SENNA 50/8.6MG TAB PO SCH (09:43)
[2016-12-01 14:44] VITALS: BP 123/71; PULSE 91; TEMP 36.5; O2SAT 91
[2016-12-01] MEDS: OLANZAPINE 5 MG TAB PO SCH (18:33)
[2016-12-01] MEDS: BOOST PLUS VANILLA PO SCH ×2 (20:20)
[2016-12-01] MEDS: MULTIVITAMIN TAB PO SCH (20:21)
[2016-12-01] MEDS: NICOTINE 14 MG/24 HR TDSY TD SCH (20:23)
[2016-12-01 23:29] VITALS: BP 104/63; PULSE 77; TEMP 36.5; O2SAT 93
--- NOTE | 2016-12-02 04:37 | Progress Note ---
Subjective Date of Service: Dec 01, 2016. Subjective Pt evaluation today including: conversation w/ patient, physical exam, review of inpatient medication list Pain: no pain PO Intake: adequate Voiding: no voiding problems no changes on 12/01 Problem List Medical Problems: (1) Acute electrocardiogram changes Status: Acute (2) JOSE (acute kidney injury) Status: Acute (3) Elevated troponin Status: Acute (4) Hypomagnesemia Status: Acute (5) Sepsis Status: Acute (6) Septic shock Status: Acute (7) Vomiting Status: Acute Review of Systems Psychiatric: + depression symptoms, + anxiety All Other Systems: Reviewed and Negative Medications Current Inpatient Medications Medications (Trade) Dose Ordered Sig/Marisa Route Start Time Stop Time Status Last Admin Dose Admin Ondansetron HCl (Zofran Inj) 4 mg Q6H PRN IV 11/02/16 22:00 12/02/16 21:59 Vitamin B Complex (Vitamin B Complex) 1 tab QAM PO 11/03/16 09:00 12/03/16 08:59 12/01/16 09:42 1 TAB Calcium/Vitamin D (Caltrate Plus Tab) 1 tab QAM PO 11/03/16 09:00 12/03/16 08:59 12/01/16 09:43 1 TAB Diclofenac Sodium (Voltaren 1% Top Gel) 1 appln DAILY PRN EXT 11/02/16 22:15 12/02/16 22:14 11/30/16 13:28 1 APPLN Multivitamins (Multivitamin Tab) 1 tab HS PO 11/03/16 21:00 12/03/16 20:59 12/01/16 20:21 1 TAB Senna/Docusate Sodium (Senokot S Tab) 1 tab QAM PO 11/03/16 09:00 12/03/16 08:59 12/01/16 09:43 1 TAB Heparin Sodium (Porcine) (Heparin Sq 5000 Unit/0.5ml) 5,000 unit Q8 SQ 11/04/16 14:00 12/04/16 13:59 11/25/16 21:33 5,000 UNIT Metoprolol Succinate (Toprol Xl Tab) 25 mg DAILY PO 11/09/16 09:00 12/09/16 08:59 12/01/16 09:42 25 MG Folic Acid (Folvite Tab) 400 mcg QAM PO 11/09/16 09:00 12/09/16 08:59 12/01/16 09:42 400 MCG Thiamine HCl (Vitamin B-1 Tab) 200 mg BID PO 11/10/16 09:00 12/09/16 08:59 12/01/16 20:21 200 MG Potassium Chloride (Klor-Con Tab) 20 meq QAM PO 11/12/16 09:00 12/12/16 08:59 12/01/16 09:43 20 MEQ Haloperidol (Haldol Tab) 2.5 mg Q6H PRN PO 11/11/16 17:00 12/11/16 16:59 11/29/16 10:41 2.5 MG Triamcinolone Acetonide (Triamcinolone Acet 0.1% Crm) 1 appln TID EXT 11/12/16 09:00 12/12/16 08:59 12/01/16 13:48 1 APPLN Lorazepam (Ativan Inj) 2 mg Q4H PRN IV 11/16/16 16:30 12/16/16 16:29 Future Hold 11/17/16 12:31 2 MG Lorazepam 2 mg/ Syringe 2 ml @ 1 mls/min Q4H PRN IV 11/16/16 16:30 12/16/16 16:29 Future Hold 11/19/16 02:34 1 MLS/MIN Lorazepam (Ativan Tab) 1 mg Q4H PRN PO 11/19/16 16:00 12/19/16 15:59 Future Hold 11/19/16 17:18 1 MG Lorazepam (Ativan Tab) 2 mg Q6H PRN PO 11/19/16 16:00 12/19/16 15:59 Future Hold Acetaminophen (Tylenol Tab) 325 mg Q4H PRN PO 11/19/16 16:00 12/19/16 15:59 11/28/16 00:31 325 MG Lorazepam (Ativan Inj) 2 mg Q2H PRN IM 11/19/16 20:00 12/19/16 19:59 Future Hold 11/20/16 21:49 2 MG Haloperidol Lactate (Haldol Inj) 5 mg Q4H PRN IM 11/21/16 14:30 12/21/16 14:29 11/28/16 19:18 5 MG Lorazepam (Ativan Tab) 0.5 mg Q4H PRN PO 11/21/16 14:45 12/21/16 14:44 Future Hold Olanzapine (Zyprexa Tab) 5 mg DAILY@1830 PO 11/23/16 18:30 12/23/16 18:29 12/01/16 18:33 5 MG Magnesium Oxide (Mag-Ox Tab) 400 mg QAM PO 11/25/16 11:30 12/25/16 11:29 12/01/16 09:42 400 MG Enteral Nutritional Formula (Boost Plus Vanilla) 1 can HS PO 11/27/16 21:00 12/27/16 20:59 12/01/16 20:20 1 CAN Nicotine (Nicoderm Cq 14MG Patch) 1 patch HS TD 11/28/16 21:00 12/28/16 20:59 12/01/16 20:23 1 PATCH Miscellaneous (Remove Nicoderm Patch) 1 ea HS N/A 11/29/16 21:00 12/29/16 20:59 12/01/16 20:22 1 EA Escitalopram Oxalate (Lexapro Tab) 20 mg DAILY PO 11/30/16 09:00 12/03/16 08:59 12/01/16 09:42 20 MG Objective Vital Signs Date Time Temp Pulse Resp B/P (MAP) Pulse Ox O2 Delivery O2 Flow Rate FiO2 12/02/16 00:00 Room Air 12/01/16 23:29 36.5 77 18 104/63 (77) 93 Room Air 12/01/16 16:00 Room Air 12/01/16 14:44 36.5 91 16 123/71 (88) 91 Room Air 12/01/16 08:48 Room Air Physical Exam General Appearance: WD/WN, no apparent distress Neck: supple, no adenopathy, no JVD Respiratory/Chest: chest non-tender, lungs clear, normal breath sounds, no respiratory distress, no accessory muscle use Cardiovascular: regular rate, rhythm, no edema, no gallop, no JVD, no murmur Abdomen: normal bowel sounds, non tender, soft, no organomegaly Extremities: normal range of motion, non-tender, normal inspection, no pedal edema, no calf tenderness Neurologic/Psychiatric: + pertinent finding (agitated, anxious, depressed) Assessment and Plan The patient is a 61-year-old female being treated for: Alcohol withdrawal w/ encephalopathy- STABLE: completed the withdrawal process at this time - Lexapro 10 mg by mouth daily - Librium 10mg BID - Haldol 2.5 mg q6 hrs PO PRN and IM Haldol 5 mg q4 hrs PRN if PO cannot be administered -- All Ativan on hold per psychiatry recommendations - Zyprexa 5 mg HS to help reduce nighttime anxiety/agitation per pysch - Thiamine and folic acid supplement - Consulted neurology- no new recommendations - ultimate goal is to stabilize mood to be able to d/c to SNF, possible alcohol rehab eventually - patient cannot make her own medical decisions, lacks capacity per psychiatry evaluation - her cousin will sign POA paperwork and will work towards placement - met with patient's cousin on 11/30, explained situation, hopefully with time the patient will gain insight, regain capacity for now, plan is to go to [facility] in lock down unit patient's will be going to [facility] as well Depression/anxiety: - Lexapro 10 mg daily- will increase to 20mg daily since withdrawal complete - Psych consulted- recommending psychiatric monitoring as outpatient with follow -up Urinary retention, ?secondary to obstruction vs medication (Haldol): - Bladder scan and straight cath PRN - UA negative on 11/22 Severe deconditioning and mod/severe protein/caloric malnutrition: - Pending placement - Continue PT/OT - Boost- encourage intake HTN- STABLE: Metoprolol 25 mg daily Severe sepsis/right elbow cellulitis- RESOLVED: Treated w/ IV Rocephin Hypomagnesemia- RESOLVED: Treated w/ IV and PO Mag supplement- start Mag-Ox 400 mg daily on 11/25 due to continued hypoMag around 1.7 Hypernatremia- RESOLVED ARF- RESOLVED Thrombocytopenia- RESOLVED DVT prophylaxis: Heparin TID Code Status: LEVEL I, FULL Dispo: Pending placement- protective services social worker and PT/OT consulted, no physical rehab needs, will go to [facility] once office of aging completes their paperwork, likely early this week Continued [facility] stay due to: multiple IV medications needed Discharge planning: halfway facility
[2016-12-02] MEDS: HEPARIN SOD 5000 UNIT/0.5 ML CARP SQ SCH ×3 (06:00→20:56)
[2016-12-02] MEDS: TRIAMCINOLONE ACET 0.1% CR 80 GM TUBE EXT SCH ×3 (09:00→20:55)
[2016-12-02 09:30] VITALS: BP 150/92; PULSE 102; TEMP 36.6; O2SAT 96
[2016-12-02] MEDS: ESCITALOPRAM OXALATE 10 MG TAB PO SCH (09:43)
[2016-12-02] MEDS: POTASSIUM CHLORIDE 20 MEQ TABCR PO SCH (09:43)
[2016-12-02] MEDS: VITAMIN B COMPLEX TAB PO SCH (09:43)
[2016-12-02] MEDS: FoLIC ACID TAB 400 MCG TAB PO SCH (09:43)
[2016-12-02] MEDS: METOPROLOL SUCC 25MG EXT REL TAB PO SCH (09:43)
[2016-12-02] MEDS: MAGNESIUM OXIDE 400 MG TAB PO SCH (09:43)
[2016-12-02] MEDS: CALCIUM 600MG + VIT D 400 IU TAB PO SCH (09:44)
[2016-12-02] MEDS: DOCUSATE SODIUM/SENNA 50/8.6MG TAB PO SCH (09:44)
[2016-12-02] MEDS: THIAMINE HCL 100 MG TAB PO SCH ×2 (09:44→20:55)
[2016-12-02 15:17] VITALS: BP 146/75; PULSE 67; TEMP 36.9; O2SAT 94
--- NOTE | 2016-12-02 18:10 | Progress Note ---
Subjective Date of Service: Dec 02, 2016. Subjective Pt evaluation today including: conversation w/ patient, conversation w/ family , physical exam, chart review, lab review 61 yo female who reports that she is doing much better. Nurses state that she has been no longer been violent and has been talking throughout the day with a friend who is concerned about her alcoholism. Patient reports feeling back to baseline, however, her friend states that she is about 90 percent back, as she does not remember some things from her hospital stay. Patient states that she will no longer drink alcohol, but does not want to go to alcohol rehab. Problem List Medical Problems: (1) Acute electrocardiogram changes Status: Acute (2) JOSE (acute kidney injury) Status: Acute (3) Elevated troponin Status: Acute (4) Hypomagnesemia Status: Acute (5) Sepsis Status: Acute (6) Septic shock Status: Acute (7) Vomiting Status: Acute Review of Systems Constitutional: No fever, No chills ENT: No hearing loss, No unusual epistaxis Cardiac: No chest pain, No orthopnea Abdomen: No pain, No nausea Neurologic: No memory loss, No paralysis Psychiatric: No depression symptoms, No anhedonism Skin: No rash, No itch All Other Systems: Reviewed and Negative Medications Current Inpatient Medications Medications (Trade) Dose Ordered Sig/Marisa Route Start Time Stop Time Status Last Admin Dose Admin Ondansetron HCl (Zofran Inj) 4 mg Q6H PRN IV 11/02/16 22:00 01/01/17 21:59 Vitamin B Complex (Vitamin B Complex) 1 tab QAM PO 11/03/16 09:00 01/02/17 08:59 12/02/16 09:43 1 TAB Calcium/Vitamin D (Caltrate Plus Tab) 1 tab QAM PO 11/03/16 09:00 01/02/17 08:59 12/02/16 09:44 1 TAB Diclofenac Sodium (Voltaren 1% Top Gel) 1 appln DAILY PRN EXT 11/02/16 22:15 01/01/17 22:14 11/30/16 13:28 1 APPLN Multivitamins (Multivitamin Tab) 1 tab HS PO 11/03/16 21:00 01/02/17 20:59 12/02/16 20:55 1 TAB Senna/Docusate Sodium (Senokot S Tab) 1 tab QAM PO 11/03/16 09:00 01/02/17 08:59 12/02/16 09:44 1 TAB Heparin Sodium (Porcine) (Heparin Sq 5000 Unit/0.5ml) 5,000 unit Q8 SQ 11/04/16 14:00 01/03/17 13:59 11/25/16 21:33 5,000 UNIT Metoprolol Succinate (Toprol Xl Tab) 25 mg DAILY PO 11/09/16 09:00 12/09/16 08:59 12/02/16 09:43 25 MG Folic Acid (Folvite Tab) 400 mcg QAM PO 11/09/16 09:00 12/09/16 08:59 12/02/16 09:43 400 MCG Thiamine HCl (Vitamin B-1 Tab) 200 mg BID PO 11/10/16 09:00 12/09/16 08:59 12/02/16 20:55 200 MG Potassium Chloride (Klor-Con Tab) 20 meq QAM PO 11/12/16 09:00 12/12/16 08:59 12/02/16 09:43 20 MEQ Haloperidol (Haldol Tab) 2.5 mg Q6H PRN PO 11/11/16 17:00 12/11/16 16:59 11/29/16 10:41 2.5 MG Triamcinolone Acetonide (Triamcinolone Acet 0.1% Crm) 1 appln TID EXT 11/12/16 09:00 12/12/16 08:59 12/01/16 13:48 1 APPLN Lorazepam (Ativan Inj) 2 mg Q4H PRN IV 11/16/16 16:30 12/16/16 16:29 Future Hold 11/17/16 12:31 2 MG Lorazepam 2 mg/ Syringe 2 ml @ 1 mls/min Q4H PRN IV 11/16/16 16:30 12/16/16 16:29 Future Hold 11/19/16 02:34 1 MLS/MIN Lorazepam (Ativan Tab) 1 mg Q4H PRN PO 11/19/16 16:00 12/19/16 15:59 Future Hold 11/19/16 17:18 1 MG Lorazepam (Ativan Tab) 2 mg Q6H PRN PO 11/19/16 16:00 12/19/16 15:59 Future Hold Acetaminophen (Tylenol Tab) 325 mg Q4H PRN PO 11/19/16 16:00 12/19/16 15:59 11/28/16 00:31 325 MG Lorazepam (Ativan Inj) 2 mg Q2H PRN IM 11/19/16 20:00 12/19/16 19:59 Future Hold 11/20/16 21:49 2 MG Haloperidol Lactate (Haldol Inj) 5 mg Q4H PRN IM 11/21/16 14:30 12/21/16 14:29 11/28/16 19:18 5 MG Lorazepam (Ativan Tab) 0.5 mg Q4H PRN PO 11/21/16 14:45 12/21/16 14:44 Future Hold Olanzapine (Zyprexa Tab) 5 mg DAILY@1830 PO 11/23/16 18:30 12/23/16 18:29 12/02/16 18:45 5 MG Magnesium Oxide (Mag-Ox Tab) 400 mg QAM PO 11/25/16 11:30 12/25/16 11:29 12/02/16 09:43 400 MG Enteral Nutritional Formula (Boost Plus Vanilla) 1 can HS PO 11/27/16 21:00 12/27/16 20:59 12/02/16 20:54 1 CAN Nicotine (Nicoderm Cq 14MG Patch) 1 patch HS TD 11/28/16 21:00 12/28/16 20:59 12/01/16 20:23 1 PATCH Miscellaneous (Remove Nicoderm Patch) 1 ea HS N/A 11/29/16 21:00 12/29/16 20:59 12/02/16 20:54 1 EA Escitalopram Oxalate (Lexapro Tab) 20 mg DAILY PO 11/30/16 09:00 12/03/16 08:59 12/02/16 09:43 20 MG Objective Vital Signs Date Time Temp Pulse Resp B/P (MAP) Pulse Ox O2 Delivery O2 Flow Rate FiO2 12/02/16 15:17 36.9 67 18 146/75 (98) 94 12/02/16 09:30 36.6 102 16 150/92 (111) 96 12/02/16 08:27 Room Air 12/02/16 00:00 Room Air 12/01/16 23:29 36.5 77 18 104/63 (77) 93 Room Air Physical Exam General Appearance: WD/WN, no apparent distress Eyes: normal inspection Neck: supple, no adenopathy Respiratory/Chest: chest non-tender, lungs clear, normal breath sounds Cardiovascular: regular rate, rhythm, no edema, no gallop Abdomen: normal bowel sounds, non tender, soft Extremities: normal range of motion, non-tender Skin: normal color Lymphatic: no adenopathy Laboratory Results Current Inpatient Medications Medications (Trade) Dose Ordered Sig/Marisa Route Start Time Stop Time Status Last Admin Dose Admin Ondansetron HCl (Zofran Inj) 4 mg Q6H PRN IV 11/02/16 22:00 01/01/17 21:59 Vitamin B Complex (Vitamin B Complex) 1 tab QAM PO 11/03/16 09:00 01/02/17 08:59 12/02/16 09:43 1 TAB Calcium/Vitamin D (Caltrate Plus Tab) 1 tab QAM PO 11/03/16 09:00 01/02/17 08:59 12/02/16 09:44 1 TAB Diclofenac Sodium (Voltaren 1% Top Gel) 1 appln DAILY PRN EXT 11/02/16 22:15 01/01/17 22:14 11/30/16 13:28 1 APPLN Multivitamins (Multivitamin Tab) 1 tab HS PO 11/03/16 21:00 01/02/17 20:59 12/02/16 20:55 1 TAB Senna/Docusate Sodium (Senokot S Tab) 1 tab QAM PO 11/03/16 09:00 01/02/17 08:59 12/02/16 09:44 1 TAB Heparin Sodium (Porcine) (Heparin Sq 5000 Unit/0.5ml) 5,000 unit Q8 SQ 11/04/16 14:00 01/03/17 13:59 11/25/16 21:33 5,000 UNIT Metoprolol Succinate (Toprol Xl Tab) 25 mg DAILY PO 11/09/16 09:00 12/09/16 08:59 12/02/16 09:43 25 MG Folic Acid (Folvite Tab) 400 mcg QAM PO 11/09/16 09:00 12/09/16 08:59 12/02/16 09:43 400 MCG Thiamine HCl (Vitamin B-1 Tab) 200 mg BID PO 11/10/16 09:00 12/09/16 08:59 12/02/16 20:55 200 MG Potassium Chloride (Klor-Con Tab) 20 meq QAM PO 11/12/16 09:00 12/12/16 08:59 12/02/16 09:43 20 MEQ Haloperidol (Haldol Tab) 2.5 mg Q6H PRN PO 11/11/16 17:00 12/11/16 16:59 11/29/16 10:41 2.5 MG Triamcinolone Acetonide (Triamcinolone Acet 0.1% Crm) 1 appln TID EXT 11/12/16 09:00 12/12/16 08:59 12/01/16 13:48 1 APPLN Lorazepam (Ativan Inj) 2 mg Q4H PRN IV 11/16/16 16:30 12/16/16 16:29 Future Hold 11/17/16 12:31 2 MG Lorazepam 2 mg/ Syringe 2 ml @ 1 mls/min Q4H PRN IV 11/16/16 16:30 12/16/16 16:29 Future Hold 11/19/16 02:34 1 MLS/MIN Lorazepam (Ativan Tab) 1 mg Q4H PRN PO 11/19/16 16:00 12/19/16 15:59 Future Hold 11/19/16 17:18 1 MG Lorazepam (Ativan Tab) 2 mg Q6H PRN PO 11/19/16 16:00 12/19/16 15:59 Future Hold Acetaminophen (Tylenol Tab) 325 mg Q4H PRN PO 11/19/16 16:00 12/19/16 15:59 11/28/16 00:31 325 MG Lorazepam (Ativan Inj) 2 mg Q2H PRN IM 11/19/16 20:00 12/19/16 19:59 Future Hold 11/20/16 21:49 2 MG Haloperidol Lactate (Haldol Inj) 5 mg Q4H PRN IM 11/21/16 14:30 12/21/16 14:29 11/28/16 19:18 5 MG Lorazepam (Ativan Tab) 0.5 mg Q4H PRN PO 11/21/16 14:45 12/21/16 14:44 Future Hold Olanzapine (Zyprexa Tab) 5 mg DAILY@1830 PO 11/23/16 18:30 12/23/16 18:29 12/02/16 18:45 5 MG Magnesium Oxide (Mag-Ox Tab) 400 mg QAM PO 11/25/16 11:30 12/25/16 11:29 12/02/16 09:43 400 MG Enteral Nutritional Formula (Boost Plus Vanilla) 1 can HS PO 11/27/16 21:00 12/27/16 20:59 12/02/16 20:54 1 CAN Nicotine (Nicoderm Cq 14MG Patch) 1 patch HS TD 11/28/16 21:00 12/28/16 20:59 12/01/16 20:23 1 PATCH Miscellaneous (Remove Nicoderm Patch) 1 ea HS N/A 11/29/16 21:00 12/29/16 20:59 12/02/16 20:54 1 EA Escitalopram Oxalate (Lexapro Tab) 20 mg DAILY PO 11/30/16 09:00 12/03/16 08:59 12/02/16 09:43 20 MG Assessment and Plan The patient is a 61-year-old female being treated for: Alcohol withdrawal w/ encephalopathy- STABLE: completed the withdrawal process at this time -Appears to have resolved. Mood appears to have stabilized. -will discuss with psych tomorrow regarding disposition as it appears that she has improved significantly - Lexapro 10 mg by mouth daily - Librium 10mg BID - Haldol 2.5 mg q6 hrs PO PRN and IM Haldol 5 mg q4 hrs PRN if PO cannot be administered -- All Ativan on hold per psychiatry recommendations - Zyprexa 5 mg HS to help reduce nighttime anxiety/agitation per pysch - Thiamine and folic acid supplement - Consulted neurology- no new recommendations - ultimate goal is to stabilize mood to be able to d/c to SNF, possible alcohol rehab eventually Previous plan: (however, due to her improvement, this may change) patient cannot make her own medical decisions, lacks capacity per psychiatry evaluation - her cousin will sign POA paperwork and will work towards placement - met with patient's cousin on 11/30, explained situation, hopefully with time the patient will gain insight, regain capacity for now, plan is to go to [facility] in lock down unit patient's will be going to [facility] as well Depression/anxiety: - Lexapro 10 mg daily- will increase to 20mg daily since withdrawal complete - Psych consulted- recommending psychiatric monitoring as outpatient with follow -up Urinary retention, ?secondary to obstruction vs medication (Haldol): - Bladder scan and straight cath PRN - UA negative on 11/22 Severe deconditioning and mod/severe protein/caloric malnutrition: - Pending placement - Continue PT/OT - Boost- encourage intake HTN- STABLE: Metoprolol 25 mg daily Severe sepsis/right elbow cellulitis- RESOLVED: Treated w/ IV Rocephin Hypomagnesemia- RESOLVED: Treated w/ IV and PO Mag supplement- start Mag-Ox 400 mg daily on 11/25 due to continued hypoMag around 1.7 Hypernatremia- RESOLVED ARF- RESOLVED Thrombocytopenia- RESOLVED DVT prophylaxis: Heparin TID Code Status: LEVEL I, FULL Dispo: Pending placement- nephrology social worker and PT/OT consulted, no physical rehab needs, will go to [facility] once office of aging completes their paperwork, likely early this week Continued [facility] stay due to: home environment unsafe for pt, other Discharge planning: nursing home facility
[2016-12-02] MEDS: OLANZAPINE 5 MG TAB PO SCH (18:45)
[2016-12-02] MEDS: BOOST PLUS VANILLA PO SCH ×2 (20:54)
[2016-12-02] MEDS: MULTIVITAMIN TAB PO SCH (20:55)
[2016-12-02] MEDS: NICOTINE 14 MG/24 HR TDSY TD SCH (20:56)
[2016-12-03] MEDS: HEPARIN SOD 5000 UNIT/0.5 ML CARP SQ SCH ×2 (06:00→13:32)
[2016-12-03 07:21] VITALS: BP 131/73; PULSE 76; TEMP 36.8; O2SAT 94
[2016-12-03] MEDS ORDERED: NURSING VERBAL MED ORDER ONE (08:15)
[2016-12-03] MEDS: FoLIC ACID TAB 400 MCG TAB PO SCH (08:46)
[2016-12-03] MEDS: MAGNESIUM OXIDE 400 MG TAB PO SCH (08:46)
[2016-12-03] MEDS: POTASSIUM CHLORIDE 20 MEQ TABCR PO SCH (08:46)
[2016-12-03] MEDS: METOPROLOL SUCC 25MG EXT REL TAB PO SCH (08:46)
[2016-12-03] MEDS: THIAMINE HCL 100 MG TAB PO SCH (08:47)
[2016-12-03] MEDS: TRIAMCINOLONE ACET 0.1% CR 80 GM TUBE EXT SCH ×2 (09:00→13:33)
[2016-12-03] MEDS ORDERED: ESCITALOPRAM OXALATE 10 MG TAB PO SCH (09:00)
[2016-12-03] MEDS: CALCIUM 600MG + VIT D 400 IU TAB PO SCH (10:36)
[2016-12-03] MEDS: VITAMIN B COMPLEX TAB PO SCH (10:36)
[2016-12-03] MEDS: DOCUSATE SODIUM/SENNA 50/8.6MG TAB PO SCH (10:39)
--- NOTE | 2016-12-03 10:46 | Hospitalist Progress Note ---
Hospitalist Progress Note Date of Service Dec 03, 2016. Subjective Pt evaluation today including: conversation w/ patient, physical exam, chart review, lab review, review of inpatient medication list Pain: None PO Intake: Tolerating PO diet Voiding: no voiding problems The patient reports feeling well. She denies any complaints currently. She is accompanied by a family friend who states that patient seems like her normal self. Both the patient and her friend are requesting more information regarding staying sober as an outpatient. The patient denies fevers, chills, sweats, chest pain, palpitations, claudication, cough, wheezing, shortness of breath, nausea, vomiting, abdominal pain, dysuria, hematuria, urinary retention , paralysis, weakness, numbness and tingling. Additional Comments: See HPI for pertinent positives and negatives. All other systems reviewed and negative. Objective Vital Signs Date Time Temp Pulse Resp B/P (MAP) Pulse Ox O2 Delivery O2 Flow Rate FiO2 12/03/16 09:11 Room Air 12/03/16 07:21 36.8 76 20 131/73 (92) 94 12/03/16 00:00 Room Air 12/02/16 20:05 Room Air 12/02/16 15:55 Room Air 12/02/16 15:17 36.9 67 18 146/75 (98) 94 Physical Exam Notes: General appearance: +Thin. Well-developed, well-nourished, no apparent distress Head: Normocephalic, atraumatic Eyes: Normal inspection, PERRL, EOMI ENT: Normal ENT inspection, hearing grossly normal, pharynx normal Neck: Supple, no JVD, trachea midline Respiratory/Chest: Lungs clear to auscultation, normal breath sounds, no respiratory distress Cardiovascular: Regular rate & rhythm, no gallop, no murmur Abdomen/GI: Normal bowel sounds, non-tender, soft Extremities/Musculoskeletal: Normal inspection, no calf tenderness, no pedal edema Neurological/Psych: Alert, normal mood/affect, oriented x 3 Skin: Normal color, warm/dry, no rash Assessment and Plan 61 y/o female with a history of alcohol abuse, depression and anxiety, HTN and HLD who presents with alcohol withdrawal. Alcohol withdrawal w/ encephalopathy--improving/resolved -Pt calm and cooperative, alert and oriented x 3. Encephalopathy and withdrawal appears to have resolved -Continue Lexapro 20 mg PO qd and Zyprexa 5 mg PO qd -Haldol 2.5 mg q6h PO PRN and IM Haldol 5 mg q4 hrs PRN if PO cannot be administered. Pt has not received since 11/29 -Ativan on hold per psych -Continue thiamine and folic acid supplement -Consulted neurology- no new recommendations -Will have psych re-assess as pt is doing much better. Lock down unit does not seem necessary at this time. Ask case management to see w/regards to outpatient support, AA, etc. -Previous plan to have pt go to [facility] in lock down unit. also at bedside Depression/anxiety--stable -Continue Lexapro as above -Appreciate psych input Urinary retention, ?secondary to obstruction vs medication (Haldol)--resolved - Bladder scan and straight cath PRN - UA negative on 11/22 - Pt voiding without difficulty Severe deconditioning and mod/severe protein/caloric malnutrition: - Continue PT/OT - Boost- encourage intake HTN--stable -Continue metoprolol succinate 25 mg PO qd Severe sepsis/right elbow cellulitis--resolved -Treated w/ IV Rocephin Hypomagnesemia--resolved -Treated w/ IV and PO Mag supplement -Continue Mag-Ox 400 mg PO qd Hypernatremia--resolved ARF--resolved Thrombocytopenia--resolved DVT prophylaxis -Heparin 5000 units SC q8h Code Status -Level I, FULL RESUSCITATION STATUS Dispo -Previous plan to go to SNF on lock down unit, but re-assessment is warranted given significant improvement
[2016-12-03 15:55] VITALS: BP 142/83; PULSE 69; TEMP 36.4; O2SAT 98
[2016-12-03] MEDS ORDERED: ZYP5 PO (18:19)
[2016-12-03] MEDS ORDERED: ESCI10TA17 PO (18:19)
--- NOTE | 2016-12-03 18:21 | Discharge Instructions ---
Discharge Instructions Date of Service Dec 03, 2016. Admission Reason for Admission: Hypotension, Sepsis Discharge Discharge Diagnosis / Problem: Alcohol withdrawl/ encephalothy secondary to alcohol/ severe sepsis Discharge Goals Goal(s): Decrease discomfort, Improve function Activity Recommendations Activity Limitations: resume your previous activity . Instructions / Follow-Up Instructions / Follow-Up f/u with PCP in 1-2 weeks Go to AA meetings Current Hospital Diet Patient's current hospital diet: Regular Diet Discharge Diet Recommended Diet: Regular Diet Pending Studies Studies pending at discharge: no Medical Emergencies . Who to Call and When: Medical Emergencies: If at any time you feel your situation is an emergency, please call 911 immediately. . Non-Emergent Contact Non-Emergency issues call your: Primary Care Provider Call Non-Emergent contact if: you have any medication questions . . "Provider Documentation" section prepared by Evens Mcdonald. . VTE Core Measure Inpt VTE Proph given/why not?: SCD's
[2016-12-03 18:44] VITALS: BP 142/83; PULSE 69; TEMP 36.4; O2SAT 98
[2016-12-03] MEDS: OLANZAPINE 5 MG TAB PO SCH (18:55)
--- NOTE | 2016-12-04 16:49 | Discharge Summary ---
Discharge Summary Date of Service Dec 03, 2016. Discharge Summary Admission Date: Nov 02, 2016 at 21:56 Discharge Date: Dec 03, 2016 Discharge Disposition: Home Principal Diagnosis: Alcohol withdrawal Immunizations: Have You Had Influenza Vaccine: Unknown History of Tetanus Vaccine?: Unknown History of Pneumococcal: Unknown History of Hepatitis B Vaccine: Unknown Consultations: Psychiatry Neurology Critical care Medication Reconciliation New Medications: Olanzapine (Olanzapine) 5 Mg Tab 5 MG PO DAILY@1830 for 14 Days, #11 TAB Take 1 tablet daily @ 6:30 PM for 1 week Then take half a tablet daily @6:30pm for 1 week Changed Medications: Escitalopram (Lexapro) 10 Mg Tab 20 MG PO DAILY for 30 Days, #60 TAB (Changed from: 10 MG) Take 2 tablets daily by mouth Continued Medications: B-Complex Vitamins (B Complex) 1 Cap Cap 1 CAP PO QAM Calcium Polycarbophil (Fiber) 625 Mg Tab 2500 MG PO BID TAKE 4 TABLETS 2 TIMES A DAY Calcium/Vitamin D (Os-Justin 500 Plus D) Tab 1 TAB PO QAM, TAB Diclofenac Sodium (Topical) (Voltaren 1% Top Gel) 1 % Gel 1 APPLN TOP DAILY PRN for Pain Fish Oil ([place]-3) 1 Ea Cap 1 CAP PO QAM, CAP Folic Acid (Folvite) 1 Mg Tab 1 MG PO QAM, TAB Garlic (Garlic) 1,000 Mg Cap 1000 MG PO QAM Metoprolol Succ (Toprol Xl) (Toprol-Xl) 25 Mg Tabcr 25 MG PO QAM, TAB Multivitamin (Multivitamin) Tab 1 TAB PO HS, TAB Sennosides-Docusate Sodium (Stool Softener) 1 Tab Tab 1 TAB PO QAM Simvastatin (Zocor) 40 Mg Tab 40 MG PO HS, TAB Thiamine Mononitrate (Vitamin B1) 100 Mg Tab 200 MG PO QAM Discontinued Medications: Alprazolam (Xanax) 0.5 Mg Tab 0.5 MG PO BID, TAB Discharge Exam The patient reports feeling well. She denies any complaints currently. She is accompanied by a family friend who states that patient seems like her normal self. Both the patient and her friend are requesting more information regarding staying sober as an outpatient. The patient denies fevers, chills, sweats, chest pain, palpitations, claudication, cough, wheezing, shortness of breath, nausea, vomiting, abdominal pain, dysuria, hematuria, urinary retention , paralysis, weakness, numbness and tingling. Review of Systems: Constitutional: No fever, No chills, No sweats Eyes: No worsening of vision, No eye pain, No diplopia ENT: No hearing loss, No sore throat, No trouble swallowing Respiratory: No cough, No wheezing, No shortness of breath Cardiovascular: No chest pain, No claudication, No palpitations Abdomen: No pain, No nausea, No vomiting Musculoskeletal: No joint pain, No muscle pain, No calf pain Genitourinary - Female: No dysuria, No urinary retention, No hematuria Neurologic: No paralysis, No weakness, No numbness/tingling Integumentary: No rash, No itch, No color change Physical Exam: General Appearance: WD/WN, no apparent distress, + thin Eyes: normal inspection, PERRL, EOMI ENT: normal ENT inspection, hearing grossly normal, pharynx normal Neck: supple, no JVD, trachea midline Respiratory/Chest: lungs clear, normal breath sounds, no respiratory distress Cardiovascular: regular rate, rhythm, no gallop, no murmur Abdomen / GI: normal bowel sounds, non tender, soft Extremities: normal inspection, no calf tenderness, no pedal edema Neurologic/Psychiatric: alert, normal mood/affect, oriented x 3 Skin: normal color, warm/dry, no rash Hospital Course 61 y/o female with a history of alcohol abuse, depression and anxiety, HTN and HLD who presents with alcohol withdrawal. Alcohol withdrawal w/ encephalopathy--improving/resolved -Pt calm and cooperative, alert and oriented x 3. Encephalopathy and withdrawal appears to have resolved -Continue Lexapro 20 mg PO qd -Haldol 2.5 mg q6h PO PRN and IM Haldol 5 mg q4 hrs PRN if PO cannot be administered. Pt has not received since 11/29 -Ativan on hold per psych -Continue thiamine and folic acid supplement -Consulted neurology- no new recommendations -Pt back to baseline behavior, no need for SNF or lock down unit. Spoke to psych regarding Zyprexa taper: 5 mg PO qd x 1 week, then 2.5 mg PO x 1 week, then stop Depression/anxiety--stable -Continue Lexapro as above -Appreciate psych input Urinary retention, ?secondary to obstruction vs medication (Haldol)--resolved - Bladder scan and straight cath PRN - UA negative on 11/22 - Pt voiding without difficulty Severe deconditioning and mod/severe protein/caloric malnutrition: - Continue PT/OT - Boost- encourage intake HTN--stable -Continue metoprolol succinate 25 mg PO qd Severe sepsis/right elbow cellulitis--resolved -Treated w/ IV Rocephin Hypomagnesemia--resolved -Treated w/ IV and PO Mag supplement -Continue Mag-Ox 400 mg PO qd Hypernatremia--resolved ARF--resolved Thrombocytopenia--resolved DVT prophylaxis -Heparin 5000 units SC q8h Code Status -Level I, FULL RESUSCITATION STATUS Dispo -Pt to return home. Encourage to attend AA and keep herself sober. Resources provided. Total Time Spent: Greater than 30 minutes This includes examination of the patient, discharge planning, medication reconciliation, and communication with other providers. Discharge Instructions Please refer to the electronic Patient Visit Report (Discharge Instructions) for additional information. Additional Copies To Cruzito Teixeira M.D.
== END 2016-12-03 19:12 | disposition home or self-care (01) | DRG 871 ==
LOC: C.EDB 19:40 → C.2T 21:56 → ENRESERV 22:58 → C.MSICU 11-03 19:05 → ENRESERV 11-05 14:37 → C.2E 11-05 15:34 → ENRESERV 11-06 19:28 → C.MSICU 11-06 19:34 → CANBEDREQ 11-09 19:22 → ENRESERV 11-09 19:24 → C.2E 11-09 20:23 → EDBEDREQ 11-17 13:05 → ENRESERV 11-17 13:13 → C.MS4W 11-17 14:45 → C.MS2W 11-19 01:24
PROVIDERS: ADMIT Hospitalist; ATTEND Internal Medicine
DX: A41.9 Sepsis, unspecified organism (principal); G93.41 Metabolic encephalopathy; E43 Unspecified severe protein-calorie malnutrition; F10.231 Alcohol dependence with withdrawal delirium; N17.9 Acute kidney failure, unspecified; E87.0 Hyperosmolality and hypernatremia; L03.113 Cellulitis of right upper limb; R65.20 Severe sepsis without septic shock; K52.9 Noninfective gastroenteritis and colitis, unspecified; E78.5 Hyperlipidemia, unspecified; I10 Essential (primary) hypertension; F32.9 Major depressive disorder, single episode, unspecified; E83.42 Hypomagnesemia; F41.1 Generalized anxiety disorder; R33.9 Retention of urine, unspecified; Z79.899 Other long term (current) drug therapy; F17.200 Nicotine dependence, unspecified, uncomplicated

== ENCOUNTER → 2017-01-25 | Outpatient (CLI) | payer BC ==
[~2017-01-25] MED LIST changes: -ALPR-411 PO; +ESCI10TA17 PO; -FLV1 PO; +FOLI1TAB7 PO; +THIA1TAB11 PO; -THM100 PO; -VITACAP26 PO; +ZYP5 PO
--- NOTE | 2017-01-25 08:26 | DIAGNOSTIC IMAGING REPORT ---
(CHEST) THORAX WITHOUT CT DOSE: 200.70 mGy.cm HISTORY: Dyspnea. Nodule. F17.200 Current [id number] Lung noduleAPPT SCHED 01-25-2017 @ TECHNIQUE: Multiaxial CT images of the chest were performed without contrast. A dose lowering technique was utilized adhering to the principles of ALARA. COMPARISON: 10/24/2016 FINDINGS: Essentially unchanged exam. Groundglass nodule left upper lobe is unaltered. Maximum dimensions are unchanged from the prior study. Emphysematous change with diffuse areas of fibrotic change are stable. Both of these appear to be chronic. Cystic change throughout both hemithoraces is similar. Several small mediastinal and/or hilar nodes are nonprogressive. Mild peripheral bronchiectasis anterior aspect right middle lobe is stable. Limited evaluation of the upper abdomen is unremarkable. Mild distention a sending thoracic aorta with a maximum diameter of 3.5 cm is unchanged. IMPRESSION: 1. Unchanged groundglass nodule left upper lobe. 2. All remaining components of the study are stable compared to the prior exam. 3. Continued close follow-up of the left upper lobe nodule or bronchoscopy for diagnostic evaluation is suggested. The above report was generated using voice recognition software. It may contain grammatical, syntax or spelling errors. Electronically signed by: Markus Rg M.D. 01/25/2017 8:25 AM Dictated Date/Time: 01/25/2017 8:19 AM
== END | disposition home or self-care (01) ==
LOC: C.CTS 07:56
PROVIDERS: ATTEND Physician Assistant
DX: F17.200 Nicotine dependence, unspecified, uncomplicated (principal); R91.1 Solitary pulmonary nodule

== ENCOUNTER → 2017-02-04 | Outpatient (CLI) | payer BC ==
[~2017-02-04] MED LIST changes: +BUSP5TAB59 PO; -DICL1GEL12 TOP; -FOLI1TAB7 PO; +FOLI1TAB8 PO; -ZYP5 PO
--- NOTE | 2017-02-04 10:18 | DIAGNOSTIC IMAGING REPORT ---
PET/CT SKULL-THIGH CLINICAL HISTORY: 61 years-old Female presenting with PULMONARY NODULE, history of breast cancer in 2002 status post lumpectomy and radiation, groundglass nodule in the left upper lobe on chest CT from January 2017, PET/CT for further evaluation. TECHNIQUE: PET/CT was performed from the base of the skull through the proximal thighs following the intravenous administration of 14.107 mCi of F18-FDG. Blood glucose level 102 mg/dL. The injection was performed at 7:40 AM and imaging began at 8:[address] was performed for attenuation correction purposes and anatomic localization. COMPARISON: Chest CT from 01/25/2017. CT DOSE (mGy.cm): The estimated cumulative dose is 139.80 mGycm. FINDINGS: Head and neck: No FDG-avid disease or significant lymphadenopathy in the imaged portions of the head and the neck. Chest: Mildly FDG avid bilateral hilar (max SUV 2.2 on the right and 2.3 on the left) and subcarinal/precarinal (max SUV 2.4) mediastinal lymph nodes. Atherosclerosis of the aortic arch. Normal heart size. Coronary artery calcification. No pleural or pericardial effusion. Evidence of mild to moderate apical predominant emphysema with prominent air septal emphysematous changes. Right apical scarring. Previously noted groundglass nodule centrally in the left upper lobe demonstrates minimal relative FDG avidity (series 3 image 74; max SUV 0.7 in comparison to uninvolved lung parenchyma with a max SUV of 0.6). Peripheral left upper lobe nodule (series 3 image 62). Additional smaller nodules better evaluated on prior chest CT. Dependent changes likely atelectasis. Few subsegmental airways in the right lower lobe containing debris (series 3 image 106). Bronchial wall thickening noted. Abdomen and pelvis: Below the diaphragm, tracer is distributed physiologically in the gastrointestinal and genitourinary tracts. Focal FDG avidity in the pelvis associated with bowel likely peristalsis. There is no significant lymphadenopathy and no FDG-avid disease. Postsurgical changes of hysterectomy. Diverticulosis. No bowel obstruction. Atherosclerosis of the normal caliber abdominal aorta. Musculoskeletal: No FDG-avid or destructive bone lesion. IMPRESSION: 1. Groundglass nodule in the left upper lobe without significant FDG avidity. These subsolid nature of this nodule is most suspicious for an adenomatous lesion (atypical adenomatous hyperplasia, adenocarcinoma in situ, etc.) and the absence of FDG avidity would be characteristic of this entity. Continued surveillance recommended. Multiple additional pulmonary nodules better demonstrated on prior chest CT. 2. Emphysema and bronchitis. 3. Likely reactive mildly FDG avid hilar and mediastinal lymph nodes. Please refer to below summary of Fleischner Society 2017 recommendations for follow-up of incidental CT nodules (Howie Moncada et al. Guidelines for management of incidental pulmonary nodules detected on CT images: From the Fleischner Society 2017. Radiology 2017; 284: 228-243.) SOLID NODULES Single nodule; size < 6 mm * Low risk patients: No routine follow-up * High risk patients: Optional CT at 12 months Single nodule; size 6-8 mm * Low risk patients: CT at 6-12 months, then consider CT at 18-24 months * High risk patients: CT at 6-12 months, then at 18-24 months Single nodule; size > 8 mm * Either low or high risk patients: Considered CT at 3 months, PET/CT, or tissue sampling Multiple nodules; size < 6 mm * Low risk patients: No routine follow up * High risk patients: Optional CT at 12 months Multiple nodules; size 6-8 mm * Low risk patients: CT at 3-6 months, then consider CT at 18-24 months * High risk patients: CT at 3-6 months, then at 18-24 months Multiple nodules; size > 8 mm * Low risk patients: CT at 3-6 months, then consider at 18-24 months * High risk patients: CT at 3-6 months, then at 18-24 months Note: These guidelines apply to incidental nodules. These guidelines do not apply to patients younger than 35 years, immunocompromised patients, or patients with cancer. * Low risk patients: Minimal or absent history of smoking and/or other known risk factors * High risk patients: History of smoking, exposure to other carcinogens, emphysema, fibrosis, upper lobe location, family history of lung cancer, etc. * If a nodule up to 8 mm is partly solid or is ground glass, further follow-up is required after 24 months to exclude possible slow growing adenocarcinoma. SUBSOLID NODULES Single ground-glass nodule * Nodule size < 6 mm: No routine follow-up * Nodule size > or = 6 mm: CT at 6-12 months to confirm persistence, then CT every 2 years until 5 years Single part-solid nodule * Nodule size < 6 mm: No routine follow-up * Nodules size > or = 6 mm: CT at 3-6 months to confirm persistence. If unchanged and solid component remains < 6 mm, annual CT should be performed for 5 years Multiple nodules * Nodule size < 6 mm: CT at 3-6 months. If stable, consider CT at 2 and 4 years. * Nodules size > or = 6 mm: CT at 3-6 months. Subsequent management based on the most suspicious nodule(s) Electronically signed by: Khoi Murphy M.D. 02/04/2017 10:16 AM Dictated Date/Time: 02/04/2017 9:48 AM
== END | disposition home or self-care (01) ==
LOC: C.PET 07:12
PROVIDERS: ATTEND Physician Assistant
DX: R91.1 Solitary pulmonary nodule (principal)

== ENCOUNTER → 2017-02-06 | Day surgery (SDC) | payer BC ==
[2017-01-31 10:32] VITALS: BMI 18.0
--- NOTE | 2017-01-31 11:15 | PAT Medication Instructions ---
Service Date Jan 31, 2017. Current Home Medication List B-Complex Vitamins (B Complex), 1 CAP PO QAM Buspirone Hcl (Buspirone Hcl), 1 TAB PO TID PRN for ANXIETY Calcium Polycarbophil (Fiber), 2,500 MG PO BID Calcium/Vitamin D (Os-Justin 500 Plus D), 1 TAB PO QAM Escitalopram (Lexapro), 20 MG PO QAM Fish Oil ([place]-3), 1 CAP PO QAM Folic Acid (Folvite), 1 MG PO QAM Garlic (Garlic), 1,000 MG PO QAM Metoprolol Succ (Toprol Xl) (Toprol-Xl), 50 MG PO QAM Multivitamin (Multivitamin), 1 TAB PO HS Sennosides-Docusate Sodium (Stool Softener), 1 TAB PO QAM Simvastatin (Zocor), 40 MG PO HS Thiamine Mononitrate (Vitamin B1), 200 MG PO QAM Medication Instructions For Your Scheduled Surgery - Hold the following medications as of 02/01/17: Fish Oil ([place]-3), 1 CAP PO QAM Garlic (Garlic), 1,000 MG PO QAM - Hold the following medications the morning of surgery: Calcium/Vitamin D (Os-Justin 500 Plus D), 1 TAB PO QAM Folic Acid (Folvite), 1 MG PO QAM Calcium Polycarbophil (Fiber), 2,500 MG PO BID B-Complex Vitamins (B Complex), 1 CAP PO QAM Sennosides-Docusate Sodium (Stool Softener), 1 TAB PO QAM - Take the following medications the morning of surgery with a sip of water OTHERWISE NOTHING TO EAT OR DRINK AFTER MIDNIGHT: Metoprolol Succ (Toprol Xl) (Toprol-Xl), 50 MG PO QAM Thiamine Mononitrate (Vitamin B1), 200 MG PO QAM Escitalopram (Lexapro), 20 MG PO QAM Buspirone Hcl (Buspirone Hcl), 1 TAB PO TID PRN for ANXIETY - Take the following medications as scheduled the night before surgery: Calcium Polycarbophil (Fiber), 2,500 MG PO BID Simvastatin (Zocor), 40 MG PO HS Multivitamin (Multivitamin), 1 TAB PO HS Buspirone Hcl (Buspirone Hcl), 1 TAB PO TID PRN for ANXIETY If you have any questions please call us at [phone] or [phone] or [phone]
[2017-01-31 11:21] LABS: BUN/CREATININE RATIO 17.1 (10-20); CALCIUM 9.6 mg/dl (8.5-10.1); CREATININE 0.7 mg/dl (0.60-1.20); POTASSIUM 4.3 mmol/L (3.5-5.1)
[2017-01-31 11:25] LABS: HEMATOCRIT 43.2 % (37-47); MEAN CELL VOLUME 98.2 fL (80-100); MEAN CORPUSCULAR HEMOGLOBIN 33.6 pg (25-34); MEAN CORPUSCULAR HGB CONC 34.3 g/dl (32-36); MEAN PLATELET VOLUME 9.9 fL (7.4-10.4); PLATELET COUNT 228 K/uL (130-400); PROTHROMBIN TIME (PATIENT) 10.7 SECONDS (9.0-12.0); WHITE BLOOD COUNT 10.27 K/uL (4.8-10.8)
[2017-01-31 11:43] LABS: BASO % 0.4 %; BASO ABS # 0.04 K/uL (0-0.2); COMPLETE YES; EOS % 0.5 %; IG% 0.7 %; LYMPH % 18.7 %; LYMPH ABS # 1.92 K/uL (1.2-3.4); MONO % 7.7 %
[~2017-02-06] VITALS: Ht 162.6 cm; Wt 48.7 kg
[~2017-02-06] MED LIST changes: +ALBUTEROL HFA INHALER 8.5 GM INH ONE; +ATROPINE SULFATE 0.1 MG/ML 5ML SYR IV PRN; +CHECK SCOPOLAMINE PATCH PLACEMENT SCH; +DEXAMETHASONE SOD INJ 4 MG/ML VIAL ONE; +EpHEDrine SULFATE 50MG/5ML SYR ONE; +EpHEDrine SULFATE INJ 50 MG/ML AMP IV PRN; +FENTANYL CITRATE INJ 50 MCG/1 ML 2 ML VIAL IV PRN; +FENTANYL CITRATE INJ 50 MCG/1 ML 2 ML VIAL ONE; +GLYCOPYRROLATE INJ 0.2 MG/ML VIAL ONE; +HYDROmorphone INJ 1 MG/ML SYR IV PRN; +KETAMINE HCL INJ 50 MG/ML 10 ML VIAL ONE; +LACTATED RINGER'S 1000ML 1,000 ML IV SCH; +LIDOCAINE HCL 2% 2 ML VIAL (20MG/ML) ONE; +MIDAZOLAM HCL 1 MG/ML 2ML VIAL ONE; +NEOSTIGMINE METHYLSULFATE 5 MG/5 ML SYR ONE; +ONDANSETRON INJ 2 MG/ML 2 ML VIAL IV PRN; +ONDANSETRON INJ 2 MG/ML 2 ML VIAL ONE; +PROMETHAZINE HCL INJ 12.5 MG in SODIUM CHLORIDE 0.9% 50ML 50 ML IV PRN; +PROPOFOL IV EMULSION 10 MG/ML 20 ML VIAL IV ONE; +ROCURONIUM BROMIDE 10 MG/ML 5 ML VIAL IV ONE; +SCOPOLAMINE 1.5 MG TDSY TD SCH; +SODIUM CHLORIDE 0.9% INJ 10 ML VIAL ONE; +SUCCINYLCHOLINE CHLORIDE 20 MG/ML 10 ML VIAL IV ONE
--- NOTE | 2017-02-06 08:26 | History and Physical ---
History & Physical Date of Service Feb 06, 2017. History & Physical Reason for Visit: EBUS w/ ENB HPI: Patient is a 61 yo female presenting to [facility] for EBUS w/ENB by Dr. Elliott in regards to abnormal CT scan result. The patient had a repeat CT scan of the chest on 01/25/2017. These images were reviewed by me today. She has a continued ground-glass nodule of the left upper lobe. The patient overall has been feeling well and has been asymptomatic. She denies fever, sweats, chills, night sweats, weight loss, coughing, mucus production, chest pain or tightness. She continues to smoke cigarettes daily. Initial Chest CT was completed on 10/24/2016. It did reveal a 1.6 x 1.1 cm ground-glass nodule within the left upper lobe. It noted that this is suspicious for low-grade primary bronchogenic malignancy, however a focus of infection/inflammatory changes could appear similarly. Patient was also noted to have a 5 mm pulmonary nodule within the left upper lobe and moderate emphysema. Patient is a chronic tobacco smoker. She has smoked for approximately 40 years and smoked approximately 1 pack per day. She did have secondhand exposure as a child as well. Her parents had a coal stove her entire life, and she also had a coal stove in her 1st house. She no longer heats coal. The patient does also have personal history of breast cancer at the age of 46 at which time she had a lumpectomy, radiation therapy, and treatment with tamoxifen. She has had no known recurrence since that time. She has no personal or family history of lung carcinoma that she is aware of. PET/CT scan was completed on 02/04/17 which showed continued ground glass nodule in the MAINOR wihtout FDG avidity- suspicious for an adenomatous lesion. Emphysema and bronchitis were noted, and likely reactive mildly FDG avid hilar and mediastinal lymph nodes were also noted. Active Problems 1. Abnormal finding on imaging (R93.8) 2. Alcoholism (F10.20) 3. Anxiety and depression (F41.8) 4. Back pain (M54.9) 5. Benign familial tremor (G25.0) 6. Constipation (K59.00) 7. Current smoker (F17.200) 8. Cyst of soft tissue (M79.89) 9. Dermatitis (L30.9) 10. Dyslipidemia (E78.5) 11. Elbow locking (M24.829) 12. Elbow pain (M25.529) 13. Epidermoid cyst of skin (L72.0) 14. Gastroesophageal reflux disease (K21.9) 15. Headache (R51) 16. Hoarseness, chronic (R49.0) 17. Hypertension (I10) 18. Hyponatremia (E87.1) 19. Lightheadedness (R42) 20. Lung nodule (R91.1) 21. Need for hepatitis C screening test (Z11.59) 22. Olecranon bursitis (M70.20) 23. Osteoarthritis (M19.90) 24. Osteopenia (M85.80) 25. Rectal bleeding (K62.5) 26. Rib pain on left side (R07.81) 27. Trochanteric bursitis (M70.60) 28. Weight loss (R63.4) Past Medical History 1. History of Chronic laryngitis (J37.0) 2. History of Depression (F32.9) 3. History of Diverticulosis (K57.90) 4. History of Encounter for routine gynecological examination (Z01.419) 5. History of acute sinusitis (Z87.09) 6. History of impacted cerumen (Z86.69) 7. History of sinusitis (Z87.09) 8. History of Infiltrating Ductal Carcinoma Of The Breast 9. History of Internal hemorrhoids (K64.8) 10. History of Pap smear for cervical cancer screening (Z12.4) Surgical History 1. History of Breast Surgery Lumpectomy 2. History of Complete Colonoscopy 3. History of cyst excision 4. History of Dilation And Curettage 5. History of Knee Surgery 6. History of Wrist Surgery Social History Alcohol Use (History) Current smoker (F17.200) Current Meds 1. BusPIRone HCl - 5 MG Oral Tablet; TAKE 1 TABLET 3 times daily PRN ANXIETY 2. Escitalopram Oxalate 20 MG Oral Tablet; TAKE 1/2 TABLET DAILY 3. Simvastatin 40 MG Oral Tablet; Take 1 tablet daily 4. Metoprolol Succinate ER 50 MG Oral Tablet Extended Release 24 Hour; Take 1 tablet daily 5. Calcium 600-D 600-400 MG-UNIT Oral Tablet; Take 1 tablet twice daily 6. Fish Oil Pearls 300 MG Oral Capsule; TAKE 1 CAPSULE Daily 7. Garlic 1000 MG Oral Capsule; TAKE 1 CAPSULE Daily 8. Multi-Vitamin Oral Tablet; TAKE 1 TABLET DAILY 9. Vitamin B Complex CAPS; TAKE 1 CAPSULE DAILY 10. Vitamin C 500 MG Oral Tablet; TAKE 1 TABLET DAILY 11. Zinc 50 MG Oral Tablet; TAKE 1 TABLET DAILY Allergies 1. Chantix TABS 2. Codeine Derivatives 3. HydroCHLOROthiazide TABS Physical Exam: General: Patient is awake, alert, cooperative, and in no acute distress. Well developed. Well-nourished. Skin: Normal appearance, texture, and temperature. No apparent rash or ecchymoses. HEENT: Normocephalic and atraumatic. Eyes are anicteric and non-erythematous. EOMI c PERRLA. Hearing intact and without difficulty. Nose appears normal and without drainage. Trachea midline. Thyroid appears normal, and neck is supple. Lungs: No respiratory distress. No accessory muscle use. Heart: Regular rate and rhythm. Extremities: No cyanosis or edema. Musculoskeletal: Gait normal and without difficulty. Freely moving extremities during exam. Neuro: Alert and oriented X3. CN II-XII grossly intact. Sensation and motor function grossly intact. Psych: Mood and affect are normal. Assessment and Plan Ground glass nodule of the MAINOR with mediastinal and hilar lymphadenopathy Plan for EBUS w/ENB evaluation today.
[2017-02-06 08:41] VITALS: BP 148/73; PULSE 67; TEMP 36.6; O2SAT 99; Ht 162.6 cm; Wt 48.7 kg
--- NOTE | 2017-02-06 13:26 | Bronchoscopy Procedure Note ---
Bronchoscopy Procedure Note Procedure: Flexible-Bronchoscopy, EBUS, ENB, FNA, Tbbx, Cytology Brushing, BAL, fluoroscopy Consent: Obtained through the patient placed into the chart Pre-Procedural Dx: Groundglass nodule left upper lobe Post-Procedural Dx: Reactive mediastinal lymphadenopathy with groundglass nodule left upper lobe Analgesia: GETA Sedation: GETA Procedure: The Olympus video bronchoscope and EBUS scope were used for this procedure Initially the flexible bronchoscope was used for evaluation of the airways. The ET tube was notably 4cm above the level of the khurram. Trachea: Visualized portion of the trachea was anatomically within normal limits Khurram: Anatomically within normal limits Right bronchial tree: Right mainstem bronchus: Anatomically within normal limits Right upper lobe: Anatomically within normal limits Bronchus intermedius: Anatomically within normal limits Right middle lobe: Anatomically within normal limits Right lower lobe: Anatomically within normal limits Findings: Diffuse mucous plugs Left bronchial tree: Left mainstem bronchus: Anatomically within normal limits Left upper lobe: Anatomically within normal limits Lingula: Anatomically within normal limits Left lower lobe: Anatomically within normal limits Findings: Diffuse mucous plugs EBUS/MINISTERIO: FNA Xochitl Stations: 7: # of passes 4 4R: # of passes 3 11R: # of passes 3 4L: # of passes 3 11L: # of passes 3 ENB: FNA, Tbbx, Cytology brushing, BAL BAL: Left upper lobe EBL: 3 cc Complications: None Follow-up: PACU
--- NOTE | 2017-02-06 13:36 | Discharge Instructions ---
Discharge Instructions Date of Service Feb 06, 2017. Admission Reason for Admission: Lung Nodule Discharge Discharge Diagnosis / Problem: groundglass nodule right upper lobe with reactive mediastinal lymphadenopat Discharge Goals Goal(s): Diagnostic testing Activity Recommendations Activity Limitations: resume your previous activity . Instructions / Follow-Up Instructions / Follow-Up Follow-up with Karis Tellez in the [facility] medical/pulmonary clinic Current Hospital Diet Patient's current hospital diet: Discharge Diet Recommended Diet: Regular Diet Procedures Procedures Performed: endobrochial ultrasound, electrical navigational bronchoscopy, flexible bronchoscopy, transtracheal and transbronchial needle aspiration, transbronchial forcep aspiration, cytology brush, bronchial lavage Pending Studies Studies pending at discharge: no Medical Emergencies . Who to Call and When: Medical Emergencies: If at any time you feel your situation is an emergency, please call 911 immediately. . Non-Emergent Contact Non-Emergency issues call your: Manager Revenue . . "Provider Documentation" section prepared by Rod Elliott. . VTE Core Measure Inpt VTE Proph given/why not?: Treatment not indicated
--- NOTE | 2017-02-06 13:56 | DIAGNOSTIC IMAGING REPORT ---
CHEST 1 VIEW FRONTAL CLINICAL HISTORY: NAVIGATIONAL BRONCH pulmonary nodule COMPARISON STUDY: No previous studies for comparison. FINDINGS: A single intraprocedural fluoroscopic spot images provided for interpretation. This reveals a bronchoscopic with a catheter directed into the left upper lobe. 159 seconds of fluoroscopic time was utilized. IMPRESSION: Intraprocedural fluoroscopic spot image demonstrating a bronchoscope with a catheter directed into the left upper lobe Electronically signed by: Alonso Sanchez M.D. 02/06/2017 1:54 PM Dictated Date/Time: 02/06/2017 1:53 PM
[2017-02-06 14:50] VITALS: BP 137/72; PULSE 74; TEMP 36.5; O2SAT 98
--- NOTE | 2017-02-06 14:51 | Anesthesiology Progress Note ---
Anesthesia Post Op Note Date & Time Feb 06, 2017 at 14:47 Vital Signs Pain Intensity: 0 Vital Signs Past 12 Hours Date Time Temp Pulse Resp B/P (MAP) Pulse Ox O2 Delivery O2 Flow Rate FiO2 02/06/17 14:03 37.0 67 22 132/74 (93) 93 Nasal Cannula 2 02/06/17 13:56 137/74 02/06/17 13:54 63 22 02/06/17 13:54 63 22 98 02/06/17 13:51 138/77 02/06/17 13:49 66 22 02/06/17 13:49 65 22 99 02/06/17 13:46 139/71 02/06/17 13:44 66 22 02/06/17 13:44 66 22 97 02/06/17 13:41 133/75 02/06/17 13:39 77 23 142/73 98 02/06/17 13:39 77 23 02/06/17 13:39 37.2 77 24 142/73 98 Oxymask 10 02/06/17 08:41 36.6 67 20 148/73 (98) 99 Room Air Notes Mental Status: alert / awake / arousable, participated in evaluation Pt Amnestic to Procedure: Yes Nausea / Vomiting: adequately controlled Pain: adequately controlled Airway Patency, RR, SpO2: stable & adequate BP & HR: stable & adequate Hydration State: stable & adequate Anesthetic Complications: no major complications apparent Doing well, VSS.
[2017-02-06 15:19] VITALS: BP 134/73; PULSE 64; O2SAT 93
[2017-02-06 15:54] VITALS: BP 136/69; PULSE 68; TEMP 36.4; O2SAT 93
== END | disposition home or self-care (01) ==
LOC: C.ACU 08:16
PROVIDERS: ATTEND Internal Medicine Critical Care Medicine
DX: R91.1 Solitary pulmonary nodule (principal); R59.1 Generalized enlarged lymph nodes; F17.200 Nicotine dependence, unspecified, uncomplicated; F32.9 Major depressive disorder, single episode, unspecified; E78.5 Hyperlipidemia, unspecified; K21.9 Gastro-esophageal reflux disease without esophagitis; I10 Essential (primary) hypertension; M19.90 Unspecified osteoarthritis, unspecified site; F41.9 Anxiety disorder, unspecified; Z85.3 Personal history of malignant neoplasm of breast; Z98.890 Other specified postprocedural states; Z79.899 Other long term (current) drug therapy; Z88.5 Allergy status to narcotic agent; R63.4 Abnormal weight loss; Z68.1 Body mass index [BMI] 19.9 or less, adult

== ENCOUNTER → 2017-04-11 | Outpatient (CLI) | payer OTHER ==
[~2017-04-11] MED LIST changes: -ALBUTEROL HFA INHALER 8.5 GM INH ONE; -ATROPINE SULFATE 0.1 MG/ML 5ML SYR IV PRN; -CHECK SCOPOLAMINE PATCH PLACEMENT SCH; -DEXAMETHASONE SOD INJ 4 MG/ML VIAL ONE; -EpHEDrine SULFATE 50MG/5ML SYR ONE; -EpHEDrine SULFATE INJ 50 MG/ML AMP IV PRN; -FENTANYL CITRATE INJ 50 MCG/1 ML 2 ML VIAL IV PRN; -FENTANYL CITRATE INJ 50 MCG/1 ML 2 ML VIAL ONE; -GLYCOPYRROLATE INJ 0.2 MG/ML VIAL ONE; -HYDROmorphone INJ 1 MG/ML SYR IV PRN; -KETAMINE HCL INJ 50 MG/ML 10 ML VIAL ONE; -LACTATED RINGER'S 1000ML 1,000 ML IV SCH; -LIDOCAINE HCL 2% 2 ML VIAL (20MG/ML) ONE; -MIDAZOLAM HCL 1 MG/ML 2ML VIAL ONE; -NEOSTIGMINE METHYLSULFATE 5 MG/5 ML SYR ONE; -ONDANSETRON INJ 2 MG/ML 2 ML VIAL IV PRN; -ONDANSETRON INJ 2 MG/ML 2 ML VIAL ONE; -PROMETHAZINE HCL INJ 12.5 MG in SODIUM CHLORIDE 0.9% 50ML 50 ML IV PRN; -PROPOFOL IV EMULSION 10 MG/ML 20 ML VIAL IV ONE; -ROCURONIUM BROMIDE 10 MG/ML 5 ML VIAL IV ONE; -SCOPOLAMINE 1.5 MG TDSY TD SCH; -SODIUM CHLORIDE 0.9% INJ 10 ML VIAL ONE; -SUCCINYLCHOLINE CHLORIDE 20 MG/ML 10 ML VIAL IV ONE
--- NOTE | 2017-04-11 10:27 | DIAGNOSTIC IMAGING REPORT ---
L HIP UNILATERAL 2 VIEWS HISTORY: 61 years-old Female K21.9 Gastroesophageal reflux [id number] Trochanteric bursiti chronic left hip pain COMPARISON: PET CT 02/04/2017, left hip radiographs 03/05/2016 TECHNIQUE: 2 views of the left hip FINDINGS: The bones appear mildly demineralized. There are minimal degenerative changes about the left femoral acetabular joint. Mild left SI joint degenerative changes are also seen. No acute fracture or subluxation. Vascular calcifications are noted. Soft tissues are otherwise unremarkable. No opaque foreign body. IMPRESSION: No acute fracture or subluxation. The above report was generated using voice recognition software. It may contain grammatical, syntax or spelling errors. Electronically signed by: Dwayne Noel M.D. 04/11/2017 10:26 AM Dictated Date/Time: 04/11/2017 10:24 AM
== END | disposition home or self-care (01) ==
LOC: C.RADBC 09:52
PROVIDERS: ATTEND Internal Medicine Geriatric Medicine
DX: K21.9 Gastro-esophageal reflux disease without esophagitis (principal); M70.60 Trochanteric bursitis, unspecified hip

== ENCOUNTER → 2017-05-09 | Outpatient (CLI) | payer OTHER ==
[2017-05-09 17:03] LABS: BASO % 0.7 %; BASO ABS # 0.06 K/uL (0-0.2); EOS ABS # 0.08 K/uL (0-0.5); HEMATOCRIT 42.5 % (37-47); HEMOGLOBIN 14.9 g/dL (12.0-16.0); IG# 0.11 K/uL (0.00-0.02); LYMPH % 26.7 %; LYMPH ABS # 2.14 K/uL (1.2-3.4); MEAN CELL VOLUME 99.5 fL (80-100); MEAN CORPUSCULAR HEMOGLOBIN 34.9 pg (25-34); MEAN CORPUSCULAR HGB CONC 35.1 g/dl (32-36); MEAN PLATELET VOLUME 9.5 fL (7.4-10.4); MONO % 11.7 %; MONO ABS # 0.94 K/uL (0.11-0.59); NEUT % 58.5 %; PLATELET COUNT 263 K/uL (130-400); RED CELL DISTRIBUTION WIDTH CV 15.8 % (11.5-14.5); RED CELL DISTRIBUTION WIDTH SD 57.6 fL (36.4-46.3); WHITE BLOOD COUNT 8.03 K/uL (4.8-10.8)
[2017-05-09 17:16] LABS: BLOOD UREA NITROGEN 21 mg/dl (7-18); CARBON DIOXIDE 29 mmol/L (21-32); CREATININE 0.91 mg/dl (0.60-1.20); GLUCOSE 69 mg/dl (70-99); POTASSIUM 3.9 mmol/L (3.5-5.1); SODIUM 138 mmol/L (136-145)
[2017-05-09 17:17] LABS: ALT/SGPT 20 U/L (12-78); CALCIUM 9.9 mg/dl (8.5-10.1)
[2017-05-09 17:29] LABS: ALKALINE PHOSPHATASE 91 U/L (45-117); AST/SGOT 20 U/L (15-37); TOTAL PROTEIN 7.5 gm/dl (6.4-8.2)
== END | disposition home or self-care (01) ==
LOC: C.LABBC 13:43
PROVIDERS: ATTEND Internal Medicine Geriatric Medicine
DX: I10 Essential (primary) hypertension (principal); F41.8 Other specified anxiety disorders; F10.20 Alcohol dependence, uncomplicated

== ENCOUNTER → 2017-06-28 | Outpatient (CLI) | payer OTHER ==
--- NOTE | 2017-06-28 08:27 | DIAGNOSTIC IMAGING REPORT ---
(CHEST) THORAX WITHOUT CT DOSE: 215.24 mGy.cm HISTORY: Pulmonary nodule CURRENT SMOKER, HISTORY OF SINUSITIS, LUNG NODULE TECHNIQUE: Multiaxial CT images of the chest were performed without contrast. A dose lowering technique was utilized adhering to the principles of ALARA. COMPARISON: 01/25/2017 FINDINGS: No change in the prior exam. Groundglass nodular density in the left anterior pulmonary apex, as well as a poorly defined groundglass density in left perihilar region remains stable. Emphysematous changes stable. Scattered peripheral bronchiectatic changes unaltered. There are no new or interval findings. Limited evaluation the upper abdomen remains unremarkable. IMPRESSION: 1. Groundglass nodular densities left pulmonary apex and left perihilar region remain stable. 2. Emphysematous change with peripheral cystic and bronchiectatic changes also remain stable. 3. Mild prominence of the a sending aorta at 3.5 cm is unchanged compared to several prior exams. 4. No evidence for new, interval, or progressive process. The above report was generated using voice recognition software. It may contain grammatical, syntax or spelling errors. Electronically signed by: Markus Rg M.D. 06/28/2017 8:26 AM Dictated Date/Time: 06/28/2017 8:20 AM
== END | disposition home or self-care (01) ==
LOC: C.CTS 08:07
PROVIDERS: ATTEND Internal Medicine Critical Care Medicine
DX: F17.200 Nicotine dependence, unspecified, uncomplicated (principal); R91.1 Solitary pulmonary nodule; Z87.09 Personal history of other diseases of the respiratory system

== ENCOUNTER → 2017-09-26 | Outpatient (CLI) | payer OTHER ==
[~2017-09-26] MED LIST changes: +ASCO500T3 PO; -B-CO1CAP3 PO; +BUPR150T5 PO; -BUSP5TAB59 PO; -CALC625T35 PO; +FIBER TAB PO; -THIA1TAB11 PO; +ZINC PO
--- NOTE | 2017-09-27 14:36 | MAMMOGRAPHY REPORT ---
BILATERAL DIGITAL SCREENING MAMMOGRAM TOMOSYNTHESIS WITH CAD: 09/26/2017 CLINICAL HISTORY: Asymptomatic. Personal history of breast cancer. TECHNIQUE: The study was acquired using full field digital technology and interpreted from soft copy. Breast tomosynthesis in addition to standard 2D mammography was performed. Current study was also ev aluated with a Computer Aided Detection (CAD) system. COMPARISON: Comparison is made to exams dated: 09/24/2016 mammogram, 09/22/2015 mammogram, 09/20/2014 m ammogram, 09/14/2011 mammogram, 09/12/2010 mammogram, and 09/09/2009 mammogram - [facility] enter. BREAST COMPOSITION: The tissue of both breasts is extremely dense, which lowers the sensitivity of ma mmography. FINDINGS: No suspicious masses, calcifications, or areas of architectural distortion are noted in either breast . There has been no significant interval change compared to prior exams. There are stable postsurgic al changes in the right 12:00 breast from prior lumpectomy. A linear scar marker overlies the right anterior breast. The breasts are diffusely increased in density compared to prior exams, consistent with provided history of interval weight loss. IMPRESSION: ACR BI-RADS CATEGORY 2: BENIGN There is no mammographic evidence of malignancy. A 1 year screening mammogram is recommended.( 019) The patient will receive written notification of the results. Some breast cancers are not detected with mammography. A negative mammographic report should not shayy y biopsy if a clinically suggestive mass is present. Yolanda Huerta M.D. /:09/26/2017 15:44:16 Multimedia Editor: Hollie Kaiser [facility] letter sent: Normal 1/2 BI-RADS Code: ACR BI-RADS Category 2: Benign
== END | disposition home or self-care (01) ==
LOC: C.MAMM 09:23
PROVIDERS: ATTEND Internal Medicine Geriatric Medicine
DX: Z12.31 Encounter for screening mammogram for malignant neoplasm of breast (principal)

== ENCOUNTER → 2017-10-14 | Day surgery (SDC) | payer OTHER ==
[2017-09-24 11:34] VITALS: BMI 16.0
--- NOTE | 2017-09-30 15:17 | PAT Medication Instructions ---
Service Date Sep 30, 2017. Current Home Medication List Ascorbic Acid (Vitamin C), 1,000 MG PO QAM Bupropion Hcl (Bupropion Hcl Xl), 150 MG PO QAM Calcium/Vitamin D (Os-Justin 500 Plus D), 1 TAB PO BID Escitalopram (Lexapro), 20 MG PO QAM Fish Oil ([place]-3), 1 CAP PO QAM Folic Acid (Folvite), 1 MG PO QAM Garlic (Garlic), 1,000 MG PO QAM Metoprolol Succ (Toprol Xl) (Toprol-Xl), 50 MG PO QAM Multivitamin (Multivitamin), 1 TAB PO HS Sennosides-Docusate Sodium (Stool Softener), 1 TAB PO QAM Simvastatin (Zocor), 40 MG PO QAM [Fiber Tab], 1 TAB PO BID [Zinc], 50 MG PO QAM Medication Instructions For Your Scheduled Surgery - Hold the following medications starting 10/02/17: Garlic (Garlic), 1,000 MG PO QAM Fish Oil ([place]-3), 1 CAP PO QAM - Hold the following medications the morning of surgery: [Fiber Tab], 1 TAB PO BID [Zinc], 50 MG PO QAM Sennosides-Docusate Sodium (Stool Softener), 1 TAB PO QAM Folic Acid (Folvite), 1 MG PO QAM Calcium/Vitamin D (Os-Justin 500 Plus D), 1 TAB PO BID Ascorbic Acid (Vitamin C), 1,000 MG PO QAM - Take the following medications the morning of surgery with a sip of water: Bupropion Hcl (Bupropion Hcl Xl), 150 MG PO QAM Escitalopram (Lexapro), 20 MG PO QAM Metoprolol Succ (Toprol Xl) (Toprol-Xl), 50 MG PO QAM Simvastatin (Zocor), 40 MG PO QAM - Take the following medications as scheduled the night before surgery: [Fiber Tab], 1 TAB PO BID Multivitamin (Multivitamin), 1 TAB PO HS Calcium/Vitamin D (Os-Justin 500 Plus D), 1 TAB PO BID If you have any questions please call us at [phone] or [phone] or [phone]
[2017-10-01 08:46] VITALS: BMI 16.0
[2017-10-01 10:29] LABS: CALCIUM 9.5 mg/dl (8.5-10.1); CREATININE 0.58 mg/dl (0.60-1.20)
[~2017-10-14] VITALS: Ht 162.6 cm; Wt 44.2 kg
[~2017-10-14] MED LIST changes: +ATROPINE SULFATE 0.1 MG/ML 5ML SYR IV PRN; +BUPIVACAINE 0.5 % 5 MG/1 ML PF 10ML VIAL ONE; +CEFAZOLIN 2000MG IV PUSH 15 ML IV SCH; +CEFAZOLIN SOD 1 GM VIAL ONE; +CONRAY 60% 50 ML VIAL ONE; +DEXAMETHASONE SOD INJ 4 MG/ML VIAL ONE; +EpHEDrine SULFATE INJ 50 MG/ML AMP IV PRN; +FENTANYL CITRATE INJ 50 MCG/1 ML 2 ML VIAL IV PRN; +FENTANYL CITRATE INJ 50 MCG/1 ML 2 ML VIAL ONE; +GLYCOPYRROLATE INJ 0.2 MG/ML VIAL ONE; +HEPARIN SOD (PORCINE) 1000 UNIT/ML 10 ML VIAL ONE; +KETOROLAC TROMETHAMINE 30 MG/ML VIAL ONE; +LACTATED RINGER'S 1000ML 1,000 ML IV SCH; +LIDOCAINE HCL 2% 2 ML VIAL (20MG/ML) ONE; +MIDAZOLAM HCL 1 MG/ML 2ML VIAL ONE; +MoRPHine SULFATE 4 MG/ML 1 ML CARP\\VIAL IV PRN; +NEOSTIGMINE METHYLSULFATE 5 MG/5 ML SYR ONE; +ONDANSETRON INJ 2 MG/ML 2 ML VIAL IV PRN; +ONDANSETRON INJ 2 MG/ML 2 ML VIAL ONE; +OXYCODONE/ACETAMINOPHEN 5-325 TAB PO PRN; +PROMETHAZINE HCL INJ 6.25 MG in SODIUM CHLORIDE 0.9% 50ML 50 ML IV PRN; +PROPOFOL IV EMULSION 10 MG/ML 20 ML VIAL ONE; +ROCURONIUM BROMIDE 10 MG/ML 5 ML VIAL ONE; +SODIUM CHLORIDE 0.9% 1000ML 1,000 ML IV SCH; +SUCCINYLCHOLINE CHLORIDE 20 MG/ML 10 ML VIAL IV ONE
[2017-10-14 05:47] VITALS: BP 161/79; PULSE 76; TEMP 36.6; O2SAT 96; Ht 162.6 cm; Wt 44.2 kg
--- NOTE | 2017-10-14 08:23 | [facility] Post Operative Brief Note ---
Immediate Operative Summary Operative Date Oct 14, 2017. Pre-Operative Diagnosis Choledocholithiasis Post-Operative Diagnosis Same Procedure(s) Performed Laparoscopic Cholecystectomy Surgeon Dr Dawn Camp Nurse Surgeon(s) Ute Maria PA-C Estimated Blood Loss 3ML Findings Consistent with Post-Op Diagnosis Specimens A. Gallbladder Drains None Anesthesia Type General Complication(s) none
--- NOTE | 2017-10-14 08:27 | Discharge Instructions ---
Discharge Instructions Date of Service Oct 14, 2017. Admission Reason for Admission: Hx of choledocholithiasis and pancreatitis Discharge Discharge Diagnosis / Problem: Same Discharge Goals Goal(s): Decrease discomfort Activity Recommendations Activity Limitations: per Instructions/Follow-up section Shower/Bathe: tomorrow (shower only) . Instructions / Follow-Up Instructions / Follow-Up Post-Surgical ~ Discharge Instructions Activity Recommendations: - lifting limitation: (10 pounds for 2 weeks), - exercise/sex/sports limit: (nonstrenuous for 2 weeks), - driving or machine use limit: (none for 1 week), - Shower/bathe limit: (may shower beginning tomorrow) Diet: - Resume previous diet SPECIAL CARE INSTRUCTIONS: - May shower in 24 hours. Let water run over area and pat dry. - Leave steri strips on for one week. - Call the surgeon's office with any questions or concerns - - (ex. temperature higher than 101 degrees F, excessive bleeding or pain). MEDICATIONS: - Resume previous medications unless instructed otherwise by your surgeon. - Ibuprofen 600 mg every 6 hours with food - Percocet 1 every 4 hours, as needed for pain FOLLOW UP VISIT: - If not already scheduled, please call the office to schedule a two week follow-up appointment. Office number Current Hospital Diet Patient's current hospital diet: Discharge Diet Recommended Diet: Regular Diet Procedures Procedures Performed: Laparoscopic Cholecystectomy Pending Studies Studies pending at discharge: yes List of pending studies: Pathology Medical Emergencies . Who to Call and When: Medical Emergencies: If at any time you feel your situation is an emergency, please call 911 immediately. . Non-Emergent Contact Non-Emergency issues call your: Primary Care Provider, Surgeon Call Non-Emergent contact if: your pain is worsening, wound has increased redness, wound has increased pain . "Provider Documentation" section prepared by Markus Dawn. .
--- NOTE | 2017-10-14 09:04 | OPERATIVE REPORT ---
DATE OF OPERATION: 10/14/2017 PREOPERATIVE DIAGNOSES: Cholelithiasis, history of choledocholithiasis, history of pancreatitis. POSTOPERATIVE DIAGNOSES: Cholelithiasis, history of choledocholithiasis, history of pancreatitis. PROCEDURE: Laparoscopic cholecystectomy. SURGEON: Markus Dawn MD CUSHION WORKER: Ute Maria PA-C. FINDINGS: The gallbladder was elongated. The peritoneum was mildly thickened and the attachments to the liver on to the infundibulum were thickened. There were some adhesions of the omentum and more flimsy adhesions of the duodenum to the gallbladder wall. The cystic duct was not dilated. The liver was of normal size and contour and the visible bowel appeared normal. TECHNIQUE: The patient was given a general anesthetic and the area was prepped and draped in the usual sterile fashion. Transverse incision was made below the umbilicus, carried down through the subcutaneous tissue to the fascia, which was grasped with 2 Russ clamps and incised between. The peritoneum was identified and incised. The abdomen was insufflated to a pressure of 15 mmHg with carbon dioxide. The upper midline, midclavicular, and anterior axillary introducers were placed under direct vision through small skin incisions. Traction was placed on the gallbladder and the adhesions were taken down using blunt and cautery dissection where appropriate. This dissection was carried until the infundibulum could be identified. Traction was placed on the infundibulum and the peritoneum on the lateral side was opened. This allowed me then to dissect the infundibulum away from the liver on that lateral side and then worked anteriorly over the infundibulum peeling connective tissue and peritoneum towards the common bile duct and then working medially and entering the triangle of Calot. The gallbladder was dissected away from the liver in the infundibular area on that medial side allowing for better mobility. Additional dissection was carried out of flimsy connective tissue and a plane was established on the medial side of the gallbladder where the cystic artery and cystic duct lymph node were identified. I was then able to establish a plane behind the cystic duct and confirmed the site of the cystic duct gallbladder junction. Three clips were placed on the proximal cystic duct, one near the gallbladder junction that was divided. The cystic artery was then clipped twice proximally once near the gallbladder and divided. I then was able to elevate the infundibulum more posterior to that and dissect the gallbladder off the liver. There were 3 tubular structures, one of which was a posterior branch of the artery and then the other were either posterior branches or lymphatics that were clamped and divided. The gallbladder was then peeled off the liver bed with ease using cautery. It was placed into an Endobag and brought out to the upper midline incision. That introducer was replaced and the gallbladder bed of the liver was inspected. There was no bleeding. The previously placed clips were intact. The subdiaphragmatic and subhepatic spaces were irrigated and the irrigation was removed. The gallbladder bed of the liver was again inspected and there was no bleeding. The gas was allowed to escape and the introducers were removed. The fascia of the umbilical and upper midline introducer sites was closed with interrupted 0 Vicryl and skin of all the incisions was closed with 4-0 Monocryl in either an interrupted or running subcuticular fashion. The skin was anesthetized with 0.5% Marcaine. The skin was cleansed, dried, benzoin placed, Steri-Strips applied. The estimated blood loss was 3 mL. Sponge, needle, and instrument counts were correct prior to closure. The patient tolerated the surgical procedure without complication and was transferred to recovery. I attest to the content of the Intraoperative Record and any orders documented therein. Any exception s are noted below.
[2017-10-14 09:30] VITALS: BP 159/78
--- NOTE | 2017-10-14 09:41 | Anesthesiology Progress Note ---
Anesthesia Post Op Note Date & Time Oct 14, 2017 at 09:41 Vital Signs Pain Intensity: 0 Vital Signs Past 12 Hours Date Time Temp Pulse Resp B/P (MAP) Pulse Ox O2 Delivery O2 Flow Rate FiO2 10/14/17 09:30 64 19 159/78 97 Nasal Cannula 2 10/14/17 09:20 37.3 64 20 149/77 97 Nasal Cannula 2 10/14/17 09:10 69 16 164/75 97 Nasal Cannula 2 10/14/17 09:00 66 18 153/86 100 Nasal Cannula 4 10/14/17 08:50 65 21 166/85 99 Oxymask 10 10/14/17 08:42 36.5 68 20 171/80 96 Oxymask 10 10/14/17 05:47 36.6 76 20 161/79 (106) 96 Room Air Notes Mental Status: alert / awake / arousable, participated in evaluation Pt Amnestic to Procedure: Yes Nausea / Vomiting: adequately controlled Pain: adequately controlled Airway Patency, RR, SpO2: stable & adequate BP & HR: stable & adequate Hydration State: stable & adequate Anesthetic Complications: no major complications apparent
[2017-10-14 09:45] VITALS: PULSE 63; TEMP 36.8; O2SAT 93
[2017-10-14 10:15] VITALS: PULSE 63; TEMP 36.7; O2SAT 94
[2017-10-14 10:45] VITALS: PULSE 64; O2SAT 92
== END | disposition home or self-care (01) ==
LOC: C.ACU 05:15
PROVIDERS: ATTEND Surgery
DX: K81.2 Acute cholecystitis with chronic cholecystitis (principal); I10 Essential (primary) hypertension; F32.9 Major depressive disorder, single episode, unspecified; J44.9 Chronic obstructive pulmonary disease, unspecified; F17.210 Nicotine dependence, cigarettes, uncomplicated; E78.00 Pure hypercholesterolemia, unspecified; Z88.2 Allergy status to sulfonamides; Z85.3 Personal history of malignant neoplasm of breast